=== PATIENT | female | born 1945 | race Caucasian/White ===

== ENCOUNTER → 2018-01-14 17:19 | Outpatient (CLI) | payer MEDICARE, BC, SELFPAY ==
[2018-01-14 18:30] LABS: Thyroid Stim Hormone (TSH) 2.14 uIU/mL (0.358-3.74); Vitamin D,25 Hydroxy 47.6 ng/mL (29.95-100.01)
[2018-01-16 11:30] LABS: Hep C Antibodies <0.1 s/co ratio (0.0-0.9)
== END ==
PROVIDERS: Family Provider Family Medicine Geriatric Medicine; PCP Family Medicine Geriatric Medicine; Visit Provider Family Medicine Geriatric Medicine
DX: Z00.00 Encounter for general adult medical examination without abnormal findings (principal); Z13.89 Encounter for screening for other disorder; E55.9 Vitamin D deficiency, unspecified
CPT/HCPCS: 36415; 82306; 84443; 86803

== ENCOUNTER → 2018-03-11 09:52 | Outpatient (CLI) | payer MEDICARE, BC, SELFPAY ==
[2018-03-11 12:34] LABS: Absolute Lymphocyte Count 0.91 X10^3/ul (0.83-4.51); Basophil# 0.01 X10^3/uL; Basophil% 0.2 % (0-1); Eosinophil# 0.05 X10^3/uL; Eosinophils% 1.2 % (0-5); Hematocrit 37.2 % (37-47); Hemoglobin 12.1 g/dl (12.0-15.0); Lymphocyte # 0.91 X10^3/ul (4.0); Lymphocyte % 21.3 % (19-41); Mean Corp Hgb Conc 32.5 g/gl (32-36); Mean Corpuscular Hgb 29.2 pg (27.0-32.0); Mean Corpuscular Volume 89.9 fL (81-99); Mean Platelet Vol. 11.1 fl (6.2-12.0); Monocyte# 0.35 X10^3/uL; Monocyte% 8.2 % (0-10); Neutrophil # 2.96 X10^3/uL (2.7-7.7); Neutrophil % 69.1 % (47-70); Platelet Count 174 K/mm3 (150-450); RBC Distribution Width CV 13.8 % (11.6-14.6); RBC Distribution Width SD 44.5 fl (35.1-43.9); Red Blood Count 4.14 M/mm3 (4.2-5.4); White Blood Count 4.3 K/mm3 (4.4-11.0)
[2018-03-11 12:37] LABS: POSITIVE COUNT NO; POSITIVE DIFFERENTIAL NO; POSITIVE MORPHOLOGY NO
[2018-03-11 12:38] LABS: Prothrombin Time (Protime)PT. 13.2 SECONDS (11.7-14.9)
[2018-03-11 12:41] LABS: Anion Gap 6 (5-15); BUN 23 mg/dL (7-18); BUN/Creat Ratio 24.1 RATIO (10-20); Calcium,Total 9.3 mg/dL (8.5-10.1); Chloride 104 mmol/L (98-107); Creatinine, Serum 0.95 mg/dL (0.55-1.02); EST Glomerular Filtration Rate 61 mL/min (>60); Est Glom Filt Rate - Afr Amer 74 mL/min (>60); Glucose 111 mg/dL (74-106); Potassium 4.4 mmol/L (3.5-5.1); Sodium Level 140 mmol/L (136-145)
== END ==
PROVIDERS: Family Provider Family Medicine Geriatric Medicine; PCP Family Medicine Geriatric Medicine; Visit Provider Family Medicine Geriatric Medicine
DX: Z01.818 Encounter for other preprocedural examination (principal); I10 Essential (primary) hypertension
CPT/HCPCS: 36415; 80048; 85025; 85610; 87081

== ENCOUNTER → 2018-06-24 15:35 | Outpatient (CLI) | payer MEDICARE, BC, SELFPAY | PROVIDERS: Family Provider Family Medicine Geriatric Medicine; PCP Family Medicine Geriatric Medicine; Visit Provider Family Medicine Geriatric Medicine | DX: N39.0 Urinary tract infection, site not specified (principal) | CPT/HCPCS: 87077; 87086; 87088; 87186 ==

== ENCOUNTER → 2018-08-22 14:41 | Outpatient (CLI) | payer MEDICARE, BC, SELFPAY ==
[2018-08-22 16:19] LABS: Absolute Lymphocyte Count 1.35 X10^3/ul (0.83-4.51); Absolute Neutrophil Count 6.9 X10^3/uL (2.0-7.7); Basophil# 0.01 X10^3/uL; Basophil% 0.1 % (0-1); Hematocrit 37.4 % (37-47); Hemoglobin 12.1 g/dl (12.0-15.0); Lymphocyte # 1.35 X10^3/ul (4.0); Lymphocyte % 15.1 % (19-41); Mean Corp Hgb Conc 32.4 g/gl (32-36); Mean Corpuscular Hgb 29.4 pg (27.0-32.0); Mean Platelet Vol. 10.8 fl (6.2-12.0); Monocyte# 0.73 X10^3/uL; Monocyte% 8.1 % (0-10); Neutrophil # 6.87 X10^3/uL (2.7-7.7); Neutrophil % 76.6 % (47-70); Platelet Count 228 K/mm3 (150-450); RBC Distribution Width CV 15.6 % (11.6-14.6); Red Blood Count 4.11 M/mm3 (4.2-5.4)
[2018-08-22 16:23] LABS: POSITIVE COUNT NO; POSITIVE DIFFERENTIAL NO; POSITIVE MORPHOLOGY NO
[2018-08-22 16:51] LABS: Vitamin D,25 Hydroxy 35.6 ng/mL (29.95-100.01)
[2018-08-22 16:57] LABS: ALB/GLOB Ratio 1.1 RATIO (0.9-2.4); AST(SGOT) 22 U/L (15-37); Alanine Aminotransfer ALT/SGPT 32 U/L (13-56); Albumin, Serum 3.8 g/dL (3.2-5.0); Alkaline Phosphatase 85 U/L (45-117); Anion Gap 7 (5-15); BUN 28 mg/dL (7-18); BUN/Creat Ratio 27.5 RATIO (10-20); Calcium,Total 9.1 mg/dL (8.5-10.1); Chloride 103 mmol/L (98-107); Creatinine, Serum 1.02 mg/dL (0.55-1.02); EST Glomerular Filtration Rate 57 mL/min (>60); Est Glom Filt Rate - Afr Amer 69 mL/min (>60); Globulin 3.5 g/dL (2.2-4.2); Glucose 80 mg/dL (74-106); Potassium 3.7 mmol/L (3.5-5.1); Protein, Total 7.3 g/dL (6.4-8.2); Sodium Level 141 mmol/L (136-145); Thyroid Stim Hormone (TSH) 2.02 uIU/mL (0.358-3.74)
--- OUTSIDE RECORDS SUMMARY | 2018-10-08 12:00 | XMS RPT_ITS ---
:1945 Author Organization [place] Support Name Relationship Address Phone R Unavailable Unavailable Unavailable NATIVIDAD VALDEZ Unavailable [address] + [address] [place] [address] R Unavailable Unavailable Unavailable NATIVIDAD VALDEZ Unavailable [address] + [address] [place] [address] R Unavailable Unavailable Unavailable NATIVIDAD VALDEZ Unavailable [address] + [address] [place] [address] R Unavailable Unavailable Unavailable NATIVIDAD VALDEZ Unavailable [address] + [place] [address] NATIVIDAD VALDEZ Unavailable [address] + [place] [address] NATIVIDAD VALDEZ Unavailable [address] + [address] [place] [address] NATIVIDAD VALDEZ Unavailable [address] + [place] [address] NATIVIDAD VALDEZ Unavailable [address] + [place] [address] NATIVIDAD VALDEZ Unavailable [address] + [place] [address] NATIVIDAD VALDEZ Unavailable [address] + [address] [place] [address] NATIVIDAD VALDEZ Unavailable [address] + [place] [address] NATIVIDAD VALDEZ Unavailable [address] + [place] [address] R Unavailable Unavailable Unavailable NATIVIDAD VALDEZ Unavailable [address] + [place] [address] NATIVIDAD VALDEZ Unavailable [address] + [place] [address] NATIVIDAD VALDEZ Unavailable [address] + [address] [place] [address] NATIVIDAD VALDEZ Unavailable [address] + [place] [address] NATIVIDAD VALDEZ Unavailable [address] + [place] [address] NATIVIDAD VALDEZ Unavailable [address] + [place] [address] NATIVIDAD VALDEZ Unavailable [address] + [address] [place] [address] NATIVIDAD VALDEZ Unavailable [address] + [place] [address] NATIVIDAD VALDEZ Unavailable [address] + [place] [address] NATIVIDAD VALDEZ Unavailable [address] + [place] [address] NATIVIDAD VALDEZ Unavailable [address] + [address] [place] [address] NATIVIDAD VALDEZ Unavailable [address] + [place] [address] R Unavailable Unavailable Unavailable NATIVIDAD VALDEZ Unavailable [address] + [place] [address] R Unavailable Unavailable Unavailable NATIVIDAD VALDEZ Unavailable [address] + [place] [address] NATIVIDAD VALDEZ Unavailable [address] + [place] [address] NATIVIDAD VALDEZ Unavailable [address] + [place] [address] Care Team Providers Name Role Phone ARNOLDO WOOTEN, JAMARI Sepulveda Attending Unavailable ARNOLDO WOOTEN, JAMARI Sepulveda Primary Care Unavailable JAMES WEEKS MD Attending Unavailable DESI WOOTEN, JAMES Admitting Unavailable YUNIEL STEVEN, DR. LUCAS Primary Care Unavailable JAMES WEEKS MD Consulting Unavailable ABRAHAM WASHINGTON MD Consulting Unavailable JAVID CLARK MD Consulting Unavailable ZACHARY GOMEZ DO Consulting Unavailable JAZMIN STEVEN, DR. YONNY Guzman Consulting Unavailable DESI WOOTEN, JAMES Attending Unavailable [place]INGBRITTANY WO ID~[id number] Primary Care Unavailable DESI WOOTEN, JAMES Attending Unavailable DESI WOOTEN, JAMES Referring Unavailable YUNIEL STEVEN, DR. CAINCORNELIUS Primary Care Unavailable JAMES WEEKS MD Attending Unavailable YUNIEL STEVEN, DR. CAINCORNELIUS Primary Care Unavailable DESI WOOTEN, JAMES Attending Unavailable YUNIEL STEVEN, DR. CAINCHI Primary Care Unavailable Yuniel, Eric Chi Attending Unavailable Yuniel, Eric Chi Primary Care Unavailable Yuniel, Eric Chi Attending Unavailable Yuniel, Eric Chi Primary Care Unavailable Wyneski, Martha Attending Unavailable Wyneski, Martha Referring Unavailable Yuniel, Eric Chi Primary Care Unavailable Wyneski, Martha Attending Unavailable Wyneski, Martha Referring Unavailable Yuniel, Eric Chi Primary Care Unavailable Yuniel, Eric Chi Attending Unavailable Yuniel, Eric Chi Primary Care Unavailable Yuniel, Eric Chi Attending Unavailable Yuniel, Eric Chi Referring Unavailable Yuniel, Eric Chi Primary Care Unavailable Wyneski, Martha Attending Unavailable Wyneski, Martha Referring Unavailable Yuniel, Eric Chi Primary Care Unavailable PROBLEMS PROBLEMS DATE TYPE CONDITION / CODE ATTENDING STATUS SOURCE 03/11/2018 Unknown Z01.818 - Encounter Yuniel, Eric Chi Active [facility] for other Community preprocedural Hospital examination / Repository Z01.818(ICD-10) 03/11/2018 Unknown I10 - Essential Yuniel, Eric Chi Active [facility] (primary) Community hypertension / Hospital I10(ICD-10) Repository 01/14/2018 Unknown Z00.00 - Encounter Yuniel, Eric Chi Active [facility] for general adult Community medical examination Hospital without abnormal Repository findings / Z00.00(ICD-10) 01/14/2018 Unknown Z13.89 - Encounter Yuniel, Eric Chi Active [facility] for screening for Community other disorder / Hospital Z13.89(ICD-10) Repository 01/14/2018 Unknown E55.9 - Vitamin D Yuniel, Eric Chi Active [facility] deficiency, Community unspecified / Hospital E55.9(ICD-10) Repository 12/24/2017 Admitting Essential (primary) ARNOLDO WOOTEN, Active [facility] Diagnosis hypertension / [facility] I10(ICD-10) Repository 12/24/2017 Admitting Mixed hyperlipidemia ARNOLDO WOOTEN, Active [facility] Diagnosis / E78.2(ICD-10) [facility] Repository PROCEDURES PROCEDURES No Procedure Records FoundRESULTS RESULTS CT ABD/PELVIS W/WO Observed: 09/06/2018 Status: F Source: [place] CONTRAST 6:52 AM [facility] REPOSITORY [facility] Imaging Services [address] [place] [address] CT Abd/Pelvis W/WO Contrast MR#: [id number] Acct: [id number] Name: TERRIE VALDEZ Rep #: [id number] : 1945 F 73 From: Adrien Smith MD PCP: Yuniel WOOTEN,Eric [facility] Status: REG CLI Study: CT Abd/Pelvis W/WO Contrast Date of Exam: 09/06/18 Exam# [id number] Ordering Dr: Martha Wallis MD STUDY: CT ABDOMEN AND PELVIS WITH AND WITHOUT CONTRAST REASON FOR EXAM: Female, 73 years old. Renal cyst RADIATION DOSAGE (If Supplied By Facility): CTDIvol = ( 17.19 ) mGy, DLP = ( 2160.30 ) mGycm TECHNIQUE: Transaxial images were obtained from the dome of the diaphragm to the symphysis pubis without oral contrast. 100mL ml of Isovue 300 contrast was administered. Sagittal and coronal images were reconstructed. Individualized dose optimization techniques were used for this CT. COMPARISON: Ultrasound 08/30/2018 FINDINGS: The visualized lung bases are unremarkable. The visualized portions of the heart are within normal limits. There is decreased attenuation of the liver consistent with steatosis. Hepatomegaly. Normal gallbladder and extrahepatic biliary system. Normal spleen. Normal pancreas. Normal bilateral adrenal glands. Bilateral peripelvic renal cysts. Posterior left simple renal cyst measuring 5.1 x 4.2 cm. Septation seen on prior ultrasound is not visible by CT. Normal visualized stomach. 16mm duodenal diverticulum. There are multiple colonic diverticula consistent with diverticulosis. There is non-visualization of the appendix. Normal abdominal aorta. Normal inferior vena cava. Normal retroperitoneum. Normal urinary bladder. Normal abdominal wall. There are diffuse degenerative changes of the visualized lumbar spine. CT/CT Abd/Pelvis W/WO Contrast IMPRESSION: Posterior left simple renal cyst measuring 5.1 x 4.2 cm. Septation seen on prior ultrasound is not visible by CT. Small duodenal diverticulum. Hepatomegaly and fatty liver. Electronically Signed: Adrien Smith MD at 7:40 EST Tel , Service support , CC: Martha Wallis MD; Eric Bourne MD Warranty Coordinator: Signed SERUM CREATININE AND Collected: 09/04/2018 Status: F Source: [place] GFR 1:34 PM [facility] REPOSITORY TYPE CODE TESTS RESULT OUT OF RANGE REFERENCE UNITS LAB L501.1100 0.55-1.02 mg/dL Normal 0.76 CREAT,SERUM Result Comment: The validity of the calculated GFR AND GFRAA in patients over 70 years has not been determined. Clinical correlation is essential. LAB L501.1110 >60 mL/min Normal EST GFR 80 Result Comment: Non- GFR Calc LAB L501.1115 >60 mL/min Normal EST GFR - AA 96 Result Comment: GFR Calc Performed By: #### L501.1105 #### [facility] [address] [facility] [place], [address] KIDNEY AND BLADDER Observed: 08/30/2018 Status: F Source: TASHA 9:40 AM [facility] REPOSITORY [facility] Imaging Services [address] [place] [address] Kidney and Bladder MR#: [id number] Acct: [id number] Name: TERRIE VALDEZ Rep #: [id number] : 1945 F 73 From: Scout Degroot MD PCP: Yuniel WOOTEN,Eric Strauss Status: REG CLI Study: Kidney and Bladder Date of Exam: 08/30/18 Exam# [id number] Ordering Dr: Martha Wallis MD STUDY: RENAL ULTRASOUND - COMPLETE REASON FOR EXAM: Female, 73 years old. Chronic UTIs. TECHNIQUE: Ultrasound evaluation of the kidneys was performed with real-time and static verduzco-scale imaging. COMPARISON: None. FINDINGS: RIGHT KIDNEY: Normal location of the right kidney, which is normal in size. The right kidney measures 10.5 cm x 5.9 cm x 4.6 cm. There is a normal cortex of the right kidney. The renal cortex measures 1.1 cm. There is no right renal mass or cyst. There are no right renal calculi. There is no right hydronephrosis. DISTAL RIGHT URETER: There is non-visualization of the distal right ureter. There is no demonstrated right ureterovesical junction calculus. There is a visualized right ureteral jet. LEFT KIDNEY: Normal location of the left kidney, which is normal in size. The left kidney measures 11.6 cm x 4.7 cm x 6.0 cm. There is a normal cortex of the left kidney. The renal cortex measures 1.6 cm. There is a 4 cm x 4.4 cm x 4.7 cm left renal cyst with a septation. There are no left renal calculi. There is no left hydronephrosis. DISTAL LEFT URETER: There is non-visualization of the distal left ureter. There is no demonstrated left ureterovesical junction calculus. There is a visualized left ureteral jet. BLADDER: The distended urinary bladder has a volume of 606.8 ml. The empty urinary bladder has a volume of 285 ml. There is a normal wall thickness of the distended urinary bladder. There is no demonstrated mass within the urinary bladder. There are no demonstrated bladder calculi. US/Kidney and Bladder IMPRESSION: Left renal cyst. Electronically Signed: Scout Degroot MD at 11:31 EST Tel [phone], Service support , CC: Martha Wallis MD; Eric Bourne MD Warranty Coordinator: Signed CBC W/DIFF, AUTOMATED Collected: 08/22/2018 Status: F Source: T[place]HA 2:43 PM [facility] REPOSITORY TYPE CODE TESTS RESULT OUT OF RANGE REFERENCE UNITS LAB L100.1000 4.4-11.0 K/mm3 Normal WBC 9.0 LAB L100.1200 4.2-5.4 M/mm3 Low RBC 4.11 LAB L100.1300 12.0-15.0 g/dl Normal HGB 12.1 LAB L100.1400 37-47 % Normal HCT 37.4 LAB L100.1500 81-99 fL Normal MCV 91.0 LAB L100.1600 27.0-32.0 pg Normal MCH 29.4 LAB L100.1700 32-36 g/gl Normal MCHC 32.4 LAB L100.1810 11.6-14.6 % High RDW CV 15.6 LAB L100.1820 35.1-43.9 fl High RDW SD 51.0 LAB L100.1900 150-450 K/mm3 Normal PLT 228 LAB L100.2000 6.2-12.0 fl Normal MPV 10.8 LAB L100.2100 47-70 % High NEUT% 76.6 LAB L100.2200 19-41 % Low LY% 15.1 LAB L100.2300 0-10 % Normal MONO% 8.1 LAB L100.2400 0-5 % Normal EO% 0.0 LAB L100.2500 0-1 % Normal BASO% 0.1 LAB L100.2550 0.0-0.9 % Normal IM GRAN % 0.100 Result Comment: IG% - Immature Granulocytes (promyelocytes, myelocytes and metamyelocytes) > 1% indicates that a LEFT SHIFT is Present. LAB L100.2620 2.0-7.7 X10 3/uL Normal Absolute Neut 6.9 LAB L100.2720 0.83-4.51 X10 3/ul Normal Absolute Lymph 1.35 Performed By: #### L100.0100 #### [facility] [address], [place], [id number] VITAMIN D,25 HYDROXY Collected: 08/22/2018 Status: F Source: TASHA 2:43 PM [facility] REPOSITORY TYPE CODE TESTS RESULT OUT OF RANGE REFERENCE UNITS LAB L506.1000 29.95-100.01 ng/mL Normal Vitamin D 35.6 25-OH Result Comment: Vitamin D 25(OH) Status Range Deficiency <20 ng/mL (50nmol/L) Insuffciency 20 - 30 ng/mL (50 - 75 nmol/L) Sufficiency 30 - 100 ng/mL (75 - 250 nmol/L) Toxicity >100 ng/mL (>250 nmol/L) Performed By: #### L506.1000 #### [facility] [address] [place], [address] COMPREHENSIVE METABOLIC Collected: 08/22/2018 Status: F Source: TASHA [facility] 2:43 PM [facility] REPOSITORY TYPE CODE TESTS RESULT OUT OF RANGE REFERENCE UNITS LAB L501.0100 74-106 mg/dL Normal GLU 80 Result Comment: Please note revised GLUCOSE reference range effective 2017. LAB L501.1000 7-18 mg/dL High BUN 28 LAB L501.1100 0.55-1.02 mg/dL Normal CREAT,SERUM 1.02 Result Comment: The validity of the calculated GFR AND GFRAA in patients over 70 years has not been determined. Clinical correlation is essential. LAB L501.1110 >60 mL/min Low EST GFR 57 Result Comment: Non- GFR Calc LAB L501.1115 >60 mL/min Normal EST GFR - AA 69 Result Comment: GFR Calc LAB L501.1300 10-20 RATIO High BUN/CRE 27.5 LAB L501.1500 6.4-8.2 g/dL T Normal PROT 7.3 LAB L501.1800 3.2-5.0 g/dL Normal ALB 3.8 LAB L501.1950 2.2-4.2 g/dL Normal GLOB 3.5 LAB L501.2000 0.9-2.4 RATIO Normal A/G 1.1 LAB L501.2200 8.5-10.1 mg/dL CA Normal 9.1 LAB L501.4100 15-37 U/L Normal AST 22 LAB L501.4305 45-117 U/L Normal ALK P 85 LAB L501.4405 13-56 U/L Normal ALT 32 LAB L501.4600 0.20-1.00 mg/dL T Normal BILI 0.60 LAB L501.5300 136-145 mmol/L NA Normal 141 LAB L501.5600 3.5-5.1 mmol/L K Normal 3.7 LAB L501.5900 98-107 mmol/L CL Normal 103 LAB L501.6100 21.0-32.0 mmol/L Normal CO2 31.0 LAB L501.6200 5-15 Normal GAP 7 Performed By: #### L500.4050, L501.9520 #### [facility] [address] [place], [address] THYROID STIM HORMONE Collected: 08/22/2018 Status: F Source: TASHA (TSH) 2:43 PM [facility] REPOSITORY TYPE CODE TESTS RESULT OUT OF RANGE REFERENCE UNITS LAB L501.9520 0.358-3.74 uIU/mL Normal TSH 2.02 Performed By: #### L500.4050, L501.9520 #### [facility] [address] [facility] [facility], [address] Observed: 08/22/2018 Status: F Source: [place] CULTURE, URINE 2:43 PM [facility] REPOSITORY Urine Culture ORGANISM 1: Mixed Gram Positive Organisms Ald[place] Count 50,000-80,000 MIX CULTURE Mixed contaminants. Submit a new specimen if indicated. Performed By: #### M100.0650 #### [facility] [address] [facility] [facility], [address] Observed: 06/24/2018 Status: F Source: [place] CULTURE, URINE 3:37 PM [facility] REPOSITORY Urine Culture ORGANISM 1: Klebsiella oxytoca Alden Count >100,000 Klebsiella oxytoca: REACTION Amikacin $ <=2 S Amoxacillin/Clavulanic Acid $ <=2 S Ampicillin $ >=32 R Ampicillin/Sulbactam $ 4 S Aztreonam $$$ <=1 S Cefazolin $ <=4 S Cefepime $ <=1 S Ceftriaxone $ <=1 S Ciprofloxacin $ <=0.25 S ESBL - Ertapenim $$$ <=0.5 S Gentamicin $ <=1 S Imipenem *NF <=0.25 S Levofloxacin $ <=0.12 S Meropenem $ <=0.25 S Nitrofurantoin $ <=16 S Piperacillin/Tazobactam $$ <=4 S Tobramycin $ <=1 S Trimethoprim/Sulfametho $ <=20 S (NF) indicates non-formulary drug at [facility]. Approval by Infectious Disease Specialist required before non-formulary drugs may be ordered and/or dispensed. Performed By: #### M100.0650 #### [facility] [place], [address] CBC Collected: 03/27/2018 Status: F Source: [facility] 3:45 AM [facility] REPOSITORY TYPE CODE TESTS RESULT OUT OF REFERENCE UNITS RANGE LAB WBC(LOINC) 4.50-10.80 10 3/mcL WBC 8.50 LAB RBCCT(LOINC 4.10-5.30 10 6/mcL ) Low RBC 2.94 LAB HGB(LOINC) 12.0-16.0 G/dL Low Hgb 8.8 LAB HCT(LOINC) 34.0-46.0 % Low Hct 25.5 LAB MCV(LOINC) 80.0-99.0 fL MCV 86.7 LAB MCH(LOINC) 27.0-33.0 pg MCH 29.8 LAB MCHC(LOINC) 32.0-36.0 G/dL MCHC 34.4 LAB RDW(LOINC) 11.5-15.5 % RDW 14.4 LAB PLT(LOINC) 150-450 10 3/mcL Low Platelet 134 LAB MPV(LOINC) 6.6-10.5 fL MPV 8.7 Performed By: #### CBC, ADIFF, ANEU, BMP, GFR #### [place] [address] .AUTO DIFF Collected: 03/27/2018 Status: F Source: [facility] 3:45 AM [facility] REPOSITORY TYPE CODE TESTS RESULT OUT OF REFERENCE UNITS RANGE LAB NINO(LOINC) 50.0-75.0 % High Neutrophil % 78.5 LAB LYM(LOINC) 20.0-40.0 % Low Lymphocyte % 10.2 LAB MON(LOINC) 2.0-13.0 % Monocyte % 11.2 LAB EO(LOINC) 0.0-6.0 % Eosinophil % 0.0 LAB BAS(LOINC) 0.0-2.5 % Basophil % 0.1 LAB ABLYM(LOIN 0.90-4.32 10 3/mcL C) Lymphocyte, 0.90 Absolute LAB SHARITA(LOINC 0.09-1.40 10 3/mcL ) Monocyte, 1.00 Absolute LAB AEOS(LOINC 0.00-0.65 10 3/mcL ) Eosinophil, 0.00 Absolute LAB ABAS(LOINC 0.00-0.27 10 3/mcL ) Basophil, 0.00 Absolute Performed By: #### CBC, ADIFF, ANEU, BMP, GFR #### [place] [address] .NEUABS Collected: 03/27/2018 Status: F Source: [facility] 3:45 AM [facility] REPOSITORY TYPE CODE TESTS RESULT OUT OF REFERENCE UNITS RANGE LAB ANEU(LOINC) 2.25-8.10 10 3/mcL Neutrophil, 6.70 Absolute Performed By: #### CBC, ADIFF, ANEU, BMP, GFR #### [place] [address] BMP Collected: 03/27/2018 Status: F Source: [facility] 3:45 AM [facility] REPOSITORY TYPE CODE TESTS RESULT OUT OF REFERENCE UNITS RANGE LAB GLU(LOINC) 82-115 mg/dL Glucose Level 98 LAB NA(LOINC) 136-145 mEq/L Sodium Level 141 LAB K(LOINC) 3.5-5.0 mEq/L Potassium Level 4.8 LAB CL(LOINC) 98-110 mEq/L Chloride 106 LAB CO2(LOINC) 22-32 mEq/L CO2 28 LAB EBAL(LOINC 4.0-15.0 mEq/L ) Electrolyte Balance 7.0 LAB BUN(LOINC) 8.0-22.0 mg/dL BUN 20.0 LAB CRE(LOINC) 0.50-1.20 mg/dL Creatinine Lvl (s) 0.77 LAB BC(LOINC) 10.0-22.0 ratio High BUN/Creatinine 26.0 Ratio LAB CA(LOINC) 8.4-10.1 mg/dL Calcium Lvl 8.4 Performed By: #### CBC, ADIFF, ANEU, BMP, GFR #### [address] [address] .GFR Collected: 03/27/2018 Status: F Source: [facility] 3:45 AM [facility] REPOSITORY TYPE CODE TESTS RESULT OUT OF REFERENCE UNITS RANGE LAB GFRAA(LOINC ml/min/1.73 ) sqm GFR >60 Green[place]ic Result Comment: GFR Population mean for , Non- Americans Ages 20-29 = 116 mL/min/1.73 sq.m. Ages 30-39 = 107 mL/min/1.73 sq.m. Ages 40-49 = 99 mL/min/1.73 sq.m. Ages 50-59 = 93 mL/min/1.73 sq.m. Ages 60-69 = 85 mL/min/1.73 sq.m. Ages 70+ = 75 mL/min/1.73 sq.m. Chronic Kidney Disease: Less than 60 mL/min/1.73 square meters End Stage Renal Disease: Less than 15 mL/min/1.73 square meters LAB GFRNO(LOINC) ml/min/1.73sqm GFR Non- >60 Result Comment: GFR Population mean for , Non- Americans Ages 20-29 = 116 mL/min/1.73 sq.m. Ages 30-39 = 107 mL/min/1.73 sq.m. Ages 40-49 = 99 mL/min/1.73 sq.m. Ages 50-59 = 93 mL/min/1.73 sq.m. Ages 60-69 = 85 mL/min/1.73 sq.m. Ages 70+ = 75 mL/min/1.73 sq.m. Chronic Kidney Disease: Less than 60 mL/min/1.73 square meters End Stage Renal Disease: Less than 15 mL/min/1.73 square meters Performed By: #### CBC, ADIFF, ANEU, BMP, GFR #### [address] [address] UA Collected: 03/26/2018 Status: F Source: [facility] 1:47 PM [facility] REPOSITORY TYPE CODE TESTS RESULT OUT OF RANGE REFERENCE UNITS LAB SPCUA(NISHANT NC) UA Specimen Type Catheter LAB CLRUA(NISHANT NC) UA Color Straw LAB APPUA(NISHANT Clear NC) UA Appear Clear LAB SGUA(LOIN 1.006-1.029 C) UA Spec Unknown Grav <=1.005 LAB GLUA(LOIN Negative mg/dL C) UA Glucose Negative LAB BILUA(NISHANT Neg-Trace NC) UA Bili Negative LAB KETUA(NISHANT Neg-Trace mg/dL NC) UA Ketones Negative LAB BLDUA(NISHANT Neg-Trace NC) UA Blood Unknown Small LAB PHUA(LOIN 5.0 - 8.0 C) UA pH 7.0 LAB PROUA(NISHANT Negative mg/dL NC) UA Protein Negative LAB UROUA(NISHANT 0.2-1.0 E.U./dL NC) UA Urobilinogen 0.2 LAB NITUA(NISHANT Negative NC) UA Nitrite Negative LAB LEUUA(NISHANT Negative NC) UA Leuk Est Unknown Large Performed By: #### UA, UAMIC #### [place] [address] UAMIC Collected: 03/26/2018 Status: F Source: [facility] 1:47 PM [facility] REPOSITORY TYPE CODE TESTS RESULT OUT OF RANGE REFERENCE UNITS LAB RBCUA(LOIN 0-2 /hpf C) UA RBC Negative LAB WBCUA(LOIN 0-5 /hpf C) UA WBC 0-2 LAB EPIUA(LOIN 0-20 /hpf C) UA Squam Epithelial 0-2 LAB AMOUA(LOIN /hpf C) UA Amorphus Trace LAB GLTUA(LOIN /hpf C) UA Unknown Glitter cells 0-2 Performed By: #### UA, UAMIC #### [place] [address] CBC Collected: 03/26/2018 Status: F Source: [facility] 3:40 AM [facility] REPOSITORY TYPE CODE TESTS RESULT OUT OF REFERENCE UNITS RANGE LAB WBC(LOINC) 4.50-10.80 10 3/mcL High WBC 11.40 LAB RBCCT(LOINC 4.10-5.30 10 6/mcL ) Low RBC 3.34 LAB HGB(LOINC) 12.0-16.0 G/dL Low Hgb 10.0 LAB HCT(LOINC) 34.0-46.0 % Low Hct 28.9 LAB MCV(LOINC) 80.0-99.0 fL MCV 86.5 LAB MCH(LOINC) 27.0-33.0 pg MCH 29.9 LAB MCHC(LOINC) 32.0-36.0 G/dL MCHC 34.5 LAB RDW(LOINC) 11.5-15.5 % RDW 14.5 LAB PLT(LOINC) 150-450 10 3/mcL Platelet 170 LAB MPV(LOINC) 6.6-10.5 fL MPV 9.1 Performed By: #### CBC, ADIFF, ANEU, BMP, GFR #### [place] [address] .AUTO DIFF Collected: 03/26/2018 Status: F Source: [facility] 3:40 AM [facility] REPOSITORY TYPE CODE TESTS RESULT OUT OF REFERENCE UNITS RANGE LAB NINO(LOINC) 50.0-75.0 % High Neutrophil % 91.2 LAB LYM(LOINC) 20.0-40.0 % Low Lymphocyte % 5.4 LAB MON(LOINC) 2.0-13.0 % Monocyte % 2.8 LAB EO(LOINC) 0.0-6.0 % Eosinophil % 0.2 LAB BAS(LOINC) 0.0-2.5 % Basophil % 0.4 LAB ABLYM(LOIN 0.90-4.32 10 3/mcL C) Low Lymphocyte, 0.60 Absolute LAB SHARITA(LOINC 0.09-1.40 10 3/mcL ) Monocyte, 0.30 Absolute LAB AEOS(LOINC 0.00-0.65 10 3/mcL ) Eosinophil, 0.00 Absolute LAB ABAS(LOINC 0.00-0.27 10 3/mcL ) Basophil, 0.00 Absolute Performed By: #### CBC, ADIFF, ANEU, BMP, GFR #### [place] [address] .NEUABS Collected: 03/26/2018 Status: F Source: [facility] 3:40 AM [facility] REPOSITORY TYPE CODE TESTS RESULT OUT OF REFERENCE UNITS RANGE LAB ANEU(LOINC) 2.25-8.10 10 3/mcL High Neutrophil, 10.40 Absolute Performed By: #### CBC, ADIFF, ANEU, BMP, GFR #### [place] [address] BMP Collected: 03/26/2018 Status: F Source: [facility] 3:40 AM [facility] REPOSITORY TYPE CODE TESTS RESULT OUT OF REFERENCE UNITS RANGE LAB GLU(LOINC) 82-115 mg/dL Glucose High Level 131 LAB NA(LOINC) 136-145 mEq/L Sodium Level 140 LAB K(LOINC) 3.5-5.0 mEq/L Potassium Level 4.8 LAB CL(LOINC) 98-110 mEq/L Chloride 105 LAB CO2(LOINC) 22-32 mEq/L CO2 26 LAB EBAL(LOINC 4.0-15.0 mEq/L ) Electrolyte Balance 9.0 LAB BUN(LOINC) 8.0-22.0 mg/dL BUN 22.0 LAB CRE(LOINC) 0.50-1.20 mg/dL Creatinine Lvl (s) 0.86 LAB BC(LOINC) 10.0-22.0 ratio High BUN/Creatinine 25.6 Ratio LAB CA(LOINC) 8.4-10.1 mg/dL Calcium Lvl 8.6 Performed By: #### CBC, ADIFF, ANEU, BMP, GFR #### [place] [address] .GFR Collected: 03/26/2018 Status: F Source: [facility] 3:40 AM [facility] REPOSIT[facility] TYPE CODE TESTS RESULT OUT OF REFERENCE UNITS RANGE LAB GFRAA(LOINC ml/min/1.73 ) sqm GFR >60 Green[place]ic Result Comment: GFR Population mean for , Non- Americans Ages 20-29 = 116 mL/min/1.73 sq.m. Ages 30-39 = 107 mL/min/1.73 sq.m. Ages 40-49 = 99 mL/min/1.73 sq.m. Ages 50-59 = 93 mL/min/1.73 sq.m. Ages 60-69 = 85 mL/min/1.73 sq.m. Ages 70+ = 75 mL/min/1.73 sq.m. Chronic Kidney Disease: Less than 60 mL/min/1.73 square meters End Stage Renal Disease: Less than 15 mL/min/1.73 square meters LAB GFRNO(LOINC) ml/min/1.73sqm GFR Non- >60 Result Comment: GFR Population mean for , Non- Americans Ages 20-29 = 116 mL/min/1.73 sq.m. Ages 30-39 = 107 mL/min/1.73 sq.m. Ages 40-49 = 99 mL/min/1.73 sq.m. Ages 50-59 = 93 mL/min/1.73 sq.m. Ages 60-69 = 85 mL/min/1.73 sq.m. Ages 70+ = 75 mL/min/1.73 sq.m. Chronic Kidney Disease: Less than 60 mL/min/1.73 square meters End Stage Renal Disease: Less than 15 mL/min/1.73 square meters Performed By: #### CBC, ADIFF, ANEU, BMP, GFR #### [place] [id number] RBC (PRODUCT) Collected: 03/25/2018 Status: F Source: [facility] 4:11 PM [facility] REPOSITORY TYPE CODE TESTS RESULT OUT OF REFERENCE UNITS RANGE LAB RBCPR(LOINC ) RBC Product RBC Ready Ready for Pickup Performed By: #### RBCP #### [place] [address] TABO Collected: 03/25/2018 Status: F Source: [facility] 9:55 AM [facility] REPOSITORY TYPE CODE TESTS RESULT OUT OF RANGE REFERENCE UNITS LAB ABORH(LOINC ) Unknown ABO/Rh AB POS Interp Performed By: #### ABORH, ANTIS, ANTID, AUTC #### [place] [address] TABS Collected: 03/25/2018 Status: F Source: [facility] 9:55 AM [facility] REPOSITORY TYPE CODE TESTS RESULT OUT OF REFERENCE UNITS RANGE LAB ANST(LOINC ) Antibody Positive ABSC Screen Tango Performed By: #### ABORH, ANTIS, ANTID, AUTC #### [place] [address] ABID Collected: 03/25/2018 Status: P Source: [facility] 9:55 AM [facility] REPOSITORY Order Comment: Ordered by Discern Expert TYPE CODE TESTS RESULT OUT OF RANGE REFERENCE UNITS LAB ANTID(LOIN C) Unknown Antibody ID Anti-E Performed By: #### ABORH, ANTIS, ANTID, AUTC #### [place] [address] AUTO Collected: 03/25/2018 Status: F Source: [facility] 9:55 AM [facility] REPOSITORY Order Comment: Ordered by Discern Expert TYPE CODE TESTS RESULT OUT OF REFERENCE UNITS RANGE LAB AUTO(LOINC ) Auto Control Negative Performed By: #### ABORH, ANTIS, ANTID, AUTC #### [place] [address] AGTY Collected: 03/25/2018 Status: P Source: [facility] 9:55 AM [facility] REPOSITORY TYPE CODE TESTS RESULT OUT OF RANGE REFERENCE UNITS LAB CD:[id number](LOINC) RT 0 LAB AGTY(LOINC ) Unknown Antigen Type E- Performed By: #### AGTY #### [place] [address] UA Collected: 03/18/2018 Status: F Source: [facility] 11:00 AM [facility] REPOSITORY TYPE CODE TESTS RESULT OUT OF RANGE REFERENCE UNITS LAB SPCUA(NISHANT NC) UA Specimen Type Clean Catch LAB CLRUA(NISHANT NC) UA Color Yellow LAB APPUA(NISHANT Clear NC) UA Appear Clear LAB SGUA(LOIN 1.006-1.029 C) UA Spec Grav 1.020 LAB GLUA(LOIN Negative mg/dL C) UA Glucose Negative LAB BILUA(NISHANT Neg-Trace NC) UA Bili Negative LAB KETUA(NISHANT Neg-Trace mg/dL NC) UA Ketones Negative LAB BLDUA(NISHANT Neg-Trace NC) UA Blood Negative LAB PHUA(LOIN 5.0 - 8.0 C) UA pH 7.0 LAB PROUA(NISHANT Negative mg/dL NC) UA Protein Negative LAB UROUA(NISHANT 0.2-1.0 E.U./dL NC) UA Urobilinogen 0.2 LAB NITUA(NISHANT Negative NC) UA Nitrite Negative LAB LEUUA(NISHANT Negative NC) UA Leuk Est Unknown Moderate Performed By: #### UA, UAMIC #### [place] [address] UAMIC Collected: 03/18/2018 Status: F Source: [facility] 11:00 AM [facility] REPOSITORY TYPE CODE TESTS RESULT OUT OF RANGE REFERENCE UNITS LAB RBCUA(LOIN 0-2 /hpf C) UA RBC Negative LAB WBCUA(LOIN 0-5 /hpf C) UA WBC 3-5 LAB EPIUA(LOIN 0-20 /hpf C) UA Squam Epithelial 0-2 LAB MUCUA(LOIN /hpf C) UA Mucous Trace LAB BACUA(LOIN Negative /hpf C) UA Unknown Bacteria Trace Performed By: #### UA, UAMIC #### [place] [address] APTT Collected: 03/18/2018 Status: F Source: [facility] 11:00 [facility] REPOSITORY TYPE CODE TESTS RESULT OUT OF REFERENCE UNITS RANGE LAB PDOSE(LOIN C) Heparin dose Unknown (APTT) LAB APTT0(LOIN 25.0-35.0 seconds C) APTT 31.7 Result Comment: For Heparin anticoagulation therapy, the recommended therapeutic range is: 54-77 seconds (APTT Correlation with Anti-Xa therapeutic range of 0.3-0.7 units/ml). PLEASE REFERENCE THE PHARMACY PROTOCOL FOR DOSING. Performed By: #### APTT, ALB, PROT #### [place] [address] ALB Collected: 03/18/2018 Status: F Source: [facility] 11:00 [facility] REPOSITORY TYPE CODE TESTS RESULT OUT OF REFERENCE UNITS RANGE LAB ALB(LOINC) 3.2-4.8 G/dL Albumin Level 3.8 Performed By: #### APTT, ALB, PROT #### [place] [address] PROT Collected: 03/18/2018 Status: F Source: [facility] 11:00 [facility] REPOSITORY TYPE CODE TESTS RESULT OUT OF REFERENCE UNITS RANGE LAB PROT(LOINC) 6.0-8.5 G/dL Total Protein 7.0 Performed By: #### APTT, ALB, PROT #### [place] [address] Observed: 03/18/2018 Status: F Source: [facility] 11:00 [facility] REPOSITORY . MICRO - Microbiology PROCEDURE: Urine Culture [*1] SOURCE: Urine, Clean Catch BODY SITE: COLLECTED DATE/TIME: 03/18/2018 11:00 EDT RECEIVED DATE/TIME: 03/18/2018 11:26 EDT START DATE/TIME: 03/18/2018 11:26 EDT FREE TEXT SOURCE: FINAL REPORTS Final Report [] Verified Date/Time/Personnel: 03/19/2018 10:20 EDT 30,000 organisms per mL Mixed without predominant isolate(s). Sensitivity Testing not indicated. Probably contamination. Repeat culture suggested. Performing Locations *1: This test was performed at: [facility], [address] [place] [address], [place], [address]- , [facility] Performed By: #### CUR #### [address] [address] CBC W/DIFF, AUTOMATED Collected: 03/11/2018 Status: F Source: [place] 9:54 AM [facility] REPOSITORY TYPE CODE TESTS RESULT OUT OF RANGE REFERENCE UNITS LAB L100.1000 4.4-11.0 K/mm3 Low WBC 4.3 LAB L100.1200 4.2-5.4 M/mm3 Low RBC 4.14 LAB L100.1300 12.0-15.0 g/dl Normal HGB 12.1 LAB L100.1400 37-47 % Normal HCT 37.2 LAB L100.1500 81-99 fL Normal MCV 89.9 LAB L100.1600 27.0-32.0 pg Normal MCH 29.2 LAB L100.1700 32-36 g/gl Normal MCHC 32.5 LAB L100.1810 11.6-14.6 % Normal RDW CV 13.8 LAB L100.1820 35.1-43.9 fl High RDW SD 44.5 LAB L100.1900 150-450 K/mm3 Normal PLT 174 LAB L100.2000 6.2-12.0 fl Normal MPV 11.1 LAB L100.2100 47-70 % Normal NEUT% 69.1 LAB L100.2200 19-41 % Normal LY% 21.3 LAB L100.2300 0-10 % Normal MONO% 8.2 LAB L100.2400 0-5 % Normal EO% 1.2 LAB L100.2500 0-1 % Normal BASO% 0.2 LAB L100.2550 0.0-0.9 % Normal IM GRAN % 0.000 Result Comment: IG% - Immature Granulocytes (promyelocytes, myelocytes and metamyelocytes) > 1% indicates that a LEFT SHIFT is Present. LAB L100.2620 2.0-7.7 X10 3/uL Normal Absolute Neut 3.0 LAB L100.2720 0.83-4.51 X10 3/ul Normal Absolute Lymph 0.91 Performed By: #### L100.0100 #### [facility] [address] [place], [address] PROTHROMBIN TIME W/INR Collected: 03/11/2018 Status: F Source: [place] 9:54 AM [facility] REPOSITORY TYPE CODE TESTS RESULT OUT OF RANGE REFERENCE UNITS LAB L300.4150 11.7-14.9 SECONDS Normal PROTIME 13.2 LAB L300.4200 Normal INR 1.0 Performed By: #### L300.3900 #### [facility] [address] [place], [address] BASIC METABOLIC Collected: 03/11/2018 Status: F Source: [place] PROFILE (BMP) 9:54 AM [facility] REPOSITORY TYPE CODE TESTS RESULT OUT OF RANGE REFERENCE UNITS LAB L501.0100 74-106 mg/dL High GLU 111 Result Comment: Fasting Glucose result from 100 to 125 mg/dL suggests IMPAIRED HOMEOSTASIS per A.D.A. criteria. Please note revised GLUCOSE reference range effective 2017. LAB L501.1000 7-18 mg/dL High BUN 23 LAB L501.1100 0.55-1.02 mg/dL Normal CREAT,SERUM 0.95 Result Comment: The validity of the calculated GFR AND GFRAA in patients over 70 years has not been determined. Clinical correlation is essential. LAB L501.1110 >60 mL/min Normal EST GFR 61 Result Comment: Non- GFR Calc LAB L501.1115 >60 mL/min Normal EST GFR - AA 74 Result Comment: GFR Calc LAB L501.1300 10-20 RATIO High BUN/CRE 24.1 LAB L501.2200 8.5-10.1 mg/dL CA Normal 9.3 LAB L501.5300 136-145 mmol/L NA Normal 140 LAB L501.5600 3.5-5.1 mmol/L K Normal 4.4 LAB L501.5900 98-107 mmol/L CL Normal 104 LAB L501.6100 21.0-32.0 mmol/L Normal CO2 30.0 LAB L501.6200 5-15 Normal GAP 6 Performed By: #### L500.2500 #### [facility] [address] [place], [place], [id number] Observed: 03/11/2018 Status: F Source: [place] MRSA/SAID SCREEN 9:54 AM [facility] REPOSITORY MRSA/SAID SCRN S. AUREUS S. aureus Negative MRSA MRSA Negative Performed By: #### M100.651 #### [facility] [address] [place], [place], [id number] THYROID STIM HORMONE Collected: 01/14/2018 Status: F Source: [place] (TSH) 5:28 PM [facility] REPOSITORY TYPE CODE TESTS RESULT OUT OF RANGE REFERENCE UNITS LAB L501.9520 0.358-3.74 uIU/mL Normal TSH 2.14 Performed By: #### L501.9520 #### [facility] [address] [facility], [address] VITAMIN D,25 HYDROXY Collected: 01/14/2018 Status: F Source: [place] 5:28 PM [facility] REPOSITORY TYPE CODE TESTS RESULT OUT OF RANGE REFERENCE UNITS LAB L506.1000 29.95-100.01 ng/mL Normal Vitamin D 47.6 25-OH Result Comment: Vitamin D 25(OH) Status Range Deficiency <20 ng/mL (50nmol/L) Insuffciency 20 - 30 ng/mL (50 - 75 nmol/L) Sufficiency 30 - 100 ng/mL (75 - 250 nmol/L) Toxicity >100 ng/mL (>250 nmol/L) Performed By: #### L506.1000 #### [facility] [address] [facility] [place], [place], [address] HEPATITIS C ANTIBODIES Collected: 01/14/2018 Status: F Source: [place] 5:28 PM [facility] REPOSITORY TYPE CODE TESTS RESULT OUT OF RANGE REFERENCE UNITS LAB L3100.0650 0.0-0.9 s/co ratio Normal HEP C AB <0.1 Result Comment: Negative: < 0.8 Indeterminate: 0.8 - 0.9 Positive: > 0.9 The CDC recommends that a positive HCV antibody result be followed up with a HCV Nucleic Acid Amplification test ([id number]). Performed at: [address] [id number] Tin Flopper: Jaziel Ibarra PhD, Phone: [phone] Performed By: #### L3100.0625 #### [facility] (refer to report for specific site) refer to report for address and phone number LIPID Collected: 12/24/2017 Status: F Source: [facility] 8:01 AM [facility] REPOSITORY TYPE CODE TESTS RESULT OUT OF REFERENCE UNITS RANGE LAB CHOL(LOINC 131-200 mg/dL ) Cholesterol 191 Result Comment: Cholesterol Reference Interval: Less than 200 Desirable 200-239 Borderline high risk 240 and above High risk LAB TRIG(LOINC) 40-150 mg/dL Triglycerides 147 Result Comment: Triglyceride Reference Interval: Less than 150 Normal 150-199 Borderline high risk 200-499 High risk 500 or higher Very high risk LAB HD(LOINC) 35-90 mg/dL HDL Cholesterol 74 Result Comment: HDL Reference Interval: Less than 40 Low - high risk 60 or above Optimal/lowers risk LAB LDL(LOINC) 0-130 mg/dL LDL Cholesterol 88 Result Comment: LDL is a calculated result and requires a 12-hr fast. LDL Reference Interval: Less than 100 Optimal 100-129 Near or above optimal 130-159 Borderline high risk 160-189 High risk 190 and above Very high risk Performed By: #### LIPID, CMP, GFR #### [place] [address] CMP Collected: 12/24/2017 Status: F Source: [facility] 8:01 [facility] REPOSITORY TYPE CODE TESTS RESULT OUT OF REFERENCE UNITS RANGE LAB 1547-9 83-110 mg/dL GLUCOSE 103 LAB NA(LOINC) 136-146 mEq/L Sodium Level 140 LAB K(LOINC) 3.5-5.1 mEq/L Potassium Level 3.5 LAB CL(LOINC) 98-107 mEq/L Chloride 103 LAB CO2(LOINC) 23-31 mEq/L CO2 30 LAB EBAL(LOINC mEq/L ) Electrolyte Balance 7.0 LAB BUN(LOINC) 7.0-18.0 mg/dL BUN High 27.5 LAB CRE(LOINC) 0.6-1.2 mg/dL Creatinine Lvl (s) 0.9 LAB BC(LOINC) 7-27 ratio High BUN/Creatinine 31 Ratio LAB CA(LOINC) 8.4-10.2 mg/dL Calcium Lvl 9.7 LAB PROT(LOINC 6.0-8.3 G/dL ) Total Protein 6.5 LAB ALB(LOINC) 3.4-4.8 G/dL Albumin Level 4.2 LAB GLB(LOINC) G/dL Globulin 2.3 LAB AG(LOINC) 1.1-2.5 ratio A/G Ratio 1.8 LAB BILT(LOINC 0.2-1.0 mg/dL ) Bili Total 0.5 LAB AP(LOINC) 40-135 IU/L Alk Phos 73 LAB AST(LOINC) 10-40 IU/L AST/SGOT 30 LAB ALT(LOINC) 10-35 IU/L ALT/SGPT 29 Performed By: #### LIPID, CMP, GFR #### [address] [address] .GFR Collected: 12/24/2017 Status: F Source: [facility] REPOSITORY TYPE CODE TESTS RESULT OUT OF REFERENCE UNITS RANGE LAB GFRAA(LOINC ml/min/1.73 ) sqm GFR 71 Green[place]ic Result Comment: GFR Population mean for , Non- Americans Ages 20-29 = 116 mL/min/1.73 sq.m. Ages 30-39 = 107 mL/min/1.73 sq.m. Ages 40-49 = 99 mL/min/1.73 sq.m. Ages 50-59 = 93 mL/min/1.73 sq.m. Ages 60-69 = 85 mL/min/1.73 sq.m. Ages 70+ = 75 mL/min/1.73 sq.m. Chronic Kidney Disease: Less than 60 mL/min/1.73 square meters End Stage Renal Disease: Less than 15 mL/min/1.73 square meters LAB GFRNO(LOINC) ml/min/1.73sqm GFR Non- 58 Result Comment: GFR Population mean for , Non- Americans Ages 20-29 = 116 mL/min/1.73 sq.m. Ages 30-39 = 107 mL/min/1.73 sq.m. Ages 40-49 = 99 mL/min/1.73 sq.m. Ages 50-59 = 93 mL/min/1.73 sq.m. Ages 60-69 = 85 mL/min/1.73 sq.m. Ages 70+ = 75 mL/min/1.73 sq.m. Chronic Kidney Disease: Less than 60 mL/min/1.73 square meters End Stage Renal Disease: Less than 15 mL/min/1.73 square meters Performed By: #### LIPID, CMP, GFR #### [place] [address] [place], [place] [address] ALLERGIES ALLERGIES No Allergies Records FoundENCOUNTERS ENCOUNTERS ADMIT/DISCHARGE ACCOUNT NUMBER ADMITTING ENCOUNTER LOCATION SOURCE CLASS 09/06/2018 [id number] [facility] ding:CT Repository 09/04/2018 [id number] Ambulatory [facility] ding:MTLAB Repository 08/30/2018 [id number] [facility] ding:US Repository 08/22/2018 [id number] [facility] ding:POLAB3 Repository 08/20/2018 [id number] Ambulatory ABuilding:TIERRA Miller [facility] Repository 08/20/2018 [id number] Ambulatory ABuilding:DIANA Miller [facility] Repository 06/24/2018 [id number] Ambulatory [facility] ding:POLAB3 Repository 03/29/2018/05/03/20 [id number] Ambulatory BBuilding:DENNY [facility] Repository 03/25/2018/03/27/20 [id number] DESI WOOTEN, Ambulatory ABuilding:ERMA RAMIREZ Room: [place] [address]Bed: [facility] Repository 03/18/2018/03/18/20 [id number] Ambulatory Bear Miller 18 ing:[facility] Repository 03/11/2018 [id number] Ambulatory [facility] ding:POLAB3 Repository 01/14/2018 [id number] Ambulatory [facility] ding:LAB Repository 12/24/2017/12/29/19 [id number] Ambulatory ANGELA [address] ding:[facility] Foundation Repository PAYERS PAYERS ENCOUNTER GUARANTOR PAYER SUBSCRIBER SOURCE 09/06/2018 TERRIE A Primary TERRIE A [place] [id number] Insurance:MEDICARE TUCKERDOB: [facility] PART A [facility] [id number], Number: [place]ository [place] [id number]: [id number] Date:2018-09-04 () 09/06/2018 Secondary TERRIE A [place] Insurance:ANTHEMPolic TUCKERDOB: Community y Number: [id number] [facility] [id number] Repository Date:[id number] [address]RZ: 09/06/2018 Tertiary NOT GIVENUNK [place] Insurance:SELF PAY [facility] Number: Effective Repository Date:2018-09-04 09/04/2018 TERRIE A Primary TERRIE A [place] [id number] Insurance:MEDICARE TUCKERDOB: [facility] PART A [facility] [id number], Number: [place]ository [place] [id number]: [id number] Date:2018-09-04 () 09/04/2018 Secondary TERRIE A [place] Insurance:ANTHEMPolic TUCKERDOB: Community y Number: [id number] [facility] [id number] Repository Date:[id number] [address]PF: 09/04/2018 Tertiary NOT GIVENUNK [place] Insurance:SELF PAY [facility] Number: Effective Repository Date:2018-09-04 08/30/2018 TERRIE A Primary TERRIE A [place] [id number] Insurance:MEDICARE TUCKERDOB: [facility] PART A [facility] [id number], Number: [place]ository [place] [id number]: [id number] Date:2018-08-26 () 08/30/2018 Secondary TERRIE A [place] Insurance:ANTHEMPolic TUCKERDOB: Community y Number: [id number] Hospital [id number] Repository Date:6073-93-55[address], [place] [address]VL: 08/30/2018 Tertiary NOT GIVENUNK [place] Insurance:SELF PAY [facility] Number: Effective Repository Date:2018-08-26 08/22/2018 TERRIE A Primary TERRIE A [place] [facility] BOX Insurance:MEDICARE TUCKERDOB: [address], PART A [facility] [id number] [facility] [address]Mof: Number: Repository [id number] () Date:2018-08-22 08/22/2018 Secondary TERRIE A [place] Insurance:[facility]MPCuba [facility] HospitalCKERDOB: [facility] y Number: [id number] Hospital [id number] Repository Date:1091-17-01VZ [facility] [address]2339HSMK[place]Q, [place] [address]VB: 08/22/2018 Tertiary NOT GIVENUNK [place] Insurance:SELF PAY [facility] Number: Effective Repository Date:2018-08-22 08/20/2018 TERRIE A Primary TERRIE A [facility] Insurance:MEDICARE TUCKERDOB: [facility] [id number] BOX PART B [facility] [id number] Repository [address] [place] [address], Number: [facility] [id number] [address] [place] [address], [address]~[id number]@ Date:2018-08-20 - [place] [address]Liz: GMAIL.COMTel: [id number] Name:[facility] (HP)Tel: (000) (HP)Tel: (999) Administrators LLCPO 000-0000 (WP) [phone] (WP) [address] [address]Ofcnosamh, [place] [address]KF: 08/20/2018 Secondary TERRIE A [facility] Insurance:ANTHEM BLUE TUCKERDOB: [facility] [id number] Repository Number: BOX [id number] [address] [place] [address], Date:2018-08-20 [address]Fol: [id number] Name:RPO Box (HP)Tel: 000) [phone], [place] 000-0000 () [address]KV: 08/20/2018 TERRIE A Primary [facility]:MEDICARE [facility]: [facility] [id number] BOX PART B INSCOPolicy [id number] Repository [address] [place] [address], Number: BOX [place] [id number] [address] [place] [address], [address]~[id number]@ Date:2018-08-20 [address]Bhb: GMAIL.COMTel: [id number] Name:PCGS (HP)Tel: (000) (HP)Tel: 999) LLCPO 000-0000 (WP) [phone] (WP) [address] [place] [address]: 08/20/2018 Secondary TERRIE A [facility] [id number] Repository Number: BOX [id number] [address] [place] [address], Date:2018-08-20 [address]Axb: [id number] Name:RPO Box (HP)Tel: (000) [phone], [place] 000-0000 (WP) [address]PT: 06/24/2018 TERRIE A Primary TERRIE A [place] [facility] BOX Insurance:MEDICARE [facility]: [address], PART A [facility] [id number] [address]Bov: Number: Repository [id number] () Date:2018-06-24 06/24/2018 Secondary TERRIE A [place] [facility] y Number: [id number] Hospital [id number] Repository Date:3579-89-97KX [address]WOIIQHG, [place] [address]TJ: 06/24/2018 Tertiary NOT GIVENUNK [place] Insurance:SELF PAY [facility] Number: Effective Repository Date:2018-06-24 03/29/2018 TERRIE A Primary TERRIE A [facility]: Insurance:MEDICARE [facility]DOB: [facility] [id number] BOX PART BPolicy Number: [id number] Repository [address] [place] [address] [id number] BOX [place] Date:2018-03-26[place], [address]~LQKDLKY26@ [id number] [place] [address]Fjp: GMAIL.COMTel: Name:[facility] Administrators LLCPO (HP)Tel: (000) (HP)Tel: (999) [address] [address]Gklpkukpm, 000-0000 (WP) [phone] (WP) [place] [address]DK: 03/29/2018 Secondary TERRIE A [facility] Insurance:[facility]: [facility] [id number] Repository Number: BOX [id number] [address] [place] [address], Date:2018-03-29 - [place] [address]Jqg: [id number] Name:O Box (HP)Tel: (000) [phone], [place] 000-0000 (WP) [address]BZ: 03/25/2018 TERRIE A Primary TERRIE A [facility]: Insurance:MEDICARE [facility]: [facility] [id number] BOX PART BPolicy Number: [id number] Repository [address] [place] [address] [id number] BOX [place] Date:2018-03-[address] [place] [address], [address]~[id number]@ [id number] [place] [address]Vav: GMAIL.COMTel: Name:[facility] Administrators LLCPO (HP)Tel: (000) (HP)Tel: (999) [address] [address]Obkbdhtma, 000-0000 (WP) [phone] (WP) [place] [address]ZB: 03/25/2018 Secondary TERRIE A [facility] Insurance:ANTHEM AUTO [facility]: [facility] [id number] Repository Number: DONNA [id number] [address] [place] [address], Date:2018-03-07 [place] [address]Gsp: [id number] Name:BPO BOX (HP)Tel: (000) [phone], [place] 000-0000 (WP) [address]WU: 03/18/2018 TERRIE A Primary TERRIE A [facility]: Insurance:MEDICARE TUCKERDOB: [facility] [id number] BOX PART BPolicy Number: [id number] Repository [address] [place] [address], [id number] BOX [place] Date:2018-03-[address] [place] [address], [address]~[id number]@ [id number] [place] [address]Rvw: GMAIL.KENNETHel: Name:[facility] Administrators LLCPO (HP)Tel: (000) (HP)Tel: (999) [address] [address]Siyornxuo, 000-0000 (WP) [phone] (WP) [place] [address]KC: 03/18/2018 Secondary TERRIE A [facility] AUTO [facility]B: [facility] [id number] Repository Number: BOX [id number] [address] [place] [address], Date:2018-03-07 - [place] [address]Sli: [id number] Name:BP O BOX (HP)Tel: (000) [phone], [place] 000-0000 (WP) [address]KY: 03/11/2018 TERRIE A Primary TERRIE A [place] TUCKERPO BOX Insurance:MEDICARE TUCKERDOB: [address], PART A [facility] [id number] Health Center [address]Coe: Number: Repository [id number] () Date:2018-03-11 03/11/2018 Secondary TERRIE A Tasha Insurance:ANTHEMPolic TUCKERDOB: Community y Number: [id number] County General [id number] Repository Date:3732-24-11QQ [address] [place] [address]WP: 03/11/2018 Tertiary NOT GIVENUNK [place] Insurance:SELF PAY [facility] Number: Effective Repository Date:2018-03-11 01/14/2018 TERRIE A Primary TERRIE A Tasha TUCKERPO BOX Insurance:MEDICARE TUCKERDOB: [address] PART A [facility] [id number] Health Center [address]Oob: Number: Repository [id number] () Date:2018-01-14 01/14/2018 Secondary TERRIE A [place] Insurance:ANTHEMPolic TUCKERDOB: Community y Number: [id number] [facility] [id number] Repository Date:[id number] [address] [place] [id number]: 01/14/2018 Tertiary NOT GIVENUNK Potter Insurance:SELF PAY [facility] Number: Effective Repository Date:2018-01-14 12/24/2017 TERRIE A Primary TERRIE A [facility] TUCKERDOB: Insurance:MEDICARE TUCKERDOB: [facility] [id number] BOX PART [facility] Number: [id number] Repository [address] [place] [address] [id number] [place] Date:2017-12-24 - [address] [place] [address], [id number] [place] [address]Jyj: GMAIL.Darshan: Name:[facility] Administrators LLCPO (HP)Tel: (000) (HP)Tel: [phone]) [address] [address]Bjonw[address]ve, 000-0000 (WP) [phone] (WP) [place] [address]PR: 12/24/2017 Secondary TERRIE [facility] Insurance:[employer] COTULLADOB: [facility] [id number] Repository Number: [address] [id number] [place] [address], Date:2017-12-24 [id number]: [id number] Name:BP [place] B[address] (HP)Tel: 000) [phone], [place] 000-0000 (WP) [phone]:
== END ==
PROVIDERS: Family Provider Family Medicine Geriatric Medicine; PCP Family Medicine Geriatric Medicine; Visit Provider Family Medicine Geriatric Medicine
DX: E55.9 Vitamin D deficiency, unspecified (principal); I10 Essential (primary) hypertension; N39.0 Urinary tract infection, site not specified
CPT/HCPCS: 36415; 80053; 82306; 84443; 85025; 87086; 87088

== ENCOUNTER → 2018-08-30 09:19 | Outpatient (CLI) | payer MEDICARE, BC, SELFPAY ==
--- NOTE | 2018-08-30 09:40 | US_ITS ---
STUDY: RENAL ULTRASOUND - COMPLETE REASON FOR EXAM: Female, 73 years old. Chronic UTIs. TECHNIQUE: Ultrasound evaluation of the kidneys was performed with real-time and static verduzco-scale imaging. COMPARISON: None. FINDINGS: RIGHT KIDNEY: Normal location of the right kidney, which is normal in size. The right kidney measures 10.5 cm x 5.9 cm x 4.6 cm. There is a normal cortex of the right kidney. The renal cortex measures 1.1 cm. There is no right renal mass or cyst. There are no right renal calculi. There is no right hydronephrosis. DISTAL RIGHT URETER: There is non-visualization of the distal right ureter. There is no demonstrated right ureterovesical junction calculus. There is a visualized right ureteral jet. LEFT KIDNEY: Normal location of the left kidney, which is normal in size. The left kidney measures 11.6 cm x 4.7 cm x 6.0 cm. There is a normal cortex of the left kidney. The renal cortex measures 1.6 cm. There is a 4 cm x 4.4 cm x 4.7 cm left renal cyst with a septation. There are no left renal calculi. There is no left hydronephrosis. DISTAL LEFT URETER: There is non-visualization of the distal left ureter. There is no demonstrated left ureterovesical junction calculus. There is a visualized left ureteral jet. BLADDER: The distended urinary bladder has a volume of 606.8 ml. The empty urinary bladder has a volume of 285 ml. There is a normal wall thickness of the distended urinary bladder. There is no demonstrated mass within the urinary bladder. There are no demonstrated bladder calculi. US/Kidney and Bladder IMPRESSION: Left renal cyst. Electronically Signed: Scout Degroot MD at 11:31 EST Tel [phone], Service support ,
== END ==
PROVIDERS: Family Provider Family Medicine Geriatric Medicine; PCP Family Medicine Geriatric Medicine; Referring Provider Urology; Visit Provider Urology
DX: N39.0 Urinary tract infection, site not specified (principal)
CPT/HCPCS: 76770

== ENCOUNTER → 2018-09-04 13:10 | Outpatient (CLI) | payer MEDICARE, BC, SELFPAY ==
[2018-09-04 14:35] LABS: Creatinine, Serum 0.76 mg/dL (0.55-1.02); EST Glomerular Filtration Rate 80 mL/min (>60); Est Glom Filt Rate - Afr Amer 96 mL/min (>60)
== END ==
PROVIDERS: Family Provider Family Medicine Geriatric Medicine; PCP Family Medicine Geriatric Medicine; Referring Provider Urology; Visit Provider Urology
DX: R93.89 Abnormal findings on diagnostic imaging of other specified body structures (principal)
CPT/HCPCS: 36415; 82565

== ENCOUNTER → 2018-09-06 06:50 | Outpatient (CLI) | payer MEDICARE, BC, SELFPAY ==
--- NOTE | 2018-09-06 06:52 | CT_ITS ---
STUDY: CT ABDOMEN AND PELVIS WITH AND WITHOUT CONTRAST REASON FOR EXAM: Female, 73 years old. Renal cyst RADIATION DOSAGE (If Supplied By Facility): CTDIvol = ( 17.19 ) mGy, DLP = ( 2160.30 ) mGycm TECHNIQUE: Transaxial images were obtained from the dome of the diaphragm to the symphysis pubis without oral contrast. 100mL ml of Isovue 300 contrast was administered. Sagittal and coronal images were reconstructed. Individualized dose optimization techniques were used for this CT. COMPARISON: Ultrasound 08/30/2018 FINDINGS: The visualized lung bases are unremarkable. The visualized portions of the heart are within normal limits. There is decreased attenuation of the liver consistent with steatosis. Hepatomegaly. Normal gallbladder and extrahepatic biliary system. Normal spleen. Normal pancreas. Normal bilateral adrenal glands. Bilateral peripelvic renal cysts. Posterior left simple renal cyst measuring 5.1 x 4.2 cm. Septation seen on prior ultrasound is not visible by CT. Normal visualized stomach. 16mm duodenal diverticulum. There are multiple colonic diverticula consistent with diverticulosis. There is non-visualization of the appendix. Normal abdominal aorta. Normal inferior vena cava. Normal retroperitoneum. Normal urinary bladder. Normal abdominal wall. There are diffuse degenerative changes of the visualized lumbar spine. CT/CT Abd/Pelvis W/WO Contrast IMPRESSION: Posterior left simple renal cyst measuring 5.1 x 4.2 cm. Septation seen on prior ultrasound is not visible by CT. Small duodenal diverticulum. Hepatomegaly and fatty liver. Electronically Signed: Adrien Smith MD at 7:40 EST Tel , Service support ,
== END ==
PROVIDERS: Family Provider Family Medicine Geriatric Medicine; PCP Family Medicine Geriatric Medicine; Referring Provider Urology; Visit Provider Urology
DX: R93.89 Abnormal findings on diagnostic imaging of other specified body structures (principal)
CPT/HCPCS: 74178; Q9967

== ENCOUNTER → 2018-12-12 13:58 | Outpatient (CLI) | payer MEDICARE, BC, SELFPAY ==
[2018-12-12 14:31] LABS: Absolute Lymphocyte Count 1.06 X10^3/ul (0.83-4.51); Absolute Neutrophil Count 3.8 X10^3/uL (2.0-7.7); Basophil# 0.02 X10^3/uL; Basophil% 0.4 % (0-1); Eosinophil# 0.04 X10^3/uL; Eosinophils% 0.7 % (0-5); Hematocrit 35.2 % (37-47); Hemoglobin 11.4 g/dl (12.0-15.0); Lymphocyte # 1.06 X10^3/ul (4.0); Lymphocyte % 19.7 % (19-41); Mean Corp Hgb Conc 32.4 g/gl (32-36); Mean Corpuscular Hgb 29.2 pg (27.0-32.0); Mean Corpuscular Volume 90.3 fL (81-99); Mean Platelet Vol. 10.5 fl (6.2-12.0); Monocyte# 0.46 X10^3/uL; Monocyte% 8.5 % (0-10); Neutrophil # 3.81 X10^3/uL (2.7-7.7); Neutrophil % 70.7 % (47-70); Platelet Count 191 K/mm3 (150-450); RBC Distribution Width CV 13.8 % (11.6-14.6); RBC Distribution Width SD 45.3 fl (35.1-43.9); White Blood Count 5.4 K/mm3 (4.4-11.0)
[2018-12-12 14:33] LABS: POSITIVE COUNT NO; POSITIVE DIFFERENTIAL NO; POSITIVE MORPHOLOGY NO
[2018-12-12 15:01] LABS: Vitamin D,25 Hydroxy 46.4 ng/mL (29.95-100.01)
[2018-12-12 15:10] LABS: ALB/GLOB Ratio 1.1 RATIO (0.9-2.4); AST(SGOT) 26 U/L (15-37); Alanine Aminotransfer ALT/SGPT 30 U/L (13-56); Albumin, Serum 3.7 g/dL (3.2-5.0); Alkaline Phosphatase 95 U/L (45-117); Anion Gap 8 (5-15); BUN 21 mg/dL (7-18); BUN/Creat Ratio 21.4 RATIO (10-20); Chloride 102 mmol/L (98-107); Creatinine, Serum 0.98 mg/dL (0.55-1.02); EST Glomerular Filtration Rate 59 mL/min (>60); Est Glom Filt Rate - Afr Amer 72 mL/min (>60); Globulin 3.4 g/dL (2.2-4.2); Glucose 104 mg/dL (74-106); Potassium 3.8 mmol/L (3.5-5.1); Protein, Total 7.1 g/dL (6.4-8.2); Sodium Level 140 mmol/L (136-145); Thyroid Stim Hormone (TSH) 1.82 uIU/mL (0.358-3.74)
== END ==
PROVIDERS: Family Provider Family Medicine Geriatric Medicine; PCP Family Medicine Geriatric Medicine; Visit Provider Family Medicine Geriatric Medicine
DX: E55.9 Vitamin D deficiency, unspecified (principal); I10 Essential (primary) hypertension
CPT/HCPCS: 36415; 80053; 82306; 84443; 85025

== ENCOUNTER → 2019-04-02 | Outpatient (CLI) | payer MEDICARE, BC, SELFPAY ==
[2019-04-02 11:29] LABS: Absolute Lymphocyte Count 1.13 X10^3/uL (0.83-4.51); Absolute Neutrophil Count 3.9 X10^3/uL (2.0-7.7); Basophil# 0.02 X10^3/uL; Basophil% 0.4 % (0-1); Eosinophil# 0.03 X10^3/uL; Eosinophils% 0.5 % (0-5); Hematocrit 36.4 % (37-47); Hemoglobin 11.7 g/dL (12.0-15.0); Lymphocyte # 1.13 X10^3/ul (4.0); Lymphocyte % 20.2 % (19-41); Mean Corp Hgb Conc 32.1 g/dL (32-36); Mean Corpuscular Hgb 29.1 pg (27.0-32.0); Mean Corpuscular Volume 90.5 fL (81-99); Mean Platelet Vol. 10.5 fl (6.2-12.0); Monocyte# 0.47 X10^3/uL; Monocyte% 8.4 % (0-10); NRBC Flagged by Analyzer 0 % (0-5); Neutrophil # 3.93 X10^3/uL (2.7-7.7); Neutrophil % 70.3 % (47-70); Platelet Count 186 K/mm3 (150-450); RBC Distribution Width CV 14.4 % (11.6-14.6); RBC Distribution Width SD 47.8 fl (35.1-43.9); Red Blood Count 4.02 M/mm3 (4.2-5.4); White Blood Count 5.6 K/mm3 (4.4-11.0)
[2019-04-02 11:48] LABS: Vitamin D,25 Hydroxy 34.8 ng/mL (29.95-100.01)
[2019-04-02 11:53] LABS: AST(SGOT) 20 U/L (15-37); Alanine Aminotransfer ALT/SGPT 24 U/L (13-56); Albumin, Serum 3.8 g/dL (3.2-5.0); Alkaline Phosphatase 102 U/L (45-117); Anion Gap 6 (5-15); BUN 21 mg/dL (7-18); BUN/Creat Ratio 23.2 RATIO (10-20); Calcium,Total 9.5 mg/dL (8.5-10.1); Chloride 103 mmol/L (98-107); EST Glomerular Filtration Rate 65 mL/min (>60); Est Glom Filt Rate - Afr Amer 79 mL/min (>60); Globulin 3.7 g/dL (2.2-4.2); Glucose 106 mg/dL (74-106); Potassium 3.7 mmol/L (3.5-5.1); Protein, Total 7.5 g/dL (6.4-8.2); Sodium Level 139 mmol/L (136-145); Thyroid Stim Hormone (TSH) 2.53 uIU/mL (0.358-3.74)
== END | disposition home or self-care (01) ==
LOC: POLAB3 09:58
PROVIDERS: Family Provider Family Medicine Geriatric Medicine; PCP Family Medicine Geriatric Medicine; Visit Provider Family Medicine Geriatric Medicine
DX: E55.9 Vitamin D deficiency, unspecified (principal); I10 Essential (primary) hypertension
CPT/HCPCS: 36415; 80053; 82306; 84443; 85025

== ENCOUNTER → 2019-06-05 10:00 | Outpatient (CLI) | payer MEDICARE, BC, SELFPAY ==
--- NOTE | 2019-06-05 10:03 | BI_ITS ---
MAMMOGRAPHY - BILATERAL SCREENING REASON FOR EXAM: Female, 73 years old. Routine annual screening examination. PERTINENT HISTORY: Mother with breast cancer. TECHNIQUE: Digital bilateral breast su (3D mammographic acquisition) in the CC and MLO projections. 2-D mediolateral oblique (MLO) and craniocaudad (CC) views of both breasts were obtained. CAD: Full Field Digital Mammography with Computer Added Detection was performed. COMPARISON: Comparison is made with prior examination dated June 04, 2018. FINDINGS: Breast Composition: The breasts are almost entirely fatty. There are no dominant masses or suspicious calcifications. Stable small bilateral benign appearing axillary lymph nodes. No other significant abnormalities are identified. There has been no significant change since the prior study. BI/SCREEN MAMM (CAD) W/SU BILAT IMPRESSION: Stable bilateral screening mammogram. Yearly follow-up mammogram recommended. (A) ASSESSMENT CATEGORY: BIRADS Category 2: Benign. A letter regarding these results will be sent to the patient by the facility within 30 days. Approximately 10% of breast cancers are not detected by mammography. A normal mammogram should not delay biopsy of a clinically suspicious abnormality. [id number] Electronically Signed: Scout Degroot, at 11:22 EDT , Service support ,
== END ==
PROVIDERS: Family Provider Family Medicine Geriatric Medicine; PCP Family Medicine Geriatric Medicine; Referring Provider Family Medicine Geriatric Medicine; Visit Provider Family Medicine Geriatric Medicine
DX: Z12.31 Encounter for screening mammogram for malignant neoplasm of breast (principal)
CPT/HCPCS: 77063; 77067

== ENCOUNTER → 2019-08-28 15:18 | Outpatient (CLI) | payer MEDICARE, BC, SELFPAY ==
[2019-08-28 17:00] LABS: Absolute Lymphocyte Count 1.24 X10^3/uL (0.83-4.51); Absolute Neutrophil Count 4.1 X10^3/uL (2.0-7.7); Basophil# 0.03 X10^3/uL; Basophil% 0.5 % (0-1); Eosinophil# 0.04 X10^3/uL; Eosinophils% 0.7 % (0-5); Hematocrit 37.9 % (37-47); Hemoglobin 12.3 g/dL (12.0-15.0); Lymphocyte # 1.24 X10^3/ul (4.0); Mean Corp Hgb Conc 32.5 g/dL (32-36); Mean Corpuscular Hgb 29.5 pg (27.0-32.0); Mean Corpuscular Volume 90.9 fL (81-99); Mean Platelet Vol. 10.8 fl (6.2-12.0); Monocyte# 0.52 X10^3/uL; Monocyte% 8.8 % (0-10); NRBC Flagged by Analyzer 0 % (0-5); Neutrophil # 4.06 X10^3/uL (2.7-7.7); Neutrophil % 68.8 % (47-70); Platelet Count 188 K/mm3 (150-450); RBC Distribution Width CV 13.6 % (11.6-14.6); RBC Distribution Width SD 45.7 fl (35.1-43.9); Red Blood Count 4.17 M/mm3 (4.2-5.4); White Blood Count 5.9 K/mm3 (4.4-11.0)
[2019-08-28 17:06] LABS: Vitamin D,25 Hydroxy 35.3 ng/mL (29.95-100.01)
[2019-08-28 17:08] LABS: ALB/GLOB Ratio 1.1 RATIO (0.9-2.4); AST(SGOT) 21 U/L (15-37); Alanine Aminotransfer ALT/SGPT 30 U/L (13-56); Albumin, Serum 3.7 g/dL (3.2-5.0); Alkaline Phosphatase 87 U/L (45-117); Anion Gap 6 (5-15); BUN 18 mg/dL (7-18); BUN/Creat Ratio 19.8 RATIO (10-20); Calcium,Total 8.7 mg/dL (8.5-10.1); Chloride 104 mmol/L (98-107); Creatinine, Serum 0.91 mg/dL (0.55-1.02); EST Glomerular Filtration Rate 65 mL/min (>60); Est Glom Filt Rate - Afr Amer 78 mL/min (>60); Globulin 3.3 g/dL (2.2-4.2); Glucose 116 mg/dL (74-106); Potassium 3.3 mmol/L (3.5-5.1); Sodium Level 140 mmol/L (136-145); Thyroid Stim Hormone (TSH) 1.75 uIU/mL (0.358-3.74)
== END ==
PROVIDERS: Family Provider Family Medicine Geriatric Medicine; PCP Family Medicine Geriatric Medicine; Visit Provider Family Medicine Geriatric Medicine
DX: E55.9 Vitamin D deficiency, unspecified (principal); I10 Essential (primary) hypertension
CPT/HCPCS: 36415; 80053; 82306; 84443; 85025

== ENCOUNTER → 2020-01-19 15:56 | Outpatient (CLI) | payer MEDICARE, BC, SELFPAY ==
[2020-01-19 17:09] LABS: Anion Gap 7 (5-15); BUN 24 mg/dL (7-18); BUN/Creat Ratio 26.9 RATIO (10-20); Calcium,Total 9.5 mg/dL (8.5-10.1); Chloride 103 mmol/L (98-107); Creatinine, Serum 0.89 mg/dL (0.55-1.02); EST Glomerular Filtration Rate 66 mL/min (>60); Est Glom Filt Rate - Afr Amer 80 mL/min (>60); Glucose 95 mg/dL (74-106); Potassium 3.8 mmol/L (3.5-5.1); Sodium Level 139 mmol/L (136-145)
== END ==
PROVIDERS: PCP Family Medicine Geriatric Medicine; Visit Provider Family Medicine Geriatric Medicine
DX: E87.6 Hypokalemia (principal)
CPT/HCPCS: 36415; 80048

== ENCOUNTER → 2020-04-07 15:25 | Outpatient (CLI) | payer MEDICARE, BC, SELFPAY ==
[2020-04-07 16:36] LABS: Absolute Lymphocyte Count 1.35 X10^3/uL (0.83-4.51); Absolute Neutrophil Count 3.6 X10^3/uL (2.0-7.7); Basophil# 0.03 X10^3/uL; Basophil% 0.5 % (0-1); Eosinophil# 0.08 X10^3/uL; Eosinophils% 1.4 % (0-5); Hematocrit 36.5 % (37-47); Hemoglobin 12.1 g/dL (12.0-15.0); Lymphocyte # 1.35 X10^3/ul (4.0); Mean Corp Hgb Conc 33.2 g/dL (32-36); Mean Corpuscular Hgb 30.2 pg (27.0-32.0); Mean Platelet Vol. 10.7 fl (6.2-12.0); Monocyte# 0.55 X10^3/uL; Monocyte% 9.8 % (0-10); NRBC Flagged by Analyzer 0 % (0-5); Neutrophil # 3.59 X10^3/uL (2.7-7.7); Neutrophil % 63.9 % (47-70); Platelet Count 197 K/mm3 (150-450); RBC Distribution Width CV 13.8 % (11.6-14.6); RBC Distribution Width SD 45.4 fl (35.1-43.9); Red Blood Count 4.01 M/mm3 (4.2-5.4); White Blood Count 5.6 K/mm3 (4.4-11.0)
[2020-04-07 16:52] LABS: Vitamin D,25 Hydroxy 51.6 ng/mL
[2020-04-07 17:04] LABS: AST(SGOT) 23 U/L (15-37); Alanine Aminotransfer ALT/SGPT 30 U/L (13-56); Albumin, Serum 3.6 g/dL (3.2-5.0); Alkaline Phosphatase 91 U/L (45-117); Anion Gap 4 (5-15); BUN 24 mg/dL (7-18); Chloride 106 mmol/L (98-107); Creatinine, Serum 0.96 mg/dL (0.55-1.02); EST Glomerular Filtration Rate 60 mL/min (>60); Est Glom Filt Rate - Afr Amer 73 mL/min (>60); Globulin 3.6 g/dL (2.2-4.2); Glucose 96 mg/dL (74-106); Potassium 3.4 mmol/L (3.5-5.1); Protein, Total 7.2 g/dL (6.4-8.2); Sodium Level 141 mmol/L (136-145); Thyroid Stim Hormone (TSH) 2.31 uIU/mL (0.358-3.74)
== END ==
PROVIDERS: PCP Family Medicine Geriatric Medicine; Visit Provider Family Medicine Geriatric Medicine
DX: I10 Essential (primary) hypertension (principal); E55.9 Vitamin D deficiency, unspecified
CPT/HCPCS: 36415; 80053; 82306; 84443; 85025

== ENCOUNTER 2020-04-28 06:21 | Day surgery (SDC) | payer MEDICARE, BC, SELFPAY ==
[2020-04-28 06:39] VITALS: BP 169/87; PULSE 100; RESP 16; TEMP 36.3; O2SAT 100; BMI 28.3
[2020-04-28] MEDS: Lactated Ringers 1,000 ML 100 ML IV (06:47)
--- NOTE | 2020-04-28 07:39 | HP.PCM_ITS ---
History of Present Illness Date of Admission: 04/28/20 The patient is a 74 year old F who presents for screening colonoscopy. Her last colonoscopy was 5 years ago and she was told she had polyps. Past Medical/Surgical History - Planned Operation Planned Operative Procedure/s: cscope open access Date of Operative Procedure: 04/28/20 Permit Signed: No S.O.S: No Is This Patient Having a Total Joint: No - Previous Hospitalizations/Surgeries HX Hospitalizations: No HX of Surgeries: right tkr. left tkr. d&c. cscope Any Problems With Anesthesia: No You/Your Family Experience Fever (Hyperthermia) With Anes: No Cholinesterase deficiency: No - Cardiovascular Hx Chest Pain within Last 2 months: No Hx of Irregular Heartbeat and/or Afib: No Hx Heart Attack: No Hx Congestive Heart Failure: No Hx Rheumatic Fever: No Hx Hypertension: Yes - controlled with med Hx Internal Defibrillator: No Hx Pacemaker: No Hx Cardiac Catheterization: No Hx Cardiac Surgery/Stents/Etc.: No Hx Stress Test: No HX Edema: Yes - ankles prn Hx Pain in Legs when Walking/Leg Cramps: Yes - occ pain - Respiratory Chronic Cough: No HX of Shortness of Breath: No Hoarseness: No Hx Chronic Obstructive Pulmonary Disease (COPD): No Hx Asthma: No Hx Emphysema: No Hx Sleep Apnea: Yes CPAP: Yes BIPAP: No Hx Oxygen Use at Home: No Hx Respiratory Tract Infection/Cold (presently): No Result (for STOP score): Positive Hx Smoking: Yes - quit 40 yrs ago Smoking Status: Former smoker - Gastrointestinal Hx Gastroesophageal Reflux: No Hx Gastrointestinal Disorders: No Hx Gastrointestinal Bleed: No Hx Ulcer: No Hx Hiatal Hernia: No Difficulty Chewing/Swallowing: No Recent Onset of Swallowing Problems: No Special diet followed at home: No Hx Unplanned Weight Loss of 20#: No HX Unplanned Weight Gain of 20#: No - Neurological Hx Seizures: No HX Syncope/Blackout Spells/Unconsciousness: No Hx CVA/Stroke: No Hx Transient Ischemic Attacks (TIA): No Hx Multiple Sclerosis: No Hx Parkinson's Disease: No Hx Head/Neck Injury: No Hx Headaches: No Hx Back Injury/Pain: Yes - occ back pain Recent Onset of Speech Difficulty: No Restless Legs: No Does patient have nerve stimulator: No Patient instructed to have device shut off: No Rep notified?: No - Blood Disorder Hx Leukemia: No Bleeding Tendencies: No Hx Deep Vein Thrombosis: No Hx High Cholesterol: No Blood Transmitted Disease: No Hx Hepatitis: No Hx Cirrhosis: No Hx Anemia: No Hx Blood Disorders: No - Reproduction : No Is Patient Lactating: No Hx Hysterectomy: No Hx Tubal Ligation: No Are You Post Menopause: Yes - Genitourinary Hx Renal Disease: No - Musculoskeletal Hx Arthritis: Yes Hx Rheumatoid Arthritis: No Hx Gout: No Recent Onset of an Orthopedic Problem: No - Endocrine Hx Diabetes: No Thyroid Disease: No Hx Steroid Therapy: No - Psycho/Social Hx Substance Use: No Hx Alcohol Use: Yes - occ Hx Anxiety: Yes - on med Hx Depression: No Mental Illness: No Hx Dementia: No - Miscellaneous Hx Cancer: No Recent Exposure to Contagious Disease: No Active MRSA: No Hx of C-Diff: No Any Loose Teeth: No Allergies No Known Allergies Allergy (Verified 04/28/20 06:38) - Discharge Is Pt Admitted From a Snf, or a [facility]: No After D/C, Where Do you Plan to Go: Return Home - From the PAT History Number of Risk Factors: 4 - Physical Exam Vitals/I&O's: Vital Signs Temp Pulse Resp BP Pulse Ox 97.3 F L 100 16 169/87 H 100 04/28/20 06:39 04/28/20 06:39 04/28/20 06:39 04/28/20 06:39 04/28/20 06:39 Oxygen Delivery Method Room Air Weight: 186 lb 4.65 oz Body Mass Index (BMI) 28.3 General: Alert, Oriented x3 Lungs: Clear to auscultation Cardiovascular: Regular rate, Regular Rhythm, No murmurs Abdomen: Bowel Sounds Present, Soft, Non Tender, Non-Distended Current Medications Lactated Ringer's () 1,000 mls @ 100 mls/hr IV .Q10H TRINA Last Admin: 04/28/20 06:47 Dose: 100 mls/hr Documented by: Assessment/Plan Plan will be to perform a colonoscopy Procedure Criteria Procedure Type: Elective COVID Risk Discussion: The surgeon/proceduralist and patient have discussed in detail the risk of exposure to and/or potential harm posed by the COVID-19 virus with having a surgery/procedure at this time versus the risk of delaying the surgery/procedure. It is not possible to know either the risk of delaying the surgery or procedure or chance of getting an infection with perfect accuracy, but a joint decision was made between the patient and the surgeon/proceduralist to proceed at this time with the scheduled surgery/procedure as indicated on the consent form. Surgery Risks - Colonoscopy Risks Include but are not Limited To: Risks include but are not limited to: Bleeding, perforation requiring further surgery, inability to complete colonoscopy requiring barium enema.
--- NOTE | 2020-04-28 07:43 | OP.COLON_ITS ---
Patient Name: Naheed Lafleur Procedure Date: 04/28/2020 7:13 AM Date of : 1945 Age: 74 Procedure: Colonoscopy Indications: High risk colon cancer surveillance: Personal history of colonic polyps Providers: Holger Pedro MD Referring MD: Eric Bourne MD Medicines: See the Anesthesia note for documentation of the administered medications Patient Profile: This is a 74 year old female. Refer to note in patient chart for documentation of history and physical. Last Colonoscopy: 5 years ago. Complications: No immediate complications. Procedure: Pre-Anesthesia Assessment: - Prior to the procedure, a History and Physical was performed, and patient medications and allergies were reviewed. The patient's tolerance of previous anesthesia was also reviewed. The risks and benefits of the procedure and the sedation options and risks were discussed with the patient. All questions were answered, and informed consent was obtained. Prior Anticoagulants: The patient has taken no previous anticoagulant or antiplatelet agents. ASA Grade Assessment: II - A patient with mild systemic disease. After reviewing the risks and benefits, the patient was deemed in satisfactory condition to undergo the procedure. After I obtained informed consent, the scope was passed under direct vision. Throughout the procedure, the patient's blood pressure, pulse, and oxygen saturations were monitored continuously. The adult colonoscope was introduced through the anus and advanced to the cecum, identified by appendiceal orifice and ileocecal valve. The colonoscopy was performed without difficulty. The patient tolerated the procedure well. The quality of the bowel preparation was good. Scope In: 7:26:51 AM Scope Withdrawal Time 0 hours 6 minutes 35 seconds Scope Out: 7:37:43 AM Total Procedure Duration Time 0 hours 10 minutes 52 seconds Findings: Multiple small-mouthed diverticula were found in the sigmoid colon. The exam was otherwise without abnormality on direct and retroflexion views. Impression: - Diverticulosis in the sigmoid colon. - The examination was otherwise normal on direct and retroflexion views. - No specimens collected. Recommendation: - Discharge patient to home. - Resume previous diet. - Continue present medications. - Repeat colonoscopy in 10 years for screening purposes. - Return to primary care physician (date not yet determined). Procedure Code(s): --- Professional --- G0105, Colorectal cancer screening; colonoscopy on individual at high risk Diagnosis Code(s): --- Professional --- Z86.010, Personal history of colonic polyps K57.30, Diverticulosis of large intestine without perforation or abscess without bleeding CPT copyright 2017 [employer]. All rights reserved. The codes documented in this report are preliminary and upon oiler and greaser review may be revised to meet current compliance requirements. MD Holger Boyd MD 04/28/2020 7:42:42 AM This report has been signed electronically. Number of Addenda: 0 Note Initiated On: 04/28/2020 7:13 AM
--- NOTE | 2020-04-28 07:43 | OP.CCLET_ITS ---
04/28/2020 Eric Bourne MD [address] [place] [address] Re : Colonoscopy procedure for Naheed Lafleur Dear Dr. Bourne This procedure was performed on Tuesday, April 28, 2020. My impressions and recommendations are as follows: Impressions : - Diverticulosis in the sigmoid colon. - The examination was otherwise normal on direct and retroflexion views. - No specimens collected. Recommendations : - Discharge patient to home. - Resume previous diet. - Continue present medications. - Repeat colonoscopy in 10 years for screening purposes. - Return to primary care physician (date not yet determined). My findings are described in the full procedure note, which is enclosed. If I can be of further assistance, please feel free to contact me at Doctor phone number(s): , Fax: [phone], Work: . Sincerely, MD Holger Boyd MD 04/28/2020 7:42:42 AM This report has been signed electronically.
[2020-04-28 07:44] VITALS: BP 133/72; BP 169/87; PULSE 78; RESP 14; TEMP 36.3; O2SAT 98
[2020-04-28 07:50] VITALS: BP 136/76; BP 169/87; PULSE 82; RESP 16; O2SAT 97
[2020-04-28 07:55] VITALS: BP 143/74; BP 169/87; PULSE 83; RESP 16; O2SAT 97
[2020-04-28 07:59] VITALS: BP 134/77; BP 169/87; PULSE 82; RESP 16; TEMP 36.2; O2SAT 100
[2020-04-28 08:10] VITALS: BP 169/87
== END 2020-04-28 08:18 | disposition home or self-care (01) ==
LOC: EN 06:21 → AC 06:21
PROVIDERS: Anesthesiology; PCP Family Medicine Geriatric Medicine; Referring Provider Family Medicine Geriatric Medicine; Visit Provider Surgery
PROC: 0DJD8ZZ Inspection of Lower Intestinal Tract, Via Natural or Artificial Opening Endoscopic (ICD-10-PCS; CPT 45378; principal; 2020-04-28 07:25)
DX: Z12.11 Encounter for screening for malignant neoplasm of colon (principal); K57.30 Diverticulosis of large intestine without perforation or abscess without bleeding; Z86.010 Personal history of colon polyps; Z11.59 Encounter for screening for other viral diseases; I10 Essential (primary) hypertension; F41.9 Anxiety disorder, unspecified; G47.30 Sleep apnea, unspecified; M19.90 Unspecified osteoarthritis, unspecified site; Z78.0 Asymptomatic menopausal state; Z79.899 Other long term (current) drug therapy; Z87.891 Personal history of nicotine dependence
CPT/HCPCS: G0105; 87635; 94799; J7120; J2405; U0003

== ENCOUNTER → 2020-05-25 14:42 | Outpatient (CLI) | payer MEDICARE, BC, SELFPAY ==
[2020-04-28 06:39] VITALS: BMI 28.3
[2020-05-25 15:25] LABS: Absolute Lymphocyte Count 1.31 X10^3/uL (0.83-4.51); Absolute Neutrophil Count 4.3 X10^3/uL (2.0-7.7); Basophil# 0.02 X10^3/uL; Basophil% 0.3 % (0-1); Eosinophil# 0.09 X10^3/uL; Eosinophils% 1.5 % (0-5); Hematocrit 39.3 % (37-47); Hemoglobin 12.8 g/dL (12.0-15.0); Lymphocyte # 1.31 X10^3/ul (4.0); Lymphocyte % 21.2 % (19-41); Mean Corp Hgb Conc 32.6 g/dL (32-36); Mean Corpuscular Hgb 29.7 pg (27.0-32.0); Mean Corpuscular Volume 91.2 fL (81-99); Mean Platelet Vol. 10.8 fl (6.2-12.0); Monocyte# 0.41 X10^3/uL; Monocyte% 6.6 % (0-10); NRBC Flagged by Analyzer 0 % (0-5); Neutrophil # 4.34 X10^3/uL (2.7-7.7); Neutrophil % 70.1 % (47-70); Platelet Count 190 K/mm3 (150-450); RBC Distribution Width CV 13.3 % (11.6-14.6); Red Blood Count 4.31 M/mm3 (4.2-5.4); White Blood Count 6.2 K/mm3 (4.4-11.0)
[2020-05-25 15:55] LABS: AST(SGOT) 22 U/L (15-37); Alanine Aminotransfer ALT/SGPT 31 U/L (13-56); Albumin, Serum 3.7 g/dL (3.2-5.0); Alkaline Phosphatase 95 U/L (45-117); Anion Gap 2 (5-15); BUN 21 mg/dL (7-18); BUN/Creat Ratio 22.7 RATIO (10-20); Calcium,Total 9.3 mg/dL (8.5-10.1); Chloride 106 mmol/L (98-107); Creatinine, Serum 0.93 mg/dL (0.55-1.02); EST Glomerular Filtration Rate 63 mL/min (>60); Est Glom Filt Rate - Afr Amer 76 mL/min (>60); Globulin 3.7 g/dL (2.2-4.2); Glucose 113 mg/dL (74-106); Potassium 3.2 mmol/L (3.5-5.1); Protein, Total 7.4 g/dL (6.4-8.2); Sodium Level 140 mmol/L (136-145)
== END ==
PROVIDERS: PCP Family Medicine Geriatric Medicine; Visit Provider Family Medicine Geriatric Medicine
DX: R19.7 Diarrhea, unspecified (principal); R10.9 Unspecified abdominal pain
CPT/HCPCS: 36415; 74177; 80053; 85025; Q9967

== ENCOUNTER → 2020-05-25 16:07 | Outpatient (CLI) | payer MEDICARE, BC, SELFPAY ==
[2020-04-28 06:39] VITALS: BMI 28.3
--- NOTE | 2020-05-25 16:11 | CT_ITS ---
STUDY: CT ABDOMEN AND PELVIS WITH CONTRAST REASON FOR EXAM: Female, 74 years old. AB PAIN AND DIARRHEA X 1 MONTH RADIATION DOSAGE (If Supplied By Facility): CTDIvol = ( 14.80 ) mGy, DLP = ( 777.65 ) mGycm TECHNIQUE: Transaxial images were obtained from the dome of the diaphragm to the symphysis pubis without oral contrast. Oral and amp; IV Gastrografin and amp; 100mL Isovue-300 was administered. Sagittal and coronal images were reconstructed. Individualized dose optimization techniques were used for this CT. COMPARISON: None. FINDINGS: The visualized lung bases are unremarkable. The visualized portions of the heart are within normal limits. The liver is enlarged and fatty infiltrated without mass or bile duct dilatation.. Contracted thick-walled gallbladder without calcified stones likely physiologic however if concern for gallbladder disease ultrasound recommended.. Normal spleen. Small hypoattenuated nodule within the body of the pancreas measuring 1.4 x 1.04 cm of indeterminate etiology. Neoplasm not excluded. MRI/MRCP recommended for further evaluation Normal bilateral adrenal glands. There is very mild right renal pelvocaliectasis without evidence for significant hydronephrosis or ureteral calculus. . There is a very tiny hypoattenuated nodule in the upper pole the right kidney which is too small to characterize. There is left renal pelvocaliectasis or multiple parapelvic cysts without evidence for hydroureter or ureteral calculus. There are 2 simple cortical cyst in left kidney. Normal visualized stomach. Normal small intestine. There is diffuse fecal retention seen within the colon. Minor diverticular changes in the sigmoid segments without evidence for acute diverticulitis. No evidence for acute appendicitis Normal abdominal aorta. Normal inferior vena cava. Normal retroperitoneum. Normal urinary bladder. Normal abdominal wall. Lumbar spine demonstrates degenerative change CT/Abdomen/Pelvis WITH Contrast IMPRESSION: Mild diverticular disease of the colon without evidence for acute diverticulitis. Nonspecific fatty infiltrated liver. Contracted thick-walled gallbladder without calcified stones possibly physiologic. If concern for gallbladder disease ultrasound recommended. Small hypoattenuated nodule in the body of the pancreas of indeterminate etiology. Cannot exclude neoplasm. MRI/MRCP recommended for further evaluation Question left renal pelvocaliectasis versus multiple parapelvic cysts. Other findings as above Electronically Signed: Tal Castillo MD at 17:55 EDT , Service support ,
== END ==
PROVIDERS: PCP Family Medicine Geriatric Medicine; Referring Provider Family Medicine Geriatric Medicine; Visit Provider Family Medicine Geriatric Medicine
DX: R10.9 Unspecified abdominal pain (principal)
CPT/HCPCS: 74177; Q9967

== ENCOUNTER → 2020-06-02 09:17 | Outpatient (CLI) | payer MEDICARE, BC, SELFPAY ==
--- NOTE | 2020-06-02 09:30 | MRI_ITS ---
STUDY: MR MRCP WITHOUT CONTRAST REASON FOR EXAM: Female, 74 years old. panc cyst, f/u to ct -- no pain, diarrhea TECHNIQUE: Standard MRCP technique was utilized. 3-D postprocessing performed. COMPARISON: CT 05/25/2020 FINDINGS: Gall Bladder: Normal with no distention or demonstrated fixed intraluminal filling defect. Cystic duct: Normal with no demonstrated fixed filling defect. Intrahepatic ducts: Normal visualized intrahepatic ducts with no demonstrated fixed filling defect, dilation or stricture. Common hepatic duct: Normal with no demonstrated fixed filling defect, dilation or stricture. Common bile duct: Normal with no demonstrated fixed filling defect, dilation or stricture. Pancreatic duct: Normal with no demonstrated fixed filling defect, dilation or stricture. MRI/MRCP Abdomen without Contrast IMPRESSION: Normal MR Cholangiopancreatography (MRCP). Electronically Signed: James Acevedo MD at 13:07 EDT Tel , Service support ,
== END ==
PROVIDERS: PCP Family Medicine Geriatric Medicine; Referring Provider Family Medicine Geriatric Medicine; Visit Provider Family Medicine Geriatric Medicine
DX: K86.2 Cyst of pancreas (principal)
CPT/HCPCS: 74181

== ENCOUNTER → 2020-06-08 08:37 | Outpatient (CLI) | payer MEDICARE, BC, SELFPAY ==
--- NOTE | 2020-06-08 08:39 | BI_ITS ---
MAMMOGRAPHY - BILATERAL SCREENING REASON FOR EXAM: Female, 74 years old. Routine annual screening examination. PERTINENT HISTORY: Mother with breast cancer. TECHNIQUE: Digital bilateral breast su (3D mammographic acquisition) in the CC and MLO projections. 2-D mediolateral oblique (MLO) and craniocaudad (CC) views of both breasts were obtained. CAD: Full Field Digital Mammography with Computer Added Detection was performed. COMPARISON: Comparison is made with prior study dated 06/05/2019. FINDINGS: Breast Composition: The breasts are almost entirely fatty. There are no dominant masses or suspicious calcifications. No other significant abnormalities are identified. There has been no significant change since the prior study. BI/SCREEN MAMM (CAD) W/SU BILAT IMPRESSION: Stable bilateral screening mammogram. Yearly follow-up mammogram recommended. (A) ASSESSMENT CATEGORY: BIRADS Category 1: Negative. A letter regarding these results will be sent to the patient by the facility within 30 days. Approximately 10% of breast cancers are not detected by mammography. A normal mammogram should not delay biopsy of a clinically suspicious abnormality. [id number] Electronically Signed: Scout Degroot, at 9:51 EDT , Service support ,
== END ==
PROVIDERS: PCP Family Medicine Geriatric Medicine; Referring Provider Family Medicine Geriatric Medicine; Visit Provider Family Medicine Geriatric Medicine
DX: Z12.31 Encounter for screening mammogram for malignant neoplasm of breast (principal)
CPT/HCPCS: 77063; 77067

== ENCOUNTER → 2020-06-16 08:44 | Outpatient (CLI) | payer MEDICARE, BC, SELFPAY ==
[2020-06-16 12:31] LABS: Anion Gap 8 (5-15); BUN 26 mg/dL (7-18); BUN/Creat Ratio 28.9 RATIO (10-20); Calcium,Total 9.4 mg/dL (8.5-10.1); Chloride 107 mmol/L (98-107); EST Glomerular Filtration Rate 65 mL/min (>60); Est Glom Filt Rate - Afr Amer 79 mL/min (>60); Glucose 154 mg/dL (74-106); Potassium 3.6 mmol/L (3.5-5.1); Sodium Level 141 mmol/L (136-145)
== END ==
PROVIDERS: PCP Family Medicine Geriatric Medicine; Visit Provider Family Medicine Geriatric Medicine
DX: I10 Essential (primary) hypertension (principal)
CPT/HCPCS: 36415; 80048

== ENCOUNTER → 2020-07-01 09:23 | Outpatient (CLI) | payer MEDICARE, BC, SELFPAY ==
--- NOTE | 2020-07-01 09:28 | MRI_ITS ---
HISTORY: pancreatic cyst, f/u to ct amd mrcp ADDITIONAL HISTORY: None provided. COMPARISON: MRI 06/02/2020. CT 05/25/2020 TECHNIQUE: Multiplanar, multisequence MRI of the abdomen without and with IV contrast FINDINGS: LOWER THORAX: Unremarkable. LIVER: No concerning focal lesion. Decreased signal intensity on opposed phase T1-weighted images consistent with steatosis. GALLBLADDER: No calculi. BILE DUCTS: No significant biliary dilatation. KIDNEYS/URETERS: Multiple bilateral renal cysts for which no follow-up is warranted for consensus guidelines. ADRENAL GLANDS: Unremarkable. SPLEEN: Unremarkable. PANCREAS: 0.8 x 1.4 cm cystic lesion in the body of the pancreas without significant enhancement. Unclear whether this communicates to the pancreatic duct GI TRACT: Unremarkable as imaged. LYMPH NODES: No pathologic appearing adenopathy. FREE FLUID: None. SKELETON AND SOFT TISSUES: No acute findings. MRI/MRI Abd WITH and W/O Contrast IMPRESSION: 1. Small pancreatic cystic lesion without malignant features. Follow-up suggested every 2 years. 2. Hepatic steatosis. 3. Additional findings above. at 0501 Reported and signed by: Elsa Mcghee MD Electronically Signed: Elsa Mcghee MD at 5:00 EDT Tel , Service support ,
== END ==
PROVIDERS: PCP Family Medicine Geriatric Medicine; Referring Provider Family Medicine Geriatric Medicine; Visit Provider Family Medicine Geriatric Medicine
DX: K86.2 Cyst of pancreas (principal)
CPT/HCPCS: 74183; A9575; A4216

== ENCOUNTER → 2020-09-15 11:05 | Outpatient (CLI) | payer MEDICARE, BC, SELFPAY ==
[2020-09-15 12:51] LABS: Absolute Lymphocyte Count 1.12 X10^3/uL (0.83-4.51); Absolute Neutrophil Count 2.6 X10^3/uL (2.0-7.7); Basophil# 0.03 X10^3/uL; Basophil% 0.7 % (0-1); Eosinophil# 0.08 X10^3/uL; Eosinophils% 1.9 % (0-5); Hematocrit 37.3 % (37-47); Hemoglobin 12.2 g/dL (12.0-15.0); Lymphocyte # 1.12 X10^3/ul (4.0); Lymphocyte % 26.4 % (19-41); Mean Corp Hgb Conc 32.7 g/dL (32-36); Mean Corpuscular Hgb 29.2 pg (27.0-32.0); Mean Corpuscular Volume 89.2 fL (81-99); Mean Platelet Vol. 10.6 fl (6.2-12.0); Monocyte# 0.41 X10^3/uL; Monocyte% 9.6 % (0-10); NRBC Flagged by Analyzer 0 % (0-5); Neutrophil % 61.2 % (47-70); Platelet Count 179 K/mm3 (150-450); RBC Distribution Width CV 13.5 % (11.6-14.6); RBC Distribution Width SD 44.1 fl (35.1-43.9); Red Blood Count 4.18 M/mm3 (4.2-5.4); White Blood Count 4.3 K/mm3 (4.4-11.0)
[2020-09-15 13:24] LABS: ALB/GLOB Ratio 1.1 RATIO (0.9-2.4); AST(SGOT) 23 U/L (15-37); Alanine Aminotransfer ALT/SGPT 33 U/L (13-56); Albumin, Serum 3.8 g/dL (3.2-5.0); Alkaline Phosphatase 96 U/L (45-117); Anion Gap 7 (5-15); BUN 24 mg/dL (7-18); BUN/Creat Ratio 27.5 RATIO (10-20); Calcium,Total 9.2 mg/dL (8.5-10.1); Chloride 105 mmol/L (98-107); Creatinine, Serum 0.87 mg/dL (0.55-1.02); EST Glomerular Filtration Rate 67 mL/min (>60); Est Glom Filt Rate - Afr Amer 82 mL/min (>60); Globulin 3.4 g/dL (2.2-4.2); Glucose 102 mg/dL (74-106); Potassium 4.2 mmol/L (3.5-5.1); Protein, Total 7.2 g/dL (6.4-8.2); Sodium Level 140 mmol/L (136-145); Thyroid Stim Hormone (TSH) 2.13 uIU/mL (0.358-3.74)
[2020-09-15 13:54] LABS: Vitamin D,25 Hydroxy 38.4 ng/mL
== END ==
PROVIDERS: PCP Family Medicine Geriatric Medicine; Visit Provider Family Medicine Geriatric Medicine
DX: E55.9 Vitamin D deficiency, unspecified (principal); I10 Essential (primary) hypertension
CPT/HCPCS: 36415; 80053; 82306; 84443; 85025

== ENCOUNTER → 2021-04-12 09:02 | Outpatient (CLI) | payer MEDICARE, BC, SELFPAY ==
[2021-04-12 12:37] LABS: Absolute Lymphocyte Count 0.83 X10^3/uL (0.83-4.51); Absolute Neutrophil Count 3.1 X10^3/uL (2.0-7.7); Basophil# 0.01 X10^3/uL; Basophil% 0.2 % (0-1); Eosinophil# 0.05 X10^3/uL; Eosinophils% 1.1 % (0-5); Hematocrit 38.4 % (37-47); Hemoglobin 12.4 g/dL (12.0-15.0); Lymphocyte # 0.83 X10^3/ul (0.83-4.51); Mean Corp Hgb Conc 32.3 g/dL (32-36); Mean Corpuscular Hgb 28.8 pg (27.0-32.0); Mean Corpuscular Volume 89.1 fL (81-99); Mean Platelet Vol. 10.9 fl (6.2-12.0); Monocyte# 0.36 X10^3/uL; Monocyte% 8.2 % (0-10); NRBC Flagged by Analyzer 0 % (0-5); Neutrophil # 3.11 X10^3/uL (2.7-7.7); Neutrophil % 71.3 % (47-70); Platelet Count 184 K/mm3 (150-450); RBC Distribution Width CV 13.5 % (11.6-14.6); RBC Distribution Width SD 44.2 fl (35.1-43.9); Red Blood Count 4.31 M/mm3 (4.2-5.4); White Blood Count 4.4 K/mm3 (4.4-11.0)
[2021-04-12 12:54] LABS: Vitamin D,25 Hydroxy 59.4 ng/mL
[2021-04-12 13:01] LABS: ALB/GLOB Ratio 0.9 RATIO (0.9-2.4); AST(SGOT) 24 U/L (15-37); Alanine Aminotransfer ALT/SGPT 31 U/L (13-56); Albumin, Serum 3.6 g/dL (3.2-5.0); Alkaline Phosphatase 86 U/L (45-117); Anion Gap 6 (5-15); BUN 26 mg/dL (7-18); BUN/Creat Ratio 30.3 RATIO (10-20); Calcium,Total 9.1 mg/dL (8.5-10.1); Chloride 106 mmol/L (98-107); Creatinine, Serum 0.86 mg/dL (0.55-1.02); EST Glomerular Filtration Rate 69 mL/min (>60); Est Glom Filt Rate - Afr Amer 83 mL/min (>60); Globulin 3.8 g/dL (2.2-4.2); Glucose 94 mg/dL (74-106); Potassium 3.9 mmol/L (3.5-5.1); Protein, Total 7.4 g/dL (6.4-8.2); Sodium Level 139 mmol/L (136-145); Thyroid Stim Hormone (TSH) 2.08 uIU/mL (0.358-3.74)
== END ==
PROVIDERS: PCP Family Medicine Geriatric Medicine; Visit Provider Family Medicine Geriatric Medicine
DX: E55.9 Vitamin D deficiency, unspecified (principal); I10 Essential (primary) hypertension
CPT/HCPCS: 36415; 80053; 82306; 84443; 85025

== ENCOUNTER → 2021-07-27 13:58 | Outpatient (CLI) | payer MEDICARE, BC, SELFPAY ==
--- NOTE | 2021-07-27 14:05 | BI_ITS ---
MAMMOGRAPHY - BILATERAL SCREENING REASON FOR EXAM: Female, 76 years old. Routine annual screening examination. PERTINENT HISTORY: Mother with breast cancer. TECHNIQUE: Digital bilateral breast su (3D mammographic acquisition) in the CC and MLO projections. 2-D mediolateral oblique (MLO) and craniocaudad (CC) views of both breasts were obtained. CAD: Full Field Digital Mammography with Computer Added Detection was performed. COMPARISON: Comparison is made with prior study dated 08/08/2020 06/05/2019. FINDINGS: Breast Composition: The breasts are almost entirely fatty. There are no dominant masses or suspicious calcifications. Stable small benign-appearing bilateral axillary lymph nodes. No other significant abnormalities are identified. There has been no significant change since the prior study. BI/SCRN MAMM (CAD)W/SU BILAT IMPRESSION: Stable bilateral screening mammogram. Yearly follow-up mammogram recommended. (A) ASSESSMENT CATEGORY: BIRADS Category 2: Benign. A letter regarding these results will be sent to the patient by the facility within 30 days. Approximately 10% of breast cancers are not detected by mammography. A normal mammogram should not delay biopsy of a clinically suspicious abnormality. [id number] Electronically Signed: Scout Degroot MD at 14:53 EST , Service support ,
== END ==
PROVIDERS: PCP Internal Medicine; Visit Provider Internal Medicine
DX: Z12.31 Encounter for screening mammogram for malignant neoplasm of breast (principal)
CPT/HCPCS: 77063; 77067

== ENCOUNTER 2021-11-15 09:38 | Outpatient (CLI) | payer MEDICARE, BC, SELFPAY ==
--- NOTE | 2021-11-15 09:48 | BD_ITS ---
STUDY: DUAL ENERGY X-RAY ABSORPTIOMETRY / DXA REASON FOR EXAM: Female, 76 years old. Z78.0. Patient is postmenopausal. TECHNIQUE: Bone Mineral Density (BMD) measurements of lumbar spine and bilateral hips were obtained. COMPARISON: None. FINDINGS: Lumbar Spine (L1-L4): g/cm2 (1.067) / T-score (0.4) / Z-score (2.8) Findings are suggestive of normal bone density with a low fracture risk. Left Femur Total: g/cm2 (0.948) / T-score (0.0) / Z-score (1.9) Left Femoral Neck: g/cm2 (0.938) / T-score (0.8) / Z-score (2.9) Right Femur Total: g/cm2 (0.868) / T-score (-0.6) / Z-score (1.2) Right Femoral Neck: g/cm2 (0.799) / T-score (0.5) / Z-score (1.6) BD/Dexa Bone Density Study IMPRESSION: The patient is considered normal as outlined below according to World Sree Organization (WHO) criteria with a low fracture risk. Reference Information: The T-score is the number of standard deviations above or below the standard which is normal for young adults at their peak bone mineral density. The World Health Organization (WHO) interprets the T-scores as follows: Above -1 Normal bone density Between -1 and -2.5 Osteopenia Equal to / or below -2.5 Osteoporosis As a practical clinical guideline, osteopenia may be graded as follows: Mild -1 through -1.5 Moderate -1.6 through -2.0 Severe -2.1 through -2.4 The Z-score is the number of standard deviations above or below age-matched controls. A Z-score of less than -1.5 would be considered abnormal. References: 1. NIH Osteoporosis and Related Bone Diseases www osteo.org 2. International Society for Clinical Densitometry www iscd.org 3. National Osteoporosis Foundation www nof.org Electronically Signed: Scout Degroot MD at 12:24 EST ,
== END 2021-11-15 23:59 | disposition home or self-care (01) ==
LOC: OPBD 09:42
PROVIDERS: PCP Internal Medicine; Visit Provider Internal Medicine
DX: Z78.0 Asymptomatic menopausal state (principal)
CPT/HCPCS: 77080

== ENCOUNTER 2021-12-26 12:58 | Outpatient (CLI) | payer MEDICARE, BC, SELFPAY ==
--- NOTE | 2021-12-26 13:07 | CT_ITS ---
INDICATION: HYPERLIPIDEMIA EXAMINATION: CT CHEST WITHOUT CONTRAST - CT Chest W/O Contrast Injection TECHNIQUE: Helically acquired images were obtained of the chest for coronary artery scoring (performed by another service). A radiation dose optimization technique was used for this scan. IV Contrast dosage and agent: None. COMPARISON: MRI 07/01/2020 FINDINGS: LUNGS, PLEURA AND LARGE AIRWAYS: Mild subpleural atelectasis of the medial right lower lobe related to thoracic spondylosis. No pleural effusion or thickening. No pneumothorax. THYROID: No thyroid lesions. HEART AND PERICARDIUM: Heart size is normal. No pericardial effusion. CORONARY ARTERIES: Coronary artery calcification is seen. VESSELS: Thoracic aorta is not dilated. MEDIASTINUM AND LUI: No mediastinal or hilar adenopathy. UPPER ABDOMEN: The upper central abdomen posterior to the left hepatic lobe, there is a 1.5 x 2.0 cm nodule seen on the last 4 images, incompletely visualized. BONES: No suspicious lytic or blastic abnormality. CT/Limited Chest CT w/CCTA IMPRESSION: 1. 1.5 x 2.0 cm potential soft tissue nodule of the upper abdomen, incompletely visualized but not clearly seen on prior MRI. Recommend abdomen/pelvis CT with IV and oral contrast. Electronically Signed: Nate Bright MD ([place]) at 8:57 EDT Reading Location ID and State: [address] [place] [address] , Service support ,
[2021-12-26 13:24] VITALS: O2SAT 96; BMI 29.7
--- NOTE | 2022-01-08 16:26 | CA.SCORE ---
Calcium Scoring Coronary Calcium Scoring: High-resolution Computed Tomographic imaging of the chest was performed on [December 26 2021], with particular attention paid to the coronary arteries. Images from the examination were analyzed for the presence and extent of coronary artery calcification , using coronary calcium quantification software. The patient tolerated the procedure well and there were no complications. The results of the coronary calcification analysis are provided below. Left main coronary calcium score 0 Left anterior descending artery 327 Left circumflex artery 0 Right coronary artery 11.3. Total Agatston score 339. The above places the patient between the 75th and 90th percentile. Calcium Scoring Interpretation: 0 No identifiable atherosclerotic plaque. Very low cardiovascular disease risk. <5% chance of presence coronary artery disease A Negative Examination 1-10 Minimal Plaque burden. Significant coronary artery disease very unlikely. 11-100 Mild plaque burden. Likely mild or minimal coronary atherosclerosis. 101-400 Moderate plaque burden Moderate non-obstructive coronary artery disease highly likely. Over 400 Extensive plaque burden. High likelihood of at least one significant coronary stenosis (>50% diameter)
== END 2021-12-26 23:59 | disposition home or self-care (01) ==
PROVIDERS: PCP Internal Medicine; Referring Provider Internal Medicine; Visit Provider Internal Medicine
DX: E78.5 Hyperlipidemia, unspecified (principal); I25.10 Atherosclerotic heart disease of native coronary artery without angina pectoris
CPT/HCPCS: 75571; 76380

== ENCOUNTER → 2022-01-04 | Outpatient (CLI) | payer MEDICARE, BC, SELFPAY ==
--- NOTE | 2022-01-04 08:27 | CT_ITS ---
STUDY: CT ABDOMEN AND PELVIS WITH CONTRAST REASON FOR EXAM: Female, 76 years old. ABDOMINAL MASS RADIATION DOSAGE (If Supplied By Facility): CTDIvol = ( 16.71 ) mGy, DLP = ( 1006.74 ) mGycm TECHNIQUE: Transaxial images were obtained from the dome of the diaphragm to the symphysis pubis with oral contrast. Oral and amp; IV Readi-CAT and amp; 100mL Isovue-300 was administered. Sagittal and coronal images were reconstructed. Individualized dose optimization techniques were used for this CT. COMPARISON: Comparison is made with prior examination dated 05/25/2020. FINDINGS: Minimal degree of increased markings at the lung bases suggestive of mild atelectasis and/or scarring. The visualized portions of the heart are within normal limits. There is decreased attenuation of the liver consistent with steatosis. Prominent Phani''s lobe of the liver. Normal gallbladder and extrahepatic biliary system. Normal spleen. There is a 1.2 cm x 1.7 cm cyst in the body of the pancreas. Normal bilateral adrenal glands. Multiple bilateral renal cysts more prominent on the left side. Normal visualized stomach. Small duodenal diverticulum. There are multiple colonic diverticula consistent with diverticulosis. Moderate amount of fecal material is seen throughout the colon. The appendix is visualized and appears normal. There is scattered atherosclerotic calcification of the abdominal aorta, without a demonstrated aneurysm. Normal inferior vena cava. Normal retroperitoneum. Normal urinary bladder. Enlarged fibroid uterus. Normal abdominal wall. There are degenerative changes of the visualized lumbar spine. CT/Abdomen/Pelvis WITH Contrast IMPRESSION: Stable 1.2 cm x 1.7 cm cyst in the body of the pancreas. Multiple bilateral renal cysts more prominent on the left side. Fatty infiltration of the liver and prominent Phani''s lobe of the liver. Enlarged fibroid uterus. Electronically Signed: Scout Degroot MD at 14:51 EDT ,
[2022-01-04 08:40] LABS: CREATININE FINGERSTICK 0.8 mg/dL (0.55-1.02); EGFR FINGERSTICK > 60.0000 mL/min (>60)
== END | disposition home or self-care (01) ==
LOC: CT 08:26
PROVIDERS: PCP Internal Medicine; Visit Provider Internal Medicine
DX: R19.00 Intra-abdominal and pelvic swelling, mass and lump, unspecified site (principal)
CPT/HCPCS: 74177; Q9967

== ENCOUNTER → 2022-01-25 | Outpatient (CLI) | payer MEDICARE, BC, SELFPAY ==
--- NOTE | 2022-01-25 14:59 | NEURO ---
NCS and/or EMG Patient Report Ordering Doctor: Debbie Chacon DATE OF SERVICE: 01/25/22 Naheed presents for electrodiagnostic testing of the right upper limb she reports numbness and tingling in the right hand. Electrodiagnostic findings: Right median motor nerve demonstrates prolonged distal latency with normal amplitude and reduced conduction velocity. Normal right ulnar motor response. Prolonged right median sensory latency at the wrist and palm. Normal ulnar and radial sensory responses. On needle EMG, all muscles tested in the right upper limb showed no evidence of denervation with normal motor unit action potentials. No denervation noted in the right cervical paraspinals. Electrodiagnostic impression: This is an abnormal study in the right upper limb 1. Electrodiagnostic findings suggestive of right-sided median neuropathy. This is consistent with a moderate right carpal tunnel syndrome. 2. No electrodiagnostic evidence is noted for cervical radiculopathy.
== END | disposition home or self-care (01) ==
LOC: PSN 13:27
PROVIDERS: PCP Internal Medicine; Referring Provider Internal Medicine; Visit Provider Internal Medicine
DX: G56.01 Carpal tunnel syndrome, right upper limb (principal)
CPT/HCPCS: 95886; 95910

== ENCOUNTER → 2022-03-24 | Outpatient (CLI) | payer MEDICARE, BC, SELFPAY ==
--- NOTE | 2022-03-24 14:52 | ECHOCS_ITS ---
Reason For Study: PULIDO Procedure This was a 2D Doppler, Color Flow transthoracic echocardiogram. The study was technically difficult. Contrast injection was performed. Exam performed in department. Left Ventricle Normal LV size. Left ventricular systolic function is normal. The estimated ejection fraction is 60 %. Stage 1 diastolic dysfunction. No regional wall motion abnormalities noted. Right Ventricle Normal RV size. Normal systolic function. Atria Normal left atrium. Normal right atrium. Mitral Valve Normal mitral valve. Tricuspid Valve Normal tricuspid valve. Mild (1+) tricuspid valve insufficiency. Pulmonary artery systolic pressure is 34 mmHg. Aortic Valve Normal aortic valve. Trisinus/trileaflet aortic valve. Pulmonic Valve Normal pulmonic valve. Great Vessels Normal aortic root. The pulmonary artery is normal size. Normal inferior vena cava. Pericardium/Pleural No pericardial effusion. Medication 20 gauge I.V. with prn adaptor inserted into right arm. Diluted definity 1.5ml given slow IV push to enhance endocardial definition. MMode/2D Measurements & Calculations LVIDd: 3.7 cm IVSd: 1.4 cm Ao root diam: 3.2 cm LVIDs: 2.7 cm LVPWd: 1.0 cm LA dimension: 3.7 cm RVDd: 3.0 cm FS: 27.9 % LAV(MOD-bp): 48.2 ml LA A4 area: 16.9 cm2 LAV(MOD-bp) Indexed: 23.7 ml/m2 LAV(MOD-sp2): 43.0 ml LAV(MOD-sp4): 48.3 ml Time Measurements MV dec time: 0.22 sec Doppler Measurements & Calculations MV E max teresita: 74.5 cm/sec MV V2 max: 125.2 cm/sec MV dec slope: 342.0 cm/sec2 MV A max teresita: 106.5 cm/sec MV max P.3 mmHg MV E/A: 0.70 MV V2 mean: 86.0 cm/sec MV mean P.2 mmHg MV V2 VTI: 34.3 cm Ao V2 max: 168.2 cm/sec LV V1 max: 113.8 cm/sec PA V2 max: 94.9 cm/sec Ao max P.3 mmHg LV V1 max P.2 mmHg TR max teresita: 277.5 cm/sec TR max P.0 mmHg ECHO/Echo Complete W/ Contrast Interpretation Summary Normal LV size. Left ventricular systolic function is normal. The estimated ejection fraction is 60 %. Stage 1 diastolic dysfunction. Mild (1+) tricuspid valve insufficiency. Contrast injection was performed. Ordering Physician: Debbie Chacon Referring Physician: Debbie Chacon Performed By: René Hilton RCS
== END | disposition home or self-care (01) ==
LOC: CVS 14:51
PROVIDERS: PCP Internal Medicine; Referring Provider Internal Medicine; Visit Provider Internal Medicine
DX: R06.00 Dyspnea, unspecified (principal); I25.10 Atherosclerotic heart disease of native coronary artery without angina pectoris; R60.9 Edema, unspecified
CPT/HCPCS: 93306; Q9957; A4216; C8929

== ENCOUNTER → 2022-03-27 | Outpatient (CLI) | payer MEDICARE, BC, SELFPAY ==
--- NOTE | 2022-03-27 07:18 | CT_ITS ---
STUDY: CT ABDOMEN AND PELVIS WITH CONTRAST REASON FOR EXAM: Female, 76 years old. Follow-up for history of pancreatic cyst. RADIATION DOSAGE (If Supplied By Facility): CTDIvol = ( 13.65 ) mGy, DLP = ( 826.88 ) mGycm TECHNIQUE: Transaxial images were obtained from the dome of the diaphragm to the symphysis pubis without oral contrast. IV 100mL Isovue-300 was administered. Sagittal and coronal images were reconstructed. Individualized dose optimization techniques were used for this CT. COMPARISON: Comparison is made with prior study dated 01/04/2022. FINDINGS: Stable minimal scarring at the lung bases. The visualized portions of the heart are within normal limits. There is decreased attenuation of the liver consistent with steatosis. Prominent Phani''s lobe of the liver. Normal gallbladder and extrahepatic biliary system. Normal spleen. Essentially stable 1.6 cm x 1.2 cm cyst in the body of the pancreas. Normal bilateral adrenal glands. Stable appearance of the bilateral renal cysts more prominent on the left side. The largest cyst in the left kidney measures 5.8 cm x 4.4 cm. Left parapelvic cyst. Normal visualized stomach. Normal small intestine. Scattered sigmoid diverticula. Moderate amount of fecal material is seen in the colon. The appendix is visualized and appears normal. There is scattered atherosclerotic calcification of the abdominal aorta, without a demonstrated aneurysm. Normal inferior vena cava. Normal retroperitoneum. Normal urinary bladder. Normal abdominal wall. There are degenerative changes of the visualized lumbar spine. CT/Abdomen/Pelvis W IV Cont ONLY IMPRESSION: Stable examination. Electronically Signed: Scout Degroot MD at 8:41 EDT ,
== END | disposition home or self-care (01) ==
LOC: CT 07:16
PROVIDERS: PCP Internal Medicine; Referring Provider Internal Medicine; Visit Provider Internal Medicine
DX: K86.2 Cyst of pancreas (principal)
CPT/HCPCS: 74177; Q9967

== ENCOUNTER → 2022-04-03 | Outpatient (CLI) | payer MEDICARE, BC, SELFPAY ==
--- NOTE | 2022-04-03 10:01 | STRESSREP_ITS ---
Stress Test Report Exercise myocardial perfusion stress test. 76-year-old lady with a history of coronary artery disease. Stress protocol: Resting EKG demonstrates normal sinus rhythm with a rate of 85 bpm normal intervals are noted resting blood pressure is 128/70 mmHg. The patient exercised according to the regular Dick protocol for total duration of 3 mi nutes. Patient completed stage one of the Dick protocol the maximum heart rate attained was 150 bpm which was 103% of max impacted heart rate. Patient appeared to have developed a rate dependent bundle branch block of the left bundle branch block type. Left bundle branch block changes were noted. During recovery patient appeared to be intermittently going back to a narrow complex conducted rhythm and a left bundle branch block pattern. The test was terminated due to dyspnea. The maximum workload attained was 4.6 metabolic equivalents. The peak blood pressure was 180/74 mmHg. Myocardial perfusion protocol. 11.9 mCi of technetium 99m sestamibi was injected at rest. The patient exercised according to regular Dick protocol for total duration of 3 minutes and at peak exercise 35.3 mCi of technetium 99m sestamibi was injected stress images were obtained stress and rest images were reconstructed and compared in the short axis vertical long and horizontal long axis. Gated images were also obtained. Perfusion SPECT analysis: Review of the stress images demonstrated normal perfusion noted in all areas of the myocardium on the stress and resting images. No obvious reversibility is noted to suggest ischemia and no previous infarct is noted. The low workload may affect sensitivity for detection of ischemia. Gated SPECT analysis: The gated ejection fraction is 72%. Conclusion: Normal exercise myocardial perfusion stress test at a low workload. Development of a left bundle branch block. The low workload may affect sensitivity for detection of ischemia.
== END | disposition home or self-care (01) ==
LOC: CVS 06:46
PROVIDERS: PCP Internal Medicine; Referring Provider Internal Medicine Cardiovascular Disease; Visit Provider Internal Medicine Cardiovascular Disease
DX: I25.10 Atherosclerotic heart disease of native coronary artery without angina pectoris (principal); I44.7 Left bundle-branch block, unspecified; R93.1 Abnormal findings on diagnostic imaging of heart and coronary circulation
CPT/HCPCS: 78452; 93017; A9500; A4216

== ENCOUNTER 2022-04-10 07:44 | Day surgery (SDC) | payer MEDICARE, BC, SELFPAY ==
[2022-04-06 16:09] LABS: Absolute Lymphocyte Count 1.41 X10^3/uL (0.83-4.51); Absolute Neutrophil Count 4.7 X10^3/uL (2.0-7.7); Basophil# 0.03 X10^3/uL; Basophil% 0.4 % (0-1); Eosinophils% 2.9 % (0-5); Hematocrit 35.4 % (37-47); Hemoglobin 11.7 g/dL (12.0-15.0); Lymphocyte # 1.41 X10^3/ul (0.83-4.51); Lymphocyte % 20.3 % (19-41); Mean Corp Hgb Conc 33.1 g/dL (32-36); Mean Corpuscular Hgb 29.7 pg (27.0-32.0); Mean Corpuscular Volume 89.8 fL (81-99); Mean Platelet Vol. 10.3 fl (6.2-12.0); Monocyte# 0.64 X10^3/uL; Monocyte% 9.2 % (0-10); NRBC Flagged by Analyzer 0 % (0-5); Neutrophil # 4.65 X10^3/uL (2.7-7.7); Neutrophil % 66.9 % (47-70); Platelet Count 171 K/mm3 (150-450); RBC Distribution Width SD 45.6 fl (35.1-43.9); Red Blood Count 3.94 M/mm3 (4.2-5.4)
[2022-04-06 16:24] LABS: Anion Gap 6 (5-15); BUN 28 mg/dL (7-18); Calcium,Total 9.4 mg/dL (8.5-10.1); Chloride 108 mmol/L (98-107); EST Glomerular Filtration Rate 57 mL/min (>60); Est Glom Filt Rate - Afr Amer 69 mL/min (>60); Glucose 119 mg/dL (74-106); Potassium 3.8 mmol/L (3.5-5.1); Sodium Level 143 mmol/L (136-145)
[2022-04-07 08:54] VITALS: BMI 31.6
--- NOTE | 2022-04-13 12:12 | CL.D_ITS ---
Patient Name: TERRIE VALDEZ Study Date: 04/10/2022 Performing: Get Sanchez MD Ht: 66.92 inches 170 cm : 1945 Wt: 202.83 lbs 92 kg Age: 76 Gender: female BSA: 2.03 PROCEDURE(S) PERFORMED [id number])[facility] CLINICAL PROFILE AND INDICATIONS Indications: Suspected CAD Heart Failure: None Stress/Imaging Date: 03/04/22Stress Test with SPECT MPI: Positive Intermediate Risk CAD Presentations: Unstable angina. CONCLUSIONS Moderate disease noted in the LAD with calcification. Mild disease noted in the right coronary arter y and minimal disease in the circumflex artery. Preserved ejection fraction. RECOMMENDATIONS Medical therapy DESCRIPTION OF PROCEDURE The patient arrived to the procedure lab. The risks and benefits of the procedure as well as a full d escription of our services here and current unavailability of surgical backup were fully explained to the patient and/or their significant other prior to the catheterization. The Timeout was completed, verifying the correct patient and procedure. The patient's procedural site was prepped and draped in the usual fashion. Local anesthetic was given subcutaneously to right radial region with Lidocaine 2% . Using a modified Seldinger technique, arterial access was obtained via the right radial artery, a 6 Fr sheath was inserted. Right Coronary Artery selective angiography was then performed in multiple v iews using a 5 Fr. 4.0 [place] catheter. Left Coronary Artery selective angiography was performed in mu ltiple views using a 5 Fr. 4.0 [place] catheter.The arterial sheath was pulled and a TR Band was applie d for hemostasis. 10cc of air CORONARY ANGIOGRAPHY DOMINANCE: Right Dominant LEFT HEART ASSESSMENT Left Ventricular Ejection Fraction: by Echo 55 % Normal LV wall motion Normal Left Ventricular systolic function LEFT MAIN: Angiographically normal LEFT ANTERIOR DESCENDING ARTERY: Moderate disease noted in the left anterior descending artery with c alcification present. CIRCUMFLEX ARTERY: Mild luminal irregularities RIGHT CORONARY ARTERY: Mild luminal irregularities less than 30% COMPLICATIONS No Complications PROCEDURE MEDICATIONS Fentanyl 50 mcg IV Versed 1 mg IV Versed 1 mg IV Oxygen: 2 L/min via nasal cannula Heparin given IA 04/10/2022 09:08:06 Verapamil 2.5mg, Ntg 100mcgs, 3000 units of Heparin given IA 04/10/2022 09:08:06 SUMMARY OF HEMODYNAMIC DATA Time AIR REST ECG 08:04:13 Art 180/63 (99) 09:06:07 AO 120/67 (91) SA 09:10:23 Signed By Get Sanchez MD On 04/10/2022 9:23:52 AM Get Sanchez MD
== END 2022-04-10 11:05 | disposition home or self-care (01) ==
LOC: CLSP 07:47
PROVIDERS: PCP Internal Medicine; Referring Provider Internal Medicine Cardiovascular Disease; Visit Provider Internal Medicine Cardiovascular Disease
DX: I25.10 Atherosclerotic heart disease of native coronary artery without angina pectoris (principal); I10 Essential (primary) hypertension; I34.1 Nonrheumatic mitral (valve) prolapse; K76.0 Fatty (change of) liver, not elsewhere classified; E78.5 Hyperlipidemia, unspecified; G47.33 Obstructive sleep apnea (adult) (pediatric); G62.9 Polyneuropathy, unspecified; M41.9 Scoliosis, unspecified; Z79.899 Other long term (current) drug therapy; Z87.891 Personal history of nicotine dependence
CPT/HCPCS: 36415; 80048; 85025; 93454; 99152; 99153; J7040; C1769; C1894; Q9967

== ENCOUNTER 2022-08-08 08:45 | Outpatient (CLI) | payer MEDICARE, BC, SELFPAY ==
--- NOTE | 2022-08-08 08:47 | BI_ITS ---
MAMMOGRAPHY - BILATERAL SCREENING REASON FOR EXAM: Female, 77 years old. Routine annual screening examination. PERTINENT HISTORY: Mother with breast cancer. TECHNIQUE: Digital bilateral breast su (3D mammographic acquisition) in the CC and MLO projections. 2-D mediolateral oblique (MLO) and craniocaudad (CC) views of both breasts were obtained. CAD: Full Field Digital Mammography with Computer Added Detection was performed. COMPARISON: Comparison is made with prior study dated 07/27/2021 and 06/08/2020. FINDINGS: Breast Composition: The breasts are almost entirely fatty. There are no dominant masses or suspicious calcifications. Stable small benign-appearing bilateral axillary lymph nodes. No other significant abnormalities are identified. There has been no significant change since the prior study. BI/SCRN MAMM (CAD)W/SU BILAT IMPRESSION: Stable bilateral screening mammogram. Yearly follow-up mammogram recommended. (A) ASSESSMENT CATEGORY: BIRADS Category 2: Benign. A letter regarding these results will be sent to the patient by the facility within 30 days. Approximately 10% of breast cancers are not detected by mammography. A normal mammogram should not delay biopsy of a clinically suspicious abnormality. [id number] Electronically Signed: Scout Degroot MD at 9:49 EST ,
== END 2022-08-08 23:59 | disposition home or self-care (01) ==
LOC: OPBI 08:46
PROVIDERS: PCP Internal Medicine; Referring Provider Internal Medicine; Visit Provider Internal Medicine
DX: Z12.31 Encounter for screening mammogram for malignant neoplasm of breast (principal); Z80.3 Family history of malignant neoplasm of breast
CPT/HCPCS: 77063; 77067

== ENCOUNTER → 2023-08-09 | Outpatient (CLI) | payer MEDICARE, BC, SELFPAY ==
--- NOTE | 2023-08-09 10:38 | BI_ITS ---
MAMMOGRAPHY - BILATERAL SCREENING REASON FOR EXAM: Female, 78 years old. Routine annual screening examination. PERTINENT HISTORY: Mother with breast cancer. TECHNIQUE: Digital bilateral breast su (3D mammographic acquisition) in the CC and MLO projections. 2-D mediolateral oblique (MLO) and craniocaudad (CC) views of both breasts were obtained. CAD: Full Field Digital Mammography with Computer Added Detection was performed. COMPARISON: Comparison is made with prior study August 08, 2022 and July 27, 2021. FINDINGS: Breast Composition: There are scattered areas of fibroglandular density. There are no dominant masses or suspicious calcifications. Stable small benign-appearing bilateral axillary lymph nodes. No other significant abnormalities are identified. There has been no significant change since the prior study. BI/SCRN MAMM (CAD)W/SU BILAT IMPRESSION: Stable bilateral screening mammogram. Yearly follow-up mammogram recommended. (A) ASSESSMENT CATEGORY: BIRADS Category 2: Benign. A letter regarding these results will be sent to the patient by the facility within 30 days. Approximately 10% of breast cancers are not detected by mammography. A normal mammogram should not delay biopsy of a clinically suspicious abnormality. [id number] Electronically Signed: Scout Degroot MD at 12:56 EST ,
== END | disposition home or self-care (01) ==
LOC: OPBI 10:37
PROVIDERS: PCP Internal Medicine; Referring Provider Internal Medicine; Visit Provider Internal Medicine
DX: Z12.31 Encounter for screening mammogram for malignant neoplasm of breast (principal); Z80.3 Family history of malignant neoplasm of breast
CPT/HCPCS: 77063; 77067

== ENCOUNTER → 2024-08-12 | Outpatient (CLI) | payer MEDICARE, BC, SELFPAY ==
--- NOTE | 2024-08-12 10:19 | BI_ITS ---
MAMMOGRAPHY - BILATERAL SCREENING REASON FOR EXAM: Female, 79 years old. Routine annual screening examination. PERTINENT HISTORY: Mother with breast cancer. TECHNIQUE: Digital bilateral breast su (3D mammographic acquisition) in the CC and MLO projections. 2-D mediolateral oblique (MLO) and craniocaudad (CC) views of both breasts were obtained. CAD: Full Field Digital Mammography with Computer Added Detection was performed. COMPARISON: Comparison is made with prior study August 09, 2023 and August 08, 2002. FINDINGS: Breast Composition: There are scattered areas of fibroglandular density. There are no dominant masses or suspicious calcifications. No other significant abnormalities are identified. There has been no significant change since the prior study. BI/SCRN MAMM (CAD)W/SU BILAT IMPRESSION: Stable bilateral screening mammogram. Yearly follow-up mammogram recommended. (A) ASSESSMENT CATEGORY: BIRADS Category 1: Negative. A letter regarding these results will be sent to the patient by the facility within 30 days. Approximately 10% of breast cancers are not detected by mammography. A normal mammogram should not delay biopsy of a clinically suspicious abnormality. [id number] Electronically Signed: Scout Degroot MD at 11:54 EST ,
--- NOTE | 2024-08-12 10:23 | BD_ITS ---
STUDY: DUAL ENERGY X-RAY ABSORPTIOMETRY / DXA REASON FOR EXAM: Female, 79 years old. [id number] TECHNIQUE: Bone Mineral Density (BMD) measurements of lumbar spine and bilateral hips were obtained. COMPARISON: Comparison is made with prior study of November 15, 2021. FINDINGS: Lumbar Spine (L1-L4): g/cm2 (0.980) / T-score (0.0) / Z-score (2.4) Findings are suggestive of normal bone density with a low fracture risk. Left Femur Total: g/cm2 (0.974) / T-score (0.3) / Z-score (2.2) Left Femoral Neck: g/cm2 (1.027) / T-score (1.6) / Z-score (3.8) Right Femur Total: g/cm2 (0.889) / T-score (-0.4) / Z-score (1.5) Right Femoral Neck: g/cm2 (0.831) / T-score (-0.2) / Z-score (2.1) The T-Scores on the most recent prior examination were: Lumbar Spine (L1-L4): There has been worsening of bone density since the previous examination. Left Femur Total: which represents an improvement of 2.7%. Right Femur Total: which represents an improvement of 2.4%. BD/Dexa Bone Density Study IMPRESSION: The patient is considered normal as outlined below according to World Sree Organization (WHO) criteria with a low fracture risk. There has been improvement of bone density since the previous examination. Reference Information: The T-score is the number of standard deviations above or below the standard which is normal for young adults at their peak bone mineral density. The World Health Organization (WHO) interprets the T-scores as follows: Above -1 Normal bone density Between -1 and -2.5 Osteopenia Equal to / or below -2.5 Osteoporosis As a practical clinical guideline, osteopenia may be graded as follows: Mild -1 through -1.5 Moderate -1.6 through -2.0 Severe -2.1 through -2.4 The Z-score is the number of standard deviations above or below age-matched controls. A Z-score of less than -1.5 would be considered abnormal. References: 1. NIH Osteoporosis and Related Bone Diseases www osteo.org 2. International Society for Clinical Densitometry www iscd.org 3. National Osteoporosis Foundation www nof.org Electronically Signed: Scout Degroot MD at 14:11 EST ,
== END | disposition home or self-care (01) ==
LOC: OPBD 10:18
PROVIDERS: PCP Internal Medicine; Referring Provider Internal Medicine; Visit Provider Internal Medicine
DX: Z12.31 Encounter for screening mammogram for malignant neoplasm of breast (principal); Z80.3 Family history of malignant neoplasm of breast; Z78.0 Asymptomatic menopausal state
CPT/HCPCS: 77063; 77067; 77080

== ENCOUNTER 2025-03-01 06:47 | Emergency (ER) | payer MEDICARE, BC, SELFPAY ==
[2025-03-01 06:48] VITALS: BP 166/79; PULSE 85; RESP 17; TEMP 36.9; O2SAT 99; BMI 34.0
--- NOTE | 2025-03-01 07:03 | EDS_ITS ---
HPI History of Present Illness Chief Complaint: Chest Pain [facility] Medical History COVID-19 virus detected (04/16/22) Nonobstructive atherosclerosis of coronary artery Abnormal electrocardiogram Rate-dependent bundle branch block Grief Peripheral neuropathy Scoliosis Elevated coronary artery calcium score Essential hypertension Hyperlipidemia Obstructive sleep apnea Fatty liver Home Medications ?Medication ?Instructions ?Recorded ?Last Taken ?Type ascorbic acid (vitamin C) 500 mg 500 mg PO DAILY 04/1402/28/25 History capsule,extended release cholecalciferol (vitamin D3) 50 2,000 unit PO DAILY 02/28/25 History mcg (2,000 unit) capsule paroxetine HCl 20 mg tablet 20 mg PO DAILY 04/14/20 History aspirin 81 mg tablet,delayed 81 mg PO DAILY 04/03/22 0 02/28/25 History release (Adult Low Dose Aspirin) simvastatin 10 mg tablet 15 mg PO QHS 09/28/23 History triamterene 37.5 1 tab PO BID 09/28/23 History mg-hydrochlorothiazide 25 mg tablet metoprolol succinate 25 mg 12.5 mg (1/2 x 25 mg) PO DA LENCHO #45 09/12/24 02/28/25 Rx tablet,extended release 24 hr tabs (Toprol XL) cod liver oil 1 cap PO BID 11/10/24 History coenzyme Q10 100 mg tablet 100 mg PO QDAY 11/10/24 History cranberry 500 mg capsule 500 mg PO TID 11/10/2402/28 History lactobacillus combination no.9 4 4,000 mmu cells PO QD AY 11/10/24 02/28/25 History billion cell capsule (Adult 50 Plus Probiotic) levomefolate Ca 3 mg-B6 35 1 cap PO BID 11/10/2402/28 History mg-meB12 2 mg-algal oil 90.314 mg capsule (Metanx (algal oil)) magnesium oxide 500 mg PO DAILY 11/10/24 History Allergy/AdvReac Type Severity Reaction Status Date / Time rosuvastatin AdvReac myalgia Verified 11/10/24 11:03 Family History Father Heart disease AFIB Colon cancer Mother Breast cancer Grandfather Heart disease Grandmother No problems noted. Grandfather Heart disease Surgical History History of left heart catheterization (04/10/22) H/O right knee surgery H/O left knee surgery History of cataract surgery H/O cystoscopy Social History Smoking Status: Former smoker how long ago did patient quit smoking: Age 36 alcohol intake: current alcohol intake frequency: a few times a week Alcohol type: wine substance use type: does not use caffeine: No what type of physical activity do you participate in: other details: Water aerobics, strength training frequency: 1-2 times per week EXAM Physical Exam Const Vital Signs: 03/01/25 06:48 03/01/25 06:51 03/01/25 07:16 Temperature 98.5 F Temperature Source Oral Pulse Rate 85 Respiratory Rate 17 Respiratory Effort Normal Blood Pressure 166/79 H Blood Pressure Mean 108 Pulse Ox 99 100 Oxygen Delivery Method Room Air Room Air 03/01/25 09:40 03/01/25 10:27 Temperature 98.1 F Temperature Source Pulse Rate 74 74 Respiratory Rate 21 H 21 H Respiratory Effort Blood Pressure 131/71 H 131/71 H Blood Pressure Mean 91 91 Pulse Ox 99 99 Oxygen Delivery Method Room Air MDM MDM MDM Narrative Medical decision making narrative: HISTORY OF PRESENT ILLNESS: Chief complaint: Chest Pain 79 F HTN, HLD, CAD, NATASHA presents with pain on the chest pain right side underarm. Pain started yesterday she was driving. States the pain is like a band/pressure that wraps around the right side of her chest into her armpit. Denies falls or trauma. Denies any inciting event. Denies cough fever chills. Denies lower extremity edema, orthopnea or paroxysmal nocturnal dyspnea. Denies associated shortness of breath. Denies any recent bleeding diathesis. Denies any recent vomiting or diarrhea. Notes family history of cardiac issues as her mother and father got older. Denies smoking or illicit drug use. The patient denies recent surgery in the last 4 weeks or immobilization in the last 3 days, denies previous diagnosis of DVT or PE, hemoptysis, unilateral leg swelling or malignancy with treatment the last 6 months or palliative. No estrogen use noted. Patient denies sudden onset of pain, no tearing sensation, no migratory symptoms, no new numbness, weakness or loss of sensation. Patient denies family history or personal history of Connective tissue disorders (Marfan's Syndrome, Leydi Danlos etc). REVIEW OF SYSTEMS: Pertinent positives: chest pain Pertinent negatives: As per HPI PHYSICAL EXAM: Nursing triage notes reviewed, Vital signs reviewed Constitutional: please see [facility] HENT: MMM Eyes: Pupils equal round and reactive to light, Extraocular muscles intact Neck: No stridor, no JVD, full neck ROM Lungs: Clear to auscultation, No wheezing or rales. No increased work of breathing, no conversational dyspnea, no accessory muscle use, no nasal flaring. No respiratory distress noted Heart: Regular rate and rhythm, No murmurs, No rubs and No gallops, 2+ distal pulses (radial, femoral, posterior tibial) in all extremities Abdomen: Soft, there is no tenderness, rigidity, rebound or guarding, no obvious peritoneal signs, no palpable pulsatile abdominal masses, no auscultated abdominal bruit : No CVAT Extremities: No edema Neuro: No new focal neurological deficits, cranial nerves II through XII intact, 5/5 strength in all present extremities. Intact sensation to light touch in all present extremities, 2+ reflexes bilateral patella tendons. Skin: No rash or lesions noted MEDICAL DECISION MAKING: Chief Complaint: please see HPI External records reviewed:: Reviewed prior cardiovascular testing. Reviewed diagnostic catheterization from 2021 for suspected CAD. This showed moderate disease of the LAD, mild disease in right coronary artery, minimal disease in the circumflex artery and preserved ejection fraction Factors affecting care: as per HPI Social determinants of health: none History obtained from others: none Consults: none [facility] Narrative: The patient was initially hypertensive with a blood pressure 166/79 otherwise afebrile and nontoxic-appearing saturating 99% on room air. Cardiopulmonary exam unremarkable I considered the following differential diagnosis: ACS, arrhythmia, anemia, electro disturbance, pericarditis, PE, aortic dissection amongst others I obtained a broad lab and imaging workup to further if the etiology of the patient's complaint is a life or limb threatening pathology ALL IMAGES (IF OBTAINED) HAVE BEEN PERSONALLY REVIEWED AND INTERPRETED BY MYSELF. EKG with normal sinus rhythm rate 80, normal axis, normal intervals, no STEMI, no signs of pericarditis, no signs of right heart strain to suggest PE, no arrhythmia CBC without leukocytosis, severe anemia, no thrombocytopenia. I have personally reviewed the patient's chest x-ray. Chest x-ray is unremarkable for pulmonary edema, pneumothorax, pneumonia or focal cardiopulmonary abnormality. D-dimer elevated will obtain CTA to rule out PE BMP without evidence of significant electrolyte abnormalities, no anion gap, no acute kidney injury. High-sensitivity troponin is negative, no evidence of myocardial ischemia CTA of the chest with contrast, PE study was read as negative Delta troponin also negative, ruling out ACS per high-sensitivity troponin protocol The synthesis of the patient's history, physical exam, labs, and images suggest no acute life or limb-threatening etiology. Could be musculoskeletal or anxiety based. Unclear at this time will recommend outpatient follow-up for further confirmatory testing. On re-evaluation patient's blood pressure improved to 131/71. She is appropriate for discharge home. Strict return precautions were discussed follow-up instructions were discussed. The patient and/or family, caregivers express understanding. The patient and/or family, caregivers agrees with the plan. Shared decision making: I will have a discussion with the patient and or visitors regarding risk/benefits of further testing or admission. They will be made aware of of the risk/benefits inherent in this decision they will be given the opportunity to voice understanding. Total critical care time today provided was at least 0 minutes. This excludes separately billable procedures. Critical care time (if documented) is secondary to the patient having high probability of clinically significant/life threatening deterioration in the patient's condition which required my urgent intervention. Impression: 1. Chest pain 2. History of hypertension Dispo: Discharge home This note was generated with [employer] dictation software. It may contain incorrect words, spelling, and punctuation that were not noted in review of the chart prior to signing. Lab Data Labs: Laboratory Results - last 24 hr 03/01/25 03/01/25 07:29 09:30 WBC 5.3 RBC 4.27 Hgb 12.7 Hct 38.0 MCV 89.0 MCH 29.7 MCHC 33.4 RDW Std Deviation 45.7 H RDW Coeff of Kanika 14.2 Plt Count 187 MPV 9.7 Immature Gran % (Auto) 0.400 Neut % (Auto) 69.1 Lymph % (Auto) 18.8 L Vigo % (Auto) 8.8 Eos % (Auto) 2.1 Baso % (Auto) 0.8 Absolute Neuts (auto) 3.7 Absolute Lymphs (auto) 1.00 Nucleated RBC % 0 D-Dimer Quant (PE/DVT) 1.04 H* Sodium 140 Potassium 3.7 Chloride 101 Carbon Dioxide 25.6 Anion Gap 13 BUN 21 H Creatinine 0.90 Estim Creat Clear Calc 62.10 Est GFR (MDRD) Non-Af 66 BUN/Creatinine Ratio 23.5 H Glucose 129 H Calcium 9.8 Troponin T High Sens 10 Troponin T Hi Sens 2 Hr 10 Radiography Diagnostic Testing: Clinical Impression(s) from Imaging Studies Chest X-Ray 03/01/25 07:16 IMPRESSION: No evidence for acute abnormality. Reading Location: [place] [id number] Chest CTA 03/01/25 08:12 IMPRESSION: No acute pulmonary embolism. Reading Location: [id number] Discharge Plan Triage Chief Complaint: Chest Pain ED Provider: Domingo Ozuna Dx/Rx/DC Orders Clinical Impression: Chest pain Instructions: ED Chest Pain, Uncertain Cause Prescriptions: No Action triamterene-hydrochlorothiazid 37.5-25 mg tablet 1 tab PO BID simvastatin 10 mg tablet 15 mg PO QHS cod liver oil Capsule 1 cap PO BID magnesium oxide 500 mg magnesium tablet 500 mg PO DAILY coenzyme Q10 100 mg tablet 100 mg PO QDAY [id number]-algal oil [Metanx (algal oil)] 3 mg-35 mg-2 mg -90.314 mg capsule 1 cap PO BID Adult 50 Plus Probiotic 4 billion cell capsule 4,000 mmu cells PO QDAY Rx Instructions: administer with a meal paroxetine HCl 20 MG tablet 20 mg PO DAILY ascorbic acid (vitamin C) 500 MG capsule, extended release 500 mg PO DAILY cholecalciferol (vitamin D3) 2,000 UNIT capsule 2,000 unit PO DAILY cranberry 500 mg capsule 500 mg PO TID aspirin [Adult Low Dose Aspirin] 81 mg tablet,delayed release (DR/EC) 81 mg PO DAILY metoprolol succinate [Toprol XL] 25 mg tablet extended release 24 hr 12.5 mg PO DAILY Qty: 45 3RF Primary Care Provider: Debbie Chacon Referrals: Debbie Chacon MD [Primary Care Provider] - Activity Restrictions/Additional Instructions: Thank you for trusting us with your care today! Please take Tylenol (2 pills, 650 mg), ibuprofen (2 pills, 400 mg) every 6 hours as needed for pain and fever control. Please return to the emergency department if your symptoms change or worsen. Please follow with your primary care physician for further outpatient evaluation and management. Specifically for confirmatory testing including stress test or echocardiogram. Print Language: [place] Disposition Disposition: Home, Self Care Discharge Date/Time: 03/01/25 10:28
[2025-03-01 07:16] VITALS: O2SAT 100
--- NOTE | 2025-03-01 07:16 | RAD_ITS ---
PROCEDURE: CHEST 1 VIEW (PORTABLE) 03/01/2025 REASON FOR EXAM: CHEST PAIN TECHNIQUE: Frontal view of the chest. COMPARISON: None. FINDINGS: The lungs are expanded. There is no demonstrated parenchymal abnormality. There is no demonstrated pleural abnormality. The cardiac silhouette is not enlarged. Normal mediastinum and smitha. Normal visualized pulmonary arteries. Atheromatous plaques of the visualized aortic arch and descending thoracic aorta. Diffuse spondylosis of the visualized thoracic spine. Normal visualized ribs, clavicles. Degenerative joint disease. There is no demonstrated abnormality of the visualized soft tissue structures of the upper abdomen. RAD/Chest 1 View (Portable) IMPRESSION: No evidence for acute abnormality. Reading Location: [facility]
--- NOTE | 2025-03-01 07:16 | EKG12_ITS ---
Test Reason : SOB Blood Pressure : */* mmHG Vent. Rate : 80 BPM Atrial Rate : 80 BPM P-R Int : 192 ms QRS Dur : 82 ms QT Int : 398 ms P-R-T Axes : 69 20 48 degrees QTcB Int : 459 ms Normal sinus rhythm Normal ECG Confirmed by DEBBIE WOOTEN, NICOLA ([id number]), industrial editor MILLIE GALVAN ([id number]) on 03/03/2025 6:44:09 AM Referred By: CARLIE Confirmed By: NICOLA LEWIS MD
[2025-03-01 07:32] LABS: Absolute Neutrophil Count 3.7 X10^3/uL (2.0-7.7); Basophil# 0.04 X10^3/uL; Basophil% 0.8 % (0-1); Eosinophil# 0.11 X10^3/uL; Eosinophils% 2.1 % (0-5); Hemoglobin 12.7 g/dL (12.0-15.0); Lymphocyte % 18.8 % (19-41); Mean Corp Hgb Conc 33.4 g/dL (32-36); Mean Corpuscular Hgb 29.7 pg (27.0-32.0); Mean Platelet Vol. 9.7 fl (6.2-12.0); Monocyte# 0.47 X10^3/uL; Monocyte% 8.8 % (0-10); NRBC Flagged by Analyzer 0 % (0-5); Neutrophil # 3.68 X10^3/uL (2.7-7.7); Neutrophil % 69.1 % (47-70); Platelet Count 187 K/mm3 (150-450); RBC Distribution Width CV 14.2 % (11.6-14.6); RBC Distribution Width SD 45.7 fl (35.1-43.9); Red Blood Count 4.27 M/mm3 (4.2-5.4); White Blood Count 5.3 K/mm3 (4.4-11.0)
--- OUTSIDE RECORDS SUMMARY | 2025-03-01 07:52 | XMS RPT_ITS | CCD ---
Author Organization [facility] Care Team Providers Care Pocketed Spring Assembler Name Role Phone Debbie Chacon MD Unavailable [phone] Billy AND RESCUE FIRE FIGHTER CRASH FIRE, JOHNNY Unavailable Unavailable Unavailable Unavailable Dr. Debbie Chacon Primary Care Provider [phone] Dr. Debbie Chacon Referring Provider [phone] Dr. Debbie Chacon Other Provider Dr. Get Sanchez Attending Provider [phone] Debbie Chacon MD Unavailable [phone] Get Sanchez MD Unavailable Princess AND RESCUE FIRE FIGHTER CRASH FIRE, Valerie Unavailable Unavailable Slarb AND RESCUE FIRE FIGHTER CRASH FIRE, Shanda Unavailable Unavailable Margie Macias MA Unavailable Unavailable Mancharles GARRETT, Uzma Unavailable Unavailable Juan Manuel GOMEZN, Bairon Unavailable Unavailable Dr. Get Sanchez Referring Provider [phone] Get Sanchez Other Provider Fast DO, Mellisa A Unavailable Fast DO, Mellisa A Unavailable Debbie Chacon MD Attending Unavailable Debbie Chacon MD Consulting Unavailable Nanette Jackson MA Unavailable Unavailable Hortonsudheer GOMEZN, Aries Unavailable Unavailable Dr. Debbie Chacon Primary Care Provider Dr. Get Sanchez Attending Provider [phone] YUNIEL WOOTEN, DR LUCAS Primary Care Unavailable SIDNEY GOSS Attending Unavailable Debbie Chacon Referring Unavailable Debbie Chacon Primary Care Unavailable Debbie Chacon Attending Unavailable Debbie Chacon Referring Unavailable Roof Yadiel DONALDSON Attending Unavailable Debbie Chacon Primary Care Unavailable Allergies Allergy Classification Reported Allergen(s) Allergy Type Date of Onset Reaction(s) Facility (20 sources) Sulfamethoxazole / Trimethoprim; Translations: [Bactrim *ANTI-INFECTIVE AGENTS - [facility] [place].*] Drug Allergy [facility]; [facility] Work Phone: Comment on above: itching (1 source) rosuvastatin Drug Allergy 03-06-20 23 myalgia [facility] (1 source) rosuvastatin Drug Allergy 11-11-19 25 [facility] Repository Medications Current Medications Medication Drug Class(es) Dates Sig (Normalized) Sig (Original) aspirin 81 mg delayed release oral tablet (20 sources) Platelet Aggregation Inhibitor, Nonsteroidal Anti-inflammatory Drug Start: 04-03-2022 Aspirin (Adult Low Dose Aspirin) 81 mg tablet,delayed release (DR/EC) Active 81 MG PO DAILY April 02, 2022 11:00pm Start: 01-09-2022 take 1 tablet by bob th once daily Aspirin 81 MG Oral Tablet Chewable 1 (one) Tablet daily for 0 days Quantity: 30 {Tablet} Refills: 0 Ordered: 23-Jan-2022 Valerie Sánchez LPN Start : 09-Jan-2022 Active cholecalciferol 0.05 mg oral capsule (20 sources) Vitamin D Start: 04-14-2020 take 2000 [IU] by mouth once daily Cholecalciferol (Vitamin D3) Active 2000 UNIT PO DAILY April 13, 2020 11:00pm Fish Oil-Dha-Epa (6 sources) Start: 04-14-2020 Fish Oil-Dha-E pa Active 1 EACH PO DAILY April 14, 2020 1:33pm Start: 04-14-2020 End: 03-21-2022 Fish Oil-Dha-Epa Discontinue d 1 EACH PO DAILY April 13, 2020 11:00pm March 21, 2022 9:03pm Start: 04-14-2020 End: 03-21-2022 Fish Oil-Dha-Epa Discontinue d 1 EACH PO DAILY April 14, 2020 12:00am March 21, 2022 10:03pm losartan potassium 100 mg oral tablet (20 sources) Angiotensin 2 Receptor Ramana Start: 01-25-2023 take 50 mg by mouth once daily Losartan Active 50 MG PO DAILY January 25, 2023 8:03am Start: 11-06-2022 take 1 tablet by bob th in the morning losartan 50 mg oral tablet 1 (one) Tablet in am for 0 days Quantity: 90 {Tablet} Refills: 3 Ordered: 06-Nov-2022 Ines WOOTEN, Debbie Denny MD Start : 06-Nov-2022 Active Start: 11-06-2022 take 1 tablet by bob th in the morning losartan 100 mg oral tablet 1 (one) Tablet in am for 0 days Quantity: 90 {Tablet} Refills: 3 Ordered: 06-Nov-2022 Ines WOOTEN, Debbie Chacon MD, Debbie Ashton Start : 06-Nov-2022 Active Start: 07-18-2022 End: 01-25-2023 take 25 mg by mouth once daily Losartan Discontinued 2 5 MG PO DAILY July 18, 2022 9:25am January 25, 2023 8:05am Start: 05-09-2022 End: 07-18-2022 take 50 mg by mouth once daily Losartan Discontinued 5 0 MG PO DAILY May 09, 2022 10:16am July 18, 2022 9:25am Start: 03-22-2022 End: 03-22-2022 Losartan Discontinued TAB PO March 21, 2022 11:00pm March 22, 2022 1:55pm Start: 12-29-2021 End: 05-09-2022 take 100 mg by mouth once daily Losartan Discontinued 100 MG PO DAILY March 22, 2022 1:55pm May 09, 2022 10:16am Start: 10-24-2021 End: 11-07-2021 take 1 tablet by mouth in the morning Losartan Potassium 50 MG Oral Tablet 1 (one) Tablet in am for 0 days Quantity: 90 {Tablet} Refills: 3 Ordered: 07-Nov-2021 JOHNNY Cervantes LPN Start : 24-Oct-2021 End : 07-Nov-2021 Inactive 24 hr metoprolol succinate 25 mg extended release oral tablet (17 sources) beta-Adrenergic Ramana Start: 01-25-2023 End: 07-09-2023 take 2 tablets by mouth once daily Metoprolol Succinate (Toprol Xl) 25 mg tablet extended release 24 hr Active 12.5 MG PO DAILY July 09, 2023 8:27am Start: 04-10-2022 End: 01-25-2023 take 1 tablet by mouth once daily Metoprolol Succinate (Toprol Xl) 25 mg tablet extended release 24 hr Discontinued 25 MG PO DAILY April 09, 2022 11:00pm January 25, 2023 8:15am take 1 tablet by bob th every twenty-four hours metoprolol succinate 25 mg oral Tablet, Extended Release 24 hr 1/2 daily (25 mg) Active Iwicveqw-Syw-Rnov-Fa-Lutein (Centrum Silver Women) 8 mg iron-400 mcg-300 mcg tablet (2 sources) Start: 03-21-2022 take 1 tablet by mouth once daily Aacfflwk-Zvv-Wolj-Fa-Lutein (Centrum Silver Women) 8 mg iron-400 mcg-300 mcg tablet Active 1 TABLET PO DAILY March 21, 2022 12:00am Vdnrbtay-Rpx-Krsp-Fa-Vit K-L ut (Centrum Silver Women) 8 mg iron-400 mcg-300 mcg tablet (1 source) Start: 03-21-2022 take 1 tablet by mouth once daily Byxphrxk-Noc-Rgpv-Fa-Vit K-Lut (Centrum Silver Women) 8 mg iron-400 mcg-300 mcg tablet Active 1 TABLET PO DAILY March 20, 2022 11:00pm Multivitamin With Minerals (6 sources) Start: 04-14-2020 Multivitamin With Minerals Active 1 EACH PO DAILY April 14, 2020 1:33pm Start: 04-14-2020 End: 03-21-2022 Multivitamin With Minerals D iscontinued 1 EACH PO DAILY April 13, 2020 11:00pm March 21, 2022 9:03pm Start: 04-14-2020 End: 03-21-2022 Multivitamin With Minerals D iscontinued 1 EACH PO DAILY April 14, 2020 12:00am March 21, 2022 10:03pm simvastatin 10 mg oral tablet (20 sources) HMG-CoA Reductase Inhibitor Start: 07-02-2023 take 10 mg by mouth at bedtime Simvastatin Active 10 MG PO AT BEDTIME July 02, 2023 1:00pm Start: 05-15-2023 simvastatin 10 mg oral tablet 1 1/2 (one and a half) tablet daily for 0 days Quantity: 45 {Tablet} Refills: 7 Ordered: 15-May-2023 Debbie Chacon MD, MD, Dana M Start : 15-May-2023 Active Start: 05-09-2022 End: 07-02-2023 take 1 tablet by mouth once daily simvastatin 10 mg oral tablet 1 (one) tablet daily for 0 days Quantity: 30 {Tablet} Refills: 0 Ordered: 06-Nov-2022 Ines WOOTEN, Debbie Denny MD Start : 06-Nov-2022 End : 06-Nov-2022 Discontinued Completed/Discontinued Medications Medication Drug Class(es) Dates Sig (Normalized) Sig (Original) amoxicillin 875 mg / clavulanate 125 mg oral tablet (15 sources) Penicillin-class Antibacterial Start: 01-08-2023 End: 02-06-2023 take 1 tablet by mouth twice daily amoxicillin-pot clavulanate 875-125 mg oral tablet 1 Tablet 2 times per day for 0 days Quantity: 20 {Tablet} Refills: 0 Ordered: 06-Feb-2023 Nanette Jackson MA Start : 08-Jan-2023 End : 06-Feb-2023 Inactive ascorbic acid 500 mg oral capsule (20 sources) Vitamin C Start: 07-18-2021 take 1 capsule by mouth once daily Vitamin C 500 MG Oral Capsule 1 (one) Capsule qd for 0 days Quantity: 30 {Capsule} Refills: 0 Ordered: 18-Jul-2021 Ines WOOTEN, Debbie Denny MD Start : 18-Jul-2021 Active Start: 04-14-2020 take 500 mg by mouth once joel y Ascorbic Acid (Vitamin C) Active 500 MG PO DAILY April 13, 2020 11:00pm azithromycin 250 mg oral tablet (6 sources) Macrolide Antimicrobial Start: 06-04-2023 Zithromax Z-Norberto 250 mg oral tablet 1 Packet as directed on dose pack;For 250 mg dose pack: take 500 mg today (day 1), then 250 mg for 4 days (days 2-5) for 0 days Quantity: 1 {Packet} Refills: 0 Ordered: 04-Jun-2023 Ines WOOTEN, Debbie Denny MD Start : 04-Jun-2023 Active B Complex-Vitamin B12 oral tablet (7 sources) B Complex-Vitami n B12 oral tablet daily Active Centrum Adults Oral Tablet (20 sources) Start: 07-18-2021 take 1 tablet by mouth once daily Centrum Adults Oral Tablet 1 (one) Tablet qd for 0 days Quantity: 30 {Tablet} Refills: 0 Ordered: 18-Jul-2021 Debbie Chacon MD, MD, Dana M Start : 18-Jul-2021 Active ciprofloxacin 500 mg oral tablet (20 sources) Quinolone Antimicrobial Start: 09-14-2022 End: 09-21-2022 take 1 tablet by mouth twice daily ciprofloxacin HCl 500 mg oral tablet 1 (one) tablet two times daily for 7 days Quantity: 14 {Tablet} Refills: 0 Ordered: 14-Sep-2022 Valerie Sánchez LPN Start : 14-Sep-2022 End : 21-Sep-2022 Inactive Start: 01-23-2022 End: 02-14-2022 take 1 tablet by mouth twice daily Cipro 500 MG Oral Tablet 1 (one) Tablet bid for 0 days Quantity: 14 {Tablet} Refills: 0 Ordered: 14-Feb-2022 JOHNNY Cervantes LPN Start : 10-Feb-2022 End : 14-Feb-2022 Inactive cranberry preparation 200 mg oral capsule (20 sources) Non-Standardized Food Allergenic Extract, Non-Standardized Plant Allergenic Extract Start: 07-18-2021 take 2 capsules by mouth once daily Cranberry 200 MG Oral Capsule 2 (two) capsule qd for 0 days Quantity: 60 {Capsule} Refills: 0 Ordered: 18-Jul-2021 Debbie Chacon MD, MD, Dana M Start : 18-Jul-2021 Active Start: 04-14-2020 take 1000 mg by mouth once luis ly Cranberry Active 1000 MG PO DAILY April 14, 2020 1:33pm Start: 04-14-2020 take 1000 mg by mouth once luis ly Cranberry Active 1000 MG PO DAILY April 13, 2020 11:00pm Start: 04-14-2020 take 1000 mg by mouth once luis ly Cranberry Active 1000 MG PO DAILY April 14, 2020 12:00am D-Mannose 500 MG Oral Capsule (20 sources) Start: 02-27-2022 take 2 capsules by mouth once in the morning for urinary tract infection D-Mannose 500 MG Oral Capsule 2 (two) Capsule in am for UTI preventation for 0 days Quantity: 60 {Capsule} Refills: 0 Ordered: 20-Mar-2022 Uzma Navarro CMA Start : 27-Feb-2022 Active Start: 02-27-2022 take 2 capsules by m outh once in the morning for urinary tract infection D-Mannose 500 MG Oral Capsule 2 (two) Capsule in am for UTI preventation for 0 days Quantity: 60 {Capsule} Refills: 0 Ordered: 27-Feb-2022 Debbie Chacon MD, MD, Dana M Start : 27-Feb-2022 Active d-mannose 500 mg oral capsule (7 sources) Start: 02-27-2022 End: 05-15-2023 take 2 capsules by mouth once in the morning for urinary tract infection d-mannose 500 mg oral capsule 2 (two) Capsule in am for UTI preventation for 0 days Quantity: 60 {Capsule} Refills: 0 Ordered: 15-May-2023 Valerie Sánchez LPN Start : 27-Feb-2022 End : 15-May-2023 Inactive Fish Oils (7 sources) Fish OiL 120-180 mg oral capsule daily (120-180 mg) Active fluconazole 150 mg oral tablet (20 sources) Azole Antifungal Start: 01-18-2023 End: 02-06-2023 take 1 tablet by mouth once Diflucan 150 mg oral tablet 1 (one) tablet use as directed per instructions in pack for 1 days Quantity: 1 {Tablet} Refills: 1 Ordered: 06-Feb-2023 Nanette Jackson MA Start : 18-Jan-2023 End : 06-Feb-2023 Inactive Start: 02-14-2022 End: 02-27-2022 Fluconazole 150 MG Oral Tabl et 1 (one) Tablet qd for 3 days for 0 days Quantity: 3 {Tablet} Refills: 0 Ordered: 27-Feb-2022 JOHNNY Cervantes LPN Start : 14-Feb-2022 End : 27-Feb-2022 Inactive fluticasone propionate 0.05 mg/actuat metered dose nasal spray (20 sources) Corticosteroid Start: 02-07-2023 take 2 spray(s) nasal route once daily Flonase Allergy Relief 50 mcg/actuation intranasal spray, suspension 2 sprays daily;administer into each nostril for 30 days Quantity: 1 {Each} Refills: 3 Ordered: 07-Feb-2023 Debbie Chacon MD, MD, Dana M Start : 07-Feb-2023 Active Start: 12-04-2022 take 2 spray(s) nasa l route once daily Flonase Allergy Relief 50 mcg/actuation intranasal spray, suspension 2 sprays daily;administer into each nostril for 30 days Quantity: 1 {Each} Refills: 3 Ordered: 04-Dec-2022 Ines WOOTEN, Debbie Denny MD Start : 04-Dec-2022 Active Start: 11-10-2022 take 2 spray(s) nasa l route once daily Flonase Allergy Relief 50 mcg/actuation intranasal spray, suspension 2 sprays daily;administer into each nostril for 0 days Quantity: 1 {Each} Refills: 3 Ordered: 10-Nov-2022 Debbie Chacon MD, MD, Dana M Start : 10-Nov-2022 Active Start: 04-14-2020 End: 03-21-2022 Fluticasone Propionate Disco ntinued 2 SPRAY NASAL DAILY April 13, 2020 11:00pm March 21, 2022 9:03pm furosemide 40 mg oral tablet (20 sources) Loop Diuretic Start: 05-15-2023 End: 05-15-2023 take 1 tablet by mouth twice daily furosemide 40 mg oral tablet 1 (one) Tablet bid for 0 days Quantity: 135 {Tablet} Refills: 3 Ordered: 15-May-2023 Debbie Chacon MD, MD, Dana M Start : 15-May-2023 End : 15-May-2023 Discontinued Start: 11-06-2022 take 1 tablet by bob th twice daily furosemide 40 mg oral tablet 1 (one) Tablet bid for 0 days Quantity: 135 {Tablet} Refills: 3 Ordered: 06-Nov-2022 Debbie Chacon MD, MD, Dana M Start : 06-Nov-2022 Active Start: 07-18-2022 take 40 mg by mouth once daily Furosemide Active 40 MG PO DAILY July 18, 2022 9:23am Start: 02-07-2022 End: 07-18-2022 take 40 mg by mouth twice daily Furosemide Discontinue d 40 MG PO TWICE A DAY March 21, 2022 11:00pm July 18, 2022 9:25am Start: 01-21-2022 take 1 tablet by bob th in the morning Furosemide 40 MG Oral Tablet 1 (one) Tablet in am for 0 days Quantity: 90 {Tablet} Refills: 3 Ordered: 21-Jan-2022 Debbie Chacon MD, MD, Dana M Start : 21-Jan-2022 Active Start: 01-09-2022 take 1 tablet by obb th in the morning Furosemide 40 MG Oral Tablet 1 (one) Tablet in am for 0 days Quantity: 30 {Tablet} Refills: 5 Ordered: 09-Jan-2022 Ines WOOTEN, Debbie Denny MD Start : 09-Jan-2022 Active hydroCHLOROthiazide 25 mg / triamterene 37.5 mg oral tablet (20 sources) Potassium-sparing Diuretic, Thiazide Diuretic Start: 05-15-2023 take 1 tablet by mouth once daily triamterene-hydrochlorothiazid 37.5-25 mg oral tablet 1 (one) Tablet qd for 0 days Quantity: 90 {Tablet} Refills: 3 Ordered: 15-May-2023 Debbie Chacon MD, MD, Dana M Start : 15-May-2023 Active Start: 12-29-2021 End: 12-29-2021 take 1 tablet by mouth once daily Triamterene-HCTZ 37.5-25 MG Oral Tablet 1 (one) Tablet qd for 0 days Quantity: 30 {Tablet} Refills: 0 Ordered: 29-Dec-2021 Debbie Chacon MD, MD, Dana M Start : 29-Dec-2021 End : 29-Dec-2021 Discontinued Start: 11-07-2021 take 1 tablet by bob th once daily Triamterene-HCTZ 37.5-25 MG Oral Tablet 1 (one) Tablet qd for 0 days Quantity: 30 {Tablet} Refills: 0 Ordered: 07-Nov-2021 Debbie Chacon MD, MD, Dana M Start : 07-Nov-2021 Active Start: 07-18-2021 End: 10-20-2021 take 1 tablet by mouth once daily Triamterene-HCTZ 37.5-25 MG Oral Tablet 1 (one) Tablet qd for 0 days Quantity: 30 {Tablet} Refills: 0 Ordered: 20-Oct-2021 Ines WOOTEN, Debbie Chacon MD, Debbie Ashton Start : 20-Oct-2021 End : 20-Oct-2021 Discontinued Start: 04-14-2020 End: 03-22-2022 Triamterene-Hydrochlorothiaz id Discontinued 1 EACH PO DAILY April 13, 2020 11:00pm March 22, 2022 1:54pm LORazepam 1 mg oral tablet (6 sources) Benzodiazepine Start: 04-14-2020 End: 03-21-2022 Lorazepam Discontinued 1 MG PO NEEDED April 13, 2020 11:00pm March 21, 2022 9:03pm montelukast 10 mg oral tablet (6 sources) Leukotriene Receptor Antagonist Start: 04-14-2020 End: 03-21-2022 take 10 mg by mouth once daily Montelukast Discontinued 10 MG PO DAILY April 13, 2020 11:00pm March 21, 2022 9:03pm naproxen sodium 220 mg oral tablet (9 sources) Nonsteroidal Anti-inflammatory Drug Start: 04-16-2023 End: 05-15-2023 take 2 tablets by mouth twice daily Aleve 220 mg oral tablet 2 (two) Tablet 2 times per day for 0 days Quantity: 60 {Tablet} Refills: 0 Ordered: 15-May-2023 Valerie Sánchez LPN Start : 16-Apr-2023 End : 15-May-2023 Inactive nitrofurantoin, macrocrystals 25 mg / nitrofurantoin, monohydrate 75 mg oral capsule (20 sources) Nitrofuran Antibacterial Start: 02-16-2022 End: 02-06-2023 take 1 capsule by mouth twice daily nitrofurantoin monohyd/m-cryst 100 mg oral capsule 1 (one) Capsule bid for 0 days Quantity: 20 {Capsule} Refills: 0 Ordered: 06-Feb-2023 Nanette Jackson MA Start : 27-Feb-2022 End : 06-Feb-2023 Inactive PARoxetine hydrochloride 20 mg oral tablet (20 sources) Serotonin Reuptake Inhibitor Start: 05-15-2023 take 0.5 tablet by mouth once daily PARoxetine HCL 20 mg oral tablet 1/2 (one half) Tablet qd for 30 days Quantity: 30 {Tablet} Refills: 6 Ordered: 15-May-2023 Ines WOOTEN, Debbie Denny MD Start : 15-May-2023 Active Start: 04-02-2023 take 1 tablet by bob once daily PARoxetine HCL 20 mg oral tablet 1 (one) Tablet qd for 30 days Quantity: 30 {Tablet} Refills: 6 Ordered: 02-Apr-2023 Ines WOOTEN, Debbie Denny MD Start : 02-Apr-2023 Active Start: 11-06-2022 take 1 tablet by bob once daily PARoxetine HCL 20 mg oral tablet 1 (one) Tablet qd for 0 days Quantity: 30 {Tablet} Refills: 2 Ordered: 06-Nov-2022 Ines WOOTEN, Debbie Denny MD Start : 06-Nov-2022 Active Start: 10-30-2022 take 1 tablet by bob once daily PARoxetine HCL 20 mg oral tablet 1 (one) Tablet qd for 0 days Quantity: 30 {Tablet} Refills: 2 Ordered: 30-Oct-2022 Ines WOOTEN, Debbie Chacon MD, Debbie Ashton Start : 30-Oct-2022 Active Start: 04-14-2020 take 1 tablet by bob once daily PARoxetine HCl 20 MG Oral Tablet 1 (one) Tablet qd for 0 days Quantity: 30 {Tablet} Refills: 6 Ordered: 05-May-2022 Ines WOOTEN, Debbie Denny MD Start : 05-May-2022 Active Paxlovid 10 x 150 MG & 10 x 100MG Oral Tablet Therapy Pack (2 sources) Start: 04-17-2022 Paxlovid 10 x 150 MG & 10 x 100MG Oral Tablet Therapy Pack 3 (three) Tablet 3 bid for 5 days for 0 days Quantity: 30 {Tablet} Refills: 0 Ordered: 17-Apr-2022 Mellisa Paulino DO Start : 17-Apr-2022 Active Paxlovid 10 x 150 MG & 10 x 100MG Oral Tablet Therapy Pack (20 sources) Start: 04-17-2022 End: 11-06-2022 Paxlovid 10 x 150 MG & 10 x 100MG Oral Tablet Therapy Pack 3 (three) Tablet 3 bid for 5 days for 0 days Quantity: 30 {Tablet} Refills: 0 Ordered: 06-Nov-2022 Valerie Sánchez LPN Start : 17-Apr-2022 End : 06-Nov-2022 Discontinued Start: 04-17-2022 Paxlovid 10 x 150 MG & 10 x 100MG Oral Tablet Therapy Pack 3 (three) Tablet 3 bid for 5 days for 0 days Quantity: 30 {Tablet} Refills: 0 Ordered: 17-Apr-2022 Mellisa Paulino DO Start : 17-Apr-2022 Active potassium chloride 20 meq extended release oral tablet (20 sources) Start: 11-06-2022 End: 05-15-2023 take 1 tablet by mouth twice daily potassium chloride 20 mEq oral tablet, extended release 1 (one) Tablet bid for 0 days Quantity: 180 {Tablet} Refills: 3 Ordered: 15-May-2023 Debbie Chacon MD, MD, Dana M Start : 15-May-2023 End : 15-May-2023 Discontinued Start: 03-22-2022 End: 01-25-2023 take 20 mEq by mouth once daily Potassium Chloride Dis continued 20 MEQ PO DAILY March 21, 2022 11:00pm January 25, 2023 8:05am Start: 03-20-2022 take 1 tablet by bob th twice daily Potassium Chloride ER 20 MEQ Oral Tablet Extended Release 1 (one) Tablet bid for 0 days Quantity: 180 {Tablet} Refills: 3 Ordered: 20-Mar-2022 Debbie Chacon MD, MD, Dana M Start : 20-Mar-2022 Active Start: 02-07-2022 take 1 tablet by bob th twice daily Potassium Chloride ER 20 MEQ Oral Tablet Extended Release 1 (one) Tablet bid for 0 days Quantity: 180 {Tablet} Refills: 3 Ordered: 07-Feb-2022 Ines WOOTEN, Debbie Denny MD Start : 07-Feb-2022 Active Start: 01-09-2022 take 1 tablet by bob th twice daily Potassium Chloride ER 20 MEQ Oral Tablet Extended Release 1 (one) Tablet bid for 0 days Quantity: 180 {Tablet} Refills: 3 Ordered: 09-Jan-2022 Ines WOOTEN, Debbie Denny MD Start : 09-Jan-2022 Active Start: 11-18-2021 take 1 tablet by bob th once daily Potassium Chloride ER 20 MEQ Oral Tablet Extended Release 1 (one) Tablet qd for 0 days Quantity: 90 {Tablet} Refills: 3 Ordered: 18-Nov-2021 Ines WOOTEN, Debbie Denny MD Start : 18-Nov-2021 Active Start: 07-18-2021 End: 10-20-2021 take 2 capsules by mouth once daily Potassium Chloride ER 10 MEQ Oral Capsule Extended Release 2 (two) Capsule qd for 0 days Quantity: 60 {Capsule} Refills: 0 Ordered: 20-Oct-2021 Ines WOOTEN, Debbie Chacon MD, Debbie Ashton Start : 20-Oct-2021 End : 20-Oct-2021 Discontinued Start: 04-14-2020 End: 03-21-2022 take 10 mEq by mouth once daily Potassium Chloride Dis continued 10 MEQ PO DAILY April 13, 2020 11:00pm March 21, 2022 9:03pm psyllium 400 mg oral capsule (6 sources) Start: 04-14-2020 End: 03-21-2022 take 0.4 g by mouth once daily Psyllium Husk Discontinued 0.4 GM PO DAILY April 13, 2020 11:00pm March 21, 2022 9:03pm rosuvastatin calcium 10 mg oral tablet (20 sources) HMG-CoA Reductase Inhibitor Start: 11-06-2022 End: 11-27-2022 take 1 tablet by mouth in the morning rosuvastatin 10 mg oral tablet 1 (one) Tablet in am for 0 days Quantity: 30 {Tablet} Refills: 5 Ordered: 27-Nov-2022 Valerie Sánchez LPN Start : 06-Nov-2022 End : 27-Nov-2022 Discontinued Start: 04-10-2022 End: 05-09-2022 take 1 tablet by mouth once daily Rosuvastatin (Crestor) 20 mg tablet Discontinued 20 MG PO DAILY April 09, 2022 11:00pm May 09, 2022 11:09am Start: 12-16-2021 End: 04-10-2022 take 10 mg by mouth once daily Rosuvastatin Discontinu ed 10 MG PO DAILY March 21, 2022 11:00pm April 10, 2022 8:26am Start: 11-22-2021 take 1 tablet by bob th in the morning Rosuvastatin Calcium 10 MG Oral Tablet 1 (one) Tablet in am for 0 days Quantity: 30 {Tablet} Refills: 5 Ordered: 22-Nov-2021 Debbie Chacon MD, MD, Dana M Start : 22-Nov-2021 Active spironolactone 25 mg oral tablet (20 sources) Aldosterone Antagonist Start: 03-02-2023 End: 05-15-2023 take 1 tablet by mouth once daily spironolactone 25 mg oral tablet 1 (one) Tablet qd for 0 days Quantity: 30 {Tablet} Refills: 0 Ordered: 15-May-2023 Debbie Chacon MD, MD, Dana M Start : 15-May-2023 End : 15-May-2023 Discontinued Start: 11-06-2022 End: 11-06-2022 take 1 tablet by mouth once daily spironolactone 25 mg oral tablet 1 (one) Tablet qd for 0 days Quantity: 30 {Tablet} Refills: 0 Ordered: 06-Feb-2023 Debbie Chacon MD, MD, Dana M Start : 06-Nov-2022 Active Start: 03-22-2022 End: 03-02-2023 take 1 tablet by mouth once daily Spironolactone 25 MG Oral Tablet 1 (one) Tablet qd for 0 days Quantity: 30 {Tablet} Refills: 0 Ordered: 17-Apr-2022 Fast DO, Mellisa A Start : 17-Apr-2022 Active sulfamethoxazole 800 mg / trimethoprim 160 mg oral tablet (20 sources) Dihydrofolate Reductase Inhibitor Antibacterial, Sulfonamide Antimicrobial Start: 02-14-2022 End: 02-21-2022 take 1 tablet by mouth twice daily Bactrim DS 800-160 MG Oral Tablet 1 (one) Tablet twice a day for 7 days Quantity: 14 {Tablet} Refills: 0 Ordered: 14-Feb-2022 Debbie Chacon MD, MD, Dana M Start : 14-Feb-2022 End : 21-Feb-2022 Inactive tiZANidine 4 mg oral tablet (20 sources) Central alpha-2 Adrenergic Agonist Start: 04-16-2023 End: 05-15-2023 take 1 tablet by mouth every eight hours as needed tiZANidine 4 mg oral tablet 1 (one) Tablet q8hrs prn for 0 days Quantity: 20 {Tablet} Refills: 0 Ordered: 15-May-2023 Valerie Sánchez LPN Start : 16-Apr-2023 End : 15-May-2023 Inactive Start: 03-21-2022 End: 11-06-2022 take 1 tablet by mouth every eight hours as needed tiZANidine 4 mg oral tablet 1 (one) Tablet q8hrs prn for 0 days Quantity: 20 {Tablet} Refills: 0 Ordered: 06-Nov-2022 Valerie Sánchez LPN Start : 21-Mar-2022 End : 06-Nov-2022 Inactive Start: 03-20-2022 take 1 capsule by mo [facility] every eight hours as needed Zanaflex 4 MG Oral Capsule 1 (one) Capsule every 8 hours prn for 0 days Quantity: 20 {Capsule} Refills: 0 Ordered: 20-Mar-2022 Ines WOOTEN, Debbie Chacon MD, Debbie Ashton Start : 20-Mar-2022 Active ubidecarenone 100 mg oral capsule (20 sources) Start: 11-06-2022 coenzyme Q10 1 00 mg oral capsule 2 Capsule daily for 0 days Quantity: 30 {Capsule} Refills: 0 Ordered: 08-Jan-2023 Valerie Sánchez LPN Start : 06-Nov-2022 Active vitamin e 180 mg chewable tablet (20 sources) Start: 07-18-2021 take 1 tablet by mouth once daily Vitamin E 400 UNIT Oral Tablet Chewable 1 (one) Tablet daily for 0 days Quantity: 30 {Tablet} Refills: 0 Ordered: 20-Oct-2021 JOHNNY Cervantes LPN Start : 18-Jul-2021 Active Problems Active Problems Problem Classification Problem Date Documented Da te Episodic/Chronic Adjustment disorders (3 sources) Grief finding; Translations: [Adjustment disorder with depressed mood] 04-03-2022 Chronic Anxiety disorders (20 sources) Mixed anxiety and depressive disorder; Translations: [Anxiety and depression] 07-18-2021 Chronic Comment on above: sad right now with kunal barnes in [place]. grief loss of relation ship could have been before his illness. use ativan couple times a monthhad all life, panic attack in past. in better place and wants to try lowering the paxil Conduction disorders (2 sources) Bundle branch block; Translations: [Nonspecific intraventricular block] 04-03-2022 Chronic Coronary atherosclerosis and other heart disease (20 sources) Coronary atherosclerosis; Translations: [Atherosclerosis of huslia coronary artery of huslia heart without angina pectoris] 01-09-2022 Chronic Comment on above: CCTA LAD 327 2021 wi ll do asa and get to cardiology CCTA LAD 327 2021 wi ll do asa and get to cardiologycath moderate in LAD 2021 CCTA LAD 327 2021 wi ll do asa and get to cardiologycath moderate in LAD 2021 BV screening good 3- Coronary atherosclerosis and other heart disease (20 sources) Coronary atherosclerosis and other heart disease Diabetes mellitus without complication (14 sources) Abnormal glucose level; Translations: [Abnormal glucose (Renamed from Abnormal glucose level)] 05-15-2023 Episodic Disorders of lipid metabolism (20 sources) Hyperlipidemia; Translations: [Hyperlipidemia] 10-20-2021 Chronic Comment on above: 19% risk 10 year (is over 75 yo) in past on statin taken off because age, feel better off will make some changes benechol, change wterpill,. check bv then CCTA 19% risk 10 year (is over 75 yo) in past on statin taken off because age, feel better off will make some changes benechol, change wterpill,. check bv then CCTA tred off HCTZ and BP high. 19% risk 10 year (is over 75 yo) in past on statin taken off because age, she try crestor and think casue lethargy ? cause. need to get LDL down retry 19% risk 10 year (is over 75 yo) in past on statin taken off because age, she try crestor and think casue lethargy ? cause. simvastatin now and do okay on 10 mg only and needs more will try 11/2 pt worried ot increase quickly Essential hypertension (20 sources) Hypertensive disorder; Translations: [Hypertension] 07-18-2021 Chronic Comment on above: not able to tolerate off water pill (tried because of cholesterol) not able to tolerate off water pill (tried because of cholesterol) she gained weight she has edema. on the lsix and losarten m increase water pill 2 in the morning. not able to tolerate off water pill (tried because of cholesterol) on losartan and increased water pill and still swellign in ankle and weight gain. she did have cortisone and aleve. ? grief pt will add perfjillian harkins and see with michelle can she come off the lasix and spirolactone to triamterene right now BP now low er and lightheaded we will go back to the triamtrene since not needs the stronger water pills. Fluid and electrolyte disorders (20 sources) Hypokalemia; Translations: [Hypokalemia] Resolved: 2 07-18-2021 Episodic Genitourinary symptoms and ill-defined conditions (20 sources) Sterile pyuria; Translations: [Pyuria, sterile] 10-20-2021 Episodic Heart valve disorders (20 sources) Mitral valve prolapse; Translations: [MVP (mitral valve prolapse)] 10-20-2021 Chronic Comment on above: dx echo 2003 Mood disorders (20 sources) Mood disorders Mycoses (20 sources) Mycosis; Translations: [Yeast infection] 02-14-2022 Episodic Nutritional deficiencies (20 sources) Vitamin D deficiency; Translations: [Vitamin D deficiency] 07-18-2021 Chronic Other acquired deformities (20 sources) Scoliosis deformity of spine; Translations: [Scoliosis] 10-20-2021 Chronic Other gastrointestinal disorders (20 sources) Abdominal mass; Translations: [Abdominal mass] 12-29-2021 Episodic Comment on above: seen on noncontrast CT for CCTA will do the recommended abd. CT Other inflammatory condition of skin (20 sources) Itching ; Translations: [Itching] 02-16-2022 Episodic Other liver diseases (20 sources) Steatosis of liver; Translations: [Fatty liver] 07-18-2021 Chronic Comment on above: add vitamin E will l oose some weight cut out sugars and exercise. no DMelastrography good -20 us show fatty liver, FIb-4 2.16 add vitamin E will l oose some weight cut out sugars and exercise. no DM watching enz goodelastrography good 10-20 us show fatty liver, FIb-4 2.16 Other lower respiratory disease (20 sources) Dyspnea on exertion; Translations: [PULIDO (dyspnea on exertion)] 02-27-2022 Episodic Comment on above: echo 03-31 Other lower respiratory disease (12 sources) Cough; Translations: [Cough in adult] 06-04-2023 Episodic Comment on above: dtr was sick and had then pt had was clear drainage now yellow ? infection will treat with zpak and use zyretic. if not better than cxr and treat reflux etc Other nervous system disorders (20 sources) Peripheral nerve disease ; Translations: [Peripheral neuropathy] 07-18-2021 Chronic Comment on above: now in fingers. some neck issue.60's, bavis dx had NCS. now in fingers. some neck issue.60's, bavis dx had NCS. did labs 1-22 now in fingers. some neck issue. same vibratory plates, vitam b [id number]'s, bavis dx had NCS. did labs 1-22 Other nervous system disorders (20 sources) Carpal tunnel syndrome; Translations: [CTS (carpal tunnel syndrome)] 12-29-2021 Chronic Comment on above: had injection a day help willcome off aleve. had injection a day help willcome off aleve. wrist splints at night not want to have surgery yet Other non-traumatic joint disorders (20 sources) Hip pain; Translations: [Left hip pain] 03-22-2023 Episodic Comment on above: better with PT Other non-traumatic joint disorders (20 sources) Anterior knee pain; Translations: [Knee pain, left anterior] 04-16-2023 Episodic Comment on above: better with PT Other nutritional; endocrine; and metabolic disorders (20 sources) Body mass index 30+ - obesity; Translations: [BMI 30.0-30.9,adult] Resolved: 2 10-20-2021 Chronic Other nutritional; endocrine; and metabolic disorders (20 sources) Obesity; Translations: [Obesity] 07-18-2021 Chronic Comment on above: she has been eating more sugar she is now starting walking again, wants to get back to water aerobics. will work on cutting out the sweets. Other screening for suspected conditions (not mental disorders or infectious disease) (20 sources) Patient encounter status; Translations: [Screening mammogram for breast cancer] Onset: 5 07-18-2021 Episodic Comment on above: spep, bandar negative. has some arthritis. no TA signs and symptoms up to date on cancer screening seen dentist and good chronic sinusitis-med help Other upper respiratory infections (20 sources) Acute maxillary sinusitis; Translations: [Acute non-recurrent maxillary sinusitis] 01-08-2023 Episodic Pancreatic disorders (not diabetes) (20 sources) Cyst of pancreas; Translations: [Pancreatic cyst] 07-18-2021 Episodic Comment on above: last 05-25-20 rec. 2 year follow up Poisoning by other medications and drugs (20 sources) Allergic reaction caused by sulfonamide; Translations: [Allergic reaction to sulfonamide] 02-16-2022 Episodic Residual codes; unclassified (20 sources) Obstructive sleep apnea syndrome; Translations: [NATASHA (obstructive sleep apnea)] 10-20-2021 Chronic Comment on above: [facility]care dx cpap Residual codes; unclassified (20 sources) Non-smoker; Translations: [Non-smoker] 10-20-2021 Episodic Residual codes; unclassified (20 sources) Postmenopausal state; Translations: [Postmenopausal status] 10-20-2021 Episodic Residual codes; unclassified (20 sources) Peripheral edema; Translations: [Peripheral edema] 02-07-2022 Episodic Residual codes; unclassified (3 sources) Edema; Translations: [Edema, unspecified] 03-22-2022 Episodic Spondylosis; intervertebral disc disorders; other back problems (20 sources) Chronic back pain ; Translations: [Chronic back pain] Resolved: 3 10-20-2021 Episodic Comment on above: pt does chiropactor and watches what does not severe Unclassified (20 sources) Unclassified (20 sources) Encounter for annual general medical examination with abnormal findings in adult Unclassified (20 sources) Non-smoker Unclassified (20 sources) BMI 30.0-30.9,adult Unclassified (20 sources) Postmenopausal status Unclassified (20 sources) Screening mammogram for breast cancer Unclassified (20 sources) Peripheral neuropathy Unclassified (20 sources) NATASHA (obstructive sleep apnea) Unclassified (20 sources) Elevated high sensitivity C-reactive protein Unclassified (20 sources) Pyuria, sterile Unclassified (20 sources) Primary hypertension Unclassified (20 sources) CTS (carpal tunnel syndrome) Unclassified (11 sources) Allergic reaction to sulfonamide Unclassified (16 sources) BMI 31.0-31.9,adult Unclassified (15 sources) PULIDO (dyspnea on exertion) Unclassified (6 sources) Low back pain, episodic Urinary tract infections (20 sources) Chronic urinary tract infection; Translations: [Chronic UTI] 07-18-2021 Episodic Comment on above: Dr. Wallis renal us 08-27 cystoscopy [address] aph inurine. resistent to cipro will do macrobid since bactrim caused itchingDr. Bimal renal us 08-27 cystoscopy [address] right [address] has [address] aph inurine. resistent to cipro will do macrobid longer since bactrim caused itchingDr. Bimal renal us 08-27 cystoscopy 2018 Past or Other Problems Problem Classification Problem Date Documented Da te Episodic/Chronic Unclassified (20 sources) Deliveries (Parity); Translations: [Deliveries (Parity)] 10-20-2021 Comment on above: 3 vaginal Unclassified (20 sources) Pregnancies (); Translations: [Pregnancies ()] 10-20-2021 Comment on above: 3 Unclassified (12 sources) Yeast infection Unclassified (20 sources) Unspecified Diagnosis 11-10-2022 Urinary tract infections (20 sources) Urinary tract infections Viral infection (20 sources) Disease caused by 2019-nCoV; Translations: [COVID] Onset: 04-16-2022 04-17-2022 Episodic Viral infection (20 sources) Disease caused by 2019-nCoV Results Test Name Value Interpretation Reference Range Facility Cardiology Visit Reporton Cardiology Visit Report [facility] [address] [place] [address]. [address] [place] [address] OFFICE VISIT Date of Service: 11/10/24 MR#: [id number] Acct: [id number] Name: MIQUELKERRY OHDO CABRALES Rep #: [id number] : 1945 Provider: LUCIE stevens Age/Sex: 79/F Location: [facility] [place] Status: Signed HPI HPI History of Present Illness Details: This is a pleasant 79-year-old lady who presents to the office today for a cardiovascular follow-up visit. She has a history of hypertension,and probable valvular heart disease, and hyperlipidemia. As part of her routine follow-up and evaluation she had a coronary calcium score which was noted to have a total of 339 with 327 Agatston score noted in the LAD distribution. She underwent a cardiac catheterization which demonstrated nonobstructive coronary artery disease with moderate disease noted n the LAD with calcification. Mild disease noted in the right coronary artery and minimal disease in the circumflex artery. Preserved ejection fraction. Medical therapy was recommended at that time. She denies chest, arm, jaw, or neck discomfort. She denies palpitations. She continues with bilateral lower extremity edema. She denies claudication. She denies shortness of breath with activity, shortness of breath at rest, orthopnea, or PND. She denies chronic cough. She denies significant, sudden weight gain. She denies lightheadedness, dizziness, near-syncope, or syncope. She denies blood in urine, blood in stool, or epistaxis. He denies fever with chills. She denies myalgia. She denies fatigue. Her exercise level has remained stable via her water aerobics regularly. Intake Vital Signs 09/28/23 10:39 11/10/24 10:59 Height 5 ft 7 in 5 ft 7 in Weight: 199 lb BMI 31.1 BP 122/75 H Blood Pressure Location Lt brachial Position Sitting Respiration 18 Pulse 74 Pulse Source NIBP Intake Visit Reasons: 1 Y FU Keno Writer/Runner Required: No Is patient in pain?: No Allergies rosuvastatin Adverse Reaction (Verified 11/10/24 11:03) myalgia Medications ???Medication ???Instructions ???Recorded ???Confirmed ???Type ascorbic acid (vitamin C) 500 mg 500 mg PO DAILY 04/14/20 11/10/24 History capsule,extended release cholecalciferol (vitamin D3) 50 2,000 unit PO DAILY 04/14/2011/10 History mcg (2,000 unit) capsule paroxetine HCl 20 mg tablet 20 mg PO DAILY 04/14/20 11/10/24 H istory aspirin 81 mg tablet,delayed 81 mg PO DAILY 04/03/22 11/10/24 H istory release (Adult Low Dose Aspirin) simvastatin 10 mg tablet 15 mg PO QHS 09/28/23 11/10/24 His tory triamterene 37.5 1 tab PO BID 09/28/23 11/10/24 His tory mg-hydrochlorothiazide 25 mg tablet metoprolol succinate 25 mg 12.5 mg (1/2 x 25 mg) PO DAILY #45 09/12/24 11/10/24 Rx tablet,extended release 24 hr tabs (Toprol XL) cod liver oil 1 cap PO BID 11/10/24 11/10/24 His tory coenzyme Q10 100 mg tablet 100 mg PO QDAY 11/10/24 11/10/24 H istory cranberry 500 mg capsule 500 mg PO TID 11/10/24 11/10/24 Hi story lactobacillus combination no.9 4 4,000 mmu cells PO QDAY 11/10/24 0 11/10/24 History billion cell capsule (Adult 50 Plus Probiotic) levomefolate Ca 3 mg-B6 35 1 cap PO BID 11/10/24 11/10/24 His tory mg-meB12 2 mg-algal oil 90.314 mg capsule (Metanx (algal oil)) magnesium oxide 500 mg PO BID 11/10/24 11/10/24 Hi story Ejection fraction %: 60 Have you fallen in the past year?: Yes (While dancing) [facility] Medical History COVID-19 virus detected (04/16/22) Nonobstructive atherosclerosis of coronary artery Abnormal electrocardiogram Rate-dependent bundle branch block Grief Peripheral neuropathy Scoliosis Elevated coronary artery calcium score Essential hypertension Hyperlipidemia Obstructive sleep apnea Fatty liver Surgical History History of left heart catheterization (04/10/22) H/O right knee surgery H/O left knee surgery History of cataract surgery H/O cystoscopy Family History Father Heart disease AFIB Colon cancer Mother Breast cancer Grandfather Heart disease Grandmother No problems noted. Grandfather Heart disease Social History Smoking Status: Former smoker how long ago did patient quit smoking: Age 36 alcohol intake: current alcohol intake frequency: a few times a week Alcohol type: wine substance use type: does not use caffeine: No what type of physical activity do you participate in: other details: Water aerobics, strength training frequency: 1-2 times per week ROS Const Const: Negative for fatigue or weakness Eyes Eyes: Negative f (more content not included)... [facility] D[facility] Studyon Dexa Bone Density Study [facility] [address] [place], [place] [id number] Dexa Bone Density Study MR#: [id number] Acct: [id number] Name: NAHEED LAFLEUR Rep #: [id number] : 1945 F 79 From: Scout bales MD PCP: Dr. Debbie Chacon MD Status: REG CLI Study: Dexa Bone Density Study Date of Exam: 08/12/24 Exam# [id number] Ordering Dr: Debbie Chacon MD [id number] STUDY: DUAL ENERGY X-RAY ABSORPTIOMETRY / DXA REASON FOR EXAM: Female, 79 years old. [id number] TECHNIQUE: Bone Mineral Density (BMD) measurements of lumbar spine and bilateral hips were obtained. COMPARISON: Comparison is made with prior study of November 15, 2021. FINDINGS: Lumbar Spine (L1-L4): g/cm2 (0.980) / T-score (0.0) / Z-score (2.4) Findings are suggestive of normal bone density with a low fracture risk. Left Femur Total: g/cm2 (0.974) / T-score (0.3) / Z-score (2.2) Left Femoral Neck: g/cm2 (1.027) / T-score (1.6) / Z-score (3.8) Right Femur Total: g/cm2 (0.889) / T-score (-0.4) / Z-score (1.5) Right Femoral Neck: g/cm2 (0.831) / T-score (-0.2) / Z-score (2.1) The T-Scores on the most recent prior examination were: Lumbar Spine (L1-L4): There has been worsening of bone density since the previous examination. Left Femur Total: which represents an improvement of 2.7%. Right Femur Total: which represents an improvement of 2.4%. BD/Dexa Bone Density Study IMPRESSION: The patient is considered normal as outlined below according to World Sree Organization (WHO) criteria with a low fracture risk. There has been improvement of bone density since the previous examination. Reference Information: The T-score is the number of standard deviations above or below the standard which is normal for young adults at their peak bone mineral density. The World Health Organization (WHO) interprets the T-scores as follows: Above -1 Normal bone density Between -1 and -2.5 Osteopenia Equal to / or below -2.5 Osteoporosis As a practical clinical guideline, osteopenia may be graded as follows: Mild -1 through -1.5 Moderate -1.6 through -2.0 Severe -2.1 through -2.4 The Z-score is the number of standard deviations above or below age-matched controls. A Z-score of less than -1.5 would be considered abnormal. References: 1. NIH Osteoporosis and Related Bone Diseases www osteo.org 2. International Society for Clinical Densitometry www iscd.org 3. National Osteoporosis Foundation www nof.org Electronically Signed: Scout Degroot MD at 14:11 EST , CC: Dr. Debbie Chacon MD Assistant Program Manager: Signed Normal [facility] SCRN MAMM (CAD)W/SUJeferson Soriano n 08-12-2024 SCRN MAMM (CAD)W/SU BILAT [facility] [address] [place], [place] [id number] SCRN MAMM (CAD)W/SU ROSA ISELAAT MR#: [id number] Acct: [id number] Name: NAHEED LAFLEUR SAMRA Rep #: [id number] : 1945 F 79 From: Scout bales MD PCP: Dr. Debbie Chacon MD Status: [facility] Study: SCRN MAMM (CAD)W/SU BILAT Date of Exam: 12/01 Exam# [id number] Ordering Dr: Debbie Chacon MD [id number] MAMMOGRAPHY - BILATERAL SCREENING REASON FOR EXAM: Female, 79 years old. Routine annual screening examination. PERTINENT HISTORY: Mother with breast cancer. TECHNIQUE: Digital bilateral breast su (3D mammographic acquisition) in the CC and MLO projections. 2-D mediolateral oblique (MLO) and craniocaudad (CC) views of both breasts were obtained. CAD: Full Field Digital Mammography with Computer Added Detection was performed. COMPARISON: Comparison is made with prior study August 09, 2023 and August 08, 2002. FINDINGS: Breast Composition: There are scattered areas of fibroglandular density. There are no dominant masses or suspicious calcifications. No other significant abnormalities are identified. There has been no significant change since the prior study. BI/SCRN MAMM (CAD)W/SU BILAT IMPRESSION: Stable bilateral screening mammogram. Yearly follow-up mammogram recommended. (A) ASSESSMENT CATEGORY: BIRADS Category 1: Negative. A letter regarding these results will be sent to the patient by the facility within 30 days. Approximately 10% of breast cancers are not detected by mammography. A normal mammogram should not delay biopsy of a clinically suspicious abnormality. [id number] Electronically Signed: Scout Degroot MD at 11:54 EST , CC: Dr. Debbie Chacon MD Assistant Program Manager: Signed Normal [facility] VIDDHon 04-17-2024 Vit D 125 di-OH 25.4 pg/mL Normal 24.8-81.5 [facility] ([place]) Comment on above: Result Comment: Perf ormed At: [facility] [address] [id number] Tommie Arshad MD Ph:[phone] Performed By: #### B 12 #### [place] [address] #### [id number], VIDH, GFR, FT4, ANEU, CMP, ADIFF, CBC #### [address] [address] .Auto Diffon 04-15-2024 Basophil, Absolute 0.0 10 3/mcL Normal 0.0-0.2 [facility] ([place]) Comment on above: Performed By: #### B 12 #### [place] [address] #### [id number], VIDH, GFR, FT4, ANEU, CMP, ADIFF, CBC #### [address] [address] Basophils/100 WBC (Bld) 0.9 % Normal 0.0-2.5 [facility] ([place]) Comment on above: Performed By: #### B 12 #### [place] [address] #### [id number], VIDH, GFR, FT4, ANEU, CMP, ADIFF, CBC #### [address] [address] Eosinophil, Absolute 0.1 10 3/mcL Normal 0.0-0.4 [facility] ([place]) Comment on above: Performed By: #### B 12 #### [place] [address] #### [id number], VIDH, GFR, FT4, ANEU, CMP, ADIFF, CBC #### [address] [address] Eosinophils/100 WBC (Bld) 1.9 % Normal 0.0-7.0 [facility] ([place]) Comment on above: Performed By: #### B 12 #### [place] [address] #### [id number], VIDH, GFR, FT4, ANEU, CMP, ADIFF, CBC #### [address] [address] Lymphocyte, Absolute 1.1 10 3/mcL Normal 0.8-3.9 [facility] ([place]) Comment on above: Performed By: #### B 12 #### [place] [address] #### [id number], VIDH, GFR, FT4, ANEU, CMP, ADIFF, CBC #### [address] [address] Lymphocytes/100 WBC (Bld) 19.2 % Normal 10.0-50.0 [facility] ([place]) Comment on above: Performed By: #### B 12 #### [place] [address] #### [id number], VIDH, GFR, FT4, ANEU, CMP, ADIFF, CBC #### [address] [address] Monocyte, Absolute 0.4 10 3/mcL Normal 0.2-1.0 [facility] ([place]) Comment on above: Performed By: #### B 12 #### [place] [address] #### [id number], VIDH, GFR, FT4, ANEU, CMP, ADIFF, CBC #### [address] [address] Monocytes/100 WBC (Bld) 7.8 % Normal 1.7-13.0 [facility] ([place]) Comment on above: Performed By: #### B 12 #### [place] [address] #### [id number], VIDH, GFR, FT4, ANEU, CMP, ADIFF, CBC #### [address] [address] Neutrophils/100 WBC (Bld) 70.2 % Normal 37.0-80.0 [facility] ([place]) Comment on above: Performed By: #### B 12 #### [address] [address] #### [id number], VIDH, GFR, FT4, ANEU, CMP, ADIFF, CBC #### [address] [address] .GFRon 04-15-2024 GFR 67 ml/min/1.73sqm Normal [facility] ([place]) Comment on above: Result Comment: GFR Population mean for , [...] 15 mL/min/1.73 square meters Performed By: #### B 12 #### [address] [address] #### [id number], VIDH, GFR, FT4, ANEU, CMP, ADIFF, CBC #### [address] [address] GFR Non- 55 ml/min/1.73sqm Normal [facility] ([place]) Comment on above: Result Comment: GFR Population mean for , [...] 15 mL/min/1.73 square meters Performed By: #### B 12 #### [place] [address] #### [id number], VIDH, GFR, FT4, ANEU, CMP, ADIFF, CBC #### [address] [address] .NEUABSon 04-15-2024 Neutrophil, Absolute 3.9 10 3/mcL Normal 2.9-6.2 [facility] ([place]) Comment on above: Performed By: #### B 12 #### [place] [address] #### [id number], VIDH, GFR, FT4, ANEU, CMP, ADIFF, CBC #### [address] [address] B12on 04-15-2024 Vitamin B12 Lvl >2000 High 211-911 [facility] ([place]) Comment on above: Performed By: #### B 12 #### [place] [address] #### [id number], VIDH, GFR, FT4, ANEU, CMP, ADIFF, CBC #### [address] [address] CBCon 04-15-2024 Erythrocyte distribution width (RBC) [Ratio] 15.4 % High 11.5-14.5 [facility] ([place]) Comment on above: Performed By: #### B 12 #### [place] [address] #### [id number], VIDH, GFR, FT4, ANEU, CMP, ADIFF, CBC #### [address] [address] Hematocrit (Bld) [Volume fraction] 36.8 % Low 37.0-47.0 [facility] ([place]) Comment on above: Performed By: #### B 12 #### [place] [address] #### [id number], VIDH, GFR, FT4, ANEU, CMP, ADIFF, CBC #### [address] [address] Hgb 12.7 G/dL Normal 12.0-16.0 [facility] ([place]) Comment on above: Performed By: #### B 12 #### [place] [address] #### [id number], VIDH, GFR, FT4, ANEU, CMP, ADIFF, CBC #### [address] [address] MCH (RBC) [Entitic mass] 31.0 pg Normal 27.0-31.2 [facility] ([place]) Comment on above: Performed By: #### B 12 #### [place] [address] #### [id number], VIDH, GFR, FT4, ANEU, CMP, ADIFF, CBC #### [address] [address] MCHC 34.6 G/dL Normal 33.0-37.0 [facility] ([place]) Comment on above: Performed By: #### B 12 #### [place] [address] #### [id number], VIDH, GFR, FT4, ANEU, CMP, ADIFF, CBC #### [address] [address] MCV (RBC) [Entitic vol] 89.6 fL Normal 80.0-94.0 [facility] ([place]) Comment on above: Performed By: #### B 12 #### [place] [address] #### [id number], VIDH, GFR, FT4, ANEU, CMP, ADIFF, CBC #### [address] [address] Platelet 189 10 3/mcL Normal 130-400 [facility] ([place]) Comment on above: Performed By: #### B 12 #### [place] [address] #### [id number], VIDH, GFR, FT4, ANEU, CMP, ADIFF, CBC #### [address] [address] Platelet mean volume (Bld) [Entitic vol] 8.4 fL Normal 7.4-10.4 [facility] ([place]) Comment on above: Performed By: #### B 12 #### [place] [address] #### [id number], VIDH, GFR, FT4, ANEU, CMP, ADIFF, CBC #### [address] [address] RBC 4.10 10 6/mcL Low 4.20-5.40 [facility] ([place]) Comment on above: Performed By: #### B 12 #### [place] [address] #### [id number], VIDH, GFR, FT4, ANEU, CMP, ADIFF, CBC #### [address] [address] WBC 5.6 10 3/mcL Normal 4.6-10.8 [facility] ([place]) Comment on above: Performed By: #### B 12 #### [place] [address] #### [id number], VIDH, GFR, FT4, ANEU, CMP, ADIFF, CBC #### [address] [address] CMPon 04-15-2024 Albumin Level 3.7 G/dL Normal 3.4-4.8 [facility] ([place]) Comment on above: Performed By: #### B 12 #### [place] [address] #### [id number], VIDH, GFR, FT4, ANEU, CMP, ADIFF, CBC #### [address] [address] Albumin/Globulin [Mass ratio] 1.2 {ratio} Normal 1.1-2.5 [facility] ([place]) Comment on above: Performed By: #### B 12 #### [place] [address] #### [id number], VIDH, GFR, FT4, ANEU, CMP, ADIFF, CBC #### [address] [address] ALP [Catalytic activity/Vol] 100 U/L Normal 40-135 [facility] ([place]) Comment on above: Performed By: #### B 12 #### [place] [address] #### [id number], VIDH, GFR, FT4, ANEU, CMP, ADIFF, CBC #### [address] [address] ALT [Catalytic activity/Vol] 34 U/L Normal 14-59 [facility] ([place]) Comment on above: Performed By: #### B 12 #### [place] [address] #### [id number], VIDH, GFR, FT4, ANEU, CMP, ADIFF, CBC #### [address] [address] AST [Catalytic activity/Vol] 26 U/L Normal 10-40 [facility] ([place]) Comment on above: Performed By: #### B 12 #### [place] [address] #### [id number], VIDH, GFR, FT4, ANEU, CMP, ADIFF, CBC #### [address] [address] Bili Total 0.6 mg/dL Normal 0.2-1.0 [facility] ([place]) Comment on above: Result Comment: Use of this assay is not recommended for patients undergoing treatment with eltrombopag due to the potential for falsely elevated results. Performed By: #### B 12 #### [place] [address] #### [id number], VIDH, GFR, FT4, ANEU, CMP, ADIFF, CBC #### [address] [address] BUN/Creatinine Ratio 31 ratio High 7-27 [facility] ([place]) Comment on above: Performed By: #### B 12 #### [place] [address] #### 475385, VIDH, GFR, FT4, ANEU, CMP, ADIFF, CBC #### [address] [address] Calcium [Mass/Vol] 9.3 mg/dL Normal 8.4-10.2 [facility] ([place]) Comment on above: Performed By: #### B 12 #### [place] [address] #### 138174, VIDH, GFR, FT4, ANEU, CMP, ADIFF, CBC #### [address] [address] Chloride [Moles/Vol] 104 mmol/L Normal 98-107 [facility] ([place]) Comment on above: Performed By: #### B 12 #### [place] [address] #### [id number], VIDH, GFR, FT4, ANEU, CMP, ADIFF, CBC #### [address] [address] CO2 [Moles/Vol] 29 mmol/L Normal 23-31 [facility] ([place]) Comment on above: Performed By: #### B 12 #### [place] [address] #### 510390, VIDH, GFR, FT4, ANEU, CMP, ADIFF, CBC #### [address] [address] Creatinine [Mass/Vol] 0.98 mg/dL Normal 0.55-1.02 [facility] ([place]) Comment on above: Performed By: #### B 12 #### [place] [address] #### 212493, VIDH, GFR, FT4, ANEU, CMP, ADIFF, CBC #### [address] [address] Electrolyte Balance 8.0 mEq/L Normal 4.0-15.0 [facility] ([place]) Comment on above: Performed By: #### B 12 #### [place] [address] #### 098150, VIDH, GFR, FT4, ANEU, CMP, ADIFF, CBC #### [address] [address] Globulin 3.1 G/dL Normal [facility] ([place]) Comment on above: Performed By: #### B 12 #### [place] [address] #### 769133, VIDH, GFR, FT4, ANEU, CMP, ADIFF, CBC #### [address] [address] Glucose [Mass/Vol] 115 mg/dL High 83-110 [facility] ([place]) Comment on above: Performed By: #### B 12 #### [place] [address] #### 091219, VIDH, GFR, FT4, ANEU, CMP, ADIFF, CBC #### [address] [address] Potassium [Moles/Vol] 3.8 mmol/L Normal 3.5-5.1 [facility] ([place]) Comment on above: Performed By: #### B 12 #### [place] [address] #### 171001, VIDH, GFR, FT4, ANEU, CMP, ADIFF, CBC #### [address] [address] Sodium [Moles/Vol] 141 mmol/L Normal 136-145 [facility] ([place]) Comment on above: Performed By: #### B 12 #### [place] [address] #### 397698, VIDH, GFR, FT4, ANEU, CMP, ADIFF, CBC #### [address] [address] Total Protein 6.8 G/dL Normal 6.4-8.2 [facility] ([place]) Comment on above: Performed By: #### B 12 #### [place] [address] #### 984246, VIDH, GFR, FT4, ANEU, CMP, ADIFF, CBC #### [address] [address] Urea nitrogen [Mass/Vol] 30 mg/dL High 7-18 [facility] ([place]) Comment on above: Performed By: #### B 12 #### [place] [address] #### 673462, VIDH, GFR, FT4, ANEU, CMP, ADIFF, CBC #### [address] [address] FT4on 04-15-2024 Free T4 [Mass/Vol] 0.71 ng/dL Low 0.76-1.46 [facility] ([place]) Comment on above: Performed By: #### B 12 #### [place] [address] #### 215131, VIDH, GFR, FT4, ANEU, CMP, ADIFF, CBC #### [address] [address] VIDHon 04-15-2024 Vit. D 25-Hydroxy 41.0 ng/mL Normal [facility] ([place]) Comment on above: Result Comment: Inte rpretive Values Based on Total 25(OH) Vitamin D: Deficient <20 ng/mL Insufficient 20 - <30 ng/mL Sufficient 30-100 ng/mL Performed By: #### B 12 #### [place] [address] #### 969013, VIDH, GFR, FT4, ANEU, CMP, ADIFF, CBC #### [address] [address] HgA1C , Office ([id number])Ordere d By: Nanette Jacksno on 05-15-2023 HbA1c (Bld) [Mass fraction] 5.5 % Normal 4.6 - 7.1 [facility]; [facility] Work Phone: CALCIFIDIOL ([id number]) VIT D 25 Ordered By: Circus Artist on 05-09-2023 25-hydroxyvitamin D [Mass/Vol] 44.3 ng/mL Normal 30.0-100.0 [facility]; [facility] Work Phone: Comment on above: Vitamin D deficiency has been defined by the [place] [facility] and an Endocrine Society practice guideline as alevel of serum 25-OH vitamin D less than 20 ng/mL (1,2).The Endocrine Society went on to further define vitamin Dinsufficiency as a level between 21 and 29 ng/mL (2).1. IOM ([place] [employer]). 2010. Dietary reference intakes for calcium and D. [place]: The National Academies Press.2. Juan MF, Maribeth NC, Lara CARBAJAL, et al. Evaluation, treatment, and prevention of vitamin D deficiency: an Endocrine Society clinical practice guideline. JCEM. 2010; 96(7):1911-30. PATIENT WAS FASTINGP ERFORMED BY: [employer] [place] [id number] CBC with auto diff ([id number])Or dered By: Circus Artist on 05-09-2023 Basophils (Bld) [#/Vol] 0.0 10*3/uL Normal 0.0-0.2 [facility]; [facility] Work Phone: Comment on above: PATIENT WAS FASTINGP ERFORMED BY: [facility] IncCarolinas Continue[facility] [id number] Basophils/100 WBC (Bld) 1 % Normal [facility]; [facility] Work Phone: Comment on above: PATIENT WAS FASTINGP ERFORMED BY: [place]ouzzDublin [place] [id number] Eosinophils (Bld) [#/Vol] 0.1 10*3/uL Normal 0.0-0.4 [facility]; [facility] Work Phone: Comment on above: PATIENT WAS FASTINGP ERFORMED BY: RENALDO [facility] Tawnoh[address] [facility] [id number] Eosinophils/100 WBC (Bld) 3 % Normal [facility]; [facility] Work Phone: Comment on above: PATIENT WAS FASTINGP ERFORMED BY: [facility] Ehbhdg8055 [address] [facility] [id number] Erythrocyte distribution width (RBC) [Ratio] 14.0 % Normal 11.7-15.4 [facility]; [facility] Work Phone: Comment on above: PATIENT WAS FASTINGP ERFORMED BY: [facility] Vshedr8696 [address] [facility] [id number] Hematocrit (Bld) [Volume fraction] 38.3 % Normal 34.0-46.6 [facility]; [facility] Work Phone: Comment on above: PATIENT WAS FASTINGP ERFORMED BY: [facility] Yajrfe8059 [address] [facility] [id number] Hemoglobin (Bld) [Mass/Vol] 12.5 g/dL Normal 11.1-15.9 [facility]; [facility] Work Phone: Comment on above: PATIENT WAS FASTINGP ERFORMED BY: [facility] Vhmgpx9535 [address] [facility] [id number] Immature granulocytes (Bld) [#/Vol] 0.0 10*3/uL Normal 0.0-0.1 [facility]; [facility] Work Phone: Comment on above: PATIENT WAS FASTINGP ERFORMED BY: [facility] Dulzyo8737 [address] [facility] [id number] Immature granulocytes/100 WBC (Bld) 0 % Normal [facility]; [facility] Work Phone: Comment on above: PATIENT WAS FASTINGP ERFORMED BY: [facility] Mxlnwu8178 [address] RoadDublin [place] [id number] Lymphocytes (Bld) [#/Vol] 1.0 10*3/uL Normal 0.7-3.1 [facility]; [facility] Work Phone: Comment on above: PATIENT WAS FASTINGP ERFORMED BY: LabUniversity [facility] RoadDublin [place] [id number] Lymphocytes/100 WBC (Bld) 19 % Normal [facility]; [facility] Work Phone: Comment on above: PATIENT WAS FASTINGP ERFORMED BY: LabUniversity [facility] RoadDublin [place] [id number] MCH (RBC) [Entitic mass] 29.6 pg Normal 26.6-33.0 [facility]; [facility] Work Phone: Comment on above: PATIENT WAS FASTINGP ERFORMED BY: [facility] [facility]in [place] [id number] MCHC (RBC) [Mass/Vol] 32.6 g/dL Normal 31.5-35.7 [facility]; [facility] Work Phone: Comment on above: PATIENT WAS FASTINGP ERFORMED BY: [facility]University [facility] [facility] Centerblin [place] [id number] MCV (RBC) [Entitic vol] 91 fL Normal 79-97 [facility]; [facility] Work Phone: Comment on above: PATIENT WAS FASTINGP ERFORMED BY: [facility]University [facility] [facility]in [place] [id number] Monocytes (Bld) [#/Vol] 0.5 10*3/uL Normal 0.1-0.9 [facility]; [facility] Work Phone: Comment on above: PATIENT WAS FASTINGP ERFORMED BY: LabUniversity [facility] RoadDublin [place] [id number] Monocytes/100 WBC (Bld) 10 % Normal [facility]; [facility] Work Phone: Comment on above: PATIENT WAS FASTINGP ERFORMED BY: RENALDO [facility] Fcirhi8919 [address] RoadDublin [place] [id number] Neutrophils (Bld) [#/Vol] 3.5 10*3/uL Normal 1.4-7.0 [facility]; [facility] Work Phone: Comment on above: PATIENT WAS FASTINGP ERFORMED BY: CB [facility] Rtzhjc6554 [address] RoadDublin [place] [id number] Neutrophils/100 WBC (Bld) 67 % Normal [facility]; [facility] Work Phone: Comment on above: PATIENT WAS FASTINGP ERFORMED BY: CB [facility] Qwjhvu7113 [address] RoadDublin [place] [id number] Platelets (Bld) [#/Vol] 206 10*3/uL Normal 150-450 [facility]; [facility] Work Phone: Comment on above: PATIENT WAS FASTINGP ERFORMED BY: CB [facility] Suyoce6580 [address] RoadDublin [place] [id number] RBC (Bld) [#/Vol] 4.23 10*6/uL Normal 3.77-5.28 Compr ehensive Internal [facility]; [facility] Work Phone: Comment on above: PATIENT WAS FASTINGP ERFORMED BY: CB [facility] Amgbvp7114 [address] RoadDublin [place] [id number] WBC (Bld) [#/Vol] 5.2 10*3/uL Normal 3.4-10.8 Compre hensive [facility]; [facility] Work Phone: Comment on above: PATIENT WAS FASTINGP ERFORMED BY: CB [facility] Sitckp4408 [address] RoadDublin [place] [id number] LIPID PANEL (41306)Ordered B y: Circus Artist on 05-09-2023 Cholesterol [Mass/Vol] 200 mg/dL Abnormal 100-199 [facility]; [facility] Work Phone: Comment on above: PATIENT WAS FASTINGP ERFORMED BY: CB [facility] Hluxun5434 [address] RoadDublin [place] [id number]; fu 9-5 DB Cholesterol in HDL [Mass/Vol] 66 mg/dL Normal [facility]; [facility] Work Phone: Comment on above: PATIENT WAS FASTINGP ERFORMED BY: CB [facility] Jnrmge6647 [address] RoadDublin [place] [id number]; fu 9-5 DB Triglyceride [Mass/Vol] 183 mg/dL Abnormal 0-149 [facility]; [facility] Work Phone: Comment on above: PATIENT WAS FASTINGP ERFORMED BY: CB [facility] Keimnr0232 [address] RoadDublin [place] [id number]; fu 9-5 DB LIPID PANEL (88039) 31 mg/dL Normal 5-40 [facility]; [facility] Work Phone: Comment on above: PATIENT WAS FASTINGP ERFORMED BY: CB [facility] Nbendv6786 [address] RoadDublin [place] [id number]; fu 9-5 DB LIPID PANEL (13717) 103 mg/dL Abnormal 0-99 [facility]; [facility] Work Phone: Comment on above: PATIENT WAS FASTINGP ERFORMED BY: CB [facility] Nryjzx3085 [address] RoadDublin [place] [id number]; fu 9-5 DB LIPID PANEL (52502) 1.6 {ratio} Normal 0.0-3.2 [facility]; [facility] Work Phone: Comment on above: LDL/HDL Ratio Men Wo men 1/2 Avg.Risk 1.0 1.5 Avg.Risk 3.6 3.2 2X Avg.Risk 6.2 5.0 3X Avg.Risk 8.0 6.1 PATIENT WAS FASTINGP ERFORMED BY: CB [facility] Maigba6947 [address] RoadDublin [place] [id number]; fu 9-5 DB METABOLIC PANEL, COMPREHENSI VE (83654)Ordered By: Circus Artist on 05-09-2023 Albumin [Mass/Vol] 4.3 g/dL Normal 3.8-4.8 [facility]; [facility] Work Phone: Comment on above: PATIENT WAS FASTINGP ERFORMED BY: CB [facility] Rsxdsx9669 [address] RoadDublin [place] [id number]; fu 9-5 db Albumin/Globulin [Mass ratio] 1.7 {ratio} Normal 1.2-2.2 [facility]; [facility] Work Phone: Comment on above: PATIENT WAS FASTINGP ERFORMED BY: CB [facility] Ncnxni0022 [address] RoadDublin [place] [id number]; fu 9-5 db ALP [Catalytic activity/Vol] 107 U/L Normal 44-121 [facility]; [facility] Work Phone: Comment on above: PATIENT WAS FASTINGP ERFORMED BY: CB [facility] Zruisn6332 [address] RoadDublin [place] [id number]; fu 9-5 db ALT [Catalytic activity/Vol] 20 U/L Normal 0-32 [facility]; [facility] Work Phone: Comment on above: PATIENT WAS FASTINGP ERFORMED BY: CB [facility] Zjtyrb2333 [address] RoadDublin [place] [id number]; fu 9-5 db AST [Catalytic activity/Vol] 26 U/L Normal 0-40 [facility]; [facility] Work Phone: Comment on above: PATIENT WAS FASTINGP ERFORMED BY: CB [facility] Nmbesq6218 [address] RoadDublin [place] [id number]; fu 9-5 db Bilirubin [Mass/Vol] 0.7 mg/dL Normal 0.0-1.2 Comp rehensive [facility]; [facility] Work Phone: Comment on above: PATIENT WAS FASTINGP ERFORMED BY: CB [facility] Qieruv7705 [address] RoadDublin [place] [id number]; fu 9-5 db Calcium [Mass/Vol] 9.7 mg/dL Normal 8.7-10.3 [facility]; [facility] Work Phone: Comment on above: PATIENT WAS FASTINGP ERFORMED BY: CB [facility] Ptsnpm0056 [address] RoadDublin [place] [id number]; fu 9-5 db Chloride [Moles/Vol] 104 mmol/L Normal 96-106 Comp rehensive [facility]; [facility] Work Phone: Comment on above: PATIENT WAS FASTINGP ERFORMED BY: CB [facility] Tagyov5649 [address] RoadDublin [place] [id number]; fu 9-5 db CO2 [Moles/Vol] 24 mmol/L Normal 20-29 Comprehen [facility]; [facility] Work Phone: Comment on above: PATIENT WAS FASTINGP ERFORMED BY: CB [facility] Xspgmp5462 [address] RoadDublin [place] [id number]; fu 9-5 db Creatinine [Mass/Vol] 0.98 mg/dL Normal 0.57-1.00 [facility]; [facility] Work Phone: Comment on above: PATIENT WAS FASTINGP ERFORMED BY: CB [facility] Annvmp8001 [address] RoadDublin [place] [id number]; fu 9-5 db GFR/1.73 sq M.predicted among non-blacks MDRD (S/P/Bld) [Vol rate/Area] 60 mL/min/{1.73_m2} Normal Comprehensiv e Internal Medicine; [facility] Work Phone: Comment on above: PATIENT WAS FASTINGP ERFORMED BY: CB [facility] Dchgbu8026 [address] RoadDublin [place] [id number]; fu 9-5 db Globulin (S) [Mass/Vol] 2.5 g/dL Normal 1.5-4.5 [facility]; [facility] Work Phone: Comment on above: PATIENT WAS FASTINGP ERFORMED BY: CB [facility] Xzqnwx0937 [address] RoadDublin [place] [id number]; fu 9-5 db Glucose [Mass/Vol] 104 mg/dL Abnormal 70-99 Compre [facility] Internal [facility]; [facility] Work Phone: Comment on above: PATIENT WAS FASTINGP ERFORMED BY: CB [facility] Edlcsl4275 [address] RoadDublin [place] [id number]; fu 9-5 db Potassium [Moles/Vol] 4.6 mmol/L Normal 3.5-5.2 [facility]; [facility] Work Phone: Comment on above: PATIENT WAS FASTINGP ERFORMED BY: RENALDO Labcobrunilda LucasUmsomi8856 [address] RoadDublin [place] [id number]; fu 9-5 db Protein [Mass/Vol] 6.8 g/dL Normal 6.0-8.5 [facility]; [facility] Work Phone: Comment on above: PATIENT WAS FASTINGP ERFORMED BY: RENALDO [facility] Ojyppi9367 [address] RoadDublin [place] [id number]; fu 9-5 db Sodium [Moles/Vol] 141 mmol/L Normal 134-144 [facility] Internal [facility]; [facility] Work Phone: Comment on above: PATIENT WAS FASTINGP ERFORMED BY: RENALDO [facility] Emprtw2500 [address]Dublin [place] [id number]; fu 9-5 db Urea nitrogen [Mass/Vol] 29 mg/dL Abnormal 8-27 [facility]; [facility] Work Phone: Comment on above: PATIENT WAS FASTINGP ERFORMED BY: RENALDO [facility] Opvnxo8640 [address] RoadDublin [place] [id number]; fu 9-5 db Urea nitrogen/Creatinine [Mass ratio] 30 mg/mg Abnormal 12-28 [facility]; [facility] Work Phone: Comment on above: PATIENT WAS FASTINGP ERFORMED BY: RENALDO [facility] Yknzzo5389 [address] RoadDublin [place] [id number]; fu 9-5 db METABOLIC PANEL, BASIC (8004 [id number])Ordered By: Circus Artist on 01-23-2023 Calcium [Mass/Vol] 9.3 mg/dL Normal 8.7-10.3 [facility] Internal [facility]; [facility] Work Phone: Comment on above: PATIENT NOT FASTINGP ERFORMED BY: RENALDO [facility] Iawbsx4470 [address] RoadDublin [place] [id number] Chloride [Moles/Vol] 103 mmol/L Normal 96-106 Comp rehensive Internal Medicine; [facility] Work Phone: Comment on above: PATIENT NOT FASTINGP ERFORMED BY: RENALDO Labcobrunilda CrisostomoExftef3[address] [facility] [id number] CO2 [Moles/Vol] 22 mmol/L Normal 20-29 Comprehen sive Internal Medicine; [facility] Work Phone: Comment on above: PATIENT NOT FASTINGP ERFORMED BY: RENALDO Lucaslin[address] [facility] [id number] Creatinine [Mass/Vol] 0.95 mg/dL Normal 0.57-1.00 [facility]; [facility] Work Phone: Comment on above: PATIENT NOT FASTINGP ERFORMED BY: RENALDO Lucaslin6[address] [facility] [id number] GFR/1.73 sq M.predicted among non-blacks MDRD (S/P/Bld) [Vol rate/Area] 62 mL/min/{1.73_m2} Normal Comprehensiv e Internal Medicine; [facility] Work Phone: Comment on above: PATIENT NOT FASTINGP ERFORMED BY: RENALDO [facility] Uhmbbf3204 [address] [facility] [id number] Glucose [Mass/Vol] 101 mg/dL Abnormal 70-99 [facility]; [facility] Work Phone: Comment on above: PATIENT NOT FASTINGP ERFORMED BY: RENALDO Labsusana Riwjax4721 [address] [facility] [id number] Potassium [Moles/Vol] 4.6 mmol/L Normal 3.5-5.2 [facility]; [facility] Work Phone: Comment on above: PATIENT NOT FASTINGP ERFORMED BY: RENALDO [facility] Uauena9130 [address] [facility] [id number] Sodium [Moles/Vol] 141 mmol/L Normal 134-144 Compre hensive [facility] Medicine; [facility] Work Phone: Comment on above: PATIENT NOT FASTINGP ERFORMED BY: RENALDO [facility] Dvzair7542 [address] [facility] [id number] Urea nitrogen [Mass/Vol] 27 mg/dL Normal 8-27 [facility]; [facility] Work Phone: Comment on above: PATIENT NOT FASTINGP ERFORMED BY: RENALDO [facility] Dffmng1495 [address] RoadDublin [place] [id number] Urea nitrogen/Creatinine [Mass ratio] 28 mg/mg Normal 12-28 [facility]; [facility] Work Phone: Comment on above: PATIENT NOT FASTINGP ERFORMED BY: [facility] Qwhbcs1367 [address] UrbanTakeoverblin [place] [id number] CALCIFIDIOL (45650) VIT D 25 Ordered By: Circus Artist on 10-19-2022 25-hydroxyvitamin D [Mass/Vol] 57.6 ng/mL Normal 30.0-100.0 [facility]; [facility] Work Phone: Comment on above: Vitamin D deficiency has been defined by the [place] [facility] and an Endocrine Society practice guideline as alevel of serum 25-OH vitamin D less than 20 ng/mL (1,2).The Endocrine Society went on to further define vitamin Dinsufficiency as a level between 21 and 29 ng/mL (2).1. IOM ([place] [employer]). 2010. Dietary reference intakes for calcium and D. [place]: The National Academies Press.2. Juan MF, Maribeth ARIAS, Lara CARBAJAL, et al. Evaluation, treatment, and prevention of vitamin D deficiency: an Endocrine Society clinical practice guideline. JCEM. 2010; 96(7):1911-30. PATIENT WAS FASTINGP ERFORMED BY: [facility] Zruaip0255 [address] UrbanTakeoverblin [place] [id number] CBC with auto diff (67911)Or dered By: Circus Artist on 10-19-2022 Basophils (Bld) [#/Vol] 0.0 10*3/uL Normal 0.0-0.2 [facility]; [facility] Work Phone: Comment on above: PATIENT WAS FASTINGP ERFORMED BY: [facility] Djleqc[address] [facility] HospitalDublin [place] [id number] Basophils/100 WBC (Bld) 1 % Normal [facility]; [facility] Work Phone: Comment on above: PATIENT WAS FASTINGP ERFORMED BY: RENALDO [facility] Crisostomo6370 [address] RoadDublin [place] [id number] Eosinophils (Bld) [#/Vol] 0.1 10*3/uL Normal 0.0-0.4 [facility]; [facility] Work Phone: Comment on above: PATIENT WAS FASTINGP ERFORMED BY: RENALDO [facility] Lllwve2894 [address] Roadblin [place] [id number] Eosinophils/100 WBC (Bld) 2 % Normal [facility]; [facility] Work Phone: Comment on above: PATIENT WAS FASTINGP ERFORMED BY: RENALDO Lucaslin6[address] [facility] [id number] Erythrocyte distribution width (RBC) [Ratio] 13.2 % Normal 11.7-15.4 [facility]; [facility] Work Phone: Comment on above: PATIENT WAS FASTINGP ERFORMED BY: [facility] Xteuhi3591 [facility] [id number] Hematocrit (Bld) [Volume fraction] 37.7 % Normal 34.0-46.6 [facility]; [facility] Work Phone: Comment on above: PATIENT WAS FASTINGP ERFORMED BY: [facility] Dbawux2730 [address] [facility] [id number] Hemoglobin (Bld) [Mass/Vol] 12.6 g/dL Normal 11.1-15.9 [facility]; [facility] Work Phone: Comment on above: PATIENT WAS FASTINGP ERFORMED BY: [facility] Mlhwxm9047 [address] RoadDublin [place] [id number] Immature granulocytes (Bld) [#/Vol] 0.0 10*3/uL Normal 0.0-0.1 [facility]; [facility] Work Phone: Comment on above: PATIENT WAS FASTINGP ERFORMED BY: [facility] Cukijl8344 [address] RoadWashington Regional Medical Centerin [place] [id number] Immature granulocytes/100 WBC (Bld) 0 % Normal [facility]; [facility] Work Phone: Comment on above: PATIENT WAS FASTINGP ERFORMED BY: RENALDO Bryce Xnzgxe3228 [facility] [id number] Lymphocytes (Bld) [#/Vol] 1.1 10*3/uL Normal 0.7-3.1 [facility]; [facility] Work Phone: Comment on above: PATIENT WAS FASTINGP ERFORMED BY: RENALDO [facility] Hmdtzi5779 [facility] [id number] Lymphocytes/100 WBC (Bld) 21 % Normal [facility]; [facility] Work Phone: Comment on above: PATIENT WAS FASTINGP ERFORMED BY: RENALDO [facility] Avgauk0109 [facility] [id number] MCH (RBC) [Entitic mass] 29.6 pg Normal 26.6-33.0 [facility]; [facility] Work Phone: Comment on above: PATIENT WAS FASTINGP ERFORMED BY: [place] [id number] [facility] [id number] MCHC (RBC) [Mass/Vol] 33.4 g/dL Normal 31.5-35.7 [facility]; [facility] Work Phone: Comment on above: PATIENT WAS FASTINGP ERFORMED BY: [place] [id number] [facility] [id number] MCV (RBC) [Entitic vol] 89 fL Normal 79-97 [facility]; [facility] Work Phone: Comment on above: PATIENT WAS FASTINGP ERFORMED BY: RENALDO [facility] Evwifs6288 [facility] [id number] Monocytes (Bld) [#/Vol] 0.4 10*3/uL Normal 0.1-0.9 [facility]; [facility] Work Phone: Comment on above: PATIENT WAS FASTINGP ERFORMED BY: [address]Washington Regional Medical Centerin [place] [id number] Monocytes/100 WBC (Bld) 8 % Normal [facility]; [facility] Work Phone: Comment on above: PATIENT WAS FASTINGP ERFORMED BY: RENALDO Labcobrunilda LucasAagees9337 [address] RoadDublin [place] [id number] Neutrophils (Bld) [#/Vol] 3.6 10*3/uL Normal 1.4-7.0 [facility]; [facility] Work Phone: Comment on above: PATIENT WAS FASTINGP ERFORMED BY: RENALDO [facility] Tsytdw5724 [address] RoadDublin [place] [id number] Neutrophils/100 WBC (Bld) 68 % Normal [facility]; [facility] Work Phone: Comment on above: PATIENT WAS FASTINGP ERFORMED BY: RENALDO [facility] Hbczyb0536 [address] Roadblin [place] [id number] Platelets (Bld) [#/Vol] 176 10*3/uL Normal 150-450 [facility]; [facility] Work Phone: Comment on above: PATIENT WAS FASTINGP ERFORMED BY: RENALDO [facility] Vzrzna5525 [address] [facility]blin [place] [id number] RBC (Bld) [#/Vol] 4.26 10*6/uL Normal 3.77-5.28 Compr ehensive Internal Medicine; [facility] Work Phone: Comment on above: PATIENT WAS FASTINGP ERFORMED BY: [facility] Ibuuuj7475 [address] Roadblin [place] [id number] WBC (Bld) [#/Vol] 5.2 10*3/uL Normal 3.4-10.8 Compre [facility]; [facility] Work Phone: Comment on above: PATIENT WAS FASTINGP ERFORMED BY: CB [facility] Sswfga1816 [address] RoadDublin [place] [id number] METABOLIC PANEL, COMPREHENSI VE ([id number])Ordered By: Circus Artist on 10-19-2022 Albumin [Mass/Vol] 4.4 g/dL Normal 3.7-4.7 Compre hensive Internal Medicine; [facility] Work Phone: Comment on above: PATIENT WAS FASTINGP ERFORMED BY: RENALDO [facility] Syaqob9004 [address] RoadDublin [place] [id number] Albumin/Globulin [Mass ratio] 1.9 {ratio} Normal 1.2-2.2 [facility]; [facility] Work Phone: Comment on above: PATIENT WAS FASTINGP ERFORMED BY: CB [facility] Uxedxe9299 [address] RoadDublin [place] [id number] ALP [Catalytic activity/Vol] 109 U/L Normal 44-121 [facility]; [facility] Work Phone: Comment on above: PATIENT WAS FASTINGP ERFORMED BY: RENALDO Labcobrunilda LucasEmfjky5125 [address] RoadDublin [place] [id number] ALT [Catalytic activity/Vol] 23 U/L Normal 0-32 [facility]; [facility] Work Phone: Comment on above: PATIENT WAS FASTINGP ERFORMED BY: [facility] Enaikg8253 [address] RoadDublin [place] [id number] AST [Catalytic activity/Vol] 24 U/L Normal 0-40 [facility]; [facility] Work Phone: Comment on above: PATIENT WAS FASTINGP ERFORMED BY: RENALDO [facility] Dqrolx2890 [address] RoadDublin [place] [id number] Bilirubin [Mass/Vol] 0.5 mg/dL Normal 0.0-1.2 [facility]; [facility] Medicine Work Phone: Comment on above: PATIENT WAS FASTINGP ERFORMED BY: [facility] Yexpjb1039 [address] RoadDublin [place] [id number] Calcium [Mass/Vol] 9.7 mg/dL Normal 8.7-10.3 [facility] Internal Medicine; [facility] Work Phone: Comment on above: PATIENT WAS FASTINGP ERFORMED BY: CB [facility] Klwdhc8383 [address] RoadDublin [place] [id number] Chloride [Moles/Vol] 99 mmol/L Normal 96-106 Comp rehensive Internal Medicine; [facility] Work Phone: Comment on above: PATIENT WAS FASTINGP ERFORMED BY: RENALDO Mariselami Lquell7706 [facility] [id number] CO2 [Moles/Vol] 25 mmol/L Normal 20-29 Comprehen [facility] Internal [facility]; [facility] Work Phone: Comment on above: PATIENT WAS FASTINGP ERFORMED BY: RENALDO Labsusana Cdvpwa1859 [facility] [id number] Creatinine [Mass/Vol] 1.06 mg/dL Abnormal 0.57-1.00 [facility]; [facility] Work Phone: Comment on above: PATIENT WAS FASTINGP ERFORMED BY: RENALDO Mariselami Alebys0500 [facility] [id number] GFR/1.73 sq M.predicted among non-blacks MDRD (S/P/Bld) [Vol rate/Area] 54 mL/min/{1.73_m2} Abnormal Comprehensiv e Internal Medicine; [facility] Work Phone: Comment on above: PATIENT WAS FASTINGP ERFORMED BY: REANLDO Lucaslin6370 [facility] [id number] Globulin (S) [Mass/Vol] 2.3 g/dL Normal 1.5-4.5 [facility]; [facility] Work Phone: Comment on above: PATIENT WAS FASTINGP ERFORMED BY: RENALDO Labsusana Fbrqnc5331 [facility] [id number] Glucose [Mass/Vol] 102 mg/dL Abnormal 70-99 Compre [facility] Internal Medicine; [facility] Work Phone: Comment on above: PATIENT WAS FASTINGP ERFORMED BY: RENALDO Labami LucasNrnxji2713 [facility] [id number] Potassium [Moles/Vol] 4.4 mmol/L Normal 3.5-5.2 [facility]; [facility] Work Phone: Comment on above: PATIENT WAS FASTINGP ERFORMED BY: RENALDO Lucaslin6370 [address] RoadDublin [place] [id number] Protein [Mass/Vol] 6.7 g/dL Normal 6.0-8.5 [facility] Internal Medicine; [facility] Work Phone: Comment on above: PATIENT WAS FASTINGP ERFORMED BY: RENALDO Labami LucasQvfgvw7313 [address] RoadDublin [place] [id number] Sodium [Moles/Vol] 139 mmol/L Normal 134-144 [facility] Internal Medicine; [facility] Work Phone: Comment on above: PATIENT WAS FASTINGP ERFORMED BY: RENALDO Labami LucasXcoord6451 [address] RoadDublin [place] [id number] Urea nitrogen [Mass/Vol] 31 mg/dL Abnormal 8- [facility]; [facility] Work Phone: Comment on above: PATIENT WAS FASTINGP ERFORMED BY: RENALDO Lucaslin6370 [address] RoadDublin [place] [id number] Urea nitrogen/Creatinine [Mass ratio] 29 mg/mg Abnormal 12- [facility]; [facility] Work Phone: Comment on above: PATIENT WAS FASTINGP ERFORMED BY: RENALDO Lucaslin6370 [address] [facility]in [place] [id number] MICROALBUMINOrdered By: Syst em Mental Retardation Nurse on 10-19-2022 Albumin DL <= 20 mg/L (U) [Mass/Vol] 8.5 ug/mL Normal Comprehensiv e Internal Medicine; [facility] Work Phone: Comment on above: PATIENT WAS FASTINGP ERFORMED BY: RENALDO Labami Szhzlc8422 [address] RoadDublin [place] [id number] Albumin/Creatinine (U) [Mass ratio] 9 {mg/g_creat} Normal 0-29 [facility]; [facility] Work Phone: Comment on above: Normal: 0 - 29 Moder ately increased: 30 - 300 Severely increased: >300 PATIENT WAS FASTINGP ERFORMED BY: RENALDO Labami LucasHilvmg0851 [address] RoadDublin [place] [id number] Creatinine (U) [Mass/Vol] 90.8 mg/dL Normal [facility]; [facility] Work Phone: Comment on above: PATIENT WAS FASTINGP ERFORMED BY: RENALDO Brycebrunilda LucasLchhhl5346 [address] RoadDublin [place] [id number] TSH ([id number])Ordered By: [employer]cal[employer] Real Estate Solutionse m Mental Retardation Nurse on 10-19-2022 TSH Qn 3.330 {uIU/mL} Normal 0.450-4.50 0 [facility]; [facility] Work Phone: Comment on above: PATIENT WAS FASTINGP ERFORMED BY: RENALDO Lucaslin6370 [address] RoadDublin [place] [id number] URINALYSIS, W/ MICRO ([id number]) Ordered By: Circus Artist on 10-19-2022 Appearance (U) Clear Normal Comprehens da Internal Medicine; [facility] Work Phone: Comment on above: PATIENT WAS FASTINGP ERFORMED BY: RENALDO Lucaslin6370 [address] RoadDublin [place] [id number] Bilirubin Ql (U) Negative Normal Comprehe nsive Internal Medicine; [facility] Work Phone: Comment on above: PATIENT WAS FASTINGP ERFORMED BY: RENALDO Lucaslin6370 [address] RoadDublin [place] [id number] Color (U) Yellow Normal [facility]; [facility] Work Phone: Comment on above: PATIENT WAS FASTINGP ERFORMED BY: RENALDO Labami LucasQbcqzd0717 [address] RoadDublin [place] [id number] Glucose Ql (U) Negative Normal Comprehens da [facility]; [facility] Work Phone: Comment on above: PATIENT WAS FASTINGP ERFORMED BY: RENALDO Labami LucasLbhagn1488 [address] RoadDublin [place] [id number] Hemoglobin Ql (U) Negative Normal Compreh ensive Internal Medicine; [facility] Work Phone: Comment on above: PATIENT WAS FASTINGP ERFORMED BY: RENALDO Labami LucasFamfez2586 [address] RoadDublin [place] [id number] Ketones Ql (U) Negative Normal Comprehens da [facility]; [facility] Work Phone: Comment on above: PATIENT WAS FASTINGP ERFORMED BY: RENALDO Zeina Crisostomo6370 [address] [facility] [id number] Leukocyte esterase Test strip Ql (U) 1+ Abnormal [facility]; [facility] Work Phone: Comment on above: PATIENT WAS FASTINGP ERFORMED BY: RENALDO Brycebrunilda Zqzhtn4670 [facility] [id number] Microscopic observation LM Nom (Urine sed) See below: Normal [facility]; [facility] Work Phone: Comment on above: Microscopic was navneet cated and was performed. PATIENT WAS FASTINGP ERFORMED BY: RENALDO Brycebrunilda Zjeiqv2970 [facility] [id number] Nitrite Ql (U) Negative Normal Comprehens da [facility]; [facility] Work Phone: Comment on above: PATIENT WAS FASTINGP ERFORMED BY: RENALDO Lucaslin6370 [facility] [id number] pH (U) 5.5 [pH] Normal 5.0-7.5 [facility]; [facility] Work Phone: Comment on above: PATIENT WAS FASTINGP ERFORMED BY: RENALDO Zeina Crisostomo6370 [facility] [id number] Protein Ql (U) Negative Normal Comprehens da [facility]; [facility] Work Phone: Comment on above: PATIENT WAS FASTINGP ERFORMED BY: RENALDO Brycebrunilda Duejob9209 [facility] [id number] Specific gravity (U) [Rel density] 1.016 1 Normal 1.005-1.03 0 [facility]; [facility] Work Phone: Comment on above: PATIENT WAS FASTINGP ERFORMED BY: RENALDO Zeina Lucaslin6370 [facility] [id number] Urobilinogen (U) [Mass/Vol] 0.2 mg/dL Normal 0.2-1.0 [facility]; [facility] Work Phone: Comment on above: PATIENT WAS FASTINGP ERFORMED BY: Beamly [facility] Gdajgz1054 [employer] [place] [id number] URINE DINAH CULTURE (DARLENE COL COUNT) ([id number])Ordered By: Circus Artist on 09-14-2022 Bacteria identified Cx Nom (U) Final report Abnormal [facility]; [facility] Work Phone: Comment on above: PERFORMED BY: Beamly [facility] [employer] [employer] [place] [id number] Information: SRC: Bacteria identified Cx Nom (U) Enterococcus faecalis Abnormal Comprehens da [facility]; [facility] Work Phone: Comment on above: For Enterococcus spe cies, aminoglycosides (except for high-levelresistance screening), cephalosporins, clindamycin, andtrimethoprim-sulfamethoxazole are not effective clinically.(CLSI, [id number], 2016)Greater than 100,000 colony forming units per mLNote: this isolate is vancomycin-susceptible.This information is provided for epidemiologic purposes only:vancomycin is not among the antibiotics recommended for therapyof urinary tract infections caused by Enterococcus. PERFORMED BY: Dinnr6370 FriendferCarolinas [facility] [id number] Information: SRC: Other Antibiotic [Susc] MIHEAD Normal [facility]; [facility] Work Phone: Comment on above: S = Susceptible; I = Intermediate; R = Resistant P = Positive; N = Negative MICS are expressed in micrograms per mL Antibiotic RSLT#1 RSLT#2 RSLT#3 RSLT#4Ciprofloxacin SLevofloxacin SNitrofurantoin SPenicillin STetracycline RVancomycin S PERFORMED BY: Dinnr6370 [facility] [employer] [place] [id number] Information: SRC: Urinalysis, Office ([id number])Or dered By: Valerie Sánchez on 09-14-2022 Bilirubin Ql (U) Negative Normal Comprehe nsive Internal Medicine; [facility] Work Phone: Glucose Test strip (U) [Mass/Vol] Negative Normal [facility]; [facility] Work Phone: Hemoglobin Ql (U) ++ Abnormal Compreh ensive Internal Medicine; [facility] Internal Medicine Work Phone: Ketones Ql (U) Negative Normal Comprehens da [facility] Medicine; [facility] Internal Medicine Work Phone: Leukocyte esterase Test strip Ql (U) Large Normal [facility]; [facility] Internal Medicine Work Phone: Nitrite Ql (U) Negative Normal Comprehens da [facility]; [facility] Internal Medicine Work Phone: pH (U) 6.0 [pH] Normal [facility]; [facility] Internal Medicine Work Phone: Protein Ql (U) Negative Normal Comprehens da [facility] Medicine; [facility] Internal Medicine Work Phone: Specific gravity (U) [Rel density] 1.020 1 Normal [facility]; [facility] Internal Medicine Work Phone: Urobilinogen (24H U) [Mass/Time] Normal Normal [facility] Internal Medicine; [facility] Internal Medicine Work Phone: Absolute lymphocyte counton 04-06-2022 Lymphocytes Auto (Unsp spec) [#/Vol] 1.41 10*3/uL 0.83-4.51 [facility] Work Phone: Basophil percentageon 2021 Basophils/100 WBC (Bld) 0.4 % 0-1 [facility] Work Phone: Chloride [Moles/Vol] 108 mmol/L 98-107 [facility] Work Phone: Eosinophils/100 WBC (Bld) 2.9 % 0-5 [facility] Work Phone: Glucose [Mass/Vol] 119 mg/dL 74-106 [facility] Work Phone: Comment on above: Fasting Glucose resu lt from 100 to 125 mg/dL suggests IMPAIRED HOMEOSTASIS per A.D.A. criteria. Neutrophils (Bld) [#/Vol] 4.7 10*3/uL 2.0-7.7 [facility] Work Phone: Neutrophils/100 WBC (Bld) 66.9 % 47-70 [facility] Work Phone: Potassium [Moles/Vol] 3.8 mmol/L 3.5-5.1 [facility] Work Phone: Sodium [Moles/Vol] 143 mmol/L 136-145 [facility] Work Phone: WBC (Bld) [#/Vol] 7.0 10*3/uL 4.4-11.0 [facility] Work Phone: Blood erythrocytes count (nu mber/volume)on 04-06-2022 RBC (Bld) [#/Vol] 3.94 10*6/uL 4.2-5.4 [facility] Work Phone: Blood hemoglobin measurement (mass/volume)on 04-06-2022 Hemoglobin (Bld) [Mass/Vol] 11.7 g/dL 12.0-15.0 [facility] Work Phone: Blood lymphocytes/100 leukoc yteson 04-06-2022 Lymphocytes/100 WBC (Bld) 20.3 % 19-41 [facility] Work Phone: Blood monocytes/100 leukocyt eson 04-06-2022 Monocytes/100 WBC (Bld) 9.2 % 0-10 [facility] Work Phone: Blood platelet mean volumeon 04-06-2022 Platelet mean volume (Bld) [Entitic vol] 10.3 fL 6.2-12.0 [facility] Work Phone: Determination of erythrocyte mean corpuscular volume (MCV)on 04-06-2022 MCV (RBC) [Entitic vol] 89.8 fL 81-99 [facility] Work Phone: Hematocrit Auto (Bld) [Volum e fraction]on 04-06-2022 Hematocrit (Bld) [Volume fraction] 35.4 % 37-47 [facility] Work Phone: Laboratory - Chemistry and C hemistry - challengeon 04-06-2022 CO2 [Moles/Vol] 29.0 mmol/L 21.0-32.0 [facility] Work Phone: Urea nitrogen/Creatinine [Mass ratio] 28.0 mg/mg 10-20 [facility] Work Phone: Laboratory - Hematology and Cell countson 04-06-2022 Erythrocyte distribution width (RBC) [Entitic vol] 45.6 fL 35.1-43.9 [facility] Work Phone: Erythrocyte distribution width (RBC) [Ratio] 14.0 % 11.6-14.6 [facility] Work Phone: Immature granulocytes/100 WBC (Bld) 0.300 % 0.0-0.9 [facility] Work Phone: Comment on above: IG% - Immature Granu locytes (promyelocytes, myelocytes and metamyelocytes) > 1% indicates that a LEFT SHIFT is Present. MCH (RBC) [Entitic mass] 29.7 pg 27.0-32.0 [facility] Work Phone: Nucleated RBC/100 WBC (Bld) [Ratio] 0 % 0-5 [facility] Work Phone: MCHC Auto (RBC) [Mass/Vol]on 04-06-2022 MCHC (RBC) [Mass/Vol] 33.1 g/dL 32-36 [facility] Work Phone: No Panel Informationon 04-06 Estimated GFR (MDRD) Amer 69 mL/min >60 [facility] Work Phone: Comment on above: GFR Calc Estimated GFR (MDRD) Non-Af Amer 57 mL/min >60 [facility] Work Phone: Comment on above: Non- GFR Calc Platelets bldon 04-06-2022 Platelets (Bld) [#/Vol] 171 10*3/uL 150-450 [facility] Work Phone: Serum or plasma calcium karan urement (mass/volume)on 04-06-2022 Calcium [Mass/Vol] 9.4 mg/dL 8.5-10.1 [facility] Work Phone: Serum or plasma creatinine m easurement (mass/volume)on 04-06-2022 Creatinine [Mass/Vol] 1.00 mg/dL 0.55-1.02 [facility] Work Phone: Comment on above: The validity of the calculated GFR & GFRAA in patients over 70 years has not been determined. Clinical correlation is essential. Serum or plasma urea nitroge n measurement (mass/volume)on 04-06-2022 Urea nitrogen [Mass/Vol] 28 mg/dL 7-18 [facility] Work Phone: Thin prep Papanicolaou smear with manual screeningon 04-06-2022 Thin prep Papanicolaou smear with manual screening 6 5-15 [facility] Work Phone: LIPID PANEL ([id number])Ordered B y: Circus Artist on 03-15-2022 Cholesterol [Mass/Vol] 183 mg/dL Normal 100-199 [facility]; [facility] Work Phone: Comment on above: in 4months; PATIENT WAS FASTINGPERFORMED BY: Beamly LabSmarterShade Acrvlh[address] LightTablein [place] [id number] Cholesterol in HDL [Mass/Vol] 63 mg/dL Normal [facility]; [facility] Work Phone: Comment on above: in 4months; PATIENT WAS FASTINGPERFORMED BY: CB [facility] Pealmv2425 [address] [place] [id number] Triglyceride [Mass/Vol] 168 mg/dL Abnormal 0-149 [facility]; [facility] Work Phone: Comment on above: in 4months; PATIENT WAS FASTINGPERFORMED BY: CB [facility] Qcwoex9091 [address] [place] [id number] LIPID PANEL ([id number]) 29 mg/dL Normal 5-40 [facility] Internal Medicine; [facility] Work Phone: Comment on above: in 4months; PATIENT WAS FASTINGPERFORMED BY: CB [facility] Ishjcp8796 [address] [facility] MattersCarolinas [facility] [id number] LIPID PANEL (83399) 91 mg/dL Normal 0-99 [facility]; [facility] Work Phone: Comment on above: in 4months; PATIENT WAS FASTINGPERFORMED BY: RENALDO [facility] Arnqat0848 [facility] [place] [id number] LIPID PANEL (91560) 1.4 {ratio} Normal 0.0-3.2 [facility] Internal Medicine; [facility] Work Phone: Comment on above: LDL/HDL Ratio Men Wo men 1/2 Avg.Risk 1.0 1.5 Avg.Risk 3.6 3.2 2X Avg.Risk 6.2 5.0 3X Avg.Risk 8.0 6.1 in 4months; PATIENT WAS FASTINGPERFORMED BY: RENALDO [employer] Vnzmym5128 [facility] [id number] METABOLIC PANEL, COMPREHENSI VE ([id number])Ordered By: Circus Artist on 03-15-2022 Albumin [Mass/Vol] 4.0 g/dL Normal 3.7-4.7 [facility] Internal Medicine; [facility] Work Phone: Comment on above: 4 months; PATIENT WA S FASTINGPERFORMED BY: RENALDO [employer] Fogfqf1018 [facility] [id number] Albumin/Globulin [Mass ratio] 1.7 {ratio} Normal 1.2-2.2 [facility]; [facility] Work Phone: Comment on above: 4 months; PATIENT WA S FASTINGPERFORMED BY: RENALDO [employer] Mnooij8818 [facility] [id number] ALP [Catalytic activity/Vol] 97 U/L Normal 44-121 [facility]; [facility] Work Phone: Comment on above: 4 months; PATIENT WA S FASTINGPERFORMED BY: RENALDO [facility] Lwefly7530 [facility] [id number] ALT [Catalytic activity/Vol] 22 U/L Normal 0-32 [facility]; [facility] Work Phone: Comment on above: 4 months; PATIENT WA S FASTINGPERFORMED BY: CB [facility] Okxpgn9590 [address] RoadDublin [place] [id number] AST [Catalytic activity/Vol] 24 U/L Normal 0-40 [facility]; [facility] Work Phone: Comment on above: 4 months; PATIENT ORION S FASTINGPERFORMED BY: CB [facility] Gicruj6033 [address] RoadDublin [place] [id number] Bilirubin [Mass/Vol] 0.4 mg/dL Normal 0.0-1.2 Comp rehensive Internal Medicine; [facility] Work Phone: Comment on above: 4 months; PATIENT ORION S FASTINGPERFORMED BY: CB [facility] Yhuzej5390 [address] RoadDublin [place] [id number] Calcium [Mass/Vol] 9.0 mg/dL Normal 8.7-10.3 [facility] Internal Medicine; [facility] Work Phone: Comment on above: 4 months; PATIENT ORION S FASTINGPERFORMED BY: [facility] Vueque8780 [address] RoadDublin [place] [id number] Chloride [Moles/Vol] 104 mmol/L Normal 96-106 Comp rehensive Internal Medicine; [facility] Work Phone: Comment on above: 4 months; PATIENT ORION S FASTINGPERFORMED BY: CB [facility] Eslfzt9452 [address] RoadDublin [place] [id number] CO2 [Moles/Vol] 26 mmol/L Normal 20-29 [facility]; [facility] Work Phone: Comment on above: 4 months; PATIENT ORION S FASTINGPERFORMED BY: [facility] Bykwjc6543 [address] RoadDublin [place] [id number] Creatinine [Mass/Vol] 0.89 mg/dL Normal 0.57-1.00 [facility]; [facility] Work Phone: Comment on above: 4 months; PATIENT ORION S FASTINGPERFORMED BY: CB [facility] Jhgtpt7643 [address] RoadDublin [place] [id number] GFR/1.73 sq M.predicted among non-blacks MDRD (S/P/Bld) [Vol rate/Area] 68 mL/min/{1.73_m2} Normal Comprehensiv e Internal Medicine; [facility] Work Phone: Comment on above: 4 months; PATIENT ORION S FASTINGPERFORMED BY: CB [facility] Fvadxp7[address] RoadDublin [place] [id number] Globulin (S) [Mass/Vol] 2.4 g/dL Normal 1.5-4.5 [facility]; [facility] Work Phone: Comment on above: 4 months; PATIENT WA S FASTINGPERFORMED BY: CB [facility] Cqywul0444 [address] RoadDublin [place] [id number] Glucose [Mass/Vol] 103 mg/dL Abnormal 65-99 [facility]; [facility] Work Phone: Comment on above: 4 months; PATIENT ORION S FASTINGPERFORMED BY: CB [facility] Mwrhgq5040 [address] RoadDublin [place] [id number] Potassium [Moles/Vol] 4.1 mmol/L Normal 3.5-5.2 [facility]; [facility] Work Phone: Comment on above: 4 months; PATIENT WA S FASTINGPERFORMED BY: CB [facility] Ijwian88[address] RoadDublin [place] [id number] Protein [Mass/Vol] 6.4 g/dL Normal 6.0-8.5 [facility]; [facility] Work Phone: Comment on above: 4 months; PATIENT WA S FASTINGPERFORMED BY: CB [facility] Bohxvh1861 [address] RoadDublin [place] [id number] Sodium [Moles/Vol] 143 mmol/L Normal 134-144 [facility]; [facility] Work Phone: Comment on above: 4 months; PATIENT WA S FASTINGPERFORMED BY: CB [facility] Ghzbfp3174 [address]Dublin [place] [id number] Urea nitrogen [Mass/Vol] 19 mg/dL Normal 8-27 [facility]; [facility] Work Phone: Comment on above: 4 months; PATIENT WA S FASTINGPERFORMED BY: RENALDO Zeina Crisostomo[address] [facility] [id number] Urea nitrogen/Creatinine [Mass ratio] 21 mg/mg Normal 12-28 [facility]; [facility] Work Phone: Comment on above: 4 months; PATIENT WA S FASTINGPERFORMED BY: RENALDO Labsusana Lbbxxu8590 [address] [facility] [id number] BNTP ([id number])Ordered By: Syst em Mental Retardation Nurse on 02-27-2022 Natriuretic peptide B (Bld) [Mass/Vol] 17.4 pg/mL Normal 0.0-100.0 [facility]; [facility] Work Phone: Comment on above: PATIENT NOT FASTINGP ERFORMED BY: RENALDO Bryce Semfvd7[address] [facility] [id number] CBC with auto diff ([id number])Or dered By: Circus Artist on 02-27-2022 Basophils (Bld) [#/Vol] 0.0 10*3/uL Normal 0.0-0.2 [facility]; [facility] Work Phone: Comment on above: PATIENT NOT FASTINGP ERFORMED BY: RENALDO Bryce Pkrkdk1116 [address] [facility] [id number] Basophils/100 WBC (Bld) 1 % Normal [facility]; [facility] Work Phone: Comment on above: PATIENT NOT FASTINGP ERFORMED BY: RENALDO Labsusana Uqavyf7776 [address] [facility] [id number] Eosinophils (Bld) [#/Vol] 0.1 10*3/uL Normal 0.0-0.4 [facility]; [facility] Work Phone: Comment on above: PATIENT NOT FASTINGP ERFORMED BY: RENALDO [facility] Htkvhl96[address] [facility] [id number] Eosinophils/100 WBC (Bld) 2 % Normal [facility]; [facility] Work Phone: Comment on above: PATIENT NOT FASTINGP ERFORMED BY: RENALDO [facility] Tfwtxy7942 [facility] [id number] Erythrocyte distribution width (RBC) [Ratio] 13.4 % Normal 11.7-15.4 [facility]; [facility] Work Phone: Comment on above: PATIENT NOT FASTINGP ERFORMED BY: RENALDO Crisostomo6370 [facility] [id number] Hematocrit (Bld) [Volume fraction] 38.2 % Normal 34.0-46.6 [facility]; [facility] Work Phone: Comment on above: PATIENT NOT FASTINGP ERFORMED BY: RENALDO Lucaslin6370 [facility] [id number] Hemoglobin (Bld) [Mass/Vol] 12.6 g/dL Normal 11.1-15.9 [facility]; [facility] Work Phone: Comment on above: PATIENT NOT FASTINGP ERFORMED BY: RENALDO Crisostomo6370 [facility] [id number] Immature granulocytes (Bld) [#/Vol] 0.0 10*3/uL Normal 0.0-0.1 [facility]; [facility] Work Phone: Comment on above: PATIENT NOT FASTINGP ERFORMED BY: RENALDO Crisostomo6370 [facility] [id number] Immature granulocytes/100 WBC (Bld) 0 % Normal [facility]; [facility] Work Phone: Comment on above: PATIENT NOT FASTINGP ERFORMED BY: RENALDO Lucaslin6370 [facility] [id number] Lymphocytes (Bld) [#/Vol] 1.1 10*3/uL Normal 0.7-3.1 [facility]; [facility] Work Phone: Comment on above: PATIENT NOT FASTINGP ERFORMED BY: RENALDO Crisostomo6370 [facility] [id number] Lymphocytes/100 WBC (Bld) 21 % Normal [facility]; [facility] Work Phone: Comment on above: PATIENT NOT FASTINGP ERFORMED BY: RENALDO Wu Ybecpy22[address]Dublin [place] [id number] MCH (RBC) [Entitic mass] 29.2 pg Normal 26.6-33.0 [facility]; [facility] Work Phone: Comment on above: PATIENT NOT FASTINGP ERFORMED BY: RENALDO Labsusana Fkmaeo6[address] [facility]bl[facility] [place] [id number] MCHC (RBC) [Mass/Vol] 33.0 g/dL Normal 31.5-35.7 [facility]; [facility] Work Phone: Comment on above: PATIENT NOT FASTINGP ERFORMED BY: RENALDO [facility] Sbtnye[address] [facility]in [place] [id number] MCV (RBC) [Entitic vol] 89 fL Normal 79-97 [facility]; [facility] Work Phone: Comment on above: PATIENT NOT FASTINGP ERFORMED BY: Bryce Odqciv8850 [address] RoadWashington Regional Medical Centerin [place] [id number] Monocytes (Bld) [#/Vol] 0.4 10*3/uL Normal 0.1-0.9 [facility]; [facility] Work Phone: Comment on above: PATIENT NOT FASTINGP ERFORMED BY: RENALDO Lucaslin6[address] [facility] [place] [id number] Monocytes/100 WBC (Bld) 7 % Normal [facility]; [facility] Work Phone: Comment on above: PATIENT NOT FASTINGP ERFORMED BY: [facility] Hhetre3925 [address] [facility]in [place] [id number] Neutrophils (Bld) [#/Vol] 3.4 10*3/uL Normal 1.4-7.0 [facility]; [facility] Work Phone: Comment on above: PATIENT NOT FASTINGP ERFORMED BY: RENALDO [facility] Opoyiy22[address]Dublin [place] [id number] Neutrophils/100 WBC (Bld) 69 % Normal [facility]; [facility] Work Phone: Comment on above: PATIENT NOT FASTINGP ERFORMED BY: RENALDO Lucaslin6[address] RoadDublin [place] [id number] Platelets (Bld) [#/Vol] 171 10*3/uL Normal 150-450 [facility]; [facility] Work Phone: Comment on above: PATIENT NOT FASTINGP ERFORMED BY: RENALDO Joinercobrunilda LucasCudtqh7938 [address] RoadDublin [place] [id number] RBC (Bld) [#/Vol] 4.31 10*6/uL Normal 3.77-5.28 [facility] Internal Medicine; [facility] Work Phone: Comment on above: PATIENT NOT FASTINGP ERFORMED BY: RENALDO Crisostomo6[address] RoadDublin [place] [id number] WBC (Bld) [#/Vol] 5.0 10*3/uL Normal 3.4-10.8 [facility]; [facility] Work Phone: Comment on above: PATIENT NOT FASTINGP ERFORMED BY: RENALDO Lucaslin6[address]Dublin [place] [id number] METABOLIC PANEL, COMPREHENSI VE ([id number])Ordered By: Circus Artist on 02-27-2022 Albumin [Mass/Vol] 4.4 g/dL Normal 3.7-4.7 [facility]; [facility] Work Phone: Comment on above: PATIENT NOT FASTINGP ERFORMED BY: RENALDO Lucaslin6[address] RoadDublin [place] [id number]; fu 03-20-22 Albumin/Globulin [Mass ratio] 2.0 {ratio} Normal 1.2-2.2 [facility]; [facility] Work Phone: Comment on above: PATIENT NOT FASTINGP ERFORMED BY: RENALDO [facility] Vfdnig0544 [address] RoadDublin [place] [id number]; fu 03-20-22 ALP [Catalytic activity/Vol] 110 U/L Normal 44-121 [facility]; [facility] Work Phone: Comment on above: PATIENT NOT FASTINGP ERFORMED BY: RENALDO Labcobrunilda LucasGcbfgd8818 [address] RoadDublin [place] [id number]; fu 03-20-22 ALT [Catalytic activity/Vol] 27 U/L Normal 0-32 [facility]; [facility] Work Phone: Comment on above: PATIENT NOT FASTINGP ERFORMED BY: CB [facility] Nertne25[address] RoadDublin [place] [id number]; fu 03-20-22 AST [Catalytic activity/Vol] 28 U/L Normal 0-40 [facility]; [facility] Work Phone: Comment on above: PATIENT NOT FASTINGP ERFORMED BY: CB [facility] Gqffdf5566 [address] RoadDublin [place] [id number]; 03-20-22 Bilirubin [Mass/Vol] 0.5 mg/dL Normal 0.0-1.2 Comp rehensive Internal Medicine; [facility] Work Phone: Comment on above: PATIENT NOT FASTINGP ERFORMED BY: CB [facility] Dgpbpj8111 [address] RoadDublin [place] [id number]; 03-20-22 Calcium [Mass/Vol] 9.3 mg/dL Normal 8.7-10.3 [facility] Internal Medicine; [facility] Work Phone: Comment on above: PATIENT NOT FASTINGP ERFORMED BY: CB [facility] Bwwwpd8859 [address] RoadDublin [place] [id number]; 03-20-22 Chloride [Moles/Vol] 102 mmol/L Normal 96-106 [facility]; [facility] Work Phone: Comment on above: PATIENT NOT FASTINGP ERFORMED BY: CB [facility] Xfbocy6[address] RoadDublin [place] [id number]; fu 03-20-22 CO2 [Moles/Vol] 26 mmol/L Normal 20-29 [facility] Internal Medicine; [facility] Work Phone: Comment on above: PATIENT NOT FASTINGP ERFORMED BY: CB [facility] Mncbvc0724 [address] RoadDublin [place] [id number]; 03-20-22 Creatinine [Mass/Vol] 0.79 mg/dL Normal 0.57-1.00 [facility]; [facility] Work Phone: Comment on above: PATIENT NOT FASTINGP ERFORMED BY: RENALDO Labcobrunilda CrisostomoZyznsa4298 [address] RoadDublin [place] [id number]; 03-20-22 GFR/1.73 sq M.predicted among non-blacks MDRD (S/P/Bld) [Vol rate/Area] 78 mL/min/{1.73_m2} Normal Comprehensiv e Internal Medicine; [facility] Work Phone: Comment on above: PATIENT NOT FASTINGP ERFORMED BY: CB [facility] Mkxblx5845 [address] RoadWashington Regional Medical Centerin [place] [id number]; 03-20-22 Globulin (S) [Mass/Vol] 2.2 g/dL Normal 1.5-4.5 [facility]; [facility] Work Phone: Comment on above: PATIENT NOT FASTINGP ERFORMED BY: CB [facility] Xkjlgw4520 [address] RoadDuin [place] [id number]; 03-20-22 Glucose [Mass/Vol] 130 mg/dL Abnormal 65-99 [facility]; [facility] Work Phone: Comment on above: PATIENT NOT FASTINGP ERFORMED BY: CB [facility] Cupmch1802 [address] RoadWashington Regional Medical Centerin [place] [id number]; 03-20-22 Potassium [Moles/Vol] 3.6 mmol/L Normal 3.5-5.2 [facility]; [facility] Work Phone: Comment on above: PATIENT NOT FASTINGP ERFORMED BY: CB [facility] Toedua2101 [address] RoadDublin [place] [id number]; 03-20-22 Protein [Mass/Vol] 6.6 g/dL Normal 6.0-8.5 [facility]; [facility] Work Phone: Comment on above: PATIENT NOT FASTINGP ERFORMED BY: CB [facility] Wgpzsq9159 [address] RoadDublin [place] [id number]; fu 03-20-22 Sodium [Moles/Vol] 143 mmol/L Normal 134-144 [facility] Internal Medicine; [facility] Work Phone: Comment on above: PATIENT NOT FASTINGP ERFORMED BY: [facility] Ipebqd8059 [facility] [id number]; fu 03-20-22 Urea nitrogen [Mass/Vol] 21 mg/dL Normal 8-27 [facility]; [facility] Work Phone: Comment on above: PATIENT NOT FASTINGP ERFORMED BY: CB [facility] Cotdav[address] [facility] [id number]; fu 03-20-22 Urea nitrogen/Creatinine [Mass ratio] 27 mg/mg Normal 12-28 [facility]; [facility] Work Phone: Comment on above: PATIENT NOT FASTINGP ERFORMED BY: [facility] Vjuweb0954 [facility] [id number]; fu 03-20-22 URINE DINAH CULTURE-IDENTIFICA [place] ([id number])Ordered By: Circus Artist on 02-27-2022 Bacteria identified Cx Nom (U) Final report Abnormal [facility]; [facility] Work Phone: Comment on above: PATIENT NOT FASTINGP ERFORMED BY: [facility] Dmujlt0075 [facility] [id number] Information: SRC:UC Bacteria identified Cx Nom (U) Staphylococcus aureus Abnormal Comprehens da Internal Medicine; [facility] Work Phone: Comment on above: 25,000-50,000 colony forming units per mLBased on susceptibility to oxacillin this isolate would besusceptible to:*Penicillinase-stable penicillins, such as: Cloxacillin, Dicloxacillin, Nafcillin*Beta-lactam combination agents, such as: Amoxicillin-clavulanic acid, Ampicillin-sulbactam, Piperacillin-tazobactam*Oral cephems, such as: Cefaclor, Cefdinir, Cefpodoxime, Cefprozil, Cefuroxime, Cephalexin, Loracarbef*Parenteral cephems, such as: Cefazolin, Cefepime, Cefotaxime, Cefotetan, Ceftaroline, Ceftizoxime, Ceftriaxone, Cefuroxime*Carbapenems, such as: Doripenem, Ertapenem, Imipenem, MeropenemMost isolates of Staphylococcus sp. produce a beta-lactamase enzymerendering them resistant to penicillin. Please contact the laboratoryif penicillin is being considered for therapy. PATIENT NOT FASTINGP ERFORMED BY: [facility] Heyyzl[address] UrbanTakeoverAmerican Healthcare Systems [id number] Information: SRC: Bacteria identified Cx Nom (U) Enterococcus faecalis Abnormal Comprehens da Internal Medicine; [facility] Work Phone: Comment on above: For Enterococcus spe cies, aminoglycosides (except for high-levelresistance screening), cephalosporins, clindamycin, andtrimethoprim-sulfamethoxazole are not effective clinically.(CLSI, [id number], 2016)10,000-25,000 colony forming units per mLNote: this isolate is vancomycin-susceptible.This information is provided for epidemiologic purposes only:vancomycin is not among the antibiotics recommended for therapyof urinary tract infections caused by Enterococcus. PATIENT NOT FASTINGP ERFORMED BY: [facility] Vsetlx6019 FriendferCarolinas [facility] [id number] Information: SRC: Bacteria identified Cx Nom (U) BETAGF Abnormal [facility]; [facility] Work Phone: Comment on above: Beta hemolytic Strep tococcus, group F50,000-100,000 colony forming units per mL S = Susceptible; I = Intermediate; R = Resistant P = Positive; N = Negative MICS are expressed in micrograms per mL Antibiotic RSLT#1 RSLT#2 RSLT#3 RSLT#4Ciprofloxacin R SGentamicin SLevofloxacin I SLinezolid SMoxifloxacin RNitrofurantoin S SOxacillin SPenicillin SQuinupristin/Dalfopristin SRifampin STetracycline S RTrimethoprim/Sulfa SVancomycin S S PATIENT NOT FASTINGP ERFORMED BY: [facility]re[facility] Psatvg9790 [facility] [id number] Information: SRC: Urinalysis, Office ([id number])Or dered By: JOHNNY Cervantes on 02-27-2022 Bilirubin Ql (U) Negative Normal Comprehe nsive Internal Medicine; [facility] Work Phone: Glucose Test strip (U) [Mass/Vol] Negative Normal [facility]; [facility] Work Phone: Hemoglobin Ql (U) Negative Normal Compreh ensive Internal Medicine; [facility] Work Phone: Ketones Ql (U) Negative Normal Comprehens da Internal Medicine; [facility] Work Phone: Leukocyte esterase Test strip Ql (U) Small Normal [facility]; [facility] Work Phone: Nitrite Ql (U) Negative Normal Comprehens da [facility]; [facility] Work Phone: pH (U) 6.0 [pH] Normal [facility]; [facility] Work Phone: Protein Ql (U) Negative Normal Comprehens da [facility]; [facility] Work Phone: Specific gravity (U) [Rel density] 1.010 1 Normal [facility]; [facility] Work Phone: Urobilinogen (24H U) [Mass/Time] 2 mg/dL Normal [facility]; [facility] Work Phone: URINALYSIS ([id number])Ordered By : Circus Artist on 02-10-2022 Appearance (U) Clear Normal Comprehens da Internal Medicine; [facility] Work Phone: Comment on above: PERFORMED BY: [employer] [place] [id number] Information: SRC:UR Bilirubin Ql (U) Negative Normal Comprehe nsive Internal Medicine; [facility] Work Phone: Comment on above: PERFORMED BY: [employer] [place] [id number] Information: SRC:UR Color (U) Yellow Normal [facility]; [facility] Work Phone: Comment on above: PERFORMED BY: [employer] [place] [id number] Information: SRC:UR Glucose Ql (U) Negative Normal Comprehens da Internal Medicine; [facility] Work Phone: Comment on above: PERFORMED BY: [email or web address] FriendferCarolinas [facility] [id number] Information: SRC:UR Hemoglobin Ql (U) Negative Normal Compreh ensive Internal Medicine; [facility] Work Phone: Comment on above: PERFORMED BY: [email or web address] [facility]ferCarolin[facility] [id number] Information: SRC:UR Ketones Ql (U) Negative Normal Comprehens da Internal Medicine; [facility] Work Phone: Comment on above: PERFORMED BY: [email or web address] [facility]Carolin[facility] [id number] Information: SRC:UR Leukocyte esterase Test strip Ql (U) Negative Normal [facility]; [facility] Work Phone: Comment on above: PERFORMED BY: [email or web address] [facility]Carolin[facility] [id number] Information: SRC:UR Microscopic observation LM Nom (Urine sed) MICNIP Normal [facility]; [facility] Work Phone: Comment on above: Microscopic not navneet cated and not performed. PERFORMED BY: Dinnr6370 [facility]American [facility] Systems [id number] Information: SRC:UR Nitrite Ql (U) Negative Normal Comprehens da Internal Medicine; [facility] Work Phone: Comment on above: PERFORMED BY: [email or web address] [facility]metricAmerican [facility] Systems [id number] Information: SRC:UR pH (U) 6.5 [pH] Normal 5.0-7.5 [facility]; [facility] Work Phone: Comment on above: PERFORMED BY: [email or web address] [facility]Car[facility] [id number] Information: SRC:UR Protein Ql (U) Negative Normal Comprehens da Internal Medicine; [facility] Work Phone: Comment on above: PERFORMED BY: Dinnr6370 [facility]metricAmerican [facility] Systems [id number] Information: SRC:UR Specific gravity (U) [Rel density] 1.013 1 Normal 1.005-1.03 0 [facility]; [facility] Work Phone: Comment on above: PERFORMED BY: Dinnr6370 [facility]metricAmerican [facility] [id number] Information: SRC:UR Urobilinogen (U) [Mass/Vol] 0.2 mg/dL Normal 0.2-1.0 [facility]; [facility] Work Phone: Comment on above: PERFORMED BY: Dinnr6370 [facility]metricAmerican [facility] Systems [id number] Information: SRC:UR URINE DINAH CULTURE-IDENTIFICA [place] ([id number])Ordered By: Circus Artist on 02-10-2022 Bacteria identified Cx Nom (U) Final report Abnormal [facility]; [facility] Work Phone: Comment on above: PERFORMED BY: Dinnr6370 PowellS[facility] [id number] Bacteria identified Cx Nom (U) Staphylococcus aureus Abnormal Comprehens da Internal Medicine; [facility] Work Phone: Comment on above: 50,000-100,000 colon y forming units per mLBased on susceptibility to oxacillin this isolate would besusceptible to:*Penicillinase-stable penicillins, such as: Cloxacillin, Dicloxacillin, Nafcillin*Beta-lactam combination agents, such as: Amoxicillin-clavulanic acid, Ampicillin-sulbactam, Piperacillin-tazobactam*Oral cephems, such as: Cefaclor, Cefdinir, Cefpodoxime, Cefprozil, Cefuroxime, Cephalexin, Loracarbef*Parenteral cephems, such as: Cefazolin, Cefepime, Cefotaxime, Cefotetan, Ceftaroline, Ceftizoxime, Ceftriaxone, Cefuroxime*Carbapenems, such as: Doripenem, Ertapenem, Imipenem, MeropenemMost isolates of Staphylococcus sp. produce a beta-lactamase enzymerendering them resistant to penicillin. Please contact the laboratoryif penicillin is being considered for therapy. PERFORMED BY: [email or web address] [employer] [place] [id number] Other Antibiotic [Susc] MIHEAD Normal [facility]; [facility] Work Phone: Comment on above: S = Susceptible; I = Intermediate; R = Resistant P = Positive; N = Negative MICS are expressed in micrograms per mL Antibiotic RSLT#1 RSLT#2 RSLT#3 RSLT#4Ciprofloxacin RGentamicin SLevofloxacin ILinezolid SMoxifloxacin INitrofurantoin SOxacillin SQuinupristin/Dalfopristin SRifampin STetracycline STrimethoprim/Sulfa SVancomycin S PERFORMED BY: [email or web address] [facility]Carolin[facility] [id number] METABOLIC PANEL, BASIC ([id number])Ordered By: Circus Artist on 01-23-2022 Calcium [Mass/Vol] 9.2 mg/dL Normal 8.7-10.3 [facility] Internal Medicine; [facility] Work Phone: Comment on above: PATIENT NOT FASTINGP ERFORMED BY: [id number] [employer] [place] [id number] Chloride [Moles/Vol] 104 mmol/L Normal 96-106 Comp rehensive Internal Medicine; [facility] Work Phone: Comment on above: PATIENT NOT FASTINGP ERFORMED BY: [id number] [employer] [place] [id number] CO2 [Moles/Vol] 25 mmol/L Normal 20-29 Com[facility]hen [facility] Internal [facility]; [facility] Work Phone: Comment on above: PATIENT NOT FASTINGP ERFORMED BY: [email or web address] [facility]ferCarolinas [facility] [id number] Creatinine [Mass/Vol] 0.88 mg/dL Normal 0.57-1.00 [facility]; [facility] Work Phone: Comment on above: PATIENT NOT FASTINGP ERFORMED BY: AFTER-MOUSElin6370 [address] [facility] [place] [id number] GFR/1.73 sq M.predicted among non-blacks MDRD (S/P/Bld) [Vol rate/Area] 68 mL/min/{1.73_m2} Normal Comprehensiv e Internal Medicine; [facility] Work Phone: Comment on above: PATIENT NOT FASTINGP ERFORMED BY: [facility] Gvcdmy1313 [facility] [place] [id number] Glucose [Mass/Vol] 102 mg/dL Abnormal 65-99 [facility] Internal Medicine; [facility] Work Phone: Comment on above: PATIENT NOT FASTINGP ERFORMED BY: [facility] Vkmgom0418 [address] [facility] [id number] Potassium [Moles/Vol] 3.8 mmol/L Normal 3.5-5.2 [facility]; [facility] Work Phone: Comment on above: PATIENT NOT FASTINGP ERFORMED BY: [facility]University [facility] Health6370 [address] [facility] [id number] Sodium [Moles/Vol] 145 mmol/L Abnormal 134-144 [facility] Internal Medicine; [facility] Work Phone: Comment on above: PATIENT NOT FASTINGP ERFORMED BY: [facility] Eyafli5502 [facility] [place] [id number] Urea nitrogen [Mass/Vol] 23 mg/dL Normal 8-27 [facility]; [facility] Work Phone: Comment on above: PATIENT NOT FASTINGP ERFORMED BY: [facility] Yvynbk4989 [facility] [place] [id number] Urea nitrogen/Creatinine [Mass ratio] 26 mg/mg Normal 12-28 [facility]; [facility] Work Phone: Comment on above: PATIENT NOT FASTINGP ERFORMED BY: [facility] Foavbk7726 [facility] [id number] URINE DINAH CULTURE (DARLENE COL COUNT) ([id number])Ordered By: Circus Artist on 01-23-2022 Bacteria identified Cx Nom (U) Final report Abnormal [facility]; [facility] Work Phone: Comment on above: PATIENT NOT FASTINGP ERFORMED BY: Sanera70 [facility] [id number] Information: SRC:UC Bacteria identified Cx Nom (U) Escherichia coli Abnormal [facility]; [facility] Work Phone: Comment on above: 1,000 Colonies/mLCef azolin <=4 ug/mLCefazolin with an NEERAJ <=16 predicts susceptibility to the oral agentscefaclor, cefdinir, cefpodoxime, cefprozil, cefuroxime, cephalexin,and loracarbef when used for therapy of uncomplicated urinary tractinfections due to E. coli, Klebsiella pneumoniae, and Proteusmirabilis. PATIENT NOT FASTINGP ERFORMED BY: [employer]6370 [facility] [id number] Information: SRC: Bacteria identified Cx Nom (U) Klebsiella pneumoniae Abnormal Comprehens da Internal Medicine; [facility] Work Phone: Comment on above: Cefazolin <=4 ug/mLC efazolin with an NEERAJ <=16 predicts susceptibility to the oral agentscefaclor, cefdinir, cefpodoxime, cefprozil, cefuroxime, cephalexin,and loracarbef when used for therapy of uncomplicated urinary tractinfections due to E. coli, Klebsiella pneumoniae, and Proteusmirabilis.600 Colonies/mL PATIENT NOT FASTINGP ERFORMED BY: [employer]6370 [place] UrbanTakeoverAmerican [facility] Systems [id number] Information: SRC:UC Bacteria identified Cx Nom (U) Enterococcus faecium Abnormal [facility]; [facility] Work Phone: Comment on above: For Enterococcus spe cies, aminoglycosides (except for high-levelresistance screening), cephalosporins, clindamycin, andtrimethoprim-sulfamethoxazole are not effective clinically.(CLSI, Q663-C42, 2016)8,000 Colonies/mLNote: this isolate is vancomycin-susceptible.This information is provided for epidemiologic purposes only:vancomycin is not among the antibiotics recommended for therapyof urinary tract infections caused by Enterococcus. PATIENT NOT FASTINGP ERFORMED BY: [facility] Tovquf3414 [facility] [id number] Information: SRC:CHRISTEN Other Antibiotic [Susc] MIHEAD Normal [facility]; [facility] Work Phone: Comment on above: S = Susceptible; I = Intermediate; R = Resistant P = Positive; N = Negative MICS are expressed in micrograms per mL Antibiotic RSLT#1 RSLT#2 RSLT#3 RSLT#4Amoxicillin/Clavulanic Acid S SAmpicillin S RCefepime S SCeftriaxone S SCefuroxime S SCiprofloxacin S S SErtapenem S SGentamicin S SImipenem S SLevofloxacin S S SMeropenem S SNitrofurantoin S S IPenicillin SPiperacillin/Tazobactam S STetracycline S S STobramycin S STrimethoprim/Sulfa S SVancomycin S; ADDENDA: susept to cipro PATIENT NOT FASTINGP ERFORMED BY: [facility] Wgputu3714 [facility] [id number] Information: SRC:CHRISTEN Urinalysis, Office (83452)Or dered By: Valerie Sánchez on 01-23-2022 Bilirubin Ql (U) Negative Normal Comprehe nsive Internal Medicine; [facility] Work Phone: Glucose Test strip (U) [Mass/Vol] Negative Normal [facility]; [facility] Work Phone: Hemoglobin Ql (U) Negative Normal Compreh ensive Internal Medicine; [facility] Work Phone: Ketones Ql (U) Negative Normal Comprehens da Internal Medicine; [facility] Work Phone: Leukocyte esterase Test strip Ql (U) Moderate Normal [facility]; [facility] Work Phone: Nitrite Ql (U) Negative Normal Comprehens da Internal Medicine; [facility] Work Phone: pH (U) 7.0 [pH] Normal [facility]; [facility] Work Phone: Protein Ql (U) Negative Normal Comprehens da Internal Medicine; [facility] Work Phone: Specific gravity (U) [Rel density] 1.015 1 Normal [facility]; [facility] Work Phone: Urobilinogen (24H U) [Mass/Time] Normal Normal [facility]; [facility] Work Phone: Basophil percentageon 2021 Creatinine [Mass/Vol] 0.8 mg/dL 0.55-1.02 [facility] Work Phone: No Panel Informationon 01-04 Bedside Estimated GFR (eGFR) > 60.0000 mL/min >60 [facility] Work Phone: Metabolic Panel, Basic (8004 8)Ordered By: Circus Artist on 12-22-2021 Calcium [Mass/Vol] 9.6 mg/dL Normal 8.7-10.3 Compre [facility]; [facility] Work Phone: Comment on above: recheck 3 weeks; PAT IENT NOT FASTINGPERFORMED BY: CB LabSmarterShade Bwwfci6132 [employer] [id number]; fu 4-21 db Chloride [Moles/Vol] 102 mmol/L Normal 96-106 Comp rehensive Internal Medicine; [facility] Work Phone: Comment on above: recheck 3 weeks; PAT IENT NOT FASTINGPERFORMED BY: CB [facility] Fwufts4624 [employer]in [place] [id number]; fu 4-21 db CO2 [Moles/Vol] 24 mmol/L Normal 20-29 Comprehen [facility] Internal [facility]; [facility] Work Phone: Comment on above: recheck 3 weeks; PAT IENT NOT FASTINGPERFORMED BY: CB [facility] Ticlbp1648 [address] [place] [id number]; fu 4-21 db Creatinine [Mass/Vol] 0.94 mg/dL Normal 0.57-1.00 [facility]; [facility] Work Phone: Comment on above: recheck 3 weeks; PAT IENT NOT FASTINGPERFORMED BY: CB [facility] Kigdjm8032 [address] RoadDublin [place] [id number]; fu 4-21 db GFR/1.73 sq M.predicted among non-blacks MDRD (S/P/Bld) [Vol rate/Area] 63 mL/min/{1.73_m2} Normal Comprehensiv e Internal Medicine; [facility] Work Phone: Comment on above: recheck 3 weeks; PAT IENT NOT FASTINGPERFORMED BY: CB [facility] Xxufbp7895 [address] RoadDublin [place] [id number]; fu 4-21 db Glucose [Mass/Vol] 119 mg/dL Abnormal 65-99 [facility] Internal Medicine; [facility] Work Phone: Comment on above: recheck 3 weeks; PAT IENT NOT FASTINGPERFORMED BY: CB [facility] Yhhbxt5588 [address] RoadDublin [place] [id number]; fu 4-21 db Potassium [Moles/Vol] 4.1 mmol/L Normal 3.5-5.2 [facility]; [facility] Work Phone: Comment on above: recheck 3 weeks; PAT IENT NOT FASTINGPERFORMED BY: CB [facility] Uovozx0674 [address] RoadDublin [place] [id number]; fu 4-21 db Sodium [Moles/Vol] 141 mmol/L Normal 134-144 [facility] Internal Medicine; [facility] Work Phone: Comment on above: recheck 3 weeks; PAT IENT NOT FASTINGPERFORMED BY: CB [facility] Rwwucd8526 [address] RoadDublin [place] [id number]; fu 4-21 db Urea nitrogen [Mass/Vol] 26 mg/dL Normal 8-27 [facility]; [facility] Work Phone: Comment on above: recheck 3 weeks; PAT IENT NOT FASTINGPERFORMED BY: CB [facility] Unaxhj1954 [address] RoadDublin [place] [id number]; fu 4-21 db Urea nitrogen/Creatinine [Mass ratio] 28 mg/mg Normal 12-28 [facility]; [facility] Work Phone: Comment on above: recheck 3 weeks; PAT IENT NOT FASTINGPERFORMED BY: RENALDO [facility] Ykvgxw7677 [address] RoadDublin [place] [id number]; fu 4-21 db C-REACT PROT HIGH SENS(hsCRP ) (61416)Ordered By: Circus Artist on 11-17-2021 CRP High sensitivity method [Mass/Vol] 7.40 mg/L Abnormal 0.00-3.00 [facility]; [facility] Work Phone: Comment on above: Relative Risk for Fu ture Cardiovascular Event Low <1.00 Average 1.00 - 3.00 High >3.00 PATIENT WAS FASTINGP ERFORMED BY: [employer] [id number] BY: RENALDO [facility] Uqycnd4433 [address] RoadDublin [place] [id number] Lipid Panel (30428)Ordered B y: Circus Artist on 11-17-2021 Cholesterol [Mass/Vol] 274 mg/dL Abnormal 100-199 [facility]; [facility] Work Phone: Comment on above: PATIENT WAS FASTINGP ERFORMED BY: WOMN Bafdowuuom[address] [id number] BY: RENALDO [facility] Dtkkuj0007 [address] RoadDublin [place] [id number] Cholesterol in HDL [Mass/Vol] 74 mg/dL Normal [facility]; [facility] Work Phone: Comment on above: PATIENT WAS FASTINGP ERFORMED BY: [employer] [id number] BY: [facility] Fvjbju4081 [address] RoadDublin [place] [id number] Triglyceride [Mass/Vol] 205 mg/dL Abnormal 0-149 [facility]; [facility] Work Phone: Comment on above: PATIENT WAS FASTINGP ERFORMED BY: [employer] [id number] BY: [facility] Auccyx3284 [address] RoadDublin [place] [id number] Lipid Panel (76838) 37 mg/dL Normal 5-40 [facility]; [facility] Work Phone: Comment on above: PATIENT WAS FASTINGP ERFORMED BY: [facility] [id number] BY: LabcoCommunity Medical CenterYipydd7848 [facility] [id number] Lipid Panel (55020) 163 mg/dL Abnormal 0-99 [facility]; [facility] Work Phone: Comment on above: PATIENT WAS FASTINGP ERFORMED BY: [facility] Macxnhludk09[address] [id number] BY: LabVantage Data CentersCommunity Medical CenterAcumso3620 [facility] [id number] Lipid Panel (01643) 2.2 {ratio} Normal 0.0-3.2 [facility]; [facility] Work Phone: Comment on above: LDL/HDL Ratio Men Wo men 1/2 Avg.Risk 1.0 1.5 Avg.Risk 3.6 3.2 2X Avg.Risk 6.2 5.0 3X Avg.Risk 8.0 6.1 PATIENT WAS FASTINGP ERFORMED BY: [facility]andy [facility] [id number] BY: LabVantage Data Centers Xvyonz8398 [facility] [id number] Metabolic Panel, Comprehensi ve (76290)Ordered By: Circus Artist on 11-17-2021 Albumin [Mass/Vol] 4.7 g/dL Normal 3.7-4.7 [facility] Internal Medicine; [facility] Work Phone: Comment on above: PATIENT WAS FASTINGP ERFORMED BY: [facility]andy Lab[address] [id number] BY: [employer] Szxskv1807 [facility] [id number] Albumin/Globulin [Mass ratio] 2.0 {ratio} Normal 1.2-2.2 [facility]; [facility] Work Phone: Comment on above: PATIENT WAS FASTINGP ERFORMED BY: Labco[address] [id number] BY: [facility] Hxwylo8029 [address] RoadDublin [place] [id number] ALP [Catalytic activity/Vol] 102 U/L Normal 44-121 [facility]; [facility] Work Phone: Comment on above: PATIENT WAS FASTINGP ERFORMED BY: [facility] [address] [id number] BY: CB [facility] Zlpjbm3623 [address] RoadDublin [place] [id number] ALT [Catalytic activity/Vol] 24 U/L Normal 0-32 [facility]; [facility] Work Phone: Comment on above: PATIENT WAS FASTINGP ERFORMED BY: Labco[address] [id number] BY: [facility] Ruqunx1979 [address] RoadDublin [place] [id number] AST [Catalytic activity/Vol] 26 U/L Normal 0-40 [facility]; [facility] Work Phone: Comment on above: PATIENT WAS FASTINGP ERFORMED BY: Lab[address] [id number] BY: [facility] Rhaskj4491 [address] RoadDublin [place] [id number] Bilirubin [Mass/Vol] 0.6 mg/dL Normal 0.0-1.2 Comp [facility]; [facility] Work Phone: Comment on above: PATIENT WAS FASTINGP ERFORMED BY: Lab[address] [id number] BY: [facility] Ktxenb9384 [address] RoadDublin [place] [id number] Calcium [Mass/Vol] 10.1 mg/dL Normal 8.7-10.3 [facility] Internal Medicine; [facility] Work Phone: Comment on above: PATIENT WAS FASTINGP ERFORMED BY: Labco[address] [id number] BY: [facility] Epxsna9617 [address] RoadDublin [place] [id number] Chloride [Moles/Vol] 99 mmol/L Normal 96-106 Comp rehensive Internal Medicine; [facility] Work Phone: Comment on above: PATIENT WAS FASTINGP ERFORMED BY: Labco[address] [id number] BY: CB [facility] Qsykzg3590 [address] RoadDublin [place] [id number] CO2 [Moles/Vol] 24 mmol/L Normal 20-29 Comprehen sive Internal Medicine; [facility] Work Phone: Comment on above: PATIENT WAS FASTINGP ERFORMED BY: Lab[address] [id number] BY: [facility] Cfffvd9554 [address] RoadDuin [place] [id number] Creatinine [Mass/Vol] 0.92 mg/dL Normal 0.57-1.00 [facility]; [facility] Work Phone: Comment on above: PATIENT WAS FASTINGP ERFORMED BY: Lab[address] [id number] BY: [facility] Wwlmhz7056 Powell RoadDuin [place] [id number] GFR/1.73 sq M.predicted among non-blacks MDRD (S/P/Bld) [Vol rate/Area] 65 mL/min/{1.73_m2} Normal Comprehensiv e Internal Medicine; [facility] Work Phone: Comment on above: PATIENT WAS FASTINGP ERFORMED BY: Lab[address] [id number] BY: CB [facility] Sgfvch7577 [address] RoadDublin [place] [id number] Globulin (S) [Mass/Vol] 2.3 g/dL Normal 1.5-4.5 [facility]; [facility] Work Phone: Comment on above: PATIENT WAS FASTINGP ERFORMED BY: Labco[address] [id number] BY: RENALDO [facility] Jqvbaz2964 [address] RoadDublin [place] [id number] Glucose [Mass/Vol] 99 mg/dL Normal 65-99 [facility]; [facility] Work Phone: Comment on above: PATIENT WAS FASTINGP ERFORMED BY: [facility] [address] [id number] BY: RENALDO [facility] Pkoebo1233 [address] RoadDublin [place] [id number] Potassium [Moles/Vol] 3.9 mmol/L Normal 3.5-5.2 [facility]; [facility] Work Phone: Comment on above: PATIENT WAS FASTINGP ERFORMED BY: Lab[address] [id number] BY: [facility] Xwoiqn6857 [address] RoadDublin [place] [id number] Protein [Mass/Vol] 7.0 g/dL Normal 6.0-8.5 [facility] Internal Medicine; [facility] Work Phone: Comment on above: PATIENT WAS FASTINGP ERFORMED BY: Lab[address] [id number] BY: [facility] Eiacek2850 [address] RoadDublin [place] [id number] Sodium [Moles/Vol] 140 mmol/L Normal 134-144 [facility] Internal Medicine; [facility] Work Phone: Comment on above: PATIENT WAS FASTINGP ERFORMED BY: Labco[address] [id number] BY: CB [facility] Suaoxm5630 [address] RoadDublin [place] [id number] Urea nitrogen [Mass/Vol] 22 mg/dL Normal 8-27 [facility]; [facility] Work Phone: Comment on above: PATIENT WAS FASTINGP ERFORMED BY: Candy Lab[address] [id number] BY: CarePoint PartnersMichelle [place] 8238170 [facility] [id number] Urea nitrogen/Creatinine [Mass ratio] 24 mg/mg Normal 12-28 [facility]; [facility] Work Phone: Comment on above: PATIENT WAS FASTINGP ERFORMED BY: [facility]andy [facility] [id number] BY: CarePoint PartnersMichelle [place] 8238170 [facility] [id number] Neutrophil cytoplasmic Ab.cl assic Qn (S)Ordered By: Circus Artist on 11-17-2021 Myeloperoxidase Ab IA Qn (S) <9.0 Normal 0.0-9.0 [facility]; [facility] Work Phone: Comment on above: PATIENT WAS FASTINGP ERFORMED BY: [facility] [id number] BY: CarePoint PartnersMichelle [place] 8238170 [facility] [id number] Neutrophil cytoplasmic Ab.classic IF (S) [Titer] <1:20 Normal [facility]; [facility] Work Phone: Comment on above: PATIENT WAS FASTINGP ERFORMED BY: [facility]andy [facility] [id number] BY: CarePoint PartnersMichelle [place] 8238170 [facility] [id number] Neutrophil cytoplasmic Ab.perinuclear IF (S) [Titer] <1:20 Normal [facility]; [facility] Work Phone: Comment on above: The presence of posi tive fluorescence exhibiting P-ANCA or C-ANCApatterns alone is not specific for the diagnosis of Edna'sGranulomatosis (WG) or microscopic polyangiitis. Decisions abouttreatment should not be based solely on ANCA IFA results. TheInternational ANCA Group Consensus recommends follow up testing ofpositive sera with both MN-3 and MPO-ANCA enzyme immunoassays. Asmany as 5% serum samples are positive only by EIA.Ref. AM J Clin Pathol 1999;111:507-513. PATIENT WAS FASTINGP ERFORMED BY: [employer] [id number] BY: [facility] Veaxjh6125 [address] RoadDublin [place] [id number] Neutrophil cytoplasmic Ab.perinuclear.atypi mishel IF (S) [Titer] <1:20 Normal [facility]; [facility] Work Phone: Comment on above: The atypical pANCA p attern has been observed in a significantpercentage of patients with ulcerative colitis, primary sclerosingcholangitis and autoimmune hepatitis. PATIENT WAS FASTINGP ERFORMED BY: [facility]andy [facility] [id number] BY: [employer]70 [address] [facility] [id number] Proteinase 3 Ab IA Qn (S) <3.5 Normal 0.0-3.5 [facility]; [facility] Work Phone: Comment on above: PATIENT WAS FASTINGP ERFORMED BY: [employer] [id number] BY: [facility] Uowhba9284 [facility] [id number] URINALYSIS ([id number])Ordered By : Circus Artist on 11-17-2021 Appearance (U) Clear Normal Comprehens da Internal Medicine; [facility] Work Phone: Comment on above: PATIENT WAS FASTINGP ERFORMED BY: [employer] [id number] BY: [facility] Ybxhiv8382 [facility] [id number] Bilirubin Ql (U) Negative Normal Comprehe nsive Internal Medicine; [facility] Work Phone: Comment on above: PATIENT WAS FASTINGP ERFORMED BY: [employer] [id number] BY: [facility] Rdzmjq8080 [address] RoadDublin [place] [id number] Color (U) Yellow Normal [facility]; [facility] Work Phone: Comment on above: PATIENT WAS FASTINGP ERFORMED BY: [address] [id number] BY: [facility] Luvpid6051 [address] RoadDublin [place] [id number] Glucose Ql (U) Negative Normal Comprehens da Internal Medicine; [facility] Work Phone: Comment on above: PATIENT WAS FASTINGP ERFORMED BY: [address] [id number] BY: LabUniversity of [facility] Health6370 [address] RoadDuin [place] [id number] Hemoglobin Ql (U) Negative Normal Compreh ensive Internal Medicine; [facility] Work Phone: Comment on above: PATIENT WAS FASTINGP ERFORMED BY: [address] [id number] BY: LabUniversity of [facility] Health6370 [address] RoadDuin [place] [id number] Ketones Ql (U) Negative Normal Comprehens da Internal Medicine; [facility] Work Phone: Comment on above: PATIENT WAS FASTINGP ERFORMED BY: [address] [id number] BY: LabUniversity of [facility] Health6370 [address] RoadWashington Regional Medical Centerin [place] [id number] Leukocyte esterase Test strip Ql (U) 1+ Abnormal [facility]; [facility] Work Phone: Comment on above: PATIENT WAS FASTINGP ERFORMED BY: [address] [id number] BY: LabMercy McCune-Brooks HospitalJjdrro4419 [address] RoadDublin [place] [id number] Microscopic observation LM Nom (Urine sed) See below: Normal [facility]; [facility] Work Phone: Comment on above: Microscopic was navneet cated and was performed. PATIENT WAS FASTINGP ERFORMED BY: [employer] [id number] BY: [facility] Dadxdc7131 [address] RoadDublin [place] [id number] Nitrite Ql (U) Negative Normal Comprehens da Internal Medicine; [facility] Work Phone: Comment on above: PATIENT WAS FASTINGP ERFORMED BY: [address] [id number] BY: RENALDO [facility] Zqgfzb2572 [address] [facility] [id number] pH (U) 7.0 [pH] Normal 5.0-7.5 [facility]; [facility] Work Phone: Comment on above: PATIENT WAS FASTINGP ERFORMED BY: [employer] [id number] BY: RENALDO [facility] Gpwiqj9170 [address] RoadAmerican Healthcare Systems [id number] Protein Ql (U) Negative Normal Comprehens da Internal Medicine; [facility] Work Phone: Comment on above: PATIENT WAS FASTINGP ERFORMED BY: [employer] [id number] BY: RENALDO [facility]re[facility] Hcwyao7481 [facility] [id number] Specific gravity (U) [Rel density] 1.017 1 Normal 1.005-1.03 0 [facility]; [facility] Work Phone: Comment on above: PATIENT WAS FASTINGP ERFORMED BY: [employer] [id number] BY: [facility] Partnersre[facility] Xpkupp9351 [facility] [id number] Urobilinogen (U) [Mass/Vol] 0.2 mg/dL Normal 0.2-1.0 [facility]; [facility] Work Phone: Comment on above: PATIENT WAS FASTINGP ERFORMED BY: CarePoint PartnersJeanette V[place] 664207 [facility] [id number] BY: [facility] Xcmjpy9663 [facility] [id number] URINE DINAH CULTURE-IDENTIFICA [place] ([id number])Ordered By: Circus Artist on 10-20-2021 Bacteria identified Cx Nom (U) Final report Abnormal [facility]; [facility] Work Phone: Comment on above: today; PATIENT NOT F ASTINGPERFORMED BY: [facility] [id number] [facility] [id number] Information: SRC:UC Bacteria identified Cx Nom (U) Escherichia coli Abnormal [facility]; [facility] Work Phone: Comment on above: Cefazolin <=4 ug/mLC efazolin with an NEERAJ <=16 predicts susceptibility to the oral agentscefaclor, cefdinir, cefpodoxime, cefprozil, cefuroxime, cephalexin,and loracarbef when used for therapy of uncomplicated urinary tractinfections due to E. coli, Klebsiella pneumoniae, and Proteusmirabilis.25,000-50,000 colony forming units per mL today; PATIENT NOT F ASTINGPERFORMED BY: [facility] [id number] PowellNefsisAmerican [facility] Systems [id number] Information: SRC:UC Bacteria identified Cx Nom (U) MUG Normal [facility]; [facility] Work Phone: Comment on above: Mixed urogenital denisha ra1,000 Colonies/mL S = Susceptible; I = Intermediate; R = Resistant P = Positive; N = Negative MICS are expressed in micrograms per mL Antibiotic RSLT#1 RSLT#2 RSLT#3 RSLT#4Amoxicillin/Clavulanic Acid SAmpicillin SCefepime SCeftriaxone SCefuroxime SCiprofloxacin SErtapenem SGentamicin SImipenem SLevofloxacin SMeropenem SNitrofurantoin SPiperacillin/Tazobactam STetracycline STobramycin STrimethoprim/Sulfa S today; PATIENT NOT F ASTINGPERFORMED BY: [facility] [id number] Powell UrbanTakeoverAmerican [facility] Systems [id number] Information: SRC: BANDAR (ANTINUCLEAR ANTIBODY) ( 42507)Ordered By: Circus Artist on 07-18-2021 Nuclear Ab Ql (S) Negative Normal [facility]; [facility] Work Phone: Comment on above: Test(s) 793851-Bmmkj ic, Blood; 173861-Iiilgin, Bloodwas developed and its performance characteristics determinedby [email or web address]. It has not been cleared or approved by the Foodand Drug Administration.PATIENT NOT FASTINGPERFORMED BY: [id number] Powell [facility]tersCarolin[facility] [id number] BY: [employer] [id number] CERULOPLASMIN (74330)Ordered By: Circus Artist on 07-18-2021 Ceruloplasmin [Mass/Vol] 21.8 mg/dL Normal 19.0-39.0 [facility] Internal Medicine; [facility] Work Phone: Comment on above: Test(s) 855933-Buaik ic, Blood; 499732-[place]odetka, Bloodwas developed and its performance characteristics determinedby [email or web address]. It has not been cleared or approved by the Foodand Drug Administration.PATIENT NOT FASTINGPERFORMED BY: [email or web address] FriendferCarolinas [facility] [id number] BY: [employer] [address] [id number] FERRITIN (24173)Ordered By: Circus Artist on 07-18-2021 Ferritin [Mass/Vol] 121 ng/mL Normal 15-150 Compr [facility] Internal Medicine; [facility] Work Phone: Comment on above: Test(s) 011200-Llkbl ic, Blood; 186837-Sqttuzd, Bloodwas developed and its performance characteristics determinedby [email or web address]. It has not been cleared or approved by the Foodand Drug Administration.PATIENT NOT FASTINGPERFORMED BY: [employer] [id number] Powell [facility] [id number] BY: Safehis[address] [id number] HEPATITIS C ANTIBODY (60243) Ordered By: Circus Artist on 07-18-2021 HCV Ab Signal/Cutoff IA [Rel units/Vol] {ratio} Normal 0.0-0.9 [facility]; [facility] Work Phone: Comment on above: Negative: < 0.8 Inde terminate: 0.8 - 0.9 Positive: > 0.9 . The CDC recommends that a positive HCV antibody result be followed up with a HCV Nucleic Acid Amplification test (048172). Test(s) 407001-Wzizr ic, Blood; 403588-Wkkjtmm, Bloodwas developed and its performance characteristics determinedby [email or web address]. It has not been cleared or approved by the Foodand Drug Administration.PATIENT NOT FASTINGPERFORMED BY: Unyqe70 FriendferCarolinas [facility] [id number] BY: [employer] [id number]; 08-23-21 db Methymalonic Acid, Serum (83 921)Ordered By: Circus Artist on 07-18-2021 Methylmalonate [Moles/Vol] 125 nmol/L Normal 0-378 [facility]; [facility] Work Phone: Comment on above: Test(s) 790452-Alacf ic, Blood; 198575-Zguqtbf, Bloodwas developed and its performance characteristics determinedby [email or web address]. It has not been cleared or approved by the Foodand Drug Administration.PATIENT NOT FASTINGPERFORMED BY: [email or web address] [facility] [id number] BY: [employer] [id number] Methymalonic Acid, Serum (45405) [facility] Normal [facility]; [facility] Work Phone: Comment on above: This test was develo ped and its performance characteristicsdetermined by [email or web address]. It has not been cleared or approvedby the Food and Drug Administration. Test(s) 498001-Ndmpc ic, Blood; 714271-Zqqqdli, Bloodwas developed and its performance characteristics determinedby [email or web address]. It has not been cleared or approved by the Foodand Drug Administration.PATIENT NOT FASTINGPERFORMED BY: [facility] Oxaukw2580 [facility] [id number] BY: [employer] [id number] SPEP (34960)Ordered By: Syst em Mental Retardation Nurse on 07-18-2021 Albumin [Mass/Vol] 3.7 g/dL Normal 2.9-4.4 [facility] Internal Medicine; [facility] Work Phone: Comment on above: Test(s) 816218-Kefuj ic, Blood; 247663-Iezqziy, Bloodwas developed and its performance characteristics determinedby [email or web address]. It has not been cleared or approved by the Foodand Drug Administration.PATIENT NOT FASTINGPERFORMED BY: [facility] [id number] Powell [facility] MattersCarolin[facility] [id number] BY: [employer] [id number] Albumin/Globulin [Mass ratio] 1.3 {ratio} Normal 0.7-1.7 [facility]; [facility] Work Phone: Comment on above: Test(s) 274406-Pvhsx ic, Blood; 374040-Aafmyji, Bloodwas developed and its performance characteristics determinedby [email or web address]. It has not been cleared or approved by the Foodand Drug Administration.PATIENT NOT FASTINGPERFORMED BY: [facility] Wesuga0050 [facility] [id number] BY: [employer] [id number] Alpha 1 globulin Elph [Mass/Vol] 0.2 g/dL Normal 0.0-0.4 [facility]; [facility] Work Phone: Comment on above: Test(s) 730329-Edkuv ic, Blood; 803339-Gphjttw, Bloodwas developed and its performance characteristics determinedby [email or web address]. It has not been cleared or approved by the Foodand Drug Administration.PATIENT NOT FASTINGPERFORMED BY: [employer] Jmcwno1283 [facility] [id number] BY: [employer] [id number] Alpha 2 globulin Elph [Mass/Vol] 0.7 g/dL Normal 0.4-1.0 [facility]; [facility] Work Phone: Comment on above: Test(s) 445705-Uvjxx ic, Blood; 380734-Ckejpzh, Bloodwas developed and its performance characteristics determinedby [employer]. It has not been cleared or approved by the Foodand Drug Administration.PATIENT NOT FASTINGPERFORMED BY: Smart[employer]ault[address] [id number] BY: [employer] [id number] Beta globulin Elph [Mass/Vol] 1.1 g/dL Normal 0.7-1.3 [facility]; [facility] Work Phone: Comment on above: Test(s) 888598-Irbaj ic, Blood; 946639-Krgoecv, Bloodwas developed and its performance characteristics determinedby [email or web address]. It has not been cleared or approved by the Foodand Drug Administration.PATIENT NOT FASTINGPERFORMED BY: [employer] [id number] BY: [employer] [id number] Gamma globulin Elph [Mass/Vol] 0.8 g/dL Normal 0.4-1.8 [facility]; [facility] Work Phone: Comment on above: Test(s) 187877-Lyfsk ic, Blood; 324174-Cdpjkwf, Bloodwas developed and its performance characteristics determinedby [email or web address]. It has not been cleared or approved by the Foodand Drug Administration.PATIENT NOT FASTINGPERFORMED BY: [employer] [id number] BY: [employer] [id number] Globulin (S) [Mass/Vol] 2.9 g/dL Normal 2.2-3.9 [facility]; [facility] Work Phone: Comment on above: Test(s) 509265-Yejkn ic, Blood; 516925-Cjlarze, Bloodwas developed and its performance characteristics determinedby LabVantage Data Centersrp. It has not been cleared or approved by the Foodand Drug Administration.PATIENT NOT FASTINGPERFORMED BY: [employer] Technologyrp Ihhkxl0510 [facility] [id number] BY: [employer] [address] [id number] Laboratory comment Mariusz (Report) [facility] Normal [facility]; [facility] Work Phone: Comment on above: Protein electrophore sis scan will follow via computer, mail, orcourier delivery. Test(s) 802566-Famri ic, Blood; 158710-Usstjrr, Bloodwas developed and its performance characteristics determinedby [employer] Centersrp. It has not been cleared or approved by the Foodand Drug Administration.PATIENT NOT FASTINGPERFORMED BY: [email or web address] [facility] [id number] BY: [employer] [id number] Laboratory report . Normal Compreh ensive Internal Medicine; [facility] Work Phone: Comment on above: Test(s) 691421-Fnnlx ic, Blood; 255105-Pmlyhqr, Bloodwas developed and its performance characteristics determinedby [facility]. It has not been cleared or approved by the Foodand Drug Administration.PATIENT NOT FASTINGPERFORMED BY: [employer] Burwxv5234 [facility] [id number] BY: Smart[employer] [id number] Protein [Mass/Vol] 6.6 g/dL Normal 6.0-8.5 Compre [facility]; [facility] Work Phone: Comment on above: Test(s) 127784-Nbchr ic, Blood; 318135-Xziosin, Bloodwas developed and its performance characteristics determinedby [facility]. It has not been cleared or approved by the Foodand Drug Administration.PATIENT NOT FASTINGPERFORMED BY: Pro-Tech Industrieslin6370 [facility] [id number] BY: Smart[employer]ault[address] [id number] Protein.monoclonal Elph [Mass/Vol] Not Observed Normal [facility]; [facility] Work Phone: Comment on above: Test(s) 697640-Wexdr ic, Blood; 727726-Wrsmrjf, Bloodwas developed and its performance characteristics determinedby [email or web address]. It has not been cleared or approved by the Foodand Drug Administration.PATIENT NOT FASTINGPERFORMED BY: [employer] Dhzkks3267 [facility] [id number] BY: [employer] [id number] VITAMIN B-12 (CYANOCOBALAMIN ) (71267)Ordered By: Circus Artist on 07-18-2021 Cobalamin (Vitamin B12) [Mass/Vol] 606 pg/mL Normal 232-1245 [facility]; [facility] Work Phone: Comment on above: Test(s) 122832-Vpvwl ic, Blood; 487155-Vnjawzi, Bloodwas developed and its performance characteristics determinedby [email or web address]. It has not been cleared or approved by the Foodand Drug Administration.PATIENT NOT FASTINGPERFORMED BY: [employer] Gezhud8091 [facility] [id number] BY: [employer] [id number] BMPon 01-07-2019 Anion gap molar conc 9 mmol/L Normal 5-16 [facility] Comment on above: Order Comment: Canelo s: M Performed By: #### L 600.62439 #### [facility] [address] [place] [address] 0[address]19 Calcium mass conc 8.4 mg/dL Low 8.5-10.1 [facility] Comment on above: Order Comment: Canelo s: M Performed By: #### L 600.85045 #### [facility] [address] [place] [address] 47201 Chloride molar conc 107 mmol/L Normal 98-107 [facility] Comment on above: Order Comment: Canelo s: M Performed By: #### L 600.62283 #### [facility] [address] [place] [address] CO2 molar conc 27 mmol/L Normal 21-32 [facility] Comment on above: Order Comment: Canelo s: M Performed By: #### L 600.04176 #### [facility] [address] [place] [address] Creatinine mass conc 0.752 mg/dL Normal 0.510-0 .95 0 [facility] Comment on above: Order Comment: Canelo s: M Result Comment: Adilene ents receiving either N-Acetylcysteine (NAC) or Metamizole prior to venipuncture, may have falsely depressed results. Performed By: #### L 600.51488 #### [facility] [address] [place] [address] Glucose mass conc 156 mg/dL High 70-100 [facility] Comment on above: Order Comment: Canelo s: M Result Comment: 70-1 00- Normal Fasting; 100-125 Impaired Fasting; greater than 126 on more than one result- Diabetes. ADA guidelines. Results may be falsely elevated after the administration of Sulfapyridine. Results may be falsely depressed after the administration of Sulfasalazine. Performed By: #### L 600.10301 #### [facility] [place] [address] Potassium molar conc 3.7 mmol/L Normal 3.5-5.1 [facility] Comment on above: Order Comment: Canelo s: M Performed By: #### L 600.67095 #### [facility] [address] [place] [address] Sodium molar conc 142 mmol/L Normal 136-145 [facility] Comment on above: Order Comment: Campu s: M Performed By: #### L 600.83429 #### [facility] [address] [place], [place] [address] Urea nitrogen mass conc 20 mg/dL Normal 7-26 [facility] Comment on above: Order Comment: Campu s: M Performed By: #### L 600.68093 #### [facility] [address] [place], [place] [address] Urea nitrogen/Creatinine mass ratio 27 mg/mg High 15-24 [facility] Comment on above: Order Comment: Campu s: M Performed By: #### L 600.95338 #### [facility] [address] [place] [address] CBCon 01-07-2019 Erythrocyte distribution width Ratio (RBC) 15.7 % High 11-14.5 [facility] Comment on above: Order Comment: Campu s: M Performed By: #### L 600.95848 #### [facility] [address] [place] [address] Hematocrit Volume Fraction (Bld) 31.4 % Low 35.0-47.0 [facility] Comment on above: Order Comment: Campu s: M Performed By: #### L 600.66885 #### [facility] [address] [place], [place] [address] Hemoglobin mass conc (Bld) 10.0 g/dL Low 11.5-15.5 [facility] Comment on above: Order Comment: Campu s: M Performed By: #### L 600.49762 #### [facility] [address] [place], [place] [address] MCHC mass conc (RBC) 31.8 g/dL Low 32.0-36.0 [facility] Comment on above: Order Comment: Campu s: M Performed By: #### L 600.46531 #### [facility] [address] [place], [place] [address] MCV Entitic volume (RBC) 93.2 fL Normal 80.0-99.0 [facility] Comment on above: Order Comment: Campu s: M Performed By: #### L 600.32084 #### [facility] [address] [place] [address] Nucleated RBC/100 WBC Ratio (Bld) 0.2 % Normal Less than 1 [facility] Comment on above: Order Comment: Campu s: M Performed By: #### L 600.38815 #### [facility] [address] [place] [address] Platelet mean volume Entitic volume (Bld) 10.3 fL Normal 9.4-12.4 [facility] Comment on above: Order Comment: Campu s: M Performed By: #### L 600.21760 #### [facility] [address] [place] [address] Platelets #/vol (Bld) 145 K/CU MM Low 150-450 [facility] Comment on above: Order Comment: Campu s: M Performed By: #### L 600.24668 #### [facility] [address] [place] [address] RBC #/vol (Bld) 3.37 M/CU MM Low 3.90-5.30 [facility] Comment on above: Order Comment: Campu s: M Performed By: #### L 600.17883 #### [facility] [address] [place] [address] WBC #/vol (Bld) 9.6 K/CUMM Normal 4.5-11.0 [facility] Comment on above: Order Comment: Campu s: M Performed By: #### L 600.84170 #### [facility] [address] [place] [address] Prakash 01-07-2019 FERR 310.5 NG/ML High 8.0-307.0 [facility] Comment on above: Order Comment: Serjiou s: M Performed By: #### L 600.83154 #### [facility] [address] [place] [address] GFR ESTon 01-07-2019 IF AMER Greater than 60 Normal [facility] Comment on above: Order Comment: Serjiou s: M Performed By: #### L 600.15274 #### [facility] [address] [place], [place] [address] IF non-AFR AMER Greater than 60 Normal [facility] Comment on above: Order Comment: Serjiou s: M Performed By: #### L 600.86547 #### [facility] [address] [place] [address] IRON PANELon 01-07-2019 Iron mass conc 28 ug/dL Low 50-170 [facility] Comment on above: Order Comment: Canelo s: M Result Comment: Adilene ents treated with metal-binding drugs (e.g.deferoxamine) may have depressed iron values, as chelated iron may not properly react in the Siemens iron assay. Performed By: #### L 600.67997 #### [facility] [address] [place] [address] IRON SAT 11 % Low 22-44 [facility] Comment on above: Order Comment: Serjiou s: M Performed By: #### L 600.92974 #### [facility] [address] [place], [place] [address] TIBC 251 UG/DL Normal 221-481 [facility] Comment on above: Order Comment: Canelo s: M Performed By: #### L 600.66926 #### [facility] [address] [place] [address] 36093 OTARon 01-07-2019 OT Assessment Report Normal [facility] OTAR Occupational Therapy Inpatient Evaluation Medical Diagnosis: s/p Right TKA performed by on 01/06/2019 OCCUPATIONAL PROFILE AND HISTORY Therapy Diagnosis: Rank Code Description 1 Z74.1 Need for assistance with personal care Demographics: Age: 73Y Gender: Female Primary Language: Niuean Preferred Language: Niuean Referring Service/Team: Orthopedics Past Medical History: Hypercholesterolemia, HTN, GERD, arthritis, cataract, Left TKA Melquiades Miller History of Present Illness: Date of Surgery: 01/06/19 Additional Information: Elective Surgery Date of Admission: 01/06/2019 5:59:00 AM Rehabilitation Precautions/Restrictions: WBAT RLE Imaging/Testing Results from Chart: N/A Prior Level of Functioning: Self Care: Patient completed the activities by him/herself, with or without an assistive device, with no assistance from a helper. Functional Cognition: Patient completed the activities by him/herself, with or without an assistive device, with no assistance from a helper. Denies use of AD. Denies falls. Indep with ADL. Indep with cooking and cleaning Patient/Caregiver Goals: Patient's functional goals: To go home Pain: Patient currently has pain. Location: R knee Type: Acute Quality: Aching. Pain Scale: Visual Analog (VAS). Patient reports a pain level of 5 out of 10. Patient's acceptable level of pain 0 out of 10. Interferes with physical activity. Pain is alleviated by: pain meds Pain is exacerbated by: movement Interventions: Repositioned patient. [facility] PATIENT NAME: NAHEED LAFLEUR [facility] MEDICAL REC #: [id number] [place] [address] ADMIT DATE: SERVICE DATE: 01/07/19 Occupational Therapy Assessment ATTENDING PHY: Barry Price MD Home Environment: Patient lives with whom is able to assist PRN, retired , who is able to assist patient at discharge. Patient lives in a single family home. Home is single level. Patient is not required to manage stairs within the home. First floor full bathroom setup available. There are 2 steps to enter the home, with left ascending handrails. There is no ramp available to enter home. Walk-in shower with shower chair, high commodes Equipment Owned: hotel housekeeper, sock-aid, FWW, cane Marital Status: M Social History: Children: One son known- present at bedside Reside: [facility] Employment Status: Retired Recreational Activities/Hobbies: Reading, crafts OBJECTIVE/OCCUPATIONAL PERFORMANCE Activities of Daily Living Current Status Previous Status ADLs Feeding Independent - Grooming Modified independent - Bathing-UE Independent - Bathing-LE Modified independent - Dressing-UE Independent - Dressing-LE Modified independent - Toileting Modified independent - AM-PAC Daily Activities: Putting On/Taking Off Lower Body Clothing: No help needed Bathing:: No help needed Toileting: No help needed Putting On/Taking Off Upper Body Clothing: No help needed Grooming: No help needed Eating a Meal: No help needed Raw Score = 24 , AM-PAC t-Scale Score = 57.54 and G-Code Modifier = CH Functional Mobility: Bed Mobility: NT pt in chair pre and post session Transfers: Patient transferred sit to/from stand with modified independence. Patient used the following equipment: Arms of chair. pt able to push with rosa isela UE from bed Patient transferred to/from the toilet with modified independence. Patient used the following equipment: Grab bars. pt able to use grab bar to assist with sitting and standing from raised commode Locomotion/Gait/Ambulation : Patient was modified independent with gait/ambulation for 60 ft x2 . Patient requires the following assistive device(s): Rolling walker. reciprocal gait, slowed pacing, no LOB, denied [facility] PATIENT NAME: NAHEED LAFLEUR [address] [facility] [address] MEDICAL REC #: [id number] [place] [address] ADMIT DATE: SERVICE DATE: 01/07/19 Occupational Therapy Assessment ATTENDING PHY: Barry Price MD dizziness Range of Motion Upper Extremity: Grossly within functional limits Strength Upper Extremity: Grossly within functional limits Balance: Dynamic balance in a seated position is good. pt able to complete dressing seated Dynamic balance in a standing position is good. pt able to manage pants in standing Tone/Spasticity: No relevant impairments. Sensation: denied numbness/tingling Fine Motor Coordination: Bilateral Hands: Fine motor coordination is not impaired. Gross Motor Coordination: Upper extremity gross motor coordination is intact. Edema: Edema is present. Location: Right lower extremity edema- Minimal. Location: Lower Extremity Function: R knee dressing dry and intact Vision: Within functional limits. Cognition: Within functional limits. Perceptual Skills: Within functional limits. Psychosocial: Within normal limits Interventions: Evaluation MOD Complexity Self Care/Home Management: pt was educated on ADLs, AE, functional transfers and home safey. Pt was educated on AE with LB ADLs, seated in chair, pt was able to demo LB dressing and UB dressing seated in chair modified independent. pt was educated on toilet transfers and shower transfer, pt indiciated understanding and demo toilet transfer appropriately. pt was educated on home safety: use of walker bag, walking 1x/hr, clear pathways, assistance with IADLs, safety with FWW, showering and energy conservation. This therapist answered all of pts home going questions. Pain Reassessment: No significant change in pain during session. Education: The patient's preferred learning method is: Explanation Barriers to Learning: No barriers Learning Needs: Precautions. Plan of care. Safety. [facility] PATIENT NAME: NAHEED LAFLEUR [facility] [address] [address] MEDICAL REC #: [id number] [place] [address] ADMIT DATE: SERVICE DATE: 01/07/19 Occupational Therapy Assessment ATTENDING PHY: Barry Price MD Functional activities/mobility. Education Provided: Precautions. Plan of care. Activities of daily living. Functional transfers. Safety. Audience: Patient. Mode: Explanation. Response: Applied knowledge. Verbalized understanding. Demonstrated skill. ASSESSMENT Clinical Performance Deficits: None Equipment Recommended: n/a Rehabilitation Potential: Not applicable Motivation/Commitment to Therapy: Good. Response to Evaluation: OT eval complete, pt tolerated session well today. pt educated on ADLs, AE, functional transfers and home safety. pt is modified independent with ADLs, functional transfers and mobility. Pt without concerns upon homegoing. Recommend home with assist as needed. Activity/Participation Problem List and Goals: Functional Impairment: Self Care Modifier: O1755-JE (0% impaired, limited or restricted) Goal: pt will complete LB ADLs mod independent Goal Modifier: I4417-KN (0% impaired, limited or restricted) Discharge Status for Self Care: Resolved Functional Impairment Discharge Modifier: O9719-SC (0% impaired, limited or restricted) Treatment Goals: Not applicable. PLAN Treatment Frequency, Duration and Interventions: Occupational Therapy services are discontinued at this time secondary to: pt is mod independent with ADLs, functional transfers and mobility Recommended Occupational Therapy Follow Up: Upon acute care discharge, the following is currently recommended: No further care. Recommended Consults: None currently. Development of Plan of Care: Patient participated in plan of care development today. If there are any questions regarding this service, please contact the Acute Therapy Department at extension [phone] CARE WILL BE TRANSFERRED TO THE (CHOICE OF ACUTE OR REHAB) OCCUPATIONAL THERAPIST Communication to Nursing: No updates at this time. [facility] PATIENT NAME: NAHEED LAFLEUR [facility] [address] MEDICAL REC #: [id number] [place] [address] ADMIT DATE: SERVICE DATE: 01/07/19 Occupational Therapy Assessment ATTENDING PHY: Barry Price MD Location of Patient at End of Therapy Session: In chair, call light within reach Services: Total Billed: 16 minutes (Timed: 16, Untimed: 0) 16.00 Timed: [56834] ADL-HOME MANAGEMENT EA 15 MIN 0.00 Untimed: [26278] OT-EVALUATION MOD COMPLEX 0.00 Untimed: [] OT Evaluation ORDER 0.00 Untimed: [G8987] OT-Self Care-CH 0.00 Untimed: [G8988] GO-Tffj-Skwd Care-CH 0.00 Untimed: [G8989] OT-DC-Self Care-CH Signed by: Cary Rivas, 01/07/2019 10:07:52 [facility] PATIENT NAME: NAHEED LAFLEUR [facility] [employer] [address] MEDICAL REC #: [id number] [place] [address] ADMIT DATE: SERVICE DATE: 01/07/19 Occupational Therapy Assessment ATTENDING PHY: Barry Price MD Normal [facility] PROG.NOTEon 01-07-2019 Protein mass conc [facility] Patient Name: NAHEED LAFLEUR [employer] [address] [facility] Date of : [address] [address] Unit Number: [id number] Progress Note-Physician Patient Status: REG SDC Attending Doctor: Barry Price MD Service Date: 01/07/19 0740 Subjective S: (2 ROS minimum) Awake. Alert. Oriented. Pain is 3 out of 10. No nausea no vomiting. Objective (ROS) Nursing Vitals Vital Signs (Last) Result Date Time Pulse Ox 96 01/07 310 B/P 102/52 01/07 310 O2 Delivery NASAL CANNULA 01/07 310 O2 Flow Rate 2 01/07 310 Temp 98.2 01/07 310 Pulse 79 01/07 310 Resp 16 01/07 310 Physical Exam Neurological / Psychiatric Alert, Orientation X3 Respiratory Normal Breathing Effort, Clear Lungs Cardiovascular Heart RRR, Pulse Intact Gastrointestinal Normal Bowel Sounds, Non Tender Diagnostic Data: Lab 24hr (CBC/BMP Fishbone) 01/07/19 0527: [Embedded Image Not Available] Anion Gap 9, Est GFR ( Amer) Greater than 60, Est GFR (Non-Af Amer) Greater than 60 , BUN/Creatinine Ratio 27 H, Glucose 156 H, Total Calcium 8.4 L, Iron 28 L, TIBC 251, Iron Saturation 11 L, Ferritin 310.5 H, RBC 3.37 L, MCV 93.2, MCHC 31.8 L, RDW 15.7 H, MPV 10.3 , Nucleated RBCs 0.2 Assessment and Plan Conclusion 1. Osteoarthritis of right knee 2. Acute blood loss as cause of postoperative anemia Medically stable. Home when okay with orthopedics. Disclaimer This dictation was created using voice recognition software. Phonetic and/or minor grammatical errors may exist. eSign Date and Time James Almazan MD Verified/Reviewed by 01/07/19 0741 [facility] Protein mass conc Normal [facility] PROG.[email or web address] 01-07-2019 Protein mass conc Normal [facility] Protein mass conc [facility] Patient Name: NAHEED LAFLEUR [email or web address] Date of : [address] [address] Unit Number: [id number] Progress Note-Ortho Patient Status: REG [facility] Attending Doctor: Barry Price MD Service Date: 01/07/19 0932 Progress Note - Ortho Subjective S: (2 ROS minimum) This is a 73-year-old female status post right total knee arthroplasty with Dr. Price on . Patient is doing well today. Reports only mild pain to the right knee. States she has been up to the bathroom multiple times and has walked around the unit with walker assistance without issues. Has been seen by occupational therapy this morning, awaiting physical therapy evaluation. No changes or new complications overnight. Constitutional: Denies fevers or chills. Skin: Denies redness, rashes, or any other skin changes. Cardiovascular: Denies chest pain or palpitations. Respiratory: Denies cough or shortness of breath. Gastrointestinal: Denies abdominal pain, nausea, vomiting, or diarrhea. Musculoskeletal: The pain is fairly well controlled to the right knee. Neurological: Denies numbness or tingling of the right foot or toes. Objective Nursing Vitals Vital Signs (Last) Result Date Time Pulse Ox 95 01/07 822 B/P 122/64 01/07 822 Temp 97.9 01/07 822 Pulse 85 01/07 822 Resp 16 01/07 822 O2 Delivery NASAL CANNULA 01/07 310 O2 Flow Rate 2 01/070 General Appearance 73-year-old female, alert, pleasant, no acute distress. Physical Exam Vital signs are stable, afebrile. General Appearance: This is a 73-year-old female, appears stated age, alert and in no acute distress. Cardiovascular: Regular rate via right dorsal pedal pulse. Pulmonary: No evidence of labored breathing, on room air. Musculoskeletal: Silver alginate dressing is dry and intact. No shadowing through. Mild edema as to be expected. Extremities: Capillary refill within normal limits. Right toes are warm, pink, dry. Neurovascularly intact. Able to dorsiflex and plantarflex right foot Neurological: Alert and appropriate. Diagnostic Data Lab 24hr (CBC/BMP [facility]) 01/07/19 0527: [Embedded Image Not Available] Anion Gap 9, Est GFR ( Amer) Greater than 60, Est GFR (Non-Af Amer) Greater than 60 , BUN/Creatinine Ratio 27 H, Glucose 156 H, Total Calcium 8.4 L, Iron 28 L, TIBC 251, Iron Saturation 11 L, Ferritin 310.5 H, RBC 3.37 L, MCV 93.2, MCHC 31.8 L, RDW 15.7 H, MPV 10.3 , Nucleated RBCs 0.2 Assessment/Plan Conclusion 1. Osteoarthritis of right knee -Patient is doing well today. Vital signs are stable and patient is afebrile. Labs are within normal limits, HandH is 10.0, 31.4. -Patient will receive physical therapy and occupational therapy. As long as the patient passes PT/OT and is cleared by medical consult, the patient can be discharged home today. -DVT prophylaxis: Currently has SCDs, will go home on aspirin 325 mg p.o. twice daily for 30 days and knee-high KINGA hose. -Follow-up appointment is with Dr. Price on 01/21/2019 at 2:45 PM. -Has prescriptions at home for use postoperatively for Percocet, Ultram, and Celebrex twice daily for 30 days. Patient advised to also take weof-qoi-uhvykkm stool softener as needed for constipation. Stable Problems Problems not specifically addressed in the above plan are stable and do not warrant adjustment of the current method of therapy. Collaborating Physician Barry Price MD Physician Attestation Statement of Attestation I confirm that I have evaluated the patient, reviewed the history and physical, medications, diagnostic results, physical exam, assessment and plan of care of the patient. Disclaimer This dictation was created using voice recognition software. Phonetic and/or minor grammatical errors may exist. eSign Date and Time Shira Jimenez PAC Verified/Reviewed by 01/07/19 0936 [facility] PTDSon 01-07-2019 PTDS Physical Therapy Inpatient Last Visit Note The inpatient Physical Therapy services are discontinued at this time for the following reasons: Goals Met. SHOELACE TIPPING MACHINE OPERATOR has assisted with documenting discharge plan and recommendations under the direction of supervising therapist. Therapist's co-signature denotes agreement with planned discharge from acute physical therapy. AM-PAC Basic Mobility: Turning Over in Bed: No difficulty Sitting/Standing Chair with Arms: A little difficulty Lying on Back to Sitting on Side of Bed: No difficulty Moving To/From Bed to Chair: A little help needed Walking in Hospital Room: A little help needed Climbing 3-5 Steps with Railing: A little help needed Raw Score = 20 , AM-PAC t-Scale Score = 47.67 and G-Code Modifier = CJ Interventions: Gait Training: Functional transfers:sit<->stand w/ Supervision. Good static sitting and standing balance. Car tx: verbal review w/ mat table used to simulate. Gait training:amb. 80'x 1 and 230' w/ ww and Supervision w/ step to pattern progressing to step through. Steps:up/down 2 steps w/ one rail and std cane and SBA. Pt voiced comfort performing. Thex:verbal review supine AP,QS, GS and pt performed seated LE thex including AP,GS, LAQ and HS. Issued written HEP for home as well as thex progression. Pt education:polar ice use, home safety, walker safety, home walking program, discharge planning. Pt voiced understanding to all and pt is cleared for home from PT standpoint. Education: Education Provided: Precautions. Pain management. Pain scale. Functional transfers. Car transfers. Safety. Gait. Home exercise/activity plan. Stair/curb/environmental barrier negotiation. Audience: Patient. Mode: Explanation. Demonstration. Printed material provided. Response: Verbalized understanding. Demonstrated skill. Recommendations: Upon acute care discharge, the following is currently recommended: Outpatient Physical Therapy. Activity/Participation Problem List and Goals: No updates at this time. Treatment Goals: Time frame to achieve treatment goal(s): 2 weeks 1. Complete 80 feet supv ww MET 2. Complete transfers supv MET 3. Complete verbalization of HEP indep MET 4. Complete 2 steps with left ascending rail and SBA MET Discharge Plan: The patient's status and plan was discussed with patient and [facility] PATIENT NAME: NAHEED LAFLEUR [address] [facility] [address] MEDICAL REC #: [id number] [place] [address] ADMIT DATE: SERVICE DATE: 01/07/19 Physical Therapy Discharge Summary ATTENDING PHY: Barry Price MD agreed upon. If there are any questions regarding this service, please contact the Acute Therapy Department at extension [phone] Services: Total Billed: 38 minutes (Timed: 38, Untimed: 0) 38.00 Timed: [79157] GAIT TRAIN EA 15 MIN 0.00 Untimed: [] PT Treatment- General ORDER Signed by: MILLIE SCHAEFER PTA 01/07/2019 10:46:05 - CoSigned By: Halle Parker 01/07/2019 12:55:50 PM [facility] PATIENT NAME: NAHEED LAFLEUR [facility] [address] MEDICAL REC #: [id number] [place] [address] ADMIT DATE: SERVICE DATE: 01/07/19 Physical Therapy Discharge Summary ATTENDING PHY: Barry Price MD [facility] [place] CRon 01-06-2019 CONSULTATION REPORT [facility] CR DATE OF CONSULTATION : 01/06/2019 ATTENDING: Dr. Barry Price. CONSULTING: Dr. James Almazan. REASON FOR CONSULTATION: Medical evaluation and management. HISTORY OF PRESENT ILLNESS: Mrs. Lafleur is a very pleasant 73-year-old white female who underwent total knee arthroplasty on the right. She was preoperatively cleared by Dr. Bourne in the [place] area, who does not come to this institution. PAST MEDICAL HISTORY: Significant for hypertension, obstructive sleep apnea. Hyperlipidemia, depression. SOCIAL HISTORY: She is . She is a nonsmoker. She is a social drinker. ALLERGIES: SULFA. MEDICATIONS: See chart. FAMILY HISTORY: Noncontributory in this 73-year old. REVIEW OF SYSTEMS: Prior to admission, she had increasing pain for which she had the surgery. This has limited her ability to get around. She denied chest pain. She denied shortness of breath. There is no change of bowel or bladder habits. There is no lightheadedness, dizziness. There has been no melena, hematochezia, weight loss. No travel or trauma. All others are negative other than what is dictated above in a 10-system review. PHYSICAL EXAMINATION: General: She is awake. She is alert. She is oriented. Pain is 2/10. Vital Signs: Blood pressure is 123/60. Respiratory rate is 20. Pulse is about 94 and regular. Temperature is 97 degrees Fahrenheit, and pulse oximetry is 99%. HEENT: Normocephalic, atraumatic. Eyes PERRLA, EOMI. Mouth and throat reveal an intact gag reflex without significant pathology. Neck: No JVD, HJR, bruits, adenopathy or thyromegaly. Lungs: Clear. No wheezes, rales or rhonchi. Cardiac: Regular rate and rhythm. No gallops, no murmurs or rubs or clicks heard at the present time. Abdomen: Soft, nontender, normal bowel sounds, no bruits. Extremities: No edema, cyanosis or clubbing. Neuromuscular: Alert, awake and oriented without any focal neurologic deficits. [facility] PATIENT NAME: [facility]AF[facility]UR [facility] MED[facility] REC #: [id number] [place] [address] ADMIT DATE: DISCHARGE DATE: CONSULTATION REPORT ATTENDING PHY: Barry Price MD Toes are downgoing bilaterally. LABORATORIES: None. ASSESSMENT: 1. Status post total knee arthroplasty. 2. Overweight. Patient's body mass index is 29.0. 3. Hypertension. 4. Hyperlipidemia. PLANS: Will follow the patient with you. Currently, she is medically stable. Thank you very much. James Almazan MD /[id number] [facility] File#: [id number] Verified/Reviewed by 01/07/19 06 [place] [facility] PATIENT NAME: NAHEED LAFLEUR [facility] MED[facility] REC #: [id number] [place] [address] ADMIT DATE: DISCHARGE DATE: CONSULTATION REPORT ATTENDING PHY: Barry [facility] MD [facility] DATE OF SERVICE: 01/06/2019 PREOPERATIVE DIAGNOSIS: Advanced osteoarthritis of right knee with valgus deformity. POSTOPERATIVE DIAGNOSIS: Advanced osteoarthritis of right knee with valgus deformity. OPERATION: Total knee arthroplasty, right, utilizing a posteriorly stabilized size 4 Triathlon primary femoral component, a size 5 primary Triathlon tibial baseplate, a 9-mm posted spacer and a 35-mm patellar button, all cemented. SURGEON: Barry Price MD ANESTHESIA: Spinal with preoperative right adductor block per Anesthesia and intraoperative right Exparel block per surgeon. COMPLICATIONS: None. BLOOD LOSS: 100 mL FUR CLEANER: Carlos Araiza PA-C. Teodora's presence was deemed medically necessary. Ms Araiza assisted in positioning and preparation of the patient. She made sure of proper tourniquet application and location and that thorough skin prep was performed. Intraoperatively, Ms Araiza provided primary retraction and, most importantly, protection of vital neurovascular structures. She assisted in the sizing and placement of all componentry. At closure she supervised the appropriate alignment of soft tissues. OPERATIVE INDICATIONS: This patient is a 73-year-old female with end-stage lateral degenerative disease. This is evidenced radiographically with bwbm-yh-osyq deformity. Physical exam showed valgus deformity. Symptomatology, despite conservative efforts, had reached the point where simple ambulation and stair-climbing were markedly painful for her. She was thoroughly counseled on the risks and benefits including but not limited to infection, thrombophlebitis, neurovascular injury, osseous injury, loss of joint motion, joint instability and persistence of pain without any obvious cause. This was contrasted and compared with her current state with conservative measures. The patient, weighing all of this, opted for intervention. DESCRIPTION OF PROCEDURE: The patient was seen in the preoperative area where we reconfirmed the sidedness of the surgery. This was labeled. She received her adductor block and spinal anesthetic and was transferred to the operating room. In the operating room, Ms Araiza supervised the positioning of the patient and application of tourniquet. Sterile prep and drape ensued. Under tourniquet control, [facility] PATIENT NAME: NAHEED LAFLEUR [facility] [address] [address] MEDICAL REC #: [id number] [place] [address] ADMIT DATE: DISCHARGE DATE: 01/07/19 OPERATIVE REPORT ATTENDING PHY: Barry Price MD we made an anterior skin incision. Dissection proceeded sharply through skin and subcutaneous tissue, exposing the quadriceps mechanism. A median parapatellar incision was carried out allowing for lateral patellar dislocation. A central access hole was made in the distal femur, and a 10-mm distal femoral resection was accomplished. Sizing was done. The patient was measured as a 4, and the 4-in-1 cutting block was applied. Our attention was then turned to the tibia where proximal tibial osteotomy was carried out. This allowed for removal of extraneous osteophytes and soft tissues. We then returned to the femur where the notch was created for the stabilizing post. We ensured hemostasis and dispersed Exparel with epinephrine posteriorly in the gutters. Tourniquet was reinflated. Trial componentry was installed at this point. With a [address], we affirmed good varus/valgus stability and no AP instability. Patella was prepared with a Rubi planer. Now with all trial componentry in place, we affirmed stability, range of motion, smooth centralized patellar tracking. Well pleased with the trial construct, copious pressure lavage was done to all osseous surfaces. Standard cement techniques were used to affix all surfaces. All soft extraneous cement was removed. As the cement hardened, the remainder of the Exparel was dispersed. When the cement was thoroughly hardened, we did a final check for stability, motion and patellar tracking and affirmed all of these parameters. Well pleased, a final round of copious irrigation was done. Then the quadriceps was reapproximated over vancomycin powder using nonabsorbable suture. With the quadriceps thus reconstructed, we did a final check of all of our parameters and closed the subcutaneous tissue in layers followed by running subcuticular skin closure. A sterile silver dressing was applied. The patient was awakened and taken to the recovery room in good condition. Barry Price MD AP/[id number] [facility] File#: [id number] Verified/Reviewed by 01/08/19 0717 [facility] PATIENT NAME: NAHEED LAFLEUR [address] [facility] [address] MEDICAL REC #: [id number] [place] [address] ADMIT DATE: DISCHARGE DATE: 01/07/19 OPERATIVE REPORT ATTENDING PHY: Barry Price MD [facility] PTARon 01-06-2019 PT Assessment Report [facility] PTAR Physical Therapy Inpatient Evaluation Medical Diagnosis: s/p Right TKA performed by on 01/06/2019 Therapy Diagnosis: Rank Code Description 1 R26.81 Unsteadiness on feet 2 M62.81 Muscle weakness (generalized) Demographics: Age: 73Y Gender: Female Primary Language: Niuean Preferred Language: Niuean Referring Service/Team: Orthopedics Past Medical History: Hypercholesterolemia, HTN, GERD, arthritis, cataract, Left TKA Melquiades Miller History of Present Illness: Date of Surgery: 01/06/2019 Additional Information: ELective SUrgery Date of Admission: 01/06/2019 5:59:00 AM Rehabilitation Precautions/Restrictions: WBAT RLE Imaging/Testing Results from Chart: N/A SUBJECTIVE Prior Level of Functioning: Indoor Mobility: Patient completed the activities by him/herself, with or without an assistive device, with no assistance from a helper. Stairs: Patient completed the activities by him/herself, with or without an assistive device, with no assistance from a helper. Denies use of AD. Denies falls. Indep with ADL. Indep with cooking and cleaning Prior Device Use: Performance GG110. Prior Device None of Above Yes Patient/Caregiver Goals: Patient's functional goals: To go home Pain: Patient currently without complaints of pain. Home Environment: Patient lives with whom is able to assist PRN, retired , who is able to assist patient at discharge. Patient lives in a single family home. Home is single level. Patient is not required to manage stairs within the home. First floor full bathroom setup available. There are 2 steps to enter the home, with left ascending handrails. There is no ramp available to enter home. [facility] PATIENT NAME: NAHEED LAFLEUR [address] [facility] [address] MEDICAL REC #: [id number] [place] [address] ADMIT DATE: SERVICE DATE: 01/06/19 Physical Therapy Assessment Report ATTENDING PHY: Barry Price MD Equipment Owned: ww, cane, high commode, hotel housekeeper, sock aid, WIS with shower chair Social History: Marital Status: Children: One son known- present at bedside Reside: Local Employment Status: Retired Recreational Activities/Hobbies: Reading, crafts, OBJECTIVE Cognitive Screen Responsiveness: Alert. Orientation: Oriented to person, place, time, and situation. Following Commands: Patient is able to follow 3-step commands. Range of Motion Upper Extremity: Grossly within functional limits Lower Extremity: Not within functional limits RLE ROM decrease Strength Upper Extremity: Grossly within functional limits Lower Extremity: Not within functional limits RLE MMT deferred Tone/Spasticity: Within Normal Limits throughout. Sensation: Grossly intact. Balance: Dynamic balance in a standing position is fair. CGA Therapeutic/Functional Activities: Bed Mobility: All bed mobility including supine to sit, rolling, scooting. requiring supervision. Pt able to lift and lower RLE Transfers: Patient transferred sit to/from stand requiring minimal assistance of 1 person. Patient used the following equipment: Arms of chair. Verbal cues for hand placemen Locomotion/Gait/Ambulation : Patient was contact guard with gait/ambulation of 1 person for 230 feet . Patient requires the following assistive device(s): Rolling walker. Step to gait pattern initially progressed to reciprocal gait aiden Gait was completed at: 1530 Gait Deviations: No gait deviations. Stairs: Not assessed. AM-PAC Basic Mobility: Turning Over in Bed: No difficulty Sitting/Standing Chair with Arms: A little difficulty Lying on Back to Sitting on Side of Bed: No difficulty Moving To/From Bed to Chair: A little help needed Walking in Hospital Room: A little help needed Climbing 3-5 Steps with Railing: A little help needed [facility] PATIENT NAME: NAHEED LAFLEUR [address] [facility] [address] MEDICAL REC #: [id number] [place] [address] ADMIT DATE: SERVICE DATE: 01/06/19 Physical Therapy Assessment Report ATTENDING PHY: Barry Price MD Raw Score = 20 , AM-PAC t-Scale Score = 47.67 and G-Code Modifier = CJ Vital Signs: Not assessed. Interventions: Evaluation LOW Complexity Therapeutic Activities: AP, LAQ, heel slides, gut sets, quad sets, educated on PT plan of care, educated on mobility benefits, educated on discharge recommendation Pain Reassessment: Increase in pain during session. Increase pain Education: The patient's preferred learning method is: Explanation, Demonstration Barriers to Learning: Acuity of illness Learning Needs: Precautions. Pain management. Plan of care. Rehabilitation techniques and procedures. Safety. Education Provided: No education provided this session. ASSESSMENT Problem List: Decreased endurance, Impaired ambulation, Impaired balance, Impaired stair/curb negotiation, Impaired transfers Strengths: Independent premorbid function Rehabilitation Potential: Good Pt agreeable Motivation/Commitment to Therapy: Good. Response to Evaluation: Patient tolerated PT evaluation welll due to motivation. Educated patient on knee precautions, weight bearing status, functional transfer training, safety awareness, and therapeutic exercise. Patient completed functional mobility of transfers and gait with CGA along with verbal cues for sequencing and safety concerns. Implement acute care physical therapy interventions to address gait and steps in preparations for home going. Recommend home with OP PT upon acute care discharge. Activity/Participation Problem List and Goals: Functional Impairment: Mobility: Walking and Moving Around. Modifier: [id number] (at least 20%, but less than 40% impaired, limited, or restricted) Goal: Complete 80 feet supv ww Goal Modifier: E1079-OC (0% impaired, limited or restricted) Treatment Goals: Time frame to achieve treatment goal(s): 2 weeks 1. Complete 80 feet supv ww 2. Complete transfers supv 3. Complete verbalization of HEP indep 4. Complete 2 steps with left ascending rail and SBA [facility] PATIENT NAME: NAHEED LAFLEUR [address] Aguilar MEDICAL REC #: [id number] [place] [address] ADMIT DATE: SERVICE DATE: 01/06/19 Physical Therapy Assessment Report ATTENDING PHY: Barry Price MD PLAN Treatment Frequency, Duration and Interventions: Physical Therapy is recommended for BID for three days Physical Therapy treatment is to include: Gait training, transfer training, balance, functional tasks, HEP, thera act, thera exercise, steps, education on home going safety/recommendations, educated on fall risk, education on mobility benefits, educate on ice management, educate on car transfer Recommended Physical Therapy Follow Up: Upon acute care discharge, the following is currently recommended: Outpatient Physical Therapy. Recommended Equipment: Rolling walker. ww . Rolling walker. Recommended Consults: Occupational Therapy. Development of Plan of Care: Patient participated in plan of care development today. Pt agreeable If there are any questions regarding this service, please contact the Acute Therapy Department at extension [phone] Communication to Nursing: Walking: CGA Location of Patient at End of Therapy Session: In chair, call light within reach Services: Total Billed: 8 minutes (Timed: 8, Untimed: 0) 8.00 Timed: [53107] THER ACTIVITIES / 15 MIN 0.00 Untimed: [98400] PT-EVALUATION LOW COMPLEXITY 0.00 Untimed: [] PT Evaluation ORDER 0.00 Untimed: [] PT Treatment- General ORDER 0.00 Untimed: [G8978] PT-Mobility: Walking and Moving Around-CJ 0.00 Untimed: [G8979] KJ-Kirn-Kywqzfmj: Walking and Moving Around- Signed by: Halle Parker, 01/06/2019 16:22:39 [facility] PATIENT NAME: NAHEED LAFLEUR [address] [place] [address] Dr. Aguilar MEDICAL REC #: [id number] [place] [address] ADMIT DATE: SERVICE DATE: 01/06/19 Physical Therapy Assessment Report ATTENDING PHY: Barry Price MD Normal [facility] TS 01-06-2019 ABO and Rh group Nom (Bld) AB POSITIVE [facility] Comment on above: Order Comment: Canelo Ashton Prakash 12-27-2018 FERR 47.0 NG/ML Normal 8.0-307.0 [facility] Comment on above: Order Comment: Canelo Ashton Performed By: #### L 300.20264, L300.41732 #### [facility] [address] [place] [address] IRON PANELon 12-27-2018 Iron mass conc 456 ug/dL High 50-170 [facility] Comment on above: Order Comment: Canelo Ashton Result Comment: Slig ht Hemolysis, Result may be falsely increased. Patients treated with metal-binding drugs (e.g.deferoxamine) may have depressed iron values, as chelated iron may not properly react in the Siemens iron assay. Performed By: #### L 300.87948, L300.38954 #### [facility] [address] [place] [address] IRON SAT 131 % High 22-44 [facility] Comment on above: Order Comment: Campu s: M Performed By: #### L 300.93425, L300.40957 #### [facility] [address] [place] [id number] TIBC 349 UG/DL Normal 221-481 [facility] Comment on above: Order Comment: Campu s: M Performed By: #### L 300.29158, L300.30101 #### [facility] [place] [address] URINE CULTUREon 12-21-2018 Bacteria identified Cx Nom (U) URINE RESULT >100,000 COL/ML MIXED DIANE-PLEASE REPEAT-POSSIBLE CONTAMIN [facility] Comment on above: Order Comment: Campu s: M Performed By: #### L 300.11636, L300.17835 #### [facility] [address] [place], [place] [id number] ABIDon 12-20-2018 ABID ANTI-E [facility] Comment on above: Order Comment: Canelo s: M ABO/RH NCon 12-20-2018 ABO and Rh group Nom (Bld) AB POSITIVE [facility] Comment on above: Order Comment: Canelo s: M Is This Patient Going To Surgery? Y Surgery Date: 01/06/19 BB COMMENTon 12-20-2018 BB COMMENT [facility] Comment on above: Result Comment: The Miquel plasma contains allo anti-E, reacting 1+ at the antiglobulin phase of testing. All other common red cell antibodies have been excluded by testing the plasma against a panel of reagent red cells of known antigenicity. TRANSFUSION: Anti-E is known to cause increased red cell destruction in vivo. Units selected for transfusion should lack the E antigen. Approximately 70% of the random donor population is antigen E negative. SCHEDULED SURGERY: Two E negative, crossmatch compatible RBC units have been reserved for the 01/06/19 surgery. Reviewed by Sara Fuentes MT([facility])BB on December 20, 2018. BLOOD.[facility] 12-20-2018 BLOOD.[facility] Patient Name: NAHEED LAFLEUR A [address] Date of : [address] [address] Unit Number: [id number] Progress Note Patient Status: REG CLI Attending Doctor: Barry Price MD Service Date: 12/20/18 1109 Patient Blood Management Chief Complaint Screen for anemia preoperatively. History of Present Illness Ms Lafleur is a 73 yo WF who presents to [facility]. She has right knee OA, and has failed conservative tx. She is scheduled for right TKA by Dr Price on 01/06/19. We are asked to screen for anemia. Past Medical/Surgical History Denies Asthma, RA, liver or kidney disease. She denies anemia. She denies transfusion hx. Vital Signs 126/61, 79, 18, 94% RA. Review of Systems Denies chest pain or SOB. Feeling well today. Physical Exam CV: RRR. Warm extremities. Resp: CTA, even and unlabored. 5'7, 185 lbs. Meds and Labs No current ASA or blood thinners. Lab 72hr (CBC/BMP Fishbone) HandH at outside lab: 11.4/ 35.2. 12/20/18 1030: Iron 62, TIBC 367, Iron Saturation 17 L, Ferritin 57.8 Conclusion and Plan 1. Encounter for screening for diseases of the blood and blood-forming organs and certain disorders involving the immune mechanism HandH 11.4/ 35.2. Fe 62, TIBC 367, Fe sat 17, and ferritin 57.8. Recommend Feraheme 510 mg x 1, followed by EPO 50,000 units x 2 doses. Recommendations sent to Dr Price. 2. Osteoarthritis of right knee will f/u after surgery if ordered. Disclaimer This dictation was created using voice recognition software. Phonetic and/or minor grammatical errors may exist. eSign Date and Time Malena Avalos [employer] Verified/Reviewed by 12/20/18 1119 [facility] 12-[facility]-2018 FERR 57.8 NG/ML Normal 8.0-307.0 [facility] Comment on above: Order Comment: Canelo s: M : pt in PEAT right now and nurse aware Performed By: #### L 500.09974, L500.20078 #### [facility] [place] [address] HGB A1C GLYCOHBon 12-20-2018 Hemoglobin A1c/Hemoglobin.total mass fraction (Bld) 5.3 % Normal 4.3-6.0 [facility] Comment on above: Order Comment: Canelo s: M Performed By: #### L 550.10386 #### [facility] [address] [place], [place] [id number] IRON PANELon 12-20-2018 Iron mass conc 62 ug/dL Normal 50-170 [facility] Comment on above: Order Comment: Canelo s: M : pt in PEAT right now and nurse aware Result Comment: Adilene ents treated with metal-binding drugs (e.g.deferoxamine) may have depressed iron values, as chelated iron may not properly react in the Siemens iron assay. Performed By: #### L 500.96967, L500.37563 #### [facility] [address] [place] [address] IRON SAT 17 % Low 22-44 [facility] Comment on above: Order Comment: Canelo s: M : pt in PEAT right now and nurse aware Performed By: #### L 500.13786, L500.84512 #### [facility] [address] [place] [address] TIBC 367 UG/DL Normal 221-481 [facility] Comment on above: Order Comment: Canelo s: M : pt in PEAT right now and nurse aware Performed By: #### L 500.89482, L500.27486 #### [facility] [place] [address] MRSA PCRon 12-20-2018 MRSA PCR Negative Normal NEGATIVE [facility] Comment on above: Order Comment: Canelo benedict: Daisha Result Comment: PLEKrista MA NOTE: TESTING DONE BY PCR TECHNOLOGY. The SA Nasal complete MRSA assay on the [employer] GeneXpert has not been validated for use on patients under 21 years of age. All patients under 21 years of age, run on the GeneXpert will be confirmed by a Blood [place] plate, followed by an NEERAJ, to confirm MRSA. Performed By: #### L 770.18808 #### [facility] [address] [place] [address] SA PCR Negative Normal NEGATIVE [facility] Comment on above: Order Comment: Canelo benedict: Daisha Result Comment: MER MA NOTE: TESTING DONE BY PCR TECHNOLOGY. Performed By: #### L 770.13590 #### [facility] [address] [place] [address] PATIENT RETYPEon 12-20-2018 RETYPE INTERP Positive Normal [facility] Comment on above: Order Comment: Canelo benedict: Daisha PTon 12-20-2018 INR Coag RelTime (PPP) 1.03 {INR} Normal 0.9-1.1 [facility] Comment on above: Order Comment: Canelo benedict: Daisha Result Comment: Vishal mmended PT INR therapeutic range for fci and prophylactic therapy is 2.0 - 3.0. For heart valve and shunt patients the range is 2.5 - 3.5. Performed By: #### L 300.55221, L300.77022 #### [facility] [address] [place], [place] [id number] Prothrombin time (PT) Coag time (PPP) 10.9 s Normal 9.5-12.0 [facility] Comment on above: Order Comment: Canelo gallardo M Performed By: #### L 300.33602, L300.56130 #### [facility] [address] [place] [address] PTTon 12-20-2018 aPTT Coag time (Bld) 27.0 s Normal 22.0-31.5 [facility] Comment on above: Order Comment: Serjiou s: M Result Comment: Ther apeutic Heparin Reference Range: High Dose: 46-75 seconds (DVT/PE) Low Dose: 39-60 seconds (Acute Coronary Syndrome) For low molecular weight heparin or danaparoid, monitoring is often NOT necessary, but the heparin assay, Xa inhibition assay (send-out) may be used in certain circumstances, as the PTT is generally insensitive to the effect of these agents. Direct thrombin inhibitors are becoming more widely utilized and these drugs are often monitored using the PTT. Performed By: #### L 300.05873, L300.17446 #### [facility] [address] [place] [address] UA COMPLETEon 12-20-2018 Color Nom (U) Yellow Normal [facility] Comment on above: Order Comment: Campu s: M Performed By: #### L 600.93496 #### [facility] [address] [place] [address] Glucose mass conc (U) Negative Normal NORMAL [facility] Comment on above: Order Comment: Serjiou s: M Performed By: #### L 600.34977 #### [facility] [address] [place] [address] Mucus Ql (Urine sed) TRACE Normal NEGATIVE [facility] Comment on above: Order Comment: Serjiou s: M Performed By: #### L 600.98858 #### [facility] [address] [place] [address] SQUAMOUS EPIS 1 EPI/HPF Normal 0-5 [facility] Comment on above: Order Comment: Campu s: M Performed By: #### L 600.90206 #### [facility] [address] [place] [address] TRANSITIONAL EP FEW Normal [facility] Comment on above: Order Comment: Serjiou s: M Performed By: #### L 600.76546 #### [facility] [address] [place] [address] [place] [id number] UA APPEARANCE Clear Normal CLEAR [facility] Comment on above: Order Comment: Campu s: M Performed By: #### L 600.65196 #### [facility] [address] [facility] [place] [address] UA BACTERIA TRACE Normal NONE [facility] Comment on above: Order Comment: Campu s: M Performed By: #### L 600.48812 #### [facility] [address] [place] [address] UA BILIRUBIN Negative Normal NEGATIVE [facility] Comment on above: Order Comment: Campu s: M Performed By: #### L 600.91337 #### [facility] [place] [address] UA BLOOD Negative Normal NEGATIVE [facility] Comment on above: Order Comment: Campu s: M Performed By: #### L 600.19306 #### [facility] [place] [address] UA KETONE Negative Normal NEGATIVE [facility] Comment on above: Order Comment: Campu s: M Performed By: #### L 600.62128 #### [facility] [place] [address] UA LK ESTERASE 75 Normal NEGATIVE [facility] Comment on above: Order Comment: Campu s: M Performed By: #### L 600.74930 #### [facility] [address] [facility] [place] [address] UA NITRITE Negative Normal NEGATIVE [facility] Comment on above: Order Comment: Campu s: M Performed By: #### L 600.06918 #### [facility] [address] [place] [address] UA PH 7.0 Normal 5-6 [facility] Comment on above: Order Comment: Campu s: M Performed By: #### L 600.93702 #### [facility] [address] [place] [address] UA PROTEIN Negative Normal NEGATIVE [facility] Comment on above: Order Comment: Campu s: M Performed By: #### L 600.10210 #### [facility] [address] [place] [address] UA RBC 1 RBC/HPF Normal 0-3 [facility] Comment on above: Order Comment: Campu s: M Performed By: #### L 600.31615 #### [facility] [address] [place] [address] UA RENAL EPITH FEW Normal [facility] Comment on above: Order Comment: Campu s: M Performed By: #### L 600.46863 #### [facility] [address] [place] [address] UA SPEC GRAV 1.012 Normal 1.005-1.03 0 [facility] Comment on above: Order Comment: Campu s: M Performed By: #### L 600.50176 #### [facility] [address] [place] [address] UA UROBILINOGEN Negative Normal NORMAL [facility] Comment on above: Order Comment: Campu s: M Performed By: #### L 600.02568 #### [facility] [address] [place] [address] UA WBC 3 WBC/HPF Normal 0-5 [facility] Comment on above: Order Comment: Campu s: M Performed By: #### L 600.90468 #### [facility] [address] [place] [address] Vital Signs Date Time Vital Sign Value Performing Clinician Facility 06-04-2023 15:01-040 Body height 170.18 cm Valerie Sánchez LPN [facility] Work Phone: 06-04-2023 15:01-0400 Body mass index (BMI) [Ratio] 31.25 kg/m2 Valerie Sánchez LPN [facility]; [facility] Work Phone: 06-04-2023 15:01-0400 Body surface area Derived from formula 2.02 m2 Valerie Sánchez LPN [facility]; [facility] Work Phone: 06-04-2023 15:01-0400 Body temperature 98.1 [degF] Valerie Sánchez LPN [facility]; [facility] Work Phone: 06-04-2023 15:01-0400 Body weight 90.49 kg Valerie Sánchez [employer] [facility] Work Phone: 06-04-2023 15:01-0400 Diastolic blood pressure 62 mm[Hg] Valerie Sánchez LPN [facility]; [facility] Work Phone: Comment on above: Patient Position: Sitting; Cuff Location : Left Arm; Cuff Size: Standard 06-04-2023 15:01-0400 Heart rate 84 /min Valerie Sánchez LPN [facility]; [facility] Work Phone: Comment on above: Pattern: Regular 06-04-2023 15:01-0400 Respiratory rate 16 /min Valerie Sánchez LPN [facility]; [facility] Work Phone: Comment on above: Pattern: Unlabored 06-04-2023 15:01-0400 SaO2% (BldA) [Mass fraction] 97 % Valerie Sánchez LPN [facility]; [facility] Work Phone: Comment on above: Room air 06-04-2023 15:01-0400 Systolic blood pressure 120 mm[Hg] Valerie Sánchez [employer] [facility]; [facility] Work Phone: Comment on above: Patient Position: Sitting; Cuff Location : Left Arm; Cuff Size: Standard 05-15-2023 09:55-0400 Body height 170.18 cm Valerie Sánchez GLEN [facility]; [facility] Work Phone: 05-15-2023 09:55-0400 Body mass index (BMI) [Ratio] 31.05 kg/m2 Valerie Sánchez GLEN [facility]; [facility] Work Phone: 05-15-2023 09:55-0400 Body surface area Derived from formula 2.01 m2 Valerie Sánchez GLEN [facility]; [facility] Work Phone: 05-15-2023 09:55-0400 Body temperature 97.9 [degF] Valerie Sánchez GLEN [facility]; [facility] Work Phone: 05-15-2023 09:55-0400 Body weight 89.93 kg Valerie Sánchez GLEN [facility]; [facility] Work Phone: 05-15-2023 09:55-0400 Diastolic blood pressure 78 mm[Hg] Valerie Sánchez GLEN [facility]; [facility] Work Phone: Comment on above: Patient Position: Sitting; Cuff Location : Left Arm; Cuff Size: Standard 05-15-2023 09:55-0400 Heart rate 77 /min Valerie Sánchez GLEN [facility]; [facility] Work Phone: Comment on above: Pattern: Regular 05-15-2023 09:55-0400 Respiratory rate 16 /min Valerie Sánchez GLEN [facility]; [facility] Work Phone: Comment on above: Pattern: Unlabored 05-15-2023 09:55-0400 SaO2% (BldA) [Mass fraction] 97 % Valerie Sánchez GLEN [facility]; [facility] Work Phone: Comment on above: Room air 05-15-2023 09:55-0400 Systolic blood pressure 122 mm[Hg] Valerie Sánchez GLEN [facility]; [facility] Work Phone: Comment on above: Patient Position: Sitting; Cuff Location : Left Arm; Cuff Size: Standard 04-16-2023 14:21-0400 Body height 170.18 cm Aries Baker LPN [facility]; [facility] Work Phone: 04-16-2023 14:21-0400 Body mass index (BMI) [Ratio] 31.07 kg/m2 [facility]; [facility] Work Phone: 04-16-2023 14:0400 Body surface area Derived from formula 2.[address] [facility]; [facility] Work Phone: 04-16-2023 14:040 Body temperature 97 [degF] [facility]; [facility] Work Phone: 04-16-2023 14:040 Body weight 89.[address] [facility]; [facility] Work Phone: 04-16-2023 14:040 Diastolic blood pressure 60 mm[Hg] [facility]; [facility] Work Phone: Comment on above: Patient Position: Sitting; Cuff Location : Left Arm; Cuff Size: Standard 04-16-2023 14:21-0400 Heart rate 84 /min [facility]; [facility] Work Phone: Comment on above: Pattern: Regular 04-16-2023 14:21-0400 Respiratory rate 18 /min [facility]; [facility] Work Phone: Comment on above: Pattern: Unlabored 04-16-2023 14:21-0400 SaO2% (BldA) [Mass fraction] 97 % [facility]; [facility] Work Phone: Comment on above: Room air 04-16-2023 14:21-0400 Systolic blood pressure 124 mm[Hg] [facility]; [facility] Work Phone: Comment on above: Patient Position: Sitting; Cuff Location : Left Arm; Cuff Size: Standard 02-06-2023 08:25-0400 Body height 170.18 cm Nanette Jackson MA [facility]; [facility] Work Phone: 02-06-2023 08:25-0400 Body mass index (BMI) [Ratio] 31.07 kg/m2 Nanette Jackson MA [facility]; [facility] Work Phone: 02-06-2023 08:25-0400 Body surface area Derived from formula 2.02 m2 Nanette Jackson MA [facility]; [facility] Work Phone: 02-06-2023 08:25-0400 Body temperature 96.4 [degF] Nanette Jackson MA [facility]; [facility] Work Phone: 02-06-2023 08:25-0400 Body weight 89.98 kg Nanette Jackson MA [facility]; [facility] Work Phone: 02-06-2023 08:25-0400 Diastolic blood pressure 60 mm[Hg] Nanette Jackson MA [facility]; [facility] Work Phone: Comment on above: Patient Position: Sitting; Cuff Location : Left Arm; Cuff Size: Standard 02-06-2023 08:25-0400 Heart rate 74 /min Nanette Jackson MA [facility]; [facility] Work Phone: Comment on above: Pattern: Regular 02-06-2023 08:25-0400 SaO2% (BldA) [Mass fraction] 97 % Nanette Jackson MA [facility]; [facility] Work Phone: Comment on above: Room air 02-06-2023 08:25-0400 Systolic blood pressure 120 mm[Hg] Nanette Jackson MA [facility]; [facility] Work Phone: Comment on above: Patient Position: Sitting; Cuff Location : Left Arm; Cuff Size: Standard 01-08-2023 09:46-0400 Body height 170.18 cm Valerie Sánchez LPN [facility] Work Phone: Comment on above: virtual, none reported 01-08-2023 09:46-0400 Body mass index (BMI) [Ratio] 31.07 kg/m2 Valerie Princess [employer] [facility]; [facility] Work Phone: Comment on above: virtual, none reported 01-08-2023 09:46-0400 Body surface area Derived from formula 2.02 m2 Valerie Sánchez [employer] [facility]; [facility] Work Phone: Comment on above: virtual, none reported 01-08-2023 09:46-0400 Body weight 89.98 kg Valerie Sánchez [employer] [facility]; [facility] Work Phone: Comment on above: virtual, none reported 11-06-2022 09:13-0500 Body height 170.18 cm Valerie Sánchez [employer] [facility]; [facility] Work Phone: 11-06-2022 09:13-0500 Body mass index (BMI) [Ratio] 31.07 kg/m2 Valerie Sánchez [employer] [facility]; [facility] Work Phone: 11-06-2022 09:13-0500 Body surface area Derived from formula 2.02 m2 Valerie Sánchez [employer] [facility]; [facility] Work Phone: 11-06-2022 09:13-0500 Body temperature 97.9 [degF] Valerie Sánchez LPN [facility]; [facility] Work Phone: 11-06-2022 09:13-0500 Body weight 89.98 kg Valerie Sánchez [employer] [facility]; [facility] Work Phone: 11-06-2022 09:13-0500 Diastolic blood pressure 68 mm[Hg] Valerie Sánchez [employer] [facility]; [facility] Work Phone: Comment on above: Patient Position: Sitting; Cuff Location : Left Arm; Cuff Size: Standard 11-06-2022 09:13-0500 Heart rate 83 /min Valerie Sánchez [employer] [facility]; [facility] Work Phone: Comment on above: Pattern: Regular 11-06-2022 09:13-0500 Respiratory rate 16 /min Valerieisis Sánchez [employer] [facility]; [facility] Work Phone: Comment on above: Pattern: Unlabored 11-06-2022 09:13-0500 SaO2% (BldA) [Mass fraction] 97 % Valerie Princess CARROLL [facility]; [facility] Work Phone: Comment on above: Room air 11-06-2022 09:13-0500 Systolic blood pressure 132 mm[Hg] Valerie Sánchez LPN [facility]; [facility] Work Phone: Comment on above: Patient Position: Sitting; Cuff Location : Left Arm; Cuff Size: Standard 04-10-2022 08:07-0400 Body height 170.[address] Debbie Chacon Work Phone: [facility] Work Phone: 04-10-2022 08:07-0400 Body weight 91.[address] Debbie Chacon Work Phone: [facility] Work Phone: 04-07-2022 08:54-0400 Body mass index (BMI) [Ratio] 31.6 kg/m2 Dr. Debbie Chacon Work Phone: [facility] Work Phone: 03-22-2022 12:39-0400 Body height 170.[address] Debbie Chacon Work Phone: [facility] Work Phone: 03-22-2022 12:39-0400 Body mass index (BMI) [Ratio] 31.6 kg/m2 Dr. Debbie Chacon Work Phone: [facility] Work Phone: 03-22-2022 12:39-0400 Body weight 91.[address] Debbie Chacon Work Phone: [facility] Work Phone: 03-22-2022 12:39-0400 Diastolic blood pressure 78 mm[Hg] Dr. Debbie Chacon Work Phone: [facility] Work Phone: 03-22-2022 12:39-0400 Heart rate 90 /min Dr. Debbie Chacon Work Phone: [facility] Work Phone: 03-22-2022 12:39-0400 Respiratory rate 16 /min Dr. Debbie Chacon Work Phone: [facility] Work Phone: 03-22-2022 12:39-0400 SaO2% (BldA) [Mass fraction] 98 % Dr. Debbie Chacon Work Phone: [facility] Work Phone: 03-22-2022 12:39-0400 Systolic blood pressure 153 mm[Hg] Dr. Debbie Chacon Work Phone: [facility] Work Phone: 03-20-2022 09:48-0400 Body height 170.18 cm [facility] Work Phone: 03-20-2022 09:48-0400 Body mass index (BMI) [Ratio] 31.64 kg/m2 [facility] Work Phone: 03-20-2022 09:48-0400 Body surface area Derived from formula 2.03 m2 Uzma Navarro [facility] Work Phone: 03-20-2022 09:48-0400 Body temperature 96.8 [degF] [facility] Work Phone: Comment on above: Method: Thermal Scan 03-20-2022 09:48-0400 Body weight 91.63 kg [facility] [place] Work Phone: 03-20-2022 09:48-0400 Diastolic blood pressure 62 mm[Hg] [facility] Work Phone: Comment on above: Patient Position: Sitting; Cuff Location : Left Arm; Cuff Size: Standard 03-20-2022 09:48-0400 Heart rate 78 /min Uzma Mancharles [facility]; [facility] Work Phone: Comment on above: Pattern: Regular 03-20-2022 09:48-0400 Respiratory rate 16 /min Uzma Ramon [facility]; [facility] Work Phone: Comment on above: Pattern: Unlabored 03-20-2022 09:48-0400 SaO2% (BldA) [Mass fraction] 97 % Uzma Mancharles [facility]; [facility] Work Phone: Comment on above: Room air 03-20-2022 09:48-0400 Systolic blood pressure 138 mm[Hg] Uzma Navarro [facility] Work Phone: Comment on above: Patient Position: Sitting; Cuff Location : Left Arm; Cuff Size: Standard 02-27-2022 08:57-0400 Body height 170.18 cm JOHNNY Cervantes LPN [facility]; [facility] Work Phone: 02-27-2022 08:57-0400 Body mass index (BMI) [Ratio] 31.32 kg/m2 JOHNNY Cervantes LPN [facility]; [facility] Work Phone: 02-27-2022 08:57-0400 Body surface area Derived from formula 2.02 m2 JOHNNY Cervantes LPN [facility]; [facility] Work Phone: 02-27-2022 08:57-0400 Body temperature 97.9 [degF] JOHNNY Cervantes LPN [facility]; [facility] Work Phone: Comment on above: Method: Temporal 02-27-2022 08:57-0400 Body weight 90.72 kg JOHNNY Cervantes LPN [facility]; [facility] Work Phone: 02-27-2022 08:57-0400 Diastolic blood pressure 70 mm[Hg] JOHNNY Cervantes LPN [facility]; [facility] Work Phone: Comment on above: Patient Position: Sitting; Cuff Location : Left Arm; Cuff Size: Large 02-27-2022 08:57-0400 Heart rate 86 /min JOHNNY Cervantes LPN [facility]; [facility] Work Phone: Comment on above: Pattern: Regular 02-27-2022 08:57-0400 Respiratory rate 20 /min JOHNNY Cervantes LPN [facility]; [facility] Work Phone: Comment on above: Pattern: Unlabored 02-27-2022 08:57-0400 SaO2% (BldA) [Mass fraction] 98 % JOHNNY Cervantes LPN [facility]; [facility] Work Phone: Comment on above: Room air 02-27-2022 08:57-0400 Systolic blood pressure 140 mm[Hg] JOHNNY Cervantes LPN [facility]; [facility] Work Phone: Comment on above: Patient Position: Sitting; Cuff Location : Left Arm; Cuff Size: Large 02-07-2022 10:48-0400 Diastolic blood pressure 70 mm[Hg] Debbie Chacon MD Work Phone: [facility]; [facility] Work Phone: Comment on above: Patient Position: Sitting 02-07-2022 10:48-0400 Systolic blood pressure 153 mm[Hg] Debbie Chacon MD Work Phone: [facility]; [facility] Work Phone: Comment on above: Patient Position: Sitting 01-23-2022 11:44-0400 Body temperature 97.1 [degF] Valerie Sánchez LPN [facility]; [facility] Work Phone: 01-23-2022 11:44-0400 Body weight 87.09 kg Valerie Sánchez LPN [facility]; [facility] Work Phone: 01-23-2022 11:44-0400 Diastolic blood pressure 72 mm[Hg] Valerie Sánchez LPN [facility]; [facility] Work Phone: Comment on above: Patient Position: Sitting; Cuff Location : Left Arm; Cuff Size: Standard 01-23-2022 11:44-0400 Heart rate 96 /min Valerieisis Sánchez GLEN [facility]; [facility] Work Phone: Comment on above: Pattern: Regular 01-23-2022 11:44-0400 Respiratory rate 16 /min Valerie Princess CARROLL [facility]; [facility] Work Phone: Comment on above: Pattern: Unlabored 01-23-2022 11:44-0400 SaO2% (BldA) [Mass fraction] 96 % Valerieisis Gannivan CARROLL [facility]; [facility] Work Phone: Comment on above: Room air 01-23-2022 11:44-0400 Systolic blood pressure 168 mm[Hg] Valerie Princess CARROLL [facility]; [facility] Work Phone: Comment on above: Patient Position: Sitting; Cuff Location : Left Arm; Cuff Size: Standard 12-26-2021 13:24-0400 Body height 170.18 cm [facility] Work Phone: 12-26-2021 13:24-0400 Body mass index (BMI) [Ratio] 29.7 kg/m2 [facility] Work Phone: 12-26-2021 13:24-0400 Body weight 86.18 kg [facility] Work Phone: 12-26-2021 13:24-0400 SaO2% (BldA) [Mass fraction] 96 % [facility] Work Phone: 12-01-2021 09:04-0400 Body weight 87.09 kg Debbie Chacon MD Work Phone: [facility]; [facility] Work Phone: 12-01-2021 09:04-0400 Diastolic blood pressure 80 mm[Hg] Debbie Chacon MD Work Phone: [facility]; [facility] Work Phone: Comment on above: Patient Position: Sitting 12-01-2021 09:04-0400 Heart rate 100 /min Debbie Chacon MD Work Phone: [facility]; [facility] Work Phone: Comment on above: Pattern: Regular 12-01-2021 09:04-0400 SaO2% (BldA) [Mass fraction] 98 % Debbie Chacon MD Work Phone: [facility]; [facility] Work Phone: Comment on above: Room air 12-01-2021 09:04-0400 Systolic blood pressure 164 mm[Hg] Debbie Chacon MD Work Phone: [facility]; [facility] Work Phone: Comment on above: Patient Position: Sitting 11-17-2021 09:13-0500 Body height 170.18 cm JOHNNY Cervantes LPN [facility]; [facility] Work Phone: 11-17-2021 09:13-0500 Body mass index (BMI) [Ratio] 29.76 kg/m2 JOHNNY Cervantes LPN [facility]; [facility] Work Phone: 11-17-2021 09:13-0500 Body surface area Derived from formula 1.98 m2 JOHNNY Cervantes LPN [facility]; [facility] Work Phone: 11-17-2021 09:13-0500 Body temperature 97.9 [degF] JOHNNY Cervantes LPN [facility] Work Phone: Comment on above: Method: Temporal 11-17-2021 09:13-0500 Body weight 86.18 kg JOHNNY Cervantes LPN [facility]; [facility] Work Phone: 11-17-2021 09:13-0500 Diastolic blood pressure 78 mm[Hg] JOHNNY Cervantes LPN [facility]; [facility] Work Phone: Comment on above: Patient Position: Sitting; Cuff Location : Left Arm; Cuff Size: Standard 11-17-2021 09:13-0500 Heart rate 70 /min JOHNNY Cervantes LPN [facility]; [facility] Work Phone: Comment on above: Pattern: Regular 11-17-2021 09:13-0500 Respiratory rate 20 /min JOHNNY Billy CARROLL [facility] Work Phone: Comment on above: Pattern: Unlabored 11-17-2021 09:13-0500 SaO2% (BldA) [Mass fraction] 97 % JONHNY Cervantes LPN [facility]; [facility] Work Phone: Comment on above: Room air 11-17-2021 09:13-0500 Systolic blood pressure 140 mm[Hg] JOHNNY Cervantes LPN [facility]; [facility] Work Phone: Comment on above: Patient Position: Sitting; Cuff Location : Left Arm; Cuff Size: Standard 10-20-2021 10:28-0500 Body height 170.18 cm JOHNNY Cervantes LPN [facility]; [facility] Work Phone: 10-20-2021 10:28-0500 Body mass index (BMI) [Ratio] 29.45 kg/m2 JOHNNY Cervantes LPN [facility]; [facility] Work Phone: 10-20-2021 10:28-0500 Body surface area Derived from formula 1.97 m2 JOHNNY Cervantes LPN [facility]; [facility] Work Phone: 10-20-2021 10:28-0500 Body temperature 97 [degF] JOHNNY Cervantes LPN [facility] Work Phone: Comment on above: Method: Temporal 10-20-2021 10:28-0500 Body weight 85.3 kg JOHNNY Cervantes LPN [facility]; [facility] Work Phone: 10-20-2021 10:28-0500 Diastolic blood pressure 78 mm[Hg] JOHNNY Cervantes LPN [facility]; [facility] Work Phone: Comment on above: Patient Position: Sitting; Cuff Location : Left Arm; Cuff Size: Standard 10-20-2021 10:28-0500 Heart rate 86 /min JOHNNY Cervantes GLEN [facility]; [facility] Work Phone: Comment on above: Pattern: Regular 10-20-2021 10:28-0500 Respiratory rate 18 /min JOHNNY Cervantes GLEN [facility]; [facility] Work Phone: Comment on above: Pattern: Unlabored 10-20-2021 10:28-0500 SaO2% (BldA) [Mass fraction] 97 % JOHNNY Cervantes GLEN [facility]; [facility] Work Phone: Comment on above: Room air 10-20-2021 10:28-0500 Systolic blood pressure 120 mm[Hg] JOHNNY Cervantes GLEN [facility]; [facility] Work Phone: Comment on above: Patient Position: Sitting; Cuff Location : Left Arm; Cuff Size: Standard 07-18-2021 14:01-0500 Body height 170.18 cm JOHNNY Cervantes GLEN [facility]; [facility] Work Phone: 07-18-2021 14:01-0500 Body mass index (BMI) [Ratio] 30.23 kg/m2 JOHNNY Cervantes GLEN [facility]; [facility] Work Phone: 07-18-2021 14:01-0500 Body surface area Derived from formula 1.99 m2 JOHNNYJERMAIN Cervantes LPN [facility]; [facility] Work Phone: 07-18-2021 14:01-0500 Body temperature 97.9 [degF] JOHNNY Cervantes GLEN [facility]; [facility] Work Phone: Comment on above: Method: Temporal 07-18-2021 14:01-0500 Body weight 87.54 kg JOHNNY Cervantes GLEN [facility]; [facility] Work Phone: 07-18-2021 14:01-0500 Diastolic blood pressure 68 mm[Hg] JOHNNY Cervantes LPN [facility]; [facility] Work Phone: Comment on above: Patient Position: Sitting; Cuff Location : Left Arm; Cuff Size: Large 07-18-2021 14:01-0500 Heart rate 78 /min JOHNNY Cervantes LPN [facility]; [facility] Work Phone: Comment on above: Pattern: Regular 07-18-2021 14:01-0500 Respiratory rate 20 /min JOHNNY Cervantes LPN [facility] Work Phone: Comment on above: Pattern: Unlabored 07-18-2021 14:01-0500 SaO2% (BldA) [Mass fraction] 98 % JOHNNY Cervantes LPN [facility]; [facility] Work Phone: Comment on above: Room air 07-18-2021 14:01-0500 Systolic blood pressure 120 mm[Hg] JOHNNY Cervantes LPN [facility]; [facility] Work Phone: Comment on above: Patient Position: Sitting; Cuff Location : Left Arm; Cuff Size: Large Encounters Encounter Date Encounter Type Care Provider Facility Start: 11-10-2024 End: 11-10-2024 ambulatory Debbie Chacon [place] [place] Start: 08-12-2024 End: 08-12-2024 ambulatory Debbie Chacon Facility:[facility] Start: 04-15-2024 End: 04-15-[address] SHAYY BOURNE MD Facility:[facility] Start: 08-09-2023 End: 08-09-[address] Debbie Chacon Work Phone: [facility] Work Phone: Start: 08-09-2023 End: 08-09-[address] Debbie Chacon Work Phone: [facility] Work Phone: Start: 06-04-2023 End: 06-04-2023 Office outpatient visit 15 minutes Debbie Chacon MD Work Phone: [facility] Start: 05-15-2023 End: 05-15-2023 Office outpatient visit 25 minutes Debbie Chacon MD Work Phone: [facility] Start: 05-15-2023 Review Debbie Griffith Work Phone: [facility] Start: 04-16-2023 End: 04-16-2023 Patient encounter procedure Ariesflorencio Baker GLEN [facility]; [facility] Work Phone: Comment on above: 02-27-22 AMP 10-20-21 [facility]: colonoscopy 9-20 every 5years, mammogram 11- due, MOCA 25/30, cognivue 78, immunizations are up to date, hepatitis C negative, BD 3-22, CTA total score 339 (L desc 327, RCA 11.3) Start: 04-16-2023 End: 04-16-2023 Office outpatient visit 15 minutes Debbie Chacon MD Work Phone: [facility] Start: 03-22-2023 End: 03-22-2023 Annotation/Addendum Debbie Chacon MD Work Phone: [facility] Start: 02-06-2023 Review Debbie Griffith Work Phone: [facility] Start: 02-06-2023 End: 02-06-2023 Office outpatient visit 25 minutes Debbie Chacon MD Work Phone: [facility] Start: 01-18-2023 End: 01-18-2023 Annotation/Addendum Debbie Chacon MD Work Phone: [facility] Start: 01-08-2023 ambulatory Debbie Chacon MD [facility] Start: 01-08-2023 End: 01-08-2023 Office outpatient visit 10 minutes Debbie Chacon MD Work Phone: [facility] Start: 11-10-2022 End: 11-10-2022 Prescription Refill Debbie Chacon MD Work Phone: [facility] Start: 11-06-2022 Review Debbie Griffith Work Phone: [facility] Start: 11-06-2022 End: 11-06-2022 Patient encounter procedure Valerie Sánchez [employer] [facility]; [facility] Work Phone: Comment on above: 02-27-22 AMP 10-20-21 [facility]: colonoscopy 9-20 every 5years, mammogram 07-27-21, MOCA 25/30, cognivue 78, immunizations are up to date, hepatitis C negative, BD 3-21, CTA total score 339 (L desc 327, RCA 11.3) Start: 09-18-2022 End: 09-18-2022 Lab Order Debbie Chacon MD Work Phone: [facility] Start: 09-14-2022 End: 09-14-2022 Prescription Refill Debbie Chacon MD Work Phone: [facility] Start: 09-14-2022 End: 09-14-2022 Lab Order Debbie Chacon MD Work Phone: [facility] Start: 07-10-2022 End: 07-10-2022 Annotation/Addendum Debbie Chacon MD Work Phone: [facility] Start: 04-17-2022 End: 04-17-2022 Office outpatient visit 10 minutes Debbie Chacon MD Work Phone: [facility] Start: 04-10-2022 End: 04-10-2022 Admission to same day surgery center Dr. Debbie Chacon Work Phone: [facility]/Special Procedures Start: 04-03-2022 Non-patient / Non-visit Dr. Santana Work Phone: [facility] Start: 04-03-2022 End: 04-03-[address] Debbie Chacon Work Phone: [facility]Cardiovascular Services Start: 03-27-2022 End: 03-27-[address] Debbie Chacon Work Phone: [facility] Start: 03-24-2022 Non-patient / Non-visit Dr. Santana Work Phone: [facility] Start: 03-24-2022 End: 03-24-[address] Debbie Chacon Work Phone: [facility] Start: 03-22-2022 End: 03-22-[address] Debbie Chacon Work Phone: [facility] Start: 03-21-2022 Review Debbie Griffith Work Phone: [facility] Start: 03-20-2022 End: 03-20-2022 Office outpatient visit 15 minutes Debbie Chacon MD Work Phone: [facility] Start: 03-20-2022 End: 03-20-2022 Patient encounter procedure Debbie Chacon MD Work Phone: [facility]; [facility] Work Phone: Comment on above: 02-27-22 AMP 10-20-21 [facility]: colonoscopy 9-20 every 5years, mammogram 07-27-21, MOCA 25/30, cognivue 78, immunizations are up to date, hepatitis C negative, BD 3-21, CTA -2021 total score 339 (L desc 327, RCA 11.3) Start: 02-27-2022 End: 02-27-2022 Office outpatient visit 40 minutes Debbie Chacon MD Work Phone: [facility] Start: 02-27-2022 End: 02-27-2022 Patient encounter procedure JOHNNY Cervantes LPN [facility]; [facility] Work Phone: Comment on above: 02-27-22 AMP 10-20-21 [facility]: colonoscopy 9-20 every 5years, mammogram 11-17-21, MOCA 25/30, cognivue 78, immunizations are up to date, hepatitis C negative, BD 3-21, CTA total score 339 (L desc 327, RCA 11.3) Start: 02-27-2022 Review Debbie Griffith Work Phone: [facility] Start: 02-16-2022 End: 02-16-2022 Office outpatient visit 15 minutes Debbie Chacon MD Work Phone: [facility] Start: 02-14-2022 End: 02-14-2022 Phone Encounter Debbie Chacon MD Work Phone: [facility] Start: 02-14-2022 End: 02-14-2022 Annotation/Addendum Debbie Chacon MD Work Phone: [facility] Start: 02-10-2022 End: 02-10-2022 Annotation/Addendum Debbie Chacon MD Work Phone: [facility] Start: 02-09-2022 End: 02-09-2022 Lab Order Debbie Chacon MD Work Phone: [facility] Start: 02-07-2022 End: 02-07-2022 Office outpatient visit 25 minutes Debbie Chacon MD Work Phone: [facility] Start: 01-25-2022 End: 01-25-[address] Debbie Chacon Work Phone: [facility]Pulmonary Services/Neurology Start: 01-23-2022 End: 01-23-2022 Periodic preventive med est patient 40-64yrs Debbie Chacon MD Work Phone: [facility] Start: 01-09-2022 End: 01-09-2022 Office outpatient visit 15 minutes Debbie Chaocn MD Work Phone: [facility] Start: 01-08-2022 Non-patient / Non-visit Dr. Santana Work Phone: [facility] Start: 01-04-2022 End: 01-04-[address] Debbie Chacon Work Phone: [facility] Start: 12-29-2021 End: 12-29-2021 Phone Encounter Debbie Chacon MD Work Phone: [facility] Start: 12-29-2021 End: 12-29-2021 Office outpatient visit 40 minutes Debbie Chacon MD Work Phone: [facility] Start: 12-26-2021 End: 12-26-2021 Patient encounter procedure [facility] Start: 12-01-2021 End: 12-01-2021 Periodic preventive med est patient 18-39 yrs Debbie Chacon MD Work Phone: [facility] Start: 11-22-2021 End: 11-22-2021 Office outpatient visit 10 minutes Debbie Chacon MD Work Phone: [facility] Start: 11-17-2021 End: 11-17-2021 Office outpatient visit 15 minutes Debbie Chacon MD Work Phone: [facility] Start: 11-15-2021 End: 11-15-2021 Patient encounter procedure [facility]-Outpatient Bone Densitometry Start: 11-15-2021 Registered Referred [facility]-Cardi[facility] Services Start: 10-20-2021 End: 10-30-2021 Office outpatient visit 25 minutes Debbie Chacon MD Work Phone: [facility] Start: 10-20-2021 End: 10-30-2021 Patient encounter procedure JOHNNY Cervantes LPN [facility]; [facility] Work Phone: Comment on above: 10-20-21 [facility]: colonoscopy 9-20 every 5years, mammogram 07-27-21, MOCA 25/30, cognivue 78, immunizations are up to date, hepatitis C negative, needs BD Start: 10-20-2021 Review Debbie Griffith Work Phone: [facility] Start: 07-18-2021 End: 07-18-2021 Office outpatient visit 15 minutes Debbie Chacon MD Work Phone: [facility] Start: 07-18-2021 End: 07-18-2021 Patient encounter procedure Debbie Chacon MD Work Phone: [facility] Patient encounter procedure Debbie Chacon MD Work Phone: [facility]; [facility] Work Phone: Comment on above: 10-20-21 [facility]: colonoscopy 9-20 every 5years, mammogram 11-17-21, MOCA 25/30, cognivue 78, immunizations are up to date, hepatitis C negative, needs BD Patient encounter procedure JOHNNY Cervantes [facility]; [facility] Work Phone: Comment on above: 10-20-21 [facility]: colonoscopy 9-20 every 5years, mammogram 11-17-21, MOCA 25/30, cognivue 78, immunizations are up to date, hepatitis C negative, needs BD Patient encounter procedure Debbie Chacon MD Work Phone: [facility]; [facility] Work Phone: Comment on above: 10-20-21 [facility]: colonoscopy 9-20 every 5years, mammogram 11-17-21, MOCA 25/30, cognivue 78, immunizations are up to date, hepatitis C negative, needs BD Patient encounter procedure Valerie Sánchez [facility]; [facility] Work Phone: Comment on above: 10-20-21 [facility]: colonoscopy 9-20 every 5years, mammogram 11-17-21, MOCA 25/30, cognivue 78, immunizations are up to date, hepatitis C negative, needs BD Patient encounter procedure Debbie Chacon MD Work Phone: [facility]; [facility] Work Phone: Comment on above: 10-20-21 [facility]: colonoscopy 9-20 every 5years, mammogram 11-17-21, MOCA 25/30, cognivue 78, immunizations are up to date, hepatitis C negative, needs BD Patient encounter procedure Debbie Chacon MD Work Phone: [facility]; [facility] Work Phone: Comment on above: 10-20-21 [facility]: colonoscopy 9-20 every 5years, mammogram 11-17-21, MOCA 25/30, cognivue 78, immunizations are up to date, hepatitis C negative, needs BD Patient encounter procedure Debbie Chacon MD Work Phone: [facility]; [facility] Work Phone: Comment on above: 02-27-22 [facility] 10-20-21 [facility]: colonoscopy 9-20 every 5years, mammogram 11-17-21, MOCA 25/30, cognivue 78, immunizations are up to date, hepatitis C negative, BD 3-21, CTA 5-2021 total score 339 (L desc 327, RCA 11.3) Patient encounter procedure Bairon Zambrano LPN [facility]; [facility] Work Phone: Comment on above: 02-27-22 AMP 10-20-21 [facility]: colonoscopy 9-20 every 5years, mammogram 11-17-21, MOCA 25/30, cognivue 78, immunizations are up to date, hepatitis C negative, BD 3-21, CTA 5-2021 total score 339 (L desc 327, RCA 11.3) Patient encounter procedure Mellisa Paulino DO Work Phone: [facility]; [facility] Work Phone: Comment on above: 02-27-22 AMP 10-20-21 [facility]: colonoscopy 9-20 every 5years, mammogram 11-17-21, MOCA 25/30, cognivue 78, immunizations are up to date, hepatitis C negative, BD 3-21, CTA 5-2021 total score 339 (L desc 327, RCA 11.3) Patient encounter procedure Debbie Chacon MD Work Phone: [facility]; [facility] Work Phone: Comment on above: 02-27-22 AMP 10-20-21 [facility] physical: colonoscopy 9-20 every 5years, mammogram 11-23 due, MOCA 25/30, cognivue 78, immunizations are up to date, hepatitis C negative, BD 3-22, CTA -2021 total score 339 (L desc 327, RCA 11.3) Patient encounter procedure Valerieisis Sánchez [facility]; [facility] Work Phone: Comment on above: 02-27-22 AMP 10-20-21 [facility] physical: colonoscopy 9-20 every 5years, mammogram 11-23 due, MOCA 25/30, cognivue 78, immunizations are up to date, hepatitis C negative, BD 3-22, CTA -2021 total score 339 (L desc 327, RCA 11.3) Patient encounter procedure Nanette Jackson MA [facility]; [facility] Work Phone: Comment on above: 02-27-22 AMP 10-20-21 [facility] physical: colonoscopy 9-20 every 5years, mammogram 11-23 due, MOCA 25/30, cognivue 78, immunizations are up to date, hepatitis C negative, BD 3-22, CTA total score 339 (L desc 327, RCA 11.3) Patient encounter procedure Valerieisis Sánchez GLEN [facility]; [facility] Work Phone: Comment on above: 02-27-22 AMP 10-20-21 [facility] physical: colonoscopy 9-20 every 5years, mammogram 11-23 due, MOCA 25/30, cognivue 78, immunizations are up to date, hepatitis C negative, BD 3-22, CTA -2021 total score 339 (L desc 327, RCA 11.3) Patient encounter procedure Valerieisis Sánchez GLEN [facility]; [facility] Work Phone: Comment on above: 02-27-22 AMP 10-20-21 [facility] physical: colonoscopy 9-20 every 5years, mammogram 11-23 due, MOCA 25/30, cognivue 78, immunizations are up to date, hepatitis C negative, BD 3-22, CTA -2021 total score 339 (L desc 327, RCA 11.3) Procedures Date Procedure Procedure Detail Performing Clinician Start: 08-09-[address] Debbie Chacon Work Phone: Start: 04-16-2023 End: 04-17-2023 HIP, UNI W/ Pelvis 2-3 Views Procedure Note: See Note; NOTES: [facility] [address] [place] [address] HIP, UNI W/ Pelvis 2-3 Views MR#: [id number] Acct: [id number] Name: NAHEED LAFLEUR Rep #: [id number] : 1945 F 77 From: James Acevedo MD PCP: Dr. Debbie Chacon MD Status: DEP AMB Study: HIP, UNI W/ Pelvis 2-3 Views Date of Exam: 04/01 Exam# [id number] Ordering Dr: Debbie Chacon MD STUDY: X-RAY - PELVIS AND LEFT HIP REASON FOR EXAM: Female, 77 years old. left hip pain TECHNIQUE: 3 views of the pelvis and hip. COMPARISON: None. FINDINGS: There is a non-specific bowel gas pattern. Normal visualized soft tissue structures. Normal bilateral iliac wings, sacroiliac joints and visualized sacrum. Normal bilateral superior and inferior pubic rami. Normal pubic symphysis. Normal bilateral ischial tuberosities. Normal visualized femoral head. Normal acetabulum. There is mild articular joint space narrowing of the hip. RAD/HIP, UNI W/ Pelvis 2-3 Views IMPRESSION: Mild arthrosis. Electronically Signed: James Acevedo MD at 8:54 EDT Reading Location ID and State: [facility] / ID Tel , Service support , CC: Dr. Debbie Chacon MD Assistant Program Manager: Signed Debbie Chacon MD Work Phone: Start: 04-16-2023 End: 04-17-2023 Knee 4 or More Views Procedure Note: See Note; NOTES: [facility] [address] [place] [address] Knee 4 or More Views MR#: [id number] Acct: [id number] Name: NAHEED LAFLEUR Rep #: [id number] : 1945 F 77 From: James Acevedo MD PCP: Dr. Debbie Chacon MD Status: DEP AMB Study: Knee 4 or More Views Date of Exam: 04/16/23 Exam# [id number] Ordering Dr: Debbie Chacon MD STUDY: X-RAY - LEFT KNEE REASON FOR EXAM: Female, 77 years old. knee pain, left anterior TECHNIQUE: 4 view(s) of the knee. COMPARISON: None. FINDINGS: Normal visualized distal femur. Normal visualized proximal tibia and fibula. Normal proximal tibiofibular articulation. Status post total knee arthroplasty. The prosthesis appears located. No ostial lysis to suggest loosening. . The soft tissue structures are unremarkable. RAD/Knee 4 or More Views IMPRESSION: Normal x-ray examination of the knee after total knee arthroplasty. Electronically Signed: James Acevedo MD at 8:52 EDT Reading Location ID and State: [address] [place] [address] Tel , Service support , CC: Dr. Debbie Chacon MD Assistant Program Manager: Signed Debbie Chacon MD Work Phone: Start: 04-16-2023 Plain x-ray of pelvis and lower extremity Dr. Debbie Chacon Work Phone: Start: 04-16-2023 Radiologic examination of knee Dr. Debbie Cahcon Work Phone: Start: 01-25-2023 End: 01-25-2023 Cardiology Visit Report Procedure Note: See Note; NOTES: [facility] [address] [place], [place] [address] OFFICE VISIT Date of Service: 01/25/23 MR#: [id number] Acct: [id number] Name: NAHEED LAFLEUR Rep #: [id number] : 1945 Provider: LUCIE jimenez Age/Sex: 77/F Location: [facility] Status: Signed HPI HPI History of Present Illness Details: This is a pleasant 77-year-old lady who presents to the office today for a cardiovascular follow-up visit. She has a history of hypertension,and probable valvular heart disease, and hyperlipidemia. As part of her routine follow-up and evaluation she had a coronary calcium score which was noted to have a total of 339 with 327 Agatston score noted in the LAD distribution. She underwent a cardiac catheterization which demonstrated nonobstructive coronary artery disease with moderate disease noted n the LAD with calcification. Mild disease noted in the right coronary artery and minimal disease in the circumflex artery. Preserved ejection fraction. Medical therapy was recommended at that time. From a cardiac standpoint, the patient is doing well. She is accompanied by her daughter. She denies any palpitations, chest pain, pressure or heaviness. She does have occasional SOB with climbing stairs. This is new or worsening. She denies Orthopnea, and PND. She does not have bleeding issues; no blood in urine, stool or nosebleeds. She denies any decrease in energy level, myalgias, or claudication. She does not have edema, or sudden weight gain. She denies dizziness, lightheadedness, syncopal or near syncopal episodes, and headaches. She does water aerobics 3x week. Intake Vital Signs 01/25/23 09:01 01/25/23 09:01 Height 5 ft 7 in 5 ft 7 in Weight: 197 lb BMI 30.8 BP 131/70 H Blood Pressure Location Lt brachial Position Sitting Respiration 18 Pulse 79 Pulse Source Monitor Pulse Oximetry (%) 98 Intake Visit Reasons: 6 M FU Keno Writer/Runner Required: No Is patient in pain?: No Allergies rosuvastatin Adverse Reaction (Intermediate, Uncoded 01/25/23 09:12) myalgias Medications ascorbic acid (vitamin C) 500 mg capsule,extended release 500 mg PO DAILY 04/14/20 [History Confirmed 01/25/23] cholecalciferol (vitamin D3) 50 mcg (2,000 unit) capsule 2,000 unit PO DAILY 04/14/20 [History Confirmed 01/25/23] cranberry 500 mg capsule 1,000 mg PO DAILY 04/14/20 [History Confirmed 01/25/23] paroxetine HCl 20 mg tablet 20 mg PO DAILY 04/14/20 [History Confirmed 01/25/23] multivit with luehldwc-xgwx-PW-lutein 8 mg iron-400 mcg-300 mcg tablet (Centrum Silver Women) 1 tab PO DAILY 03/21/22 [History Confirmed 01/25/23] spironolactone 25 mg tablet (Aldactone) 25 mg PO DAILY #90 tabs 03/22/22 [Rx Confirmed 01/25/23] aspirin 81 mg tablet,delayed release (Adult Low Dose Aspirin) 81 mg PO DAILY 04/03/22 [History Confirmed 01/25/23] simvastatin 10 mg tablet 10 mg PO QHS #30 tabs 06/05/22 [Rx Confirmed 01/25/23] furosemide 40 mg tablet 40 mg PO DAILY 07/18/22 [History Confirmed 01/25/23] losartan 100 mg tablet 50 mg PO DAILY 01/25/23 [History Confirmed 01/25/23] metoprolol succinate 25 mg tablet,extended release 24 hr (Toprol XL) 12.5 mg PO DAILY 01/25/23 [History] potassium chloride 20 mEq tablet,extended release 20 meq PO BID 01/25/23 [History Confirmed 01/25/23] PFSH Medical History Abnormal electrocardiogram COVID-19 virus detected (04/16/22) Elevated coronary artery calcium score Essential hypertension Fatty liver Grief Hyperlipidemia Nonobstructive atherosclerosis of coronary artery Obstructive sleep apnea Peripheral neuropathy Rate-dependent bundle branch block Scoliosis Surgical History H/O cystoscopy H/O left knee surgery H/O right knee surgery History of cataract surgery History of left heart catheterization (04/10/22) Family History Father Heart disease AFIB Colon cancer Mother Breast cancer Grandfather Heart disease Grandmother No problems noted. Grandfather Heart disease Social History Smoking Status: Former smoker alcohol intake: current alcohol intake frequency: a few times a month ROS Const Const: Negative for fatigue, weakness, fever(s), headache(s), chills, frequent falls, weight gain or weight loss Eyes Eyes: Negative for blind spots, loss of peripheral vision, transient loss of vision, blurry vision, change in vision, double vision, floaters or tunnel vision ENT ENT: Negative for headache(s), dizziness, Nosebleed/epistaxis, balance problems or neck pain Cardio Chest Pain: No Palpitations: No Edema: None Muscle aches with walking: None Resp Respiratory: Positive for SOB with activity (occasional climbing stairs-this is nothing new or worsening); Negative for SOB at rest or SOB orthopnea SOB lying down GI GI: Negative nausea, vomiting, heartburn, bloating, vomiting blood/hematemesis, bright, red blood in stools or black,tarry stools Musc Musc: Negative for muscle aches/ myalgia, muscle weakness, joint pain or balance problems Neuro Neuro: Negative for dizziness, lightheadedness, near syncope, syncope, orthostatic symptoms, frequent falls, headache(s), weakness, blurry vision or double vision Jarrett Hematologic/Lymphatic: Negative for easy bleeding or easy bruising Endo Endo: Negative for fatigue Cardiology Exam Const Appearance: cooperative and no acute distress Orientation: alert and oriented x3 Head Head: normal to inspection Ears: hearing grossly normal bilaterally Nose: external nose normal Face and Sinus: face symmetric Eyes General: appearance normal, both eyes and all related structures Eyelids: eyelids normal Conjunctivae: conjunctivae normal EOM: EOM intact bilaterally Neck Neck: normal visual inspection Carotids: Negative bruit Chest Chest inspection: normal inspection of the chest and normal respiratory effort Auscultation: Bilateral: Clear to Auscultation Cardio Palpation: normal PMI Rate: regular rate Rhythm: regular rhythm Heart sounds: S1 normal, S2 normal and murmur; Negative rub or gallop Murmur: Grade 2/6, holosystolic, apex and REHANA loudest at apex -> axilla GI GI: normal to inspection and soft; Negative no hepatosplenomegaly Neuro General: patient alert, patient oriented x3 and CN's II-XI intact bilaterally Skin Skin: no rashes or lesions noted Extremities Pulses: Normal: Right Posterior Tibial Pulse, Left Posterior Tibial Pulse, Right Radial Pulse and Left Radial Pulse Lower Extremity Edema: None: Bilateral Psych Psychological: normal affect Supplemental Info Supplemental Information Cardiac catheterization 04/13/2022: PROCEDURE(S) PERFORMED [id number]-([id number])[facility] CLINICAL PROFILE AND INDICATIONS Indications: Suspected CAD Heart Failure: None Stress/Imaging Date: 03/04/22Stress Test with SPECT MPI: Positive Intermediate Risk CAD Presentations: Unstable angina. CONCLUSIONS Moderate disease noted in the LAD with calcification. Mild disease noted in the right coronary artery and minimal disease in the circumflex artery. Preserved ejection fraction. RECOMMENDATIONS Medical therapy DESCRIPTION OF PROCEDURE The patient arrived to the procedure lab. The risks and benefits of the procedure as well as a full description of our services here and current unavailability of surgical backup were fully explained to the patient and/or their significant other prior to the catheterization. The Timeout was completed, verifying the correct patient and procedure. The patient's procedural site was prepped and draped in the usual fashion. Local anesthetic was given subcutaneously to right radial region with Lidocaine 2%. Using a modified Seldinger technique, arterial access was obtained via the right radial artery, a 6Fr sheath was inserted. Right Coronary Artery selective angiography was then performed in multiple views using a 5 Fr. 4.0 Hiram catheter. Left Coronary Artery selective angiography was performed in multiple views using a 5 Fr. 4.0 Hiram catheter.The arterial sheath was pulled and a TR Band was applied for hemostasis. 10cc of air CORONARY ANGIOGRAPHY DOMINANCE: Right Dominant LEFT HEART ASSESSMENT Left Ventricular Ejection Fraction: by Echo 55 % Normal LV wall motion Normal Left Ventricular systolic function LEFT MAIN: Angiographically normal LEFT ANTERIOR DESCENDING ARTERY: Moderate disease noted in the left anterior descending artery with calcification present. CIRCUMFLEX ARTERY: Mild luminal irregularities RIGHT CORONARY ARTERY: Mild luminal irregularities less than 30% Stress test 04/03/2022: Conclusion: Normal exercise myocardial perfusion stress test at a low workload. Development of a left bundle branch block. The low workload may affect sensitivity for detection of ischemia. Echocardiogram 03/24/2022: Interpretation Summary Normal LV size. Left ventricular systolic function is normal. The estimated ejection fraction is 60 %. Stage 1 diastolic dysfunction. Mild (1+) tricuspid valve insufficiency. Contrast injection was performed. CALCIUM SCORE 01/08/22 Left main coronary calcium score 0 Left anterior descending artery 327 Left circumflex artery 0 Right coronary artery 11.3. Total Agatston score 339. The above places the patient between the 75th and 90th percentile. Portions of this documentation were copied and pasted from previous office visit notes to provide a cohesive continuity of the history. The note has been reviewed, edited, and updated, as necessary. Labs: No Data to Display Diagnostics: Echocardiogram Stress Test Stress Test Nuclear Medicine Cardiac Catheterization Abdomen/Pelvis CT Pulmonary: No Data to Display Past Visits: Cardiology Visit 01/25/23 Assessment and Plan Assessment and Plan (1) Nonobstructive atherosclerosis of coronary artery: Status: Acute Plan: Patient has a history of nonobstructive coronary artery disease. Her most recent cardiac catheterization from 04/13/2022 demonstrated nonobstructive coronary arteries. She appears stable at this time, denies any recent symptoms or events. She will continue with her current medical therapy, along with aggressive risk factor and lifestyle modifications. She will continue to monitor for any concerning symptoms. (2) MVP (mitral valve prolapse): Status: Deleted Plan: Patient has a history of mitral valve prolapse. Her most recent echocardiogram 03/24/2022 demonstrated normal mitral valve. She appears stable at this time. We will continue to monitor this with history, exam, and echocardiograms as deemed appropriate. (3) Essential hypertension: Status: Chronic Plan: Patient has a history of hypertension. Her blood pressure is well controlled at this time. She will continue losartan 50 mg daily, metoprolol succinate 12.5 mg daily, furosemide 40 mg daily, and spironolactone 25 mg daily. She will continue to monitor her blood pressures at home, and notify our office of any persistent high or low blood pressure readings. (4) Hyperlipidemia: Status: Chronic Plan: Patient has a history of hyperlipidemia. Her PCP monitors this. Her most recent lipid panel from 03/2022: Cholesterol 183, HDL 63, LDL 91, triglycerides 168. She will continue simvastatin 10 mg daily, along with aggressive risk factor and lifestyle modifications. Plan Details Additional Comments: Patient will follow up in 6 months, or sooner if needed. Thank you for allowing me to participate in the care of your patient. Please don't hesitate to call if any issues arise. This note was generated using a voice recognition system and there may be incorrect words, spelling, or punctuation that were not noted when reviewing the office note prior to saving. Portions of this documentation were copied and pasted from previous office visit notes to provide a cohesive continuity of the history. The note has been reviewed, edited, and updated, as necessary. Follow Up: Please obtain most recent lipid panel from [facility] as is ([employer]) Coding Level of Care Code Off vis,est,level 3 Diagnoses Nonobstructive atherosclerosis of coronary artery I25.10 MVP (mitral valve prolapse) I34.1 Essential hypertension I10 Hyperlipidemia E78.5 Coding Level of Care Code Off vis,est,level 3 Diagnoses Nonobstructive atherosclerosis of coronary artery I25.10 MVP (mitral valve prolapse) I34.1 Essential hypertension I10 Hyperlipidemia E78.5 01/25/23 1032 <Electronically signed by Kelsea FAULKNER> Date Kelsea MANJARREZC Cosigner Signature: Date (if applicable) CC: MD Debbie Jacinto MD Work Phone: Start: 08-08-2022 End: 08-08-2022 SCRN MAMM (CAD)W/SU BILAT Procedure Note: See Note; NOTES: [facility] Imaging Services [address] [place] [address] SCRN MAMM (CAD)W/SU BILAT MR#: [id number] Acct: [id number] Name: NAHEED LAFLEUR Rep #: [id number] : 1945 F 77 From: Scout bales MD PCP: Dr. Debbie Chacon MD Status: [facility] Study: SCRN MAMM (CAD)W/SU BILAT Date of Exam: 07/12 06/01 Exam# [id number] Ordering Dr: Debbie Chacon MD MAMMOGRAPHY - BILATERAL SCREENING REASON FOR EXAM: Female, 77 years old. Routine annual screening examination. PERTINENT HISTORY: Mother with breast cancer. TECHNIQUE: Digital bilateral breast su (3D mammographic acquisition) in the CC and MLO projections. 2-D mediolateral oblique (MLO) and craniocaudad (CC) views of both breasts were obtained. CAD: Full Field Digital Mammography with Computer Added Detection was performed. COMPARISON: Comparison is made with prior study dated 07/27/2021 and 06/08/2020. FINDINGS: Breast Composition: The breasts are almost entirely fatty. There are no dominant masses or suspicious calcifications. Stable small benign-appearing bilateral axillary lymph nodes. No other significant abnormalities are identified. There has been no significant change since the prior study. BI/SCRN MAMM (CAD)W/SU BILAT IMPRESSION: Stable bilateral screening mammogram. Yearly follow-up mammogram recommended. (A) ASSESSMENT CATEGORY: BIRADS Category 2: Benign. A letter regarding these results will be sent to the patient by the facility within 30 days. Approximately 10% of breast cancers are not detected by mammography. A normal mammogram should not delay biopsy of a clinically suspicious abnormality. [id number] Electronically Signed: Scout Degroot MD at 9:49 EST Reading Location ID and State: [address] [place] [address] , Service support , CC: Dr. Debbie Chacon MD Assistant Program Manager: Signed Debbie Chacon MD Work Phone: Start: 07-18-2022 End: 07-18-2022 Cardiology Visit Report Procedure Note: See Note; NOTES: [facility] [place] [address] OFFICE VISIT Date of Service: 07/18/22 MR#: [id number] Acct: [id number] Name: NAHEED LAFLEUR Rep #: [id number] : 1945 Provider: LUCIE jimenez Age/Sex: 77/F Location: [facility] Status: Signed HPI HPI History of Present Illness Details: This is a pleasant 77-year-old lady who presents to the office today for a cardiovascular follow-up visit. She has a history of hypertension,and probable valvular heart disease, and hyperlipidemia. As part of her routine follow-up and evaluation she had a coronary calcium score which was noted to have a total of 339 with 327 Agatston score noted in the LAD distribution. She underwent a cardiac catheterization which demonstrated nonobstructive coronary artery disease with moderate disease noted n the LAD with calcification. Mild disease noted in the right coronary artery and minimal disease in the circumflex artery. Preserved ejection fraction. Medical therapy was recommended at that time. From a cardiac standpoint, the patient is doing well. She denies any palpitations, chest pain, pressure or heaviness. She denies SOB, Orthopnea, and PND. She does not have bleeding issues; no blood in urine, stool or nosebleeds. She denies any decrease in energy level, myalgias, or claudication. She does not have edema, or sudden weight gain. She does have an occasional lightheadedness with quick positional changes. She denies dizziness, syncopal or near syncopal episodes, and headaches. Intake Vital Signs 03/22/22 12:39 04/10/22 08:07 07/18/22 09:21 07/18/22 09:21 Height 5 ft 7 in 5 ft 7 in 5 ft 7 in 5 ft 7 in Weight: 202 lb 199 lb BMI 31.1 BP 138/73 H Blood Pressure Location Lt brachial Position Sitting Respiration 20 H Pulse 81 Pulse Source Monitor Pulse Oximetry (%) 97 Intake Visit Reasons: 4 M FU Keno Writer/Runner Required: No Is patient in pain?: No Allergies rosuvastatin Adverse Reaction (Intermediate, Uncoded 07/18/22 09:34) myalgias Medications ascorbic acid (vitamin C) 500 mg capsule,extended release 500 mg PO DAILY 04/14/20 [History Confirmed 07/18/22] cholecalciferol (vitamin D3) 50 mcg (2,000 unit) capsule 2,000 unit PO DAILY 04/14/20 [History Confirmed 07/18/22] cranberry 500 mg capsule 1,000 mg PO DAILY 04/14/20 [History Confirmed 07/18/22] paroxetine HCl 20 mg tablet 20 mg PO DAILY 04/14/20 [History Confirmed 07/18/22] multivit with jfnlvrhr-auni-CJ-lutein 8 mg iron-400 mcg-300 mcg tablet (Centrum Silver Women) 1 tab PO DAILY 03/21/22 [History Confirmed 07/18/22] potassium chloride 20 mEq tablet,extended release 20 meq PO DAILY 03/22/22 [History Confirmed 07/18/22] spironolactone 25 mg tablet (Aldactone) 25 mg PO DAILY #90 tabs 03/22/22 [Rx Confirmed 07/18/22] aspirin 81 mg tablet,delayed release (Adult Low Dose Aspirin) 81 mg PO DAILY 04/03/22 [History Confirmed 07/18/22] metoprolol succinate 25 mg tablet,extended release 24 hr (Toprol XL) 25 mg PO DAILY #90 tabs 04/10/22 [Rx Confirmed 07/18/22] simvastatin 10 mg tablet 10 mg PO QHS #30 tabs 06/05/22 [Rx Confirmed 07/18/22] furosemide 40 mg tablet 40 mg PO DAILY 07/18/22 [History Confirmed 07/18/22] losartan 100 mg tablet 25 mg PO DAILY 07/18/22 [History Confirmed 07/18/22] PFSH Medical History Abnormal electrocardiogram COVID-19 virus detected (04/16/22) Elevated coronary artery calcium score Essential hypertension Fatty liver Grief Hyperlipidemia Nonobstructive atherosclerosis of coronary artery Obstructive sleep apnea Peripheral neuropathy Rate-dependent bundle branch block Scoliosis Surgical History H/O cystoscopy H/O left knee surgery H/O right knee surgery History of cataract surgery History of left heart catheterization (04/10/22) Family History Father Heart disease AFIB Colon cancer Mother Breast cancer Grandfather Heart disease Grandmother No problems noted. Grandfather Heart disease Social History Smoking Status: Former smoker alcohol intake: current alcohol intake frequency: a few times a month ROS Const Const: Negative for fatigue, weakness, fever(s), headache(s), chills, frequent falls, weight gain or weight loss Eyes Eyes: Negative for blind spots, loss of peripheral vision, transient loss of vision, blurry vision, change in vision, double vision, floaters or tunnel vision ENT ENT: Negative for headache(s), dizziness, Nosebleed/epistaxis, balance problems or neck pain Cardio Chest Pain: No Palpitations: No Edema: None Muscle aches with walking: None Resp Respiratory: Negative for SOB with activity, SOB at rest or SOB orthopnea SOB lying down GI GI: Negative nausea, vomiting, heartburn, bloating, vomiting blood/hematemesis, bright, red blood in stools or black,tarry stools Musc Musc: Negative for muscle aches/ myalgia, muscle weakness, joint pain or balance problems Neuro Neuro: Positive for lightheadedness (occasional with quick positional changes); Negative for dizziness, near syncope, syncope, orthostatic symptoms, frequent falls, headache(s), weakness, blurry vision or double vision Jarrett Hematologic/Lymphatic: Negative for easy bleeding or easy bruising Endo Endo: Negative for fatigue Cardiology Exam Const Appearance: cooperative and no acute distress Orientation: alert and oriented x3 Head Head: normal to inspection Ears: hearing grossly normal bilaterally Nose: external nose normal Face and Sinus: face symmetric Eyes General: appearance normal, both eyes and all related structures Eyelids: eyelids normal Conjunctivae: conjunctivae normal EOM: EOM intact bilaterally Neck Neck: normal visual inspection Carotids: Negative bruit Chest Chest inspection: normal inspection of the chest and normal respiratory effort Auscultation: Bilateral: Clear to Auscultation Cardio Palpation: normal PMI Rate: regular rate Rhythm: regular rhythm Heart sounds: S1 normal, S2 normal and murmur; Negative rub or gallop Murmur: Grade 2/6, holosystolic, apex and REHANA loudest at apex -> axilla GI GI: normal to inspection and soft; Negative no hepatosplenomegaly Neuro General: patient alert, patient oriented x3 and CN's II-XI intact bilaterally Skin Skin: no rashes or lesions noted Extremities Pulses: Normal: Right Posterior Tibial Pulse, Left Posterior Tibial Pulse, Right Radial Pulse and Left Radial Pulse Lower Extremity Edema: None: Bilateral Psych Psychological: normal affect Supplemental Info Supplemental Information Cardiac catheterization 04/13/2022: PROCEDURE(S) PERFORMED DC02-([id number])[facility] CLINICAL PROFILE AND INDICATIONS Indications: Suspected CAD Heart Failure: None Stress/Imaging Date: 03/04/22Stress Test with SPECT MPI: Positive Intermediate Risk CAD Presentations: Unstable angina. CONCLUSIONS Moderate disease noted in the LAD with calcification. Mild disease noted in the right coronary artery and minimal disease in the circumflex artery. Preserved ejection fraction. RECOMMENDATIONS Medical therapy DESCRIPTION OF PROCEDURE The patient arrived to the procedure lab. The risks and benefits of the procedure as well as a full description of our services here and current unavailability of surgical backup were fully explained to the patient and/or their significant other prior to the catheterization. The Timeout was completed, verifying the correct patient and procedure. The patient's procedural site was prepped and draped in the usual fashion. Local anesthetic was given subcutaneously to right radial region with Lidocaine 2%. Using a modified Seldinger technique, arterial access was obtained via the right radial artery, a 6Fr sheath was inserted. Right Coronary Artery selective angiography was then performed in multiple views using a 5 Fr. 4.0 Hiram catheter. Left Coronary Artery selective angiography was performed in multiple views using a 5 Fr. 4.0 Hiram catheter.The arterial sheath was pulled and a TR Band was applied for hemostasis. 10cc of air CORONARY ANGIOGRAPHY DOMINANCE: Right Dominant LEFT HEART ASSESSMENT Left Ventricular Ejection Fraction: by Echo 55 % Normal LV wall motion Normal Left Ventricular systolic function LEFT MAIN: Angiographically normal LEFT ANTERIOR DESCENDING ARTERY: Moderate disease noted in the left anterior descending artery with calcification present. CIRCUMFLEX ARTERY: Mild luminal irregularities RIGHT CORONARY ARTERY: Mild luminal irregularities less than 30% Stress test 04/03/2022: Conclusion: Normal exercise myocardial perfusion stress test at a low workload. Development of a left bundle branch block. The low workload may affect sensitivity for detection of ischemia. Echocardiogram 03/24/2022: Interpretation Summary Normal LV size. Left ventricular systolic function is normal. The estimated ejection fraction is 60 %. Stage 1 diastolic dysfunction. Mild (1+) tricuspid valve insufficiency. Contrast injection was performed. CALCIUM SCORE 01/08/22 Left main coronary calcium score 0 Left anterior descending artery 327 Left circumflex artery 0 Right coronary artery 11.3. Total Agatston score 339. The above places the patient between the 75th and 90th percentile. Portions of this documentation were copied and pasted from previous office visit notes to provide a cohesive continuity of the history. The note has been reviewed, edited, and updated, as necessary. Labs: No Data to Display Diagnostics: Echocardiogram Stress Test NM Stress Test Cardiac Catheterization Coronary Angiography CT Pulmonary: No Data to Display Assessment and Plan Assessment and Plan (1) Nonobstructive atherosclerosis of coronary artery: Status: Acute Plan: Patient has a history of nonobstructive coronary artery disease. Her most recent cardiac catheterization from 04/13/2022 demonstrated nonobstructive coronary arteries. She appears stable at this time, denies any recent symptoms or events. She will continue with her current medical therapy, along with aggressive risk factor and lifestyle modifications. (2) MVP (mitral valve prolapse): Status: Deleted Plan: Patient has a history of mitral valve prolapse. Her most recent echocardiogram 03/24/2022 demonstrated normal mitral valve. She appears stable at this time. We will continue to monitor this with history, exam, and echocardiograms as deemed appropriate. (3) Essential hypertension: Status: Chronic Plan: Patient has a history of hypertension. Her blood pressure is well controlled at this time. She will continue losartan 25 mg daily, metoprolol succinate 25 mg daily, furosemide 40 mg daily, and spironolactone 25 mg daily. She will continue to monitor her blood pressures at home, and notify our office of any persistent high or low blood pressure readings. (4) Hyperlipidemia: Status: Chronic Plan: Patient has a history of hyperlipidemia. Her PCP monitors this. Her most recent lipid panel from 03/2022: Cholesterol 183, HDL 63, LDL 91, triglycerides 168. She will continue simvastatin 10 mg daily, along with aggressive risk factor and lifestyle modifications. Plan Details Additional Comments: Patient will follow up in 6 months, or sooner if needed. Thank you for allowing me to participate in the care of your patient. Please don't hesitate to call if any issues arise. This note was generated using a voice recognition system and there may be incorrect words, spelling, or punctuation that were not noted when reviewing the office note prior to saving. Portions of this documentation were copied and pasted from previous office visit notes to provide a cohesive continuity of the history. The note has been reviewed, edited, and updated, as necessary. 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) Coding Level of Care Code Off vis,est,level 3 Diagnoses Nonobstructive atherosclerosis of coronary artery I25.10 MVP (mitral valve prolapse) I34.1 Essential hypertension I10 Hyperlipidemia E78.5 Coding Level of Care Code Off vis,est,level 3 Diagnoses Nonobstructive atherosclerosis of coronary artery I25.10 MVP (mitral valve prolapse) I34.1 Essential hypertension I10 Hyperlipidemia E78.5 07/18/22 1022 <Electronically signed by Kelsea MANJARREZC> Date Kelsea Kapadia NP JUKEBOX ROUTE DRIVER-C Cosigner Signature: Date (if applicable) CC: MD Debbie Jacinto MD Work Phone: Start: 04-13-2022 End: 04-13-2022 Cardiac Cath Diagnostic Procedure Note: See Note; NOTES: [facility] Imaging Services [address] [place] [address] Cardiac Cath Diagnostic MR#: [id number] Acct: [id number] Name: NAHEED LAFLEUR Rep #: [id number] : 1945 76 From: Get Sanchez MD PCP: Dr. Debbie Chacon MD Status:[facility] Patient Name: NAHEED LAFLEUR Study Date: 04/10/2022 Performing: Get Sanchez MD Ht: 66.92 inches 170 cm : 1945 Wt: 202.83 lbs 92 kg Age: 76 Gender: female BSA: 2.03 PROCEDURE(S) PERFORMED [facility]-([id number])[facility] CLINICAL PROFILE AND INDICATIONS Indications: Suspected CAD Heart Failure: None Stress/Imaging Date: 03/04/22Stress Test with SPECT MPI: Positive Intermediate Risk CAD Presentations: Unstable angina. CONCLUSIONS Moderate disease noted in the LAD with calcification. Mild disease noted in the right coronary artery and minimal disease in the circumflex artery. Preserved ejection fraction. RECOMMENDATIONS Medical therapy DESCRIPTION OF PROCEDURE The patient arrived to the procedure lab. The risks and benefits of the procedure as well as a full description of our services here and current unavailability of surgical backup were fully explained to the patient and/or their significant other prior to the catheterization. The Timeout was completed, verifying the correct patient and procedure. The patient's procedural site was prepped and draped in the usual fashion. Local anesthetic was given subcutaneously to right radial region with Lidocaine 2%. Using a modified Seldinger technique, arterial access was obtained via the right radial artery, a 6Fr sheath was inserted. Right Coronary Artery selective angiography was then performed in multiple views using a 5 Fr. 4.0 Hiram catheter. Left Coronary Artery selective angiography was performed in multiple views using a 5 Fr. 4.0 Hiram catheter.The arterial sheath was pulled and a TR Band was applied for hemostasis. 10cc of air CORONARY ANGIOGRAPHY DOMINANCE: Right Dominant LEFT HEART ASSESSMENT Left Ventricular Ejection Fraction: by Echo 55 % Normal LV wall motion Normal Left Ventricular systolic function LEFT MAIN: Angiographically normal LEFT ANTERIOR DESCENDING ARTERY: Moderate disease noted in the left anterior descending artery with calcification present. CIRCUMFLEX ARTERY: Mild luminal irregularities RIGHT CORONARY ARTERY: Mild luminal irregularities less than 30% COMPLICATIONS No Complications PROCEDURE MEDICATIONS Fentanyl 50 mcg IV Versed 1 mg IV Versed 1 mg IV Oxygen: 2 L/min via nasal cannula Heparin given IA 04/10/2022 09:08:06 Verapamil 2.5mg, Ntg 100mcgs, 3000 units of Heparin given IA 04/10/2022 09:08:06 SUMMARY OF HEMODYNAMIC DATA Time AIR REST ECG 08:04:13 Art 180/63 (99) 09:06:07 AO 120/67 (91) SA 09:10:23 Signed By Get Sanchez MD On 04/10/2022 9:23:52 AM Get Sanchez MD 04/10/22922 Date Get Sanchez MD Cosigner Signature: Date (if indicated) CC: Dr. Get Sanchez MD; Dr. Debbie Chacon MD Date Dictated: 04/10/22856 Date Transcribed: 04/10/22913 Assistant Program Manager: [place] Signed Debbie Chacon MD Work Phone: Start: 04-03-2022 End: 04-03-2022 Stress Report Procedure Note: See Note; NOTES: [facility] [address] [place] [address] MR#: [id number] Acct: [id number] Name: NAHEED LAFLEUR SAMRA Rep #: [id number] : 1945 76 From: Get Sanchez MD Primary Care: Dr. Debbie Chacon MD Status: REG CLI Referring Dr: Get Sanchez MD Sex: F C Stress Test Report Exercise myocardial perfusion stress test. 76-year-old lady with a history of coronary artery disease. Stress protocol: Resting EKG demonstrates normal sinus rhythm with a rate of 85 bpm normal intervals are noted resting blood pressure is 128/70 mmHg. The patient exercised according to the regular Dick protocol for total duration of 3 minutes. Patient completed stage one of the Dick protocol the maximum heart rate attained was 150 bpm which was 103% of max impacted heart rate. Patient appeared to have developed a rate dependent bundle branch block of the left bundle branch block type. Left bundle branch block changes were noted. During recovery patient appeared to be intermittently going back to a narrow complex conducted rhythm and a left bundle branch block pattern. The test was terminated due to dyspnea. The maximum workload attained was 4.6 metabolic equivalents. The peak blood pressure was 180/74 mmHg. Myocardial perfusion protocol. 11.9 mCi of technetium 99m sestamibi was injected at rest. The patient exercised according to regular Dick protocol for total duration of 3 minutes and at peak exercise 35.3 mCi of technetium 99m sestamibi was injected stress images were obtained stress and rest images were reconstructed and compared in the short axis vertical long and horizontal long axis. Gated images were also obtained. Perfusion SPECT analysis: Review of the stress images demonstrated normal perfusion noted in all areas of the myocardium on the stress and resting images. No obvious reversibility is noted to suggest ischemia and no previous infarct is noted. The low workload may affect sensitivity for detection of ischemia. Gated SPECT analysis: The gated ejection fraction is 72%. Conclusion: Normal exercise myocardial perfusion stress test at a low workload. Development of a left bundle branch block. The low workload may affect sensitivity for detection of ischemia. 04/03/22 1005 <Electronically signed by Get Sanchez MD> Date Get Sanchez MD CC: Dr. Get Sanchez MD; Dr. Debbie Chacon MD Date Dictated: 04/03/221000 Date Transcribed: 04/03/221000 Assistant Program Manager: [place] Signed Debbie Chacon MD Work Phone: Start: 04-03-2022 Radionuclide imaging of perfusion of myocardium under exercise stress Dr. Debbie Chacon Work Phone: Start: 03-27-2022 End: 03-27-2022 Abdomen/Pelvis W IV Cont ONLY Comments: See Note; NOTES: [facility] Imaging Services [address] [place] [address] Abdomen/Pelvis W IV Cont ONLY MR#: [id number] Acct: [id number] Name: NAHEED LAFLEUR SAMRA Rep #: [id number] : 1945 F 76 From: Scout bales MD PCP: Dr. Debbie Chacon MD Status: REG CL Study: Abdomen/Pelvis W IV Cont ONLY Date of Exam: Exam# [id number] Ordering Dr: Debbie Chacon MD STUDY: CT ABDOMEN AND PELVIS WITH CONTRAST REASON FOR EXAM: Female, 76 years old. Follow-up for history of pancreatic cyst. RADIATION DOSAGE (If Supplied By Facility): CTDIvol = ( 13.65 ) mGy, DLP = ( 826.88 ) mGycm TECHNIQUE: Transaxial images were obtained from the dome of the diaphragm to the symphysis pubis without oral contrast. IV 100mL Isovue-300 was administered. Sagittal and coronal images were reconstructed. Individualized dose optimization techniques were used for this CT. COMPARISON: Comparison is made with prior study dated 01/04/2022. FINDINGS: Stable minimal scarring at the lung bases. The visualized portions of the heart are within normal limits. There is decreased attenuation of the liver consistent with steatosis. Prominent Phani''s lobe of the liver. Normal gallbladder and extrahepatic biliary system. Normal spleen. Essentially stable 1.6 cm x 1.2 cm cyst in the body of the pancreas. Normal bilateral adrenal glands. Stable appearance of the bilateral renal cysts more prominent on the left side. The largest cyst in the left kidney measures 5.8 cm x 4.4 cm. Left parapelvic cyst. Normal visualized stomach. Normal small intestine. Scattered sigmoid diverticula. Moderate amount of fecal material is seen in the colon. The appendix is visualized and appears normal. There is scattered atherosclerotic calcification of the abdominal aorta, without a demonstrated aneurysm. Normal inferior vena cava. Normal retroperitoneum. Normal urinary bladder. Normal abdominal wall. There are degenerative changes of the visualized lumbar spine. CT/Abdomen/Pelvis W IV Cont ONLY IMPRESSION: Stable examination. Electronically Signed: Scout Degroot MD at 8:41 EDT , CC: Dr. Debbie Chacon MD Assistant Program Manager: Signed Debbie Chacon MD Work Phone: Start: 03-27-2022 Computed tomography of abdomen and pelvis with intravenous contrast Dr. Debbie Chacon Work Phone: Start: 03-24-2022 End: 03-24-2022 Echo Complete W/ Contrast Comments: See Note; NOTES: [facility] [address] [place] [address] Echo Complete W/ Contrast 03/24/22 1456 MR#: [id number] Acct: [id number] Name: NAHEED LAFLEUR Rep #: [id number] : 1945 76 From: Get Sanchez MD Attending Dr: Dr. Debbie Chacon MD Status: REG CLI Ordering Dr: Debbie Chacon MD Date: 03/24/22 Location: [facility] Sex: F C Admitted: Reason For Study: PULIDO Procedure This was a 2D Doppler, Color Flow transthoracic echocardiogram. The study was technically difficult. Contrast injection was performed. Exam performed in department. Left Ventricle Normal LV size. Left ventricular systolic function is normal. The estimated ejection fraction is 60 %. Stage 1 diastolic dysfunction. No regional wall motion abnormalities noted. Right Ventricle Normal RV size. Normal systolic function. Atria Normal left atrium. Normal right atrium. Mitral Valve Normal mitral valve. Tricuspid Valve Normal tricuspid valve. Mild (1+) tricuspid valve insufficiency. Pulmonary artery systolic pressure is 34 mmHg. Aortic Valve Normal aortic valve. Trisinus/trileaflet aortic valve. Pulmonic Valve Normal pulmonic valve. Great Vessels Normal aortic root. The pulmonary artery is normal size. Normal inferior vena cava. Pericardium/Pleural No pericardial effusion. Medication 20 gauge I.V. with prn adaptor inserted into right arm. Diluted definity 1.5ml given slow IV push to enhance endocardial definition. MMode/2D Measurements Calculations LVIDd: 3.7 cm IVSd: 1.4 cm Ao root diam: 3.2 cm LVIDs: 2.7 cm LVPWd: 1.0 cm LA dimension: 3.7 cm RVDd: 3.0 cm FS: 27.9 % LAV(MOD-bp): 48.2 ml LA A4 area: 16.9 cm2 LAV(MOD-bp) Indexed: 23.7 ml/m2 LAV(MOD-sp2): 43.0 ml LAV(MOD-sp4): 48.3 ml Time Measurements MV dec time: 0.22 sec Doppler Measurements Calculations MV E max teresita: 74.5 cm/sec MV V2 max: 125.2 cm/sec MV dec slope: 342.0 cm/sec2 MV A max teresita: 106.5 cm/sec MV max P.3 mmHg MV E/A: 0.70 MV V2 mean: 86.0 cm/sec MV mean P.2 mmHg MV V2 VTI: 34.3 cm Ao V2 max: 168.2 cm/sec LV V1 max: 113.8 cm/sec PA V2 max: 94.9 cm/sec Ao max P.3 mmHg LV V1 max P.2 mmHg TR max teresita: 277.5 cm/sec TR max P.0 mmHg ECHO/Echo Complete W/ Contrast Interpretation Summary Normal LV size. Left ventricular systolic function is normal. The estimated ejection fraction is 60 %. Stage 1 diastolic dysfunction. Mild (1+) tricuspid valve insufficiency. Contrast injection was performed. _ Ordering Physician: Debbie Chacon Referring Physician: Debbie Chacon Performed By: René Hilton, [facility] 03/24/221657 Date Get Sanchez MD CC: Dr. Debbie Chacon MD Date Dictated: 03/24/221455 Date Transcribed: 03/24/221657 Assistant Program Manager: Signed Debbie Chacon MD Work Phone: Start: 03-22-2022 End: 03-22-2022 Cardiology Visit Report Comments: See Note; NOTES: [facility] [address] [place], [place] [address] OFFICE VISIT Date of Service: 03/22/22 MR#: [id number] Acct: [id number] Name: NAHEED LAFLEUR SAMRA Rep #: [id number] : 1945 Provider: Dr. Get Sanchez MD Age/Sex: 76/F [place] [facility] [place]: Signed HPI [facility] History of Present Illness Details: Pleasant 76-year-old lady with a history of hypertension probable valvular heart disease who has been doing well with no cardiac complaints. As part of her routine follow-up and evaluation she had a coronary calcium score which was noted to have a total of 339 with 327 Agatston score noted in the LAD distribution. She has had a previous history of hyperlipidemia as well as hypertension. She had previously been on triamterene but her pedal edema persisted and this was discontinued and she was put on Lasix 40 mg twice a day in addition to her losartan. She denies any dizziness or diaphoresis near syncope or syncope and presents today for evaluation. She has had some shortness of breath with exertion. Her physical exam demonstrates clear lung magdaleno regular rate and rhythm with 2/6 soft systolic murmur noted at the apex radiating to the axilla with a midsystolic click. Her electrocardiogram demonstrates normal sinus mechanism. Rate of 77 bpm is noted. Intake Vital Signs 12/26/21 13:24 03/22/22 12:39 03/22/22 12:39 Height 5 ft 7 in 5 ft 7 in 5 ft 7 in Weight: 190 lb 202 lb BMI 29.7 31.6 BP 153/78 H Respiration 16 Pulse 90 Pulse Oximetry (%) 96 98 Intake Visit Reasons: DUE TO CTA/(BONEZZI) Allergies No Known Allergies Allergy (Verified 03/22/22 12:39) Medications ascorbic acid (vitamin C) 500 mg capsule,extended release 500 mg PO DAILY 04/14/20 [History Confirmed 03/21/22] cholecalciferol (vitamin D3) 50 mcg (2,000 unit) capsule 2,000 unit PO DAILY 04/14/20 [History Confirmed 03/21/22] cranberry 500 mg capsule 1,000 mg PO DAILY 04/14/20 [History Confirmed 03/21/22] paroxetine HCl 20 mg tablet 20 mg PO DAILY 04/14/20 [History Confirmed 03/21/22] multivit with wysfivdt-apgb-NE-lutein 8 mg iron-400 mcg-300 mcg tablet (Centrum Silver Women) 1 tab PO DAILY 03/21/22 [History Confirmed 03/21/22] furosemide 40 mg tablet 40 mg PO BID 03/22/22 [History Confirmed 03/22/22] losartan 100 mg tablet 100 mg PO DAILY 03/22/22 [History Confirmed 03/22/22] potassium chloride 20 mEq tablet,extended release 20 meq PO DAILY 03/22/22 [History Confirmed 03/22/22] rosuvastatin 10 mg tablet tablet PO 03/22/22 [History Confirmed 03/22/22] spironolactone 25 mg tablet (Aldactone) 25 mg PO DAILY #90 tabs 03/22/22 [Rx Confirmed 03/22/22] [facility] Medical History Elevated coronary artery calcium score Essential hypertension Fatty liver Hyperlipidemia Obstructive sleep apnea Peripheral neuropathy Scoliosis Surgical History H/O cystoscopy H/O left knee surgery H/O right knee surgery History of cataract surgery Family History Father Heart disease AFIB Colon cancer Mother Breast cancer Grandfather Heart disease Grandmother No problems noted. Grandfather Heart disease Social History Smoking Status: Former smoker alcohol intake: current alcohol intake frequency: a few times a month ROS Const Const: Negative for fatigue, weakness, headache(s), frequent falls, difficulty sleeping or excessive sweating Eyes Eyes: Negative for loss of peripheral vision, transient loss of vision, blurry vision, double vision or tunnel vision ENT ENT: Negative for headache(s), dizziness, Nosebleed/epistaxis or balance problems Cardio Chest Pain: No Palpitations: No Edema: Bilateral (BLE PITTING EDEMA L>R) Muscle aches with walking: None Resp Respiratory: Positive for SOB with activity; Negative for SOB at rest, SOB orthopnea SOB lying down, Cough or paroxysmal nocturnal dyspnea GI GI: Negative nausea, vomiting, heartburn or black,tarry stools : Negative for hematuria Musc Musc: Negative for muscle aches/ myalgia, muscle weakness, joint pain (BACK) or balance problems Skin Skin: Negative non-healing lesions, rash or unusual bruising Neuro Neuro: Negative for dizziness, lightheadedness, near syncope, syncope, orthostatic symptoms, frequent falls, headache(s), weakness, confusion, memory loss, blurry vision, double vision, vertigo or lack of coordination Jarrett Hematologic/Lymphatic: Negative for easy bleeding or easy bruising Endo Endo: Negative for fatigue, excessive sweating, flushing or increased thirst/drinking Psych Psych: Negative for anxiety or depression Allergy Allergy/Immunology: Negative for hives and Negative for rash Cardiology Exam Const Appearance: cooperative, healthy appearing, no acute distress, well developed and well groomed Nutritional Appearance: average body habitus and well nourished Orientation: alert, awake and oriented x3 Head Head: normal to inspection, normocephalic and atraumatic Ears: hearing grossly normal bilaterally and external ears normal Nose: external nose normal, nares normal, nasal mucous membranes and turbinates normal, septum normal and no nasal discharge Face and Sinus: face symmetric Mouth: oral mucosae normal, tongue normal, oropharynx normal and moist mucous membranes Teeth and gingiva: dentition normal Throat: posterior oropharynx normal, tonsils normal and uvula midline Eyes General: appearance normal, both eyes and all related structures Eyelids: eyelids normal Conjunctivae: conjunctivae normal Pupils: PERRL, normal by confrontation and accommodation normal EOM: EOM intact bilaterally Neck Neck: normal visual inspection, trachea midline and no JVD JVD: +5 Carotids: normal carotid upstroke and bounding pulses Chest Chest inspection: normal inspection of the chest, symmetric chest movement and normal respiratory effort Auscultation: Bilateral: Clear to Auscultation Cardio Palpation: normal PMI Rate: regular rate Rhythm: regular rhythm Heart sounds: S1 normal, S2 normal and normal, physiologic split S2; Negative rub, gallop or murmur Murmur: Grade 2/6, holosystolic and REHANA loudest at apex -> axilla GI GI: normal to inspection, soft, no hepatosplenomegaly and bowel sounds present Neuro General: patient alert, patient awake, patient oriented x3, gait normal, moves all extremities and no focal sensory deficit Skin Skin: no rashes or lesions noted Extremities Pulses: Normal: Right Femoral Pulse, Left Femoral Pulse, Right Dorsalis Pedis Pulse, Left Dorsalis Pedis Pulse, Right Posterior Tibial Pulse, Left Posterior Tibial Pulse, Right Radial Pulse and Left Radial Pulse Lower Extremity Edema: None: Bilateral Musculoskel Musculoskeletal: No joint tenderness Psych Psychological: normal affect Supplemental Info Supplemental Information CALCIUM SCORE 01/08/22 Left main coronary calcium score 0 Left anterior descending artery 327 Left circumflex artery 0 Right coronary artery 11.3. Total Agatston score 339. The above places the patient between the 75th and 90th percentile. LIPID LABS 08/2021 CHOL 236 LDL 138 HDL 66 TRIG 105 LIPIDS CHOL 183 TRIG 168 HDL 63 LDL 91 Portions of this documentation were copied and pasted from previous office visit notes to provide a cohesive continuity of the history. The note has been reviewed, edited, and updated, as necessary. Labs: No Data to Display Diagnostics: Coronary Angiography CT Pulmonary: No Data to Display Assessment and Plan Assessment and Plan (1) Elevated coronary artery calcium score: Status: Chronic Plan: She does have an elevated calcium score suggesting moderate amount of coronary artery disease. With her risk factors of hypertension and hyperlipidemia I would suggest that we evaluate the above with some formal stress testing. Depending on the findings further recommendations will be made. (2) Essential hypertension: Status: Chronic Plan: Her blood pressure appears to be under fair control on the current medical therapy with the diuretic as well as the ARB. She still has some pedal edema and I will recommend that we add Aldactone 25 mg a day to her regimen and check a chemistry profile in approximately a week. Depending on the findings further recommendations will be made with regard to potassium supplementation. (3) MVP (mitral valve prolapse): Status: Acute Plan: She does have evidence of mitral valve disease with mild mitral regurgitation. I would like us to evaluate the above with an echocardiogram. She is scheduled to have 1 in a few days. Depending on the findings further recommendations will be made. Thank you for allowing me to participate in the care of your patient. Please don't hesitate to call if any issues arise. Orders: Orders Nuclear Stress Test - Treadmil Today R93.1 - Abnormal findings on diagnostic imaging of heart and coronary circulation Basic Metabolic Profile (BMP) Today I10 - Essential (primary) hypertension, R93.1 - Abnormal findings on diagnostic imaging of heart and coronary circulation Medications: New spironolactone (Aldactone) 25 mg PO DAILY 90 tabs 3RF Plan Details Follow Up: 6 Months (kr) Coding Level of Care Code Off vis,new,level 4 Diagnoses Elevated coronary artery calcium score R93.1 Essential hypertension I10 MVP (mitral valve prolapse) I34.1 Coding Level of Care Code Off vis,new,level 4 Diagnoses Elevated coronary artery calcium score R93.1 Essential hypertension I10 MVP (mitral valve prolapse) I34.1 03/22/22 1536 <Electronically signed by Get Sanchez MD> Date Get Sanchez MD Cosigner Signature: Date (if applicable) CC: MD Debbie Jacinto MD Work Phone: Start: 01-25-2022 End: 01-25-2022 NCS and/or EMG Patient Comments: See Note; NOTES: [facility] Pulmonary Services/Neurology [address] [place] [address] MR#: [id number] Acct: [id number] Name: NAHEED LAFLEUR SAMRA Rep #: [id number] : 1945 76 From: Elgin Jimenez MD Referring Dr: Debbie Chacon MD Status: REG CLI Location: [facility] Date: 01/25/22 Sex: F C NCS and/or EMG Patient Report Ordering Doctor: Debbie Chacon DATE OF SERVICE: 01/25/22 Naheed presents for electrodiagnostic testing of the right upper limb she reports numbness and tingling in the right hand. Electrodiagnostic findings: Right median motor nerve demonstrates prolonged distal latency with normal amplitude and reduced conduction velocity. Normal right ulnar motor response. Prolonged right median sensory latency at the wrist and palm. Normal ulnar and radial sensory responses. On needle EMG, all muscles tested in the right upper limb showed no evidence of denervation with normal motor unit action potentials. No denervation noted in the right cervical paraspinals. Electrodiagnostic impression: This is an abnormal study in the right upper limb 1. Electrodiagnostic findings suggestive of right-sided median neuropathy. This is consistent with a moderate right carpal tunnel syndrome. 2. No electrodiagnostic evidence is noted for cervical radiculopathy. 01/25/22 1501 <Electronically signed by Elgin Jimenez MD> Date Elgin Jimenez MD CC: Dr. Elgin Jimenez MD; Dr. Debbie Chacon MD Date Dictated: 01/25/221458 Date Transcribed: 01/25/221458 Assistant Program Manager: AA Signed Debbie Chacon MD Work Phone: Start: 01-08-2022 End: 01-08-[address] Comments: See Note; NOTES: [facility] Imaging Services [address] [place] [address] 01/08/221625 MR#: [id number] Acct: [id number] Name: NAHEED LAFLEUR Rep #: [id number] : 1945 76 From: Get Sanchez MD PCP: Dr. Debbie Chacon MD Status:DEP CLI Y Location: CT Calcium Scoring Coronary Calcium Scoring: High-resolution Computed Tomographic imaging of the chest was performed on [December 26 2021], with particular attention paid to the coronary arteries. Images from the examination were analyzed for the presence and extent of coronary artery calcification , using coronary calcium quantification software. The patient tolerated the procedure well and there were no complications. The results of the coronary calcification analysis are provided below. Left main coronary calcium score 0 Left anterior descending artery 327 Left circumflex artery 0 Right coronary artery 11.3. Total Agatston score 339. The above places the patient between the 75th and 90th percentile. Calcium Scoring Interpretation: 0 No identifiable atherosclerotic plaque. Very low cardiovascular disease risk. <5% chance of presence coronary artery disease A Negative Examination 1-10 Minimal Plaque burden. Significant coronary artery disease very unlikely. 11-100 Mild plaque burden. Likely mild or minimal coronary atherosclerosis. 101-400 Moderate plaque burden Moderate non-obstructive coronary artery disease highly likely. Over 400 Extensive plaque burden. High likelihood of at least one significant coronary stenosis (>50% diameter) 01/08/228 <Electronically signed by Get Sanchez MD> Date Get Swansonigner Signature (if applicable): Date CC: Dr. Debbie Chacon MD Signed Debbie Chacon MD Work Phone: Start: 01-04-2022 End: 01-04-2022 Abdomen/Pelvis WITH Contrast Comments: See Note; NOTES: [facility] Imaging Services [address] [place] [address] Abdomen/Pelvis WITH Contrast MR#: [id number] Acct: [id number] Name: NAHEED LAFLEUR Rep #: [id number] : 1945 F 76 From: Scout bales MD PCP: Dr. Debbie Chacon MD Status: REG CLI Study: Abdomen/Pelvis WITH Contrast Date of Exam: Exam# [id number] Ordering Dr: Debbie Chacon MD STUDY: CT ABDOMEN AND PELVIS WITH CONTRAST REASON FOR EXAM: Female, 76 years old. ABDOMINAL MASS RADIATION DOSAGE (If Supplied By Facility): CTDIvol = ( 16.71 ) mGy, DLP = ( 1006.74 ) mGycm TECHNIQUE: Transaxial images were obtained from the dome of the diaphragm to the symphysis pubis with oral contrast. Oral and amp; IV Readi-CAT and amp; 100mL Isovue-300 was administered. Sagittal and coronal images were reconstructed. Individualized dose optimization techniques were used for this CT. COMPARISON: Comparison is made with prior examination dated 05/25/2020. FINDINGS: Minimal degree of increased markings at the lung bases suggestive of mild atelectasis and/or scarring. The visualized portions of the heart are within normal limits. There is decreased attenuation of the liver consistent with steatosis. Prominent Phani''s lobe of the liver. Normal gallbladder and extrahepatic biliary system. Normal spleen. There is a 1.2 cm x 1.7 cm cyst in the body of the pancreas. Normal bilateral adrenal glands. Multiple bilateral renal cysts more prominent on the left side. Normal visualized stomach. Small duodenal diverticulum. There are multiple colonic diverticula consistent with diverticulosis. Moderate amount of fecal material is seen throughout the colon. The appendix is visualized and appears normal. There is scattered atherosclerotic calcification of the abdominal aorta, without a demonstrated aneurysm. Normal inferior vena cava. Normal retroperitoneum. Normal urinary bladder. Enlarged fibroid uterus. Normal abdominal wall. There are degenerative changes of the visualized lumbar spine. CT/Abdomen/Pelvis WITH Contrast IMPRESSION: Stable 1.2 cm x 1.7 cm cyst in the body of the pancreas. Multiple bilateral renal cysts more prominent on the left side. Fatty infiltration of the liver and prominent Phani''s lobe of the liver. Enlarged fibroid uterus. Electronically Signed: Scout Degroot MD at 14:51 EDT , CC: Dr. Debbie Chacon MD Assistant Program Manager: Signed Debbie Chacon MD Work Phone: Start: 01-04-2022 Computed tomography of abdomen and pelvis with contrast Dr. Debbie Chacon Work Phone: Start: 12-26-2021 CT angiography of coronary arteries Start: 12-26-2021 CT of chest Start: 12-26-2021 End: 12-27-[address] w/CCTA Comments: See Note; NOTES: [facility] Imaging Services [address] [place] [address] w/CCTA MR#: [id number] Acct: [id number] Name: NAHEED LAFLEUR SAMRA Rep #: [id number] : 1945 F 76 From: Nate Bright MD PCP: Dr. Debbie Chacon MD Status: REG CL Study: Limited Chest CT w/CCTA Date of Exam: 12/26/21 Exam# [id number] Ordering Dr: Debbie Chacon MD INDICATION: HYPERLIPIDEMIA EXAMINATION: CT CHEST WITHOUT CONTRAST - CT Chest W/O Contrast Injection TECHNIQUE: Helically acquired images were obtained of the chest for coronary artery scoring (performed by another service). A radiation dose optimization technique was used for this scan. IV Contrast dosage and agent: None. COMPARISON: MRI 07/01/2020 FINDINGS: LUNGS, PLEURA AND LARGE AIRWAYS: Mild subpleural atelectasis of the medial right lower lobe related to thoracic spondylosis. No pleural effusion or thickening. No pneumothorax. THYROID: No thyroid lesions. HEART AND PERICARDIUM: Heart size is normal. No pericardial effusion. CORONARY ARTERIES: Coronary artery calcification is seen. VESSELS: Thoracic aorta is not dilated. MEDIASTINUM AND LUI: No mediastinal or hilar adenopathy. UPPER ABDOMEN: The upper central abdomen posterior to the left hepatic lobe, there is a 1.5 x 2.0 cm nodule seen on the last 4 images, incompletely visualized. BONES: No suspicious lytic or blastic abnormality. CT/Limited Chest CT w/CCTA IMPRESSION: 1. 1.5 x 2.0 cm potential soft tissue nodule of the upper abdomen, incompletely visualized but not clearly seen on prior MRI. Recommend abdomen/pelvis CT with IV and oral contrast. Electronically Signed: Nate Bright MD (Brooks) at 8:57 EDT Reading Location ID and State: [address] [place] [address] , Service support , CC: Dr. Debbie Chacon MD Assistant Program Manager: Signed Debbie Chacon MD Work Phone: Start: 11-15-2021 End: 11-16-2021 Dexa Bone Density Study Comments: See Note; NOTES: [facility] Imaging Services [address] [place] [address] Dexa Bone Density Study MR#: [id number] Acct: [id number] Name: NAHEED LAFLEUR Rep #: [id number] : 1945 F 76 From: Scout bales MD PCP: Dr. Debbie Chacon MD Status: [facility] Study: Dexa Bone Density Study Date of Exam: 11/15/21 Exam# [id number] Ordering Dr: Debbie Chacon MD STUDY: DUAL ENERGY X-RAY ABSORPTIOMETRY / DXA REASON FOR EXAM: Female, 76 years old. Z78.0. Patient is postmenopausal. TECHNIQUE: Bone Mineral Density (BMD) measurements of lumbar spine and bilateral hips were obtained. COMPARISON: None. FINDINGS: Lumbar Spine (L1-L4): g/cm2 (1.067) / T-score (0.4) / Z-score (2.8) Findings are suggestive of normal bone density with a low fracture risk. Left Femur Total: g/cm2 (0.948) / T-score (0.0) / Z-score (1.9) Left Femoral Neck: g/cm2 (0.938) / T-score (0.8) / Z-score (2.9) Right Femur Total: g/cm2 (0.868) / T-score (-0.6) / Z-score (1.2) Right Femoral Neck: g/cm2 (0.799) / T-score (0.5) / Z-score (1.6) BD/Dexa Bone Density Study IMPRESSION: The patient is considered normal as outlined below according to World Sree Organization (WHO) criteria with a low fracture risk. Reference Information: The T-score is the number of standard deviations above or below the standard which is normal for young adults at their peak bone mineral density. The World Health Organization (WHO) interprets the T-scores as follows: Above -1 Normal bone density Between -1 and -2.5 Osteopenia Equal to / or below -2.5 Osteoporosis As a practical clinical guideline, osteopenia may be graded as follows: Mild -1 through -1.5 Moderate -1.6 through -2.0 Severe -2.1 through -2.4 The Z-score is the number of standard deviations above or below age-matched controls. A Z-score of less than -1.5 would be considered abnormal. References: 1. NIH Osteoporosis and Related Bone Diseases www osteo.org 2. International Society for Clinical Densitometry www iscd.org 3. National Osteoporosis Foundation www nof.org Electronically Signed: Scout Degroot MD at 12:24 EST Reading Location ID and State: [facility] / ID , Service support , CC: Dr. Debbie Chacon MD Assistant Program Manager: Signed Debbie Chacon MD Work Phone: Start: 11-15-2021 Dual energy X-ray absorptiometry Start: 07-27-2021 End: 07-27-2021 SCRN MAMM (CAD)W/SU BILAT Comments: See Note; NOTES: [facility] Imaging Services [address] [place] [address] SCRN MAMM (CAD)W/SU BILAT MR#: [id number] Acct: [id number] Name: NAHEED LAFLEUR Rep #: [id number] : 1945 F 76 From: Scout bales MD PCP: Dr. Debbie Chacon MD Status: [facility] Study: SCRN MAMM (CAD)W/SU BILAT Date of Exam: 07/11 03/30 Exam# [id number] Ordering Dr: Debbie Chacon MD MAMMOGRAPHY - BILATERAL SCREENING REASON FOR EXAM: Female, 76 years old. Routine annual screening examination. PERTINENT HISTORY: Mother with breast cancer. TECHNIQUE: Digital bilateral breast su (3D mammographic acquisition) in the CC and MLO projections. 2-D mediolateral oblique (MLO) and craniocaudad (CC) views of both breasts were obtained. CAD: Full Field Digital Mammography with Computer Added Detection was performed. COMPARISON: Comparison is made with prior study dated 08/08/2020 06/05/2019. FINDINGS: Breast Composition: The breasts are almost entirely fatty. There are no dominant masses or suspicious calcifications. Stable small benign-appearing bilateral axillary lymph nodes. No other significant abnormalities are identified. There has been no significant change since the prior study. BI/SCRN MAMM (CAD)W/SU BILAT IMPRESSION: Stable bilateral screening mammogram. Yearly follow-up mammogram recommended. (A) ASSESSMENT CATEGORY: BIRADS Category 2: Benign. A letter regarding these results will be sent to the patient by the facility within 30 days. Approximately 10% of breast cancers are not detected by mammography. A normal mammogram should not delay biopsy of a clinically suspicious abnormality. [id number] Electronically Signed: Scout Dgeroot MD at 14:53 EST , Service support , CC: Dr. Debbie Chacon MD Assistant Program Manager: Signed Debbie Chacon MD Work Phone: Start: 07-27-2021 End: 07-27-2021 Screening mammography JOHNNY Cervantes LPN Start: 04-28-2020 End: 04-28-2020 Screening colonoscopy JOHNNY Cervantes LPN Comment on above: Dr. Pedro repeat in 10 years Start: 01-06-2019 Antibody screen Comment on above: Order Comment: Cactus: Result Comment: Adilene ent was NOT transfused or in the past 3 months. Antibody screen not indicated. Start: 12-20-2018 Antibody screen Comment on above: Order Comment: Cactus: Start: 12-20-2018 Ecg routine ecg w/least 12 lds i&r only Arthrp kne condyle&platu medial&lat compartments JOHNNY Cervantes LPN Comment on above: [facility] [place] Arthrp kne condyle&platu medial&lat compartments Debbie Chacon MD Work Phone: Comment on above: [facility] [place], around 2017 Arthrp kne condyle&platu medial&lat compartments JOHNNY Cervantes LPN Comment on above: [facility] [place], around 2017 Arthrp kne condyle&platu medial&lat compartments Debbie Chacon MD Work Phone: Comment on above: [facility] [place], around 2017 Arthrp kne condyle&platu medial&lat compartments Valerie Sánchez LPN Comment on above: [facility] [place], around 2017 Arthrp kne condyle&platu medial&lat compartments Debbie Chacon MD Work Phone: Comment on above: [facility] [place], around 2017 Arthrp kne condyle&platu medial&lat compartments Debbie Cahcon MD Work Phone: Comment on above: [facility] [place], around 2017 Arthrp kne condyle&platu medial&lat compartments JOHNNY Cervantes LPN Comment on above: [facility] [place], around 2017 Arthrp kne condyle&platu medial&lat compartments Uzma Navarro CMA Comment on above: [facility] [place], around 2017 Arthrp kne condyle&platu medial&lat compartments Mellisa Paulino DO Work Phone: Comment on above: [facility] [place], around 2017 Arthrp kne condyle&platu medial&lat compartments Valerie Princess LPN Comment on above: [facility] [place], around 2017 Arthrp kne condyle&platu medial&lat compartments Valerie Princess LPN Comment on above: [facility] [place], around 2017 Arthrp kne condyle&platu medial&lat compartments Nanette Jackson MA Comment on above: [facility] [place], around 2017 Arthrp kne condyle&platu medial&lat compartments Aries Baker LPN Comment on above: [facility] [place], around 2017 Arthrp kne condyle&platu medial&lat compartments Valerie Princess LPN Comment on above: [facility] [place], around 2017 Arthrp kne condyle&platu medial&lat compartments Valerie Princess LPN Comment on above: [facility] [place], around 2017 Cataract extraction and insertion of intraocular lens JOHNNY Cervantes LPN Comment on above: bilateral Cataract extraction and insertion of intraocular lens JOHNNY Cervantes LPN Comment on above: bilateral Cataract extraction and insertion of intraocular lens Debbie Chacon MD Work Phone: Comment on above: bilateral Cataract extraction and insertion of intraocular lens Valerie Princess [employer] Comment on above: bilateral Cataract extraction and insertion of intraocular lens Debbie Chacon MD Work Phone: Comment on above: bilateral Cataract extraction and insertion of intraocular lens Debbie Chacon MD Work Phone: Comment on above: bilateral Cataract extraction and insertion of intraocular lens JOHNNY Billy AND [employer] Comment on above: bilateral Cataract extraction and insertion of intraocular lens Uzma Ivancharles MARKETING AUTOMATION MANAGER Comment on above: bilateral Cataract extraction and insertion of intraocular lens Mellisa Paulino DO Work Phone: Comment on above: bilateral Cataract extraction and insertion of intraocular lens Valerie Princess AND [employer] Comment on above: bilateral Cataract extraction and insertion of intraocular lens Valerie Princess AND [employer] Comment on above: bilateral Cataract extraction and insertion of intraocular lens Nanette Jackson MA Comment on above: bilateral Cataract extraction and insertion of intraocular lens Aries Olivia AND [employer] Comment on above: bilateral Cataract extraction and insertion of intraocular lens Valerie Princess AND [employer] [employer] Comment on above: bilateral Cataract extraction and insertion of intraocular lens Valerie Princess AND [employer] Comment on above: bilateral Plan of Treatment Date Care Activity Detail Author Start: 06-04-2023 Procedure Education Eprescribe d prescriptions (G8553) [facility] Work Phone: Start: 05-15-2023 Procedure Education Eprescribe d prescriptions (G8553) [facility]; [facility] Work Phone: Start: 05-15-2023 Basic metabolic pane l calcium total METABOLIC PANEL, BASIC (81138) [facility]; [facility] Work Phone: Start: 04-16-2023 Procedure Education Eprescribe d prescriptions (G8553) [facility]; [facility] Work Phone: Start: 02-06-2023 Procedure Education Eprescribe d prescriptions (G8553) [facility]; [facility] Work Phone: Start: 02-06-2023 Lipid panel LIPID PANEL (65363) [facility]; [facility] Work Phone: Start: 02-06-2023 Comprehensive metabo lic panel METABOLIC PANEL, COMPREHENSIVE (12211) [facility]; [facility] Work Phone: Start: 02-06-2023 Blood count manual c ell count each CBC with auto diff (76552) [facility]; [facility] Work Phone: Start: 02-06-2023 25 hydroxy includes fractions if performed CALCIFIDIOL (49258) VIT D 25 [facility]; [facility] Work Phone: Start: 01-08-2023 Procedure Education Eprescribe d prescriptions (G8553) [facility]; [facility] Work Phone: Start: 11-06-2022 Procedure Education Eprescribe d prescriptions (G8553) [facility]; [facility] Work Phone: Start: 11-06-2022 Basic metabolic pane l calcium total METABOLIC PANEL, BASIC (96176) [facility]; [facility] Work Phone: Start: 09-18-2022 25 hydroxy includes fractions if performed CALCIFIDIOL (75908) VIT D 25 [facility]; [facility] Work Phone: Start: 09-18-2022 Urnls dip stick/tabl et reagent auto microscopy URINALYSIS, W/ MICRO (84796) [facility]; [facility] Work Phone: Start: 09-18-2022 Urine albumin quantitative MICROALBUMIN: CREATININE RATIO (73088) AND (99614) [facility]; [facility] Work Phone: Start: 09-18-2022 Assay of thyroid stimulating hormone tsh TSH (41431) [facility]; [facility] Work Phone: Start: 09-18-2022 Comprehensive metabo lic panel METABOLIC PANEL, COMPREHENSIVE (49169) [facility]; [facility] Work Phone: Start: 09-18-2022 Blood count manual c ell count each CBC with auto diff (61405) [facility]; [facility] Work Phone: Start: 09-14-2022 Culture bacterial quanttative colony count urine URINE DINAH CULTURE (DARLENE COL COUNT) (93242) [facility]; [facility] Work Phone: Start: 04-17-2022 Procedure Education Eprescribe d prescriptions (G8553) [facility]; [facility] Work Phone: Start: 03-20-2022 Procedure Education Eprescribe d prescriptions (G8553) [facility]; [facility] Work Phone: Start: 02-27-2022 Natriuretic peptide BNTP (92403) [facility]; [facility] Work Phone: Start: 02-27-2022 Blood count manual c ell count each CBC with auto diff (01029) [facility]; [facility] Work Phone: Start: 02-27-2022 Comprehensive metabo lic panel METABOLIC PANEL, COMPREHENSIVE (51676) [facility]; [facility] Work Phone: Start: 02-27-2022 Culture bct isol&prsmptv id isolate ea urine URINE DINAH CULTURE-IDENTIFICATN (67649) [facility]; [facility] Work Phone: Start: 02-10-2022 Culture bct isol&prsmptv id isolate ea urine URINE DINAH CULTURE-IDENTIFICATN (21192) [facility]; [facility] Work Phone: Start: 02-10-2022 Urnls dip stick/tabl et rgnt non-auto w/o micrscp Urinalysis, Office (31091) [facility]; [facility] Work Phone: Start: 02-09-2022 Culture bct isol&prsmptv id isolate ea urine URINE DINAH CULTURE-IDENTIFICATN (00047) [facility]; [facility] Work Phone: Start: 02-09-2022 Urinalysis qual/semiquant except immunoassays URINALYSIS (61597) [facility]; [facility] Work Phone: Start: 01-23-2022 Procedure Education Eprescribe d prescriptions (G8553) [facility]; [facility] Work Phone: Start: 01-23-2022 Basic metabolic pane l calcium total METABOLIC PANEL, BASIC (02763) [facility]; [facility] Work Phone: Start: 01-23-2022 Culture bacterial quanttative colony count urine URINE DINAH CULTURE (DALRENE COL COUNT) (76781) [facility]; [facility] Work Phone: Start: 01-09-2022 Basic metabolic pane l calcium total METABOLIC PANEL, BASIC (48712) [facility]; [facility] Work Phone: Comment on above: 3 weeks Start: 12-29-2021 Provider Instruction s for Treatment Carpal Tunnel Injection [facility]; [facility] Work Phone: Start: 12-29-2021 Basic metabolic pane l calcium total METABOLIC PANEL, BASIC (30155) [facility]; [facility] Work Phone: Start: 11-22-2021 C-reactive protein h igh sensitivity C-REACT PROT HIGH SENS(hsCRP) (64957) [facility]; [facility] Work Phone: Start: 11-22-2021 Comprehensive metabo lic panel METABOLIC PANEL, COMPREHENSIVE (21548) [facility]; [facility] Work Phone: Start: 11-22-2021 Lipid panel LIPID PANEL (67303) [facility]; [facility] Work Phone: Start: 11-17-2021 Comprehensive metabo lic panel METABOLIC PANEL, COMPREHENSIVE (22385) [facility]; [facility] Work Phone: Comment on above: 4 months Start: 11-17-2021 Lipid panel LIPID PANEL (04995) [facility]; [facility] Work Phone: Comment on above: in 4months Start: 10-20-2021 ANCA-P (ANTI NEUTROP HIL CYTOPLASMIC ANTIBODY) ANCA-P (ANTI NEUTROPHIL CYTOPLASMIC ANTIBODY) [facility]; [facility] Work Phone: Start: 10-20-2021 ANCA-C (ANTI NEUTROP HIL CYTOPLASMIC ANTIBODY) ANCA-C (ANTI NEUTROPHIL CYTOPLASMIC ANTIBODY) [facility]; [facility] Work Phone: Start: 10-20-2021 Comprehensive metabo lic panel Metabolic Panel, Comprehensive (95475) [facility]; [facility] Work Phone: Start: 10-20-2021 Lipid panel Lipid Panel (06580) [facility]; [facility] Work Phone: Start: 10-20-2021 Basic metabolic pane l calcium total Metabolic Panel, Basic (49024) [facility]; [facility] Work Phone: Comment on above: 3 weeks Start: 10-20-2021 Urinalysis qual/semiquant except immunoassays URINALYSIS (84047) [facility]; [facility] Work Phone: Start: 10-20-2021 C-reactive protein h igh sensitivity C-REACT PROT HIGH SENS(hsCRP) (73420) [facility]; [facility] Work Phone: Start: 07-18-2021 Assay of arsenic HEAVY METALS, BLOOD 88418 (90394) [facility]; [facility] Work Phone: Blood chemistry [facility] Work Phone: Radionuclide imaging of perfusion of myocardium under exercise stress [facility] Work Phone: [facility] Work Phone: [facility] Work Phone: [facility] Work Phone: [facility] Work Phone: [facility] Work Phone: [facility] Work Phone: [facility] Work Phone: [facility] Work Phone: [facility] Work Phone: [facility] Work Phone: [facility] Work Phone: Immunizations Immunization Date Immunization Notes Care Provider Fa [facility] 07-14-2021 Seasonal, quadrivalent, recombinant, injectable influenza vaccine, preservative free Debbie Chacon MD Work Phone: [facility]; [facility] Work Phone: 07-11-2021 COVID-Moderna (100 MCG/0.5 ML) Debbie Chacon MD Work Phone: [facility]; [facility] Work Phone: 11-08-2020 COVID-Moderna (100 MCG/0.5 ML) Debbie Chacon MD Work Phone: [facility]; [facility] Work Phone: 10-11-2020 COVID-Moderna (100 MCG/0.5 ML) Debbie Chacon MD Work Phone: [facility]; [facility] Work Phone: Payers Date Payer Category Payer Self-pay [id number] 2023 Medicare [id number] 2021 Medicare [id number] 2021 Unknown [id number] 1945 Unknown [id number] 1945 Unknown [id number] Unknown Unknown [id number] Unknown [id number] Unknown [id number] Social History Date Type Detail Facility Alcohol Use: Alcohol Use: [facility] Work Phone: Comment on above: socially 1-2 month Current Work/Study Status: Current Work/Study Status: [facility]; [facility] 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 [facility] Work Phone: Comment on above: recent ly recent ly POA Yadiel Lafleur [phone] No Caffeine Use No Caffeine Use [facility]; [facility] Work Phone: Tobacco Use: Tobacco Use: [facility]; [facility] Work Phone: Start: 04-14-2020 End: 01-25-2023 Tobacco smoking status NHIS Unknown if ever smoked [facility] Start: 04-14-2020 Non-smoker [facility] Start: 1945 Sex Assigned At Female W [facility] Mental Status Date Assessment Result Facility 12-26-2021 Cognitive function Voice/Name [facility] Work Phone: Clinical Notes 11-03-2020 Note Date & Type Note Facility 11-03-2020 Note Patient Outreach (SUSANA LYONS) -- NAHEED LAFLEUR ([id number]) 1945 F Date Time Provider Department 11/03/20 TAWANDA BURGOS During your visit today, we recorded the following information about you: Allergies As of Date: 11/03/2020 Noted Allergy Reaction SULFA (SULFONAMIDE ANTIBIOTICS) 02/15/2019 17 - Unknown Date Reviewed: 02/15/2019 Reviewed by: Therese Combs Traveling Representative - Fully Assessed Order(s):SARS-COVID VACCINE 1ST DOSE APPT [[id number]] Order #: [id number] FUTURE Prescriptions as of 11/03/2020 Sig: TRIAMTERENE 37.5 MG-HYDROCHLO* triamterene 37.5 mg-hydrochlo* SIMVASTATIN 10 MG TABLET TAKE 1 TABLET BY MOUTH EVERY * MONTELUKAST 10 MG TABLET montelukast 10 mg tablet TA* LORAZEPAM 1 MG TABLET lorazepam 1 mg tablet TAKE * FLUTICASONE PROPIONATE 50 MCG* fluticasone propionate 50 mcg* ESCITALOPRAM 20 MG TABLET escitalopram 20 mg tablet T* ENALAPRIL MALEATE 5 MG TABLET enalapril maleate 5 mg tablet* Problem List As Of Date: 11/03/2020 (None) Letter Text Encounter Status:Closed by JACOB ALEXIS on 11/08/20 [facility] Evaluation note No assessment information availa [facility] Work Phone: Evaluation note Diagnosis Onset Date MVP (mitral valve prolapse) acute Elevated coronary artery calcium score chronic Essential hypertension [facility] Work Phone: Evaluation note* Diagnosis Onset Date Resolution Status Essential hypertension [facility] Work Phone: Instructions* Name Dates Details Patient Instructions Indication:Encounter for annual general medical examination with abnormal findings in adult Start:20-Oct-2021 Instruction Type:Provider Instructions for Treatment How to Access Health Informa tion Online using Patient Portal and [employer] Apps Indication:Encounter for annual general medical examination with abnormal findings in adult Start:20-Oct-2021 Instruction Type:Patient Education [facility]; [facility] Work Phone: Instructions* Name Dates Details Patient Instructions Indication:Encounter for annual general medical examination with abnormal findings in adult Start:20-Oct-2021 Instruction Type:Provider Instructions for Treatment How to Access Health Informa tion Online using Patient Portal and [employer] Indication:Encounter for annual general medical examination with abnormal findings in adult Start:20-Oct-2021 Instruction Type:Patient Education [facility]; [facility] Work Phone: instructions* Name Dates Details Patient Instructions Indication:Encounter for annual general medical examination with abnormal findings in adult Start:20-Oct-2021 Instruction Type:Provider Instructions for Treatment How to Access Health Informa tion Online using Patient Portal and [employer] Indication:Encounter for annual general medical examination with abnormal findings in adult Start:20-Oct-2021 Instruction Type:Patient Education [facility]; [facility] Work Phone: instructions* Name Dates Details Patient Instructions Indication:Encounter for annual general medical examination with abnormal findings in adult Start:20-Oct-2021 Instruction Type:Provider Instructions for Treatment How to Access Health Informa tion Online using Patient Portal and [employer] Indication:Encounter for annual general medical examination with abnormal findings in adult Start:20-Oct-2021 Instruction Type:Patient Education [facility]; [facility] Work Phone: instructions* Name Dates Details Patient Instructions Indication:Elevated high sensitivity C-reactive protein Start:17-Nov-2021 Instruction Type:Provider Instructions for Treatment How to Access Health Informa tion Online using Patient Portal and [employer] Indication:Elevated high sensitivity C-reactive protein Start:17-Nov-2021 Instruction Type:Patient Education Patient Instructions Indication:Encounter for annual general medical examination with abnormal findings in adult Start:20-Oct-2021 Instruction Type:Provider Instructions for Treatment How to Access Health Informa tion Online using Patient Portal and [employer] Indication:Encounter for annual general medical examination with abnormal findings in adult Start:20-Oct-2021 Instruction Type:Patient Education [facility]; [facility] Work Phone: instructions* Name Dates Details Patient Instructions Indication:Elevated high sensitivity C-reactive protein Start:17-Nov-2021 Instruction Type:Provider Instructions for Treatment How to Access Health Informa tion Online using Patient Portal and [employer] Indication:Elevated high sensitivity C-reactive protein Start:17-Nov-2021 Instruction Type:Patient Education Patient Instructions Indication:Encounter for annual general medical examination with abnormal findings in adult Start:20-Oct-2021 Instruction Type:Provider Instructions for Treatment How to Access Health Informa tion Online using Patient Portal and [employer] Indication:Encounter for annual general medical examination with abnormal findings in adult Start:20-Oct-2021 Instruction Type:Patient Education [facility]; [facility] Work Phone: [employer]* Name Dates Details Patient Instructions Indication:CTS (carpal tunnel syndrome) Start:01-Dec-2021 Instruction Type:Provider Instructions for Treatment Patient Instructions Indication:Elevated high sensitivity C-reactive protein Start:17-Nov-2021 Instruction Type:Provider Instructions for Treatment How to Access Health Informa tion Online using Patient [employer] and [employer] Indication:Elevated high sensitivity C-reactive protein Start:17-Nov-2021 Instruction Type:Patient Education Patient Instructions Indication:Encounter for annual general medical examination with abnormal findings in adult Start:20-Oct-2021 Instruction Type:Provider Instructions for Treatment How to Access Health Informa tion Online using Patient [employer] and [employer] Indication:Encounter for annual general medical examination with abnormal findings in adult Start:20-Oct-2021 Instruction Type:Patient Education [facility]; [facility] Work Phone: instructions* Name Dates Details Patient Instructions Indication:CTS (carpal tunnel syndrome) Start:01-Dec-2021 Instruction Type:Provider Instructions for Treatment Patient Instructions Indication:Elevated high sensitivity C-reactive protein Start:17-Nov-2021 Instruction Type:Provider Instructions for Treatment How to Access Health Informa tion Online using Patient [employer] and [employer] Indication:Elevated high sensitivity C-reactive protein Start:17-Nov-2021 Instruction Type:Patient Education Patient Instructions Indication:Encounter for annual general medical examination with abnormal findings in adult Start:20-Oct-2021 Instruction Type:Provider Instructions for Treatment How to Access Health Informa tion Online using Patient Portal and [employer] Indication:Encounter for annual general medical examination with abnormal findings in adult Start:20-Oct-2021 Instruction Type:Patient Education [facility]; [facility] Work Phone: instructions* Name Dates Details Patient Instructions Indication:BMI 30.0-30.9,adult Start:23-Jan-2022 Instruction Type:Provider Instructions for Treatment How to Access Health Informa tion Online using Patient Portal and [employer] Apps Indication:BMI 30.0-30.9,adult Start:23-Jan-2022 Instruction Type:Patient Education Patient Instructions Indication:CTS (carpal tunnel syndrome) Start:01-Dec-2021 Instruction Type:Provider Instructions for Treatment Patient Instructions Indication:Elevated high sensitivity C-reactive protein Start:17-Nov-2021 Instruction Type:Provider Instructions for Treatment How to Access Health Informa tion Online using Patient Portal and [employer] Indication:Elevated high sensitivity C-reactive protein Start:17-Nov-2021 Instruction Type:Patient Education Patient Instructions Indication:Encounter for annual general medical examination with abnormal findings in adult Start:20-Oct-2021 Instruction Type:Provider Instructions for Treatment How to Access Health Informa tion Online using Patient Portal and [employer] Indication:Encounter for annual general medical examination with abnormal findings in adult Start:20-Oct-2021 Instruction Type:Patient Education [facility]; [facility] Work Phone: Instructions* Name Dates Details Patient Instructions Indication:BMI 30.0-30.9,adult Start:23-Jan-2022 Instruction Type:Provider Instructions for Treatment How to Access Health Informa tion Online using Patient Portal and [employer] Indication:BMI 30.0-30.9,adult Start:23-Jan-2022 Instruction Type:Patient Education Patient Instructions Indication:CTS (carpal tunnel syndrome) Start:01-Dec-2021 Instruction Type:Provider Instructions for Treatment Patient Instructions Indication:Elevated high sensitivity C-reactive protein Start:17-Nov-2021 Instruction Type:Provider Instructions for Treatment How to Access Health Informa tion Online using Patient Portal and [employer] Indication:Elevated high sensitivity C-reactive protein Start:17-Nov-2021 Instruction Type:Patient Education Patient Instructions Indication:Encounter for annual general medical examination with abnormal findings in adult Start:20-Oct-2021 Instruction Type:Provider Instructions for Treatment How to Access Health Informa tion Online using Patient Portal and [employer] Indication:Encounter for annual general medical examination with abnormal findings in adult Start:20-Oct-2021 Instruction Type:Patient Education [facility]; [facility] Work Phone: Instructions* Name Dates Details Patient Instructions Indication:BMI 30.0-30.9,adult Start:23-Jan-2022 Instruction Type:Provider Instructions for Treatment How to Access Health Informa tion Online using Patient Portal and [employer] Indication:BMI 30.0-30.9,adult Start:23-Jan-2022 Instruction Type:Patient Education Patient Instructions Indication:CTS (carpal tunnel syndrome) Start:01-Dec-2021 Instruction Type:Provider Instructions for Treatment Patient Instructions Indication:Elevated high sensitivity C-reactive protein Start:17-Nov-2021 Instruction Type:Provider Instructions for Treatment How to Access Health Informa tion Online using Patient Portal and [employer] Indication:Elevated high sensitivity C-reactive protein Start:17-Nov-2021 Instruction Type:Patient Education Patient Instructions Indication:Encounter for annual general medical examination with abnormal findings in adult Start:20-Oct-2021 Instruction Type:Provider Instructions for Treatment How to Access Health Informa tion Online using Patient Portal and [employer] Indication:Encounter for annual general medical examination with abnormal findings in adult Start:20-Oct-2021 Instruction Type:Patient Education [facility]; [facility] Work Phone: Instructions* Name Dates Details Patient Instructions Indication:BMI 30.0-30.9,adult Start:23-Jan-2022 Instruction Type:Provider Instructions for Treatment How to Access Health Informa tion Online using Patient Portal and [employer] Indication:BMI 30.0-30.9,adult Start:23-Jan-2022 Instruction Type:Patient Education Patient Instructions Indication:CTS (carpal tunnel syndrome) Start:01-Dec-2021 Instruction Type:Provider Instructions for Treatment Patient Instructions Indication:Elevated high sensitivity C-reactive protein Start:17-Nov-2021 Instruction Type:Provider Instructions for Treatment How to Access Health Informa tion Online using Patient Portal and [employer] Indication:Elevated high sensitivity C-reactive protein Start:17-Nov-2021 Instruction Type:Patient Education Patient Instructions Indication:Encounter for annual general medical examination with abnormal findings in adult Start:20-Oct-2021 Instruction Type:Provider Instructions for Treatment How to Access Health Informa tion Online using Patient Portal and [employer] Apps Indication:Encounter for annual general medical examination with abnormal findings in adult Start:20-Oct-2021 Instruction Type:Patient Education [facility]; [facility] Work Phone: instructions* Name Dates Details Patient Instructions Indication:BMI 30.0-30.9,adult Start:23-Jan-2022 Instruction Type:Provider Instructions for Treatment How to Access Health Informa tion Online using Patient Portal and [employer] Indication:BMI 30.0-30.9,adult Start:23-Jan-2022 Instruction Type:Patient Education Patient Instructions Indication:CTS (carpal tunnel syndrome) Start:01-Dec-2021 Instruction Type:Provider Instructions for Treatment Patient Instructions Indication:Elevated high sensitivity C-reactive protein Start:17-Nov-2021 Instruction Type:Provider Instructions for Treatment How to Access Health Informa tion Online using Patient Portal and [employer] Indication:Elevated high sensitivity C-reactive protein Start:17-Nov-2021 Instruction Type:Patient Education Patient Instructions Indication:Encounter for annual general medical examination with abnormal findings in adult Start:20-Oct-2021 Instruction Type:Provider Instructions for Treatment How to Access Health Informa tion Online using Patient Portal and [employer] Indication:Encounter for annual general medical examination with abnormal findings in adult Start:20-Oct-2021 Instruction Type:Patient Education [facility]; [facility] Work Phone: instructions* Name Dates Details Patient Instructions Indication:Encounter for annual general medical examination with abnormal findings in adult Start:27-Feb-2022 Instruction Type:Provider Instructions for Treatment How to Access Health Informa tion Online using Patient Portal and [employer] Indication:Encounter for annual general medical examination with abnormal findings in adult Start:27-Feb-2022 Instruction Type:Patient Education Patient Instructions Indication:BMI 30.0-30.9,adult Start:23-Jan-2022 Instruction Type:Provider Instructions for Treatment How to Access Health Informa tion Online using Patient Portal and [employer] Indication:BMI 30.0-30.9,adult Start:23-Jan-2022 Instruction Type:Patient Education Patient Instructions Indication:CTS (carpal tunnel syndrome) Start:01-Dec-2021 Instruction Type:Provider Instructions for Treatment Patient Instructions Indication:Elevated high sensitivity C-reactive protein Start:17-Nov-2021 Instruction Type:Provider Instructions for Treatment How to Access Health Informa tion Online using Patient Portal and [employer] Indication:Elevated high sensitivity C-reactive protein Start:17-Nov-2021 Instruction Type:Patient Education Patient Instructions Indication:Encounter for annual general medical examination with abnormal findings in adult Start:20-Oct-2021 Instruction Type:Provider Instructions for Treatment How to Access Health Informa tion Online using Patient Portal and [employer] Indication:Encounter for annual general medical examination with abnormal findings in adult Start:20-Oct-2021 Instruction Type:Patient Education [facility]; [facility] Work Phone: [employer]* Name Dates Details Patient Instructions Indication:Encounter for annual general medical examination with abnormal findings in adult Start:27-Feb-2022 Instruction Type:Provider Instructions for Treatment How to Access Health Informa tion Online using Patient Portal and [employer] Indication:Encounter for annual general medical examination with abnormal findings in adult Start:27-Feb-2022 Instruction Type:Patient Education Patient Instructions Indication:BMI 30.0-30.9,adult Start:23-Jan-2022 Instruction Type:Provider Instructions for Treatment How to Access Health Informa tion Online using Patient Portal and [employer] Indication:BMI 30.0-30.9,adult Start:23-Jan-2022 Instruction Type:Patient Education Patient Instructions Indication:CTS (carpal tunnel syndrome) Start:01-Dec-2021 Instruction Type:Provider Instructions for Treatment Patient Instructions Indication:Elevated high sensitivity C-reactive protein Start:17-Nov-2021 Instruction Type:Provider Instructions for Treatment How to Access Health Informa tion Online using Patient Portal and [employer] Indication:Elevated high sensitivity C-reactive protein Start:17-Nov-2021 Instruction Type:Patient Education Patient Instructions Indication:Encounter for annual general medical examination with abnormal findings in adult Start:20-Oct-2021 Instruction Type:Provider Instructions for Treatment How to Access Health Informa tion Online using Patient Portal and [employer] Indication:Encounter for annual general medical examination with abnormal findings in adult Start:20-Oct-2021 Instruction Type:Patient Education [facility]; [facility] Work Phone: instructions* Name Dates Details Patient Instructions Indication:Encounter for annual general medical examination with abnormal findings in adult Start:27-Feb-2022 Instruction Type:Provider Instructions for Treatment How to Access Health Informa tion Online using Patient Portal and [employer] Indication:Encounter for annual general medical examination with abnormal findings in adult Start:27-Feb-2022 Instruction Type:Patient Education Patient Instructions Indication:BMI 30.0-30.9,adult Start:23-Jan-2022 Instruction Type:Provider Instructions for Treatment How to Access Health Informa tion Online using Patient Portal and [employer] Indication:BMI 30.0-30.9,adult Start:23-Jan-2022 Instruction Type:Patient Education Patient Instructions Indication:CTS (carpal tunnel syndrome) Start:01-Dec-2021 Instruction Type:Provider Instructions for Treatment Patient Instructions Indication:Elevated high sensitivity C-reactive protein Start:17-Nov-2021 Instruction Type:Provider Instructions for Treatment How to Access Health Informa tion Online using Patient Portal and [employer] Indication:Elevated high sensitivity C-reactive protein Start:17-Nov-2021 Instruction Type:Patient Education Patient Instructions Indication:Encounter for annual general medical examination with abnormal findings in adult Start:20-Oct-2021 Instruction Type:Provider Instructions for Treatment How to Access Health Informa tion Online using Patient Portal and [employer] Indication:Encounter for annual general medical examination with abnormal findings in adult Start:20-Oct-2021 Instruction Type:Patient Education [facility]; [facility] Work Phone: Instructions* Name Dates Details Patient Instructions Indication:Encounter for annual general medical examination with abnormal findings in adult Start:27-Feb-2022 Instruction Type:Provider Instructions for Treatment How to Access Health Informa tion Online using Patient Portal and [employer] Indication:Encounter for annual general medical examination with abnormal findings in adult Start:27-Feb-2022 Instruction Type:Patient Education Patient Instructions Indication:BMI 30.0-30.9,adult Start:23-Jan-2022 Instruction Type:Provider Instructions for Treatment How to Access Health Informa tion Online using Patient Portal and [employer] Indication:BMI 30.0-30.9,adult Start:23-Jan-2022 Instruction Type:Patient Education Patient Instructions Indication:CTS (carpal tunnel syndrome) Start:01-Dec-2021 Instruction Type:Provider Instructions for Treatment Patient Instructions Indication:Elevated high sensitivity C-reactive protein Start:17-Nov-2021 Instruction Type:Provider Instructions for Treatment How to Access Health Informa tion Online using Patient Portal and [employer] Indication:Elevated high sensitivity C-reactive protein Start:17-Nov-2021 Instruction Type:Patient Education Patient Instructions Indication:Encounter for annual general medical examination with abnormal findings in adult Start:20-Oct-2021 Instruction Type:Provider Instructions for Treatment How to Access Health Informa tion Online using Patient Portal and [employer] Indication:Encounter for annual general medical examination with abnormal findings in adult Start:20-Oct-2021 Instruction Type:Patient Education [facility]; [facility] Work Phone: Instructions* Name Dates Details Patient Instructions Indication:Non-smoker Start:20-Mar-2022 Instruction Type:Provider Instructions for Treatment How to Access Health Informa tion Online using Patient Portal and [employer] Indication:Non-smoker Start:20-Mar-2022 Instruction Type:Patient Education Patient Instructions Indication:Encounter for annual general medical examination with abnormal findings in adult Start:27-Feb-2022 Instruction Type:Provider Instructions for Treatment How to Access Health Informa tion Online using Patient Portal and [employer] Indication:Encounter for annual general medical examination with abnormal findings in adult Start:27-Feb-2022 Instruction Type:Patient Education Patient Instructions Indication:BMI 30.0-30.9,adult Start:23-Jan-2022 Instruction Type:Provider Instructions for Treatment How to Access Health Informa tion Online using Patient Portal and [employer] Indication:BMI 30.0-30.9,adult Start:23-Jan-2022 Instruction Type:Patient Education Patient Instructions Indication:CTS (carpal tunnel syndrome) Start:01-Dec-2021 Instruction Type:Provider Instructions for Treatment Patient Instructions Indication:Elevated high sensitivity C-reactive protein Start:17-Nov-2021 Instruction Type:Provider Instructions for Treatment How to Access Health Informa tion Online using Patient Portal and [employer] Indication:Elevated high sensitivity C-reactive protein Start:17-Nov-2021 Instruction Type:Patient Education Patient Instructions Indication:Encounter for annual general medical examination with abnormal findings in adult Start:20-Oct-2021 Instruction Type:Provider Instructions for Treatment How to Access Health Informa tion Online using Patient Portal and [employer] Indication:Encounter for annual general medical examination with abnormal findings in adult Start:20-Oct-2021 Instruction Type:Patient Education [facility]; [facility] Work Phone: instructions* Name Dates Details Patient Instructions Indication:Non-smoker Start:20-Mar-2022 Instruction Type:Provider Instructions for Treatment How to Access Health Informa tion Online using Patient Portal and [employer] Indication:Non-smoker Start:20-Mar-2022 Instruction Type:Patient Education Patient Instructions Indication:Encounter for annual general medical examination with abnormal findings in adult Start:27-Feb-2022 Instruction Type:Provider Instructions for Treatment How to Access Health Informa tion Online using Patient Portal and [employer] Indication:Encounter for annual general medical examination with abnormal findings in adult Start:27-Feb-2022 Instruction Type:Patient Education Patient Instructions Indication:BMI 30.0-30.9,adult Start:23-Jan-2022 Instruction Type:Provider Instructions for Treatment How to Access Health Informa tion Online using Patient Portal and [employer] Indication:BMI 30.0-30.9,adult Start:23-Jan-2022 Instruction Type:Patient Education Patient Instructions Indication:CTS (carpal tunnel syndrome) Start:01-Dec-2021 Instruction Type:Provider Instructions for Treatment Patient Instructions Indication:Elevated high sensitivity C-reactive protein Start:17-Nov-2021 Instruction Type:Provider Instructions for Treatment How to Access Health Informa tion Online using Patient Portal and [employer] Indication:Elevated high sensitivity C-reactive protein Start:17-Nov-2021 Instruction Type:Patient Education Patient Instructions Indication:Encounter for annual general medical examination with abnormal findings in adult Start:20-Oct-2021 Instruction Type:Provider Instructions for Treatment How to Access Health Informa tion Online using Patient Portal and [employer] Indication:Encounter for annual general medical examination with abnormal findings in adult Start:20-Oct-2021 Instruction Type:Patient Education [facility]; [facility] Work Phone: Instructions* Name Dates Details Patient Instructions Indication:Non-smoker Start:20-Mar-2022 Instruction Type:Provider Instructions for Treatment How to Access Health Informa tion Online using Patient Portal and [employer] Indication:Non-smoker Start:20-Mar-2022 Instruction Type:Patient Education Patient Instructions Indication:Encounter for annual general medical examination with abnormal findings in adult Start:27-Feb-2022 Instruction Type:Provider Instructions for Treatment How to Access Health Informa tion Online using Patient Portal and [employer] Indication:Encounter for annual general medical examination with abnormal findings in adult Start:27-Feb-2022 Instruction Type:Patient Education Patient Instructions Indication:BMI 30.0-30.9,adult Start:23-Jan-2022 Instruction Type:Provider Instructions for Treatment How to Access Health Informa tion Online using Patient Portal and [employer] Indication:BMI 30.0-30.9,adult Start:23-Jan-2022 Instruction Type:Patient Education Patient Instructions Indication:CTS (carpal tunnel syndrome) Start:01-Dec-2021 Instruction Type:Provider Instructions for Treatment Patient Instructions Indication:Elevated high sensitivity C-reactive protein Start:17-Nov-2021 Instruction Type:Provider Instructions for Treatment How to Access Health Informa tion Online using Patient Portal and [employer] Indication:Elevated high sensitivity C-reactive protein Start:17-Nov-2021 Instruction Type:Patient Education Patient Instructions Indication:Encounter for annual general medical examination with abnormal findings in adult Start:20-Oct-2021 Instruction Type:Provider Instructions for Treatment How to Access Health Informa tion Online using Patient Portal and [employer] Indication:Encounter for annual general medical examination with abnormal findings in adult Start:20-Oct-2021 Instruction Type:Patient Education [facility]; [facility] Work Phone: Instructions* Name Dates Details Patient Instructions Indication:Non-smoker Start:20-Mar-2022 Instruction Type:Provider Instructions for Treatment How to Access Health Informa tion Online using Patient Portal and [employer] Indication:Non-smoker Start:20-Mar-2022 Instruction Type:Patient Education Patient Instructions Indication:Encounter for annual general medical examination with abnormal findings in adult Start:27-Feb-2022 Instruction Type:Provider Instructions for Treatment How to Access Health Informa tion Online using Patient Portal and [employer] Indication:Encounter for annual general medical examination with abnormal findings in adult Start:27-Feb-2022 Instruction Type:Patient Education Patient Instructions Indication:BMI 30.0-30.9,adult Start:23-Jan-2022 Instruction Type:Provider Instructions for Treatment How to Access Health Informa tion Online using Patient Portal and [employer] Indication:BMI 30.0-30.9,adult Start:23-Jan-2022 Instruction Type:Patient Education Patient Instructions Indication:CTS (carpal tunnel syndrome) Start:01-Dec-2021 Instruction Type:Provider Instructions for Treatment Patient Instructions Indication:Elevated high sensitivity C-reactive protein Start:17-Nov-2021 Instruction Type:Provider Instructions for Treatment How to Access Health Informa tion Online using Patient Portal and [employer] Indication:Elevated high sensitivity C-reactive protein Start:17-Nov-2021 Instruction Type:Patient Education Patient Instructions Indication:Encounter for annual general medical examination with abnormal findings in adult Start:20-Oct-2021 Instruction Type:Provider Instructions for Treatment How to Access Health Informa tion Online using Patient Portal and [employer] Indication:Encounter for annual general medical examination with abnormal findings in adult Start:20-Oct-2021 Instruction Type:Patient Education [facility]; [facility] Work Phone: Instructions* Name Dates Details Patient Instructions Indication:Non-smoker Start:20-Mar-2022 Instruction Type:Provider Instructions for Treatment How to Access Health Informa tion Online using Patient Portal and [employer] Indication:Non-smoker Start:20-Mar-2022 Instruction Type:Patient Education Patient Instructions Indication:Encounter for annual general medical examination with abnormal findings in adult Start:27-Feb-2022 Instruction Type:Provider Instructions for Treatment How to Access Health Informa tion Online using Patient Portal and [employer] Indication:Encounter for annual general medical examination with abnormal findings in adult Start:27-Feb-2022 Instruction Type:Patient Education Patient Instructions Indication:BMI 30.0-30.9,adult Start:23-Jan-2022 Instruction Type:Provider Instructions for Treatment How to Access Health Informa tion Online using Patient Portal and [employer] Indication:BMI 30.0-30.9,adult Start:23-Jan-2022 Instruction Type:Patient Education Patient Instructions Indication:CTS (carpal tunnel syndrome) Start:01-Dec-2021 Instruction Type:Provider Instructions for Treatment Patient Instructions Indication:Elevated high sensitivity C-reactive protein Start:17-Nov-2021 Instruction Type:Provider Instructions for Treatment How to Access Health Informa tion Online using Patient Portal and [employer] Indication:Elevated high sensitivity C-reactive protein Start:17-Nov-2021 Instruction Type:Patient Education Patient Instructions Indication:Encounter for annual general medical examination with abnormal findings in adult Start:20-Oct-2021 Instruction Type:Provider Instructions for Treatment How to Access Health Informa tion Online using Patient Portal and [employer] Indication:Encounter for annual general medical examination with abnormal findings in adult Start:20-Oct-2021 Instruction Type:Patient Education [facility]; [facility] Work Phone: instructions* Name Dates Details Patient Instructions Indication:COVID Start:17-Apr-2022 Instruction Type:Provider Instructions for Treatment Patient Instructions Indication:Non-smoker Start:20-Mar-2022 Instruction Type:Provider Instructions for Treatment How to Access Health Informa tion Online using Patient Portal and [employer] Indication:Non-smoker Start:20-Mar-2022 Instruction Type:Patient Education Patient Instructions Indication:Encounter for annual general medical examination with abnormal findings in adult Start:27-Feb-2022 Instruction Type:Provider Instructions for Treatment How to Access Health Informa tion Online using Patient Portal and [employer] Indication:Encounter for annual general medical examination with abnormal findings in adult Start:27-Feb-2022 Instruction Type:Patient Education Patient Instructions Indication:BMI 30.0-30.9,adult Start:23-Jan-2022 Instruction Type:Provider Instructions for Treatment How to Access Health Informa tion Online using Patient Portal and [employer] Indication:BMI 30.0-30.9,adult Start:23-Jan-2022 Instruction Type:Patient Education Patient Instructions Indication:CTS (carpal tunnel syndrome) Start:01-Dec-2021 Instruction Type:Provider Instructions for Treatment Patient Instructions Indication:Elevated high sensitivity C-reactive protein Start:17-Nov-2021 Instruction Type:Provider Instructions for Treatment How to Access Health Informa tion Online using Patient Portal and [employer] Indication:Elevated high sensitivity C-reactive protein Start:17-Nov-2021 Instruction Type:Patient Education Patient Instructions Indication:Encounter for annual general medical examination with abnormal findings in adult Start:20-Oct-2021 Instruction Type:Provider Instructions for Treatment How to Access Health Informa tion Online using Patient Portal and [employer] Indication:Encounter for annual general medical examination with abnormal findings in adult Start:20-Oct-2021 Instruction Type:Patient Education [facility]; [facility] Work Phone: instructions* Name Dates Details Patient Instructions Indication:COVID Start:17-Apr-2022 Instruction Type:Provider Instructions for Treatment Patient Instructions Indication:Non-smoker Start:20-Mar-2022 Instruction Type:Provider Instructions for Treatment How to Access Health Informa tion Online using Patient Portal and [employer] Indication:Non-smoker Start:20-Mar-2022 Instruction Type:Patient Education Patient Instructions Indication:Encounter for annual general medical examination with abnormal findings in adult Start:27-Feb-2022 Instruction Type:Provider Instructions for Treatment How to Access Health Informa tion Online using Patient Portal and [employer] Indication:Encounter for annual general medical examination with abnormal findings in adult Start:27-Feb-2022 Instruction Type:Patient Education Patient Instructions Indication:BMI 30.0-30.9,adult Start:23-Jan-2022 Instruction Type:Provider Instructions for Treatment How to Access Health Informa tion Online using Patient Portal and [employer] Indication:BMI 30.0-30.9,adult Start:23-Jan-2022 Instruction Type:Patient Education Patient Instructions Indication:CTS (carpal tunnel syndrome) Start:01-Dec-2021 Instruction Type:Provider Instructions for Treatment Patient Instructions Indication:Elevated high sensitivity C-reactive protein Start:17-Nov-2021 Instruction Type:Provider Instructions for Treatment How to Access Health Informa tion Online using Patient Portal and [employer] Indication:Elevated high sensitivity C-reactive protein Start:17-Nov-2021 Instruction Type:Patient Education Patient Instructions Indication:Encounter for annual general medical examination with abnormal findings in adult Start:20-Oct-2021 Instruction Type:Provider Instructions for Treatment How to Access Health Informa tion Online using Patient Portal and [employer] Indication:Encounter for annual general medical examination with abnormal findings in adult Start:20-Oct-2021 Instruction Type:Patient Education [facility]; [facility] Work Phone: Instructions* Name Dates Details Patient Instructions Indication:COVID Start:17-Apr-2022 Instruction Type:Provider Instructions for Treatment Patient Instructions Indication:Non-smoker Start:20-Mar-2022 Instruction Type:Provider Instructions for Treatment How to Access Health Informa tion Online using Patient Portal and [employer] Indication:Non-smoker Start:20-Mar-2022 Instruction Type:Patient Education Patient Instructions Indication:Encounter for annual general medical examination with abnormal findings in adult Start:27-Feb-2022 Instruction Type:Provider Instructions for Treatment How to Access Health Informa tion Online using Patient Portal and [employer] Indication:Encounter for annual general medical examination with abnormal findings in adult Start:27-Feb-2022 Instruction Type:Patient Education Patient Instructions Indication:BMI 30.0-30.9,adult Start:23-Jan-2022 Instruction Type:Provider Instructions for Treatment How to Access Health Informa tion Online using Patient Portal and [employer] Indication:BMI 30.0-30.9,adult Start:23-Jan-2022 Instruction Type:Patient Education Patient Instructions Indication:CTS (carpal tunnel syndrome) Start:01-Dec-2021 Instruction Type:Provider Instructions for Treatment Patient Instructions Indication:Elevated high sensitivity C-reactive protein Start:17-Nov-2021 Instruction Type:Provider Instructions for Treatment How to Access Health Informa tion Online using Patient Portal and [employer] Indication:Elevated high sensitivity C-reactive protein Start:17-Nov-2021 Instruction Type:Patient Education Patient Instructions Indication:Encounter for annual general medical examination with abnormal findings in adult Start:20-Oct-2021 Instruction Type:Provider Instructions for Treatment How to Access Health Informa tion Online using Patient Portal and [employer] Indication:Encounter for annual general medical examination with abnormal findings in adult Start:20-Oct-2021 Instruction Type:Patient Education [facility]; [facility] Work Phone: Instructions* Name Dates Details Patient Instructions Indication:COVID Start:17-Apr-2022 Instruction Type:Provider Instructions for Treatment Patient Instructions Indication:Non-smoker Start:20-Mar-2022 Instruction Type:Provider Instructions for Treatment How to Access Health Informa tion Online using Patient Portal and [employer] Indication:Non-smoker Start:20-Mar-2022 Instruction Type:Patient Education Patient Instructions Indication:Encounter for annual general medical examination with abnormal findings in adult Start:27-Feb-2022 Instruction Type:Provider Instructions for Treatment How to Access Health Informa tion Online using Patient Portal and [employer] Indication:Encounter for annual general medical examination with abnormal findings in adult Start:27-Feb-2022 Instruction Type:Patient Education Patient Instructions Indication:BMI 30.0-30.9,adult Start:23-Jan-2022 Instruction Type:Provider Instructions for Treatment How to Access Health Informa tion Online using Patient Portal and [employer] Indication:BMI 30.0-30.9,adult Start:23-Jan-2022 Instruction Type:Patient Education Patient Instructions Indication:CTS (carpal tunnel syndrome) Start:01-Dec-2021 Instruction Type:Provider Instructions for Treatment Patient Instructions Indication:Elevated high sensitivity C-reactive protein Start:17-Nov-2021 Instruction Type:Provider Instructions for Treatment How to Access Health Informa tion Online using Patient Portal and [employer] Indication:Elevated high sensitivity C-reactive protein Start:17-Nov-2021 Instruction Type:Patient Education Patient Instructions Indication:Encounter for annual general medical examination with abnormal findings in adult Start:20-Oct-2021 Instruction Type:Provider Instructions for Treatment How to Access Health Informa tion Online using Patient Portal and [employer] Indication:Encounter for annual general medical examination with abnormal findings in adult Start:20-Oct-2021 Instruction Type:Patient Education [facility]; [facility] Work Phone: Instructions* Name Dates Details Patient Instructions Indication:COVID Start:17-Apr-2022 Instruction Type:Provider Instructions for Treatment Patient Instructions Indication:Non-smoker Start:20-Mar-2022 Instruction Type:Provider Instructions for Treatment How to Access Health Informa tion Online using Patient Portal and [employer] Indication:Non-smoker Start:20-Mar-2022 Instruction Type:Patient Education Patient Instructions Indication:Encounter for annual general medical examination with abnormal findings in adult Start:27-Feb-2022 Instruction Type:Provider Instructions for Treatment How to Access Health Informa tion Online using Patient Portal and [employer] Indication:Encounter for annual general medical examination with abnormal findings in adult Start:27-Feb-2022 Instruction Type:Patient Education Patient Instructions Indication:BMI 30.0-30.9,adult Start:23-Jan-2022 Instruction Type:Provider Instructions for Treatment How to Access Health Informa tion Online using Patient [employer] and [employer] Indication:BMI 30.0-30.9,adult Start:23-Jan-2022 Instruction Type:Patient Education Patient Instructions Indication:CTS (carpal tunnel syndrome) Start:01-Dec-2021 Instruction Type:Provider Instructions for Treatment Patient Instructions Indication:Elevated high sensitivity C-reactive protein Start:17-Nov-2021 Instruction Type:Provider Instructions for Treatment How to Access Health Informa tion Online using Patient Portal and [employer] Indication:Elevated high sensitivity C-reactive protein Start:17-Nov-2021 Instruction Type:Patient Education Patient Instructions Indication:Encounter for annual general medical examination with abnormal findings in adult Start:20-Oct-2021 Instruction Type:Provider Instructions for Treatment How to Access Health Informa tion Online using Patient Portal and [employer] Indication:Encounter for annual general medical examination with abnormal findings in adult Start:20-Oct-2021 Instruction Type:Patient Education [facility]; [facility] Work Phone: Instructions* Name Dates Details Patient Instructions Indication:BMI 31.0-31.9,adult Start:06-Nov-2022 Instruction Type:Provider Instructions for Treatment How to Access Health Informa tion Online using Patient Portal and [employer] Indication:BMI 31.0-31.9,adult Start:06-Nov-2022 Instruction Type:Patient Education Patient Instructions Indication:COVID Start:17-Apr-2022 Instruction Type:Provider Instructions for Treatment Patient Instructions Indication:Non-smoker Start:20-Mar-2022 Instruction Type:Provider Instructions for Treatment How to Access Health Informa tion Online using Patient Portal and [employer] Indication:Non-smoker Start:20-Mar-2022 Instruction Type:Patient Education Patient Instructions Indication:Encounter for annual general medical examination with abnormal findings in adult Start:27-Feb-2022 Instruction Type:Provider Instructions for Treatment How to Access Health Informa tion Online using Patient Portal and [employer] Indication:Encounter for annual general medical examination with abnormal findings in adult Start:27-Feb-2022 Instruction Type:Patient Education Patient Instructions Indication:BMI 30.0-30.9,adult Start:23-Jan-2022 Instruction Type:Provider Instructions for Treatment How to Access Health Informa tion Online using Patient Portal and [employer] Indication:BMI 30.0-30.9,adult Start:23-Jan-2022 Instruction Type:Patient Education Patient Instructions Indication:CTS (carpal tunnel syndrome) Start:01-Dec-2021 Instruction Type:Provider Instructions for Treatment Patient Instructions Indication:Elevated high sensitivity C-reactive protein Start:17-Nov-2021 Instruction Type:Provider Instructions for Treatment How to Access Health Informa tion Online using Patient Portal and [employer] Indication:Elevated high sensitivity C-reactive protein Start:17-Nov-2021 Instruction Type:Patient Education Patient Instructions Indication:Encounter for annual general medical examination with abnormal findings in adult Start:20-Oct-2021 Instruction Type:Provider Instructions for Treatment How to Access Health Informa tion Online using Patient Portal and [employer] Indication:Encounter for annual general medical examination with abnormal findings in adult Start:20-Oct-2021 Instruction Type:Patient Education [facility]; [facility] Work Phone: Instructions* Name Dates Details Patient Instructions Indication:BMI 31.0-31.9,adult Start:06-Nov-2022 Instruction Type:Provider Instructions for Treatment How to Access Health Informa tion Online using Patient Portal and [employer] Indication:BMI 31.0-31.9,adult Start:06-Nov-2022 Instruction Type:Patient Education Patient Instructions Indication:COVID Start:17-Apr-2022 Instruction Type:Provider Instructions for Treatment Patient Instructions Indication:Non-smoker Start:20-Mar-2022 Instruction Type:Provider Instructions for Treatment How to Access Health Informa tion Online using Patient Portal and [employer] Indication:Non-smoker Start:20-Mar-2022 Instruction Type:Patient Education Patient Instructions Indication:Encounter for annual general medical examination with abnormal findings in adult Start:27-Feb-2022 Instruction Type:Provider Instructions for Treatment How to Access Health Informa tion Online using Patient Portal and [employer] Indication:Encounter for annual general medical examination with abnormal findings in adult Start:27-Feb-2022 Instruction Type:Patient Education Patient Instructions Indication:BMI 30.0-30.9,adult Start:23-Jan-2022 Instruction Type:Provider Instructions for Treatment How to Access Health Informa tion Online using Patient Portal and [employer] Indication:BMI 30.0-30.9,adult Start:23-Jan-2022 Instruction Type:Patient Education Patient Instructions Indication:CTS (carpal tunnel syndrome) Start:01-Dec-2021 Instruction Type:Provider Instructions for Treatment Patient Instructions Indication:Elevated high sensitivity C-reactive protein Start:17-Nov-2021 Instruction Type:Provider Instructions for Treatment How to Access Health Informa tion Online using Patient Portal and [employer] Indication:Elevated high sensitivity C-reactive protein Start:17-Nov-2021 Instruction Type:Patient Education Patient Instructions Indication:Encounter for annual general medical examination with abnormal findings in adult Start:20-Oct-2021 Instruction Type:Provider Instructions for Treatment How to Access Health Informa tion Online using Patient Portal and [employer] Indication:Encounter for annual general medical examination with abnormal findings in adult Start:20-Oct-2021 Instruction Type:Patient Education [facility]; [facility] Work Phone: Instructions* Name Dates Details Patient Instructions Indication:BMI 31.0-31.9,adult Start:06-Nov-2022 Instruction Type:Provider Instructions for Treatment How to Access Health Informa tion Online using Patient Portal and [employer] Indication:BMI 31.0-31.9,adult Start:06-Nov-2022 Instruction Type:Patient Education Patient Instructions Indication:COVID Start:17-Apr-2022 Instruction Type:Provider Instructions for Treatment Patient Instructions Indication:Non-smoker Start:20-Mar-2022 Instruction Type:Provider Instructions for Treatment How to Access Health Informa tion Online using Patient Portal and [employer] Indication:Non-smoker Start:20-Mar-2022 Instruction Type:Patient Education Patient Instructions Indication:Encounter for annual general medical examination with abnormal findings in adult Start:27-Feb-2022 Instruction Type:Provider Instructions for Treatment How to Access Health Informa tion Online using Patient Portal and [employer] Indication:Encounter for annual general medical examination with abnormal findings in adult Start:27-Feb-2022 Instruction Type:Patient Education Patient Instructions Indication:BMI 30.0-30.9,adult Start:23-Jan-2022 Instruction Type:Provider Instructions for Treatment How to Access Health Informa tion Online using Patient Portal and [employer] Indication:BMI 30.0-30.9,adult Start:23-Jan-2022 Instruction Type:Patient Education Patient Instructions Indication:CTS (carpal tunnel syndrome) Start:01-Dec-2021 Instruction Type:Provider Instructions for Treatment Patient Instructions Indication:Elevated high sensitivity C-reactive protein Start:17-Nov-2021 Instruction Type:Provider Instructions for Treatment How to Access Health Informa tion Online using Patient Portal and [employer] Indication:Elevated high sensitivity C-reactive protein Start:17-Nov-2021 Instruction Type:Patient Education Patient Instructions Indication:Encounter for annual general medical examination with abnormal findings in adult Start:20-Oct-2021 Instruction Type:Provider Instructions for Treatment How to Access Health Informa tion Online using Patient Portal and [employer] Indication:Encounter for annual general medical examination with abnormal findings in adult Start:20-Oct-2021 Instruction Type:Patient Education [facility]; [facility] Work Phone: Instructions* Name Dates Details Patient Instructions Indication:BMI 31.0-31.9,adult Start:06-Nov-2022 Instruction Type:Provider Instructions for Treatment How to Access Health Informa tion Online using Patient Portal and [employer] Indication:BMI 31.0-31.9,adult Start:06-Nov-2022 Instruction Type:Patient Education Patient Instructions Indication:COVID Start:17-Apr-2022 Instruction Type:Provider Instructions for Treatment Patient Instructions Indication:Non-smoker Start:20-Mar-2022 Instruction Type:Provider Instructions for Treatment How to Access Health Informa tion Online using Patient Portal and [employer] Indication:Non-smoker Start:20-Mar-2022 Instruction Type:Patient Education Patient Instructions Indication:Encounter for annual general medical examination with abnormal findings in adult Start:27-Feb-2022 Instruction Type:Provider Instructions for Treatment How to Access Health Informa tion Online using Patient Portal and [employer] Indication:Encounter for annual general medical examination with abnormal findings in adult Start:27-Feb-2022 Instruction Type:Patient Education Patient Instructions Indication:BMI 30.0-30.9,adult Start:23-Jan-2022 Instruction Type:Provider Instructions for Treatment How to Access Health Informa tion Online using Patient Portal and [employer] Indication:BMI 30.0-30.9,adult Start:23-Jan-2022 Instruction Type:Patient Education Patient Instructions Indication:CTS (carpal tunnel syndrome) Start:01-Dec-2021 Instruction Type:Provider Instructions for Treatment Patient Instructions Indication:Elevated high sensitivity C-reactive protein Start:17-Nov-2021 Instruction Type:Provider Instructions for Treatment How to Access Health Informa tion Online using Patient Portal and [employer] Indication:Elevated high sensitivity C-reactive protein Start:17-Nov-2021 Instruction Type:Patient Education Patient Instructions Indication:Encounter for annual general medical examination with abnormal findings in adult Start:20-Oct-2021 Instruction Type:Provider Instructions for Treatment How to Access Health Informa tion Online using Patient Portal and [employer] Indication:Encounter for annual general medical examination with abnormal findings in adult Start:20-Oct-2021 Instruction Type:Patient Education [facility]; [facility] Work Phone: Instructions* Name Dates Details Patient Instructions Indication:BMI 31.0-31.9,adult Start:08-Jan-2023 Instruction Type:Provider Instructions for Treatment How to Access Health Informa tion Online using Patient Portal and [employer] Indication:BMI 31.0-31.9,adult Start:08-Jan-2023 Instruction Type:Patient Education Patient Instructions Indication:BMI 31.0-31.9,adult Start:06-Nov-2022 Instruction Type:Provider Instructions for Treatment How to Access Health Informa tion Online using Patient Portal and [employer] Indication:BMI 31.0-31.9,adult Start:06-Nov-2022 Instruction Type:Patient Education Patient Instructions Indication:COVID Start:17-Apr-2022 Instruction Type:Provider Instructions for Treatment Patient Instructions Indication:Non-smoker Start:20-Mar-2022 Instruction Type:Provider Instructions for Treatment How to Access Health Informa tion Online using Patient Portal and [employer] Indication:Non-smoker Start:20-Mar-2022 Instruction Type:Patient Education Patient Instructions Indication:Encounter for annual general medical examination with abnormal findings in adult Start:27-Feb-2022 Instruction Type:Provider Instructions for Treatment How to Access Health Informa tion Online using Patient Portal and [employer] Indication:Encounter for annual general medical examination with abnormal findings in adult Start:27-Feb-2022 Instruction Type:Patient Education Patient Instructions Indication:BMI 30.0-30.9,adult Start:23-Jan-2022 Instruction Type:Provider Instructions for Treatment How to Access Health Informa tion Online using Patient Portal and [employer] Indication:BMI 30.0-30.9,adult Start:23-Jan-2022 Instruction Type:Patient Education Patient Instructions Indication:CTS (carpal tunnel syndrome) Start:01-Dec-2021 Instruction Type:Provider Instructions for Treatment Patient Instructions Indication:Elevated high sensitivity C-reactive protein Start:17-Nov-2021 Instruction Type:Provider Instructions for Treatment How to Access Health Informa tion Online using Patient Portal and [employer] Indication:Elevated high sensitivity C-reactive protein Start:17-Nov-2021 Instruction Type:Patient Education Patient Instructions Indication:Encounter for annual general medical examination with abnormal findings in adult Start:20-Oct-2021 Instruction Type:Provider Instructions for Treatment How to Access Health Informa tion Online using Patient Portal and [employer] Indication:Encounter for annual general medical examination with abnormal findings in adult Start:20-Oct-2021 Instruction Type:Patient Education [facility]; [facility] Work Phone: Instructions* Name Dates Details Patient Instructions Indication:BMI 31.0-31.9,adult Start:08-Jan-2023 Instruction Type:Provider Instructions for Treatment How to Access Health Informa tion Online using Patient Portal and [employer] Indication:BMI 31.0-31.9,adult Start:08-Jan-2023 Instruction Type:Patient Education Patient Instructions Indication:BMI 31.0-31.9,adult Start:06-Nov-2022 Instruction Type:Provider Instructions for Treatment How to Access Health Informa tion Online using Patient Portal and [employer] Indication:BMI 31.0-31.9,adult Start:06-Nov-2022 Instruction Type:Patient Education Patient Instructions Indication:COVID Start:17-Apr-2022 Instruction Type:Provider Instructions for Treatment Patient Instructions Indication:Non-smoker Start:20-Mar-2022 Instruction Type:Provider Instructions for Treatment How to Access Health Informa tion Online using Patient Portal and [employer] Indication:Non-smoker Start:20-Mar-2022 Instruction Type:Patient Education Patient Instructions Indication:Encounter for annual general medical examination with abnormal findings in adult Start:27-Feb-2022 Instruction Type:Provider Instructions for Treatment How to Access Health Informa tion Online using Patient Portal and [employer] Indication:Encounter for annual general medical examination with abnormal findings in adult Start:27-Feb-2022 Instruction Type:Patient Education Patient Instructions Indication:BMI 30.0-30.9,adult Start:23-Jan-2022 Instruction Type:Provider Instructions for Treatment How to Access Health Informa tion Online using Patient Portal and [employer] Indication:BMI 30.0-30.9,adult Start:23-Jan-2022 Instruction Type:Patient Education Patient Instructions Indication:CTS (carpal tunnel syndrome) Start:01-Dec-2021 Instruction Type:Provider Instructions for Treatment Patient Instructions Indication:Elevated high sensitivity C-reactive protein Start:17-Nov-2021 Instruction Type:Provider Instructions for Treatment How to Access Health Informa tion Online using Patient Portal and [employer] Indication:Elevated high sensitivity C-reactive protein Start:17-Nov-2021 Instruction Type:Patient Education Patient Instructions Indication:Encounter for annual general medical examination with abnormal findings in adult Start:20-Oct-2021 Instruction Type:Provider Instructions for Treatment How to Access Health Informa tion Online using Patient Portal and [employer] Indication:Encounter for annual general medical examination with abnormal findings in adult Start:20-Oct-2021 Instruction Type:Patient Education [facility]; [facility] Work Phone: Instructions* Name Dates Details Patient Instructions Indication:Non-smoker Start:06-Feb-2023 Instruction Type:Provider Instructions for Treatment How to Access Health Informa tion Online using Patient Portal and [employer] Indication:Non-smoker Start:06-Feb-2023 Instruction Type:Patient Education Patient Instructions Indication:BMI 31.0-31.9,adult Start:08-Jan-2023 Instruction Type:Provider Instructions for Treatment How to Access Health Informa tion Online using Patient Portal and [employer] Indication:BMI 31.0-31.9,adult Start:08-Jan-2023 Instruction Type:Patient Education Patient Instructions Indication:BMI 31.0-31.9,adult Start:06-Nov-2022 Instruction Type:Provider Instructions for Treatment How to Access Health Informa tion Online using Patient Portal and [employer] Indication:BMI 31.0-31.9,adult Start:06-Nov-2022 Instruction Type:Patient Education Patient Instructions Indication:COVID Start:17-Apr-2022 Instruction Type:Provider Instructions for Treatment Patient Instructions Indication:Non-smoker Start:20-Mar-2022 Instruction Type:Provider Instructions for Treatment How to Access Health Informa tion Online using Patient Portal and [employer] Indication:Non-smoker Start:20-Mar-2022 Instruction Type:Patient Education Patient Instructions Indication:Encounter for annual general medical examination with abnormal findings in adult Start:27-Feb-2022 Instruction Type:Provider Instructions for Treatment How to Access Health Informa tion Online using Patient Portal and [employer] Indication:Encounter for annual general medical examination with abnormal findings in adult Start:27-Feb-2022 Instruction Type:Patient Education Patient Instructions Indication:BMI 30.0-30.9,adult Start:23-Jan-2022 Instruction Type:Provider Instructions for Treatment How to Access Health Informa tion Online using Patient Portal and [employer] Indication:BMI 30.0-30.9,adult Start:23-Jan-2022 Instruction Type:Patient Education Patient Instructions Indication:CTS (carpal tunnel syndrome) Start:01-Dec-2021 Instruction Type:Provider Instructions for Treatment Patient Instructions Indication:Elevated high sensitivity C-reactive protein Start:17-Nov-2021 Instruction Type:Provider Instructions for Treatment How to Access Health Informa tion Online using Patient Portal and [employer] Indication:Elevated high sensitivity C-reactive protein Start:17-Nov-2021 Instruction Type:Patient Education Patient Instructions Indication:Encounter for annual general medical examination with abnormal findings in adult Start:20-Oct-2021 Instruction Type:Provider Instructions for Treatment How to Access Health Informa tion Online using Patient Portal and [employer] Indication:Encounter for annual general medical examination with abnormal findings in adult Start:20-Oct-2021 Instruction Type:Patient Education [facility]; [facility] Work Phone: Instructions* Name Dates Details Patient Instructions Indication:Non-smoker Start:06-Feb-2023 Instruction Type:Provider Instructions for Treatment How to Access Health Informa tion Online using Patient Portal and [employer] Indication:Non-smoker Start:06-Feb-2023 Instruction Type:Patient Education Patient Instructions Indication:BMI 31.0-31.9,adult Start:08-Jan-2023 Instruction Type:Provider Instructions for Treatment How to Access Health Informa tion Online using Patient Portal and [employer] Indication:BMI 31.0-31.9,adult Start:08-Jan-2023 Instruction Type:Patient Education Patient Instructions Indication:BMI 31.0-31.9,adult Start:06-Nov-2022 Instruction Type:Provider Instructions for Treatment How to Access Health Informa tion Online using Patient Portal and [employer] Indication:BMI 31.0-31.9,adult Start:06-Nov-2022 Instruction Type:Patient Education Patient Instructions Indication:COVID Start:17-Apr-2022 Instruction Type:Provider Instructions for Treatment Patient Instructions Indication:Non-smoker Start:20-Mar-2022 Instruction Type:Provider Instructions for Treatment How to Access Health Informa tion Online using Patient Portal and [employer] Indication:Non-smoker Start:20-Mar-2022 Instruction Type:Patient Education Patient Instructions Indication:Encounter for annual general medical examination with abnormal findings in adult Start:27-Feb-2022 Instruction Type:Provider Instructions for Treatment How to Access Health Informa tion Online using Patient Portal and [employer] Apps Indication:Encounter for annual general medical examination with abnormal findings in adult Start:27-Feb-2022 Instruction Type:Patient Education Patient Instructions Indication:BMI 30.0-30.9,adult Start:23-Jan-2022 Instruction Type:Provider Instructions for Treatment How to Access Health Informa tion Online using Patient Portal and [employer] Apps Indication:BMI 30.0-30.9,adult Start:23-Jan-2022 Instruction Type:Patient Education Patient Instructions Indication:CTS (carpal tunnel syndrome) Start:01-Dec-2021 Instruction Type:Provider Instructions for Treatment Patient Instructions Indication:Elevated high sensitivity C-reactive protein Start:17-Nov-2021 Instruction Type:Provider Instructions for Treatment How to Access Health Informa tion Online using Patient Portal and [employer] Apps Indication:Elevated high sensitivity C-reactive protein Start:17-Nov-2021 Instruction Type:Patient Education Patient Instructions Indication:Encounter for annual general medical examination with abnormal findings in adult Start:20-Oct-2021 Instruction Type:Provider Instructions for Treatment How to Access Health Informa tion Online using Patient Portal and [employer] Apps Indication:Encounter for annual general medical examination with abnormal findings in adult Start:20-Oct-2021 Instruction Type:Patient Education [facility]; [facility] Work Phone: Instructions* Name Dates Details Patient Instructions Indication:Non-smoker Start:06-Feb-2023 Instruction Type:Provider Instructions for Treatment How to Access Health Informa tion Online using Patient Portal and [employer] Apps Indication:Non-smoker Start:06-Feb-2023 Instruction Type:Patient Education Patient Instructions Indication:BMI 31.0-31.9,adult Start:08-Jan-2023 Instruction Type:Provider Instructions for Treatment How to Access Health Informa tion Online using Patient Portal and [employer] Apps Indication:BMI 31.0-31.9,adult Start:08-Jan-2023 Instruction Type:Patient Education Patient Instructions Indication:BMI 31.0-31.9,adult Start:06-Nov-2022 Instruction Type:Provider Instructions for Treatment How to Access Health Informa tion Online using Patient Portal and [employer] Apps Indication:BMI 31.0-31.9,adult Start:06-Nov-2022 Instruction Type:Patient Education Patient Instructions Indication:COVID Start:17-Apr-2022 Instruction Type:Provider Instructions for Treatment Patient Instructions Indication:Non-smoker Start:20-Mar-2022 Instruction Type:Provider Instructions for Treatment How to Access Health Informa tion Online using Patient Portal and [employer] Apps Indication:Non-smoker Start:20-Mar-2022 Instruction Type:Patient Education Patient Instructions Indication:Encounter for annual general medical examination with abnormal findings in adult Start:27-Feb-2022 Instruction Type:Provider Instructions for Treatment How to Access Health Informa tion Online using Patient Portal and [email or web address] Apps Indication:Encounter for annual general medical examination with abnormal findings in adult Start:27-Feb-2022 Instruction Type:Patient Education Patient Instructions Indication:BMI 30.0-30.9,adult Start:23-Jan-2022 Instruction Type:Provider Instructions for Treatment How to Access Health Informa tion Online using Patient Portal and [employer] Apps Indication:BMI 30.0-30.9,adult Start:23-Jan-2022 Instruction Type:Patient Education Patient Instructions Indication:CTS (carpal tunnel syndrome) Start:01-Dec-2021 Instruction Type:Provider Instructions for Treatment Patient Instructions Indication:Elevated high sensitivity C-reactive protein Start:17-Nov-2021 Instruction Type:Provider Instructions for Treatment How to Access Health Informa tion Online using Patient Portal and [employer] Apps Indication:Elevated high sensitivity C-reactive protein Start:17-Nov-2021 Instruction Type:Patient Education Patient Instructions Indication:Encounter for annual general medical examination with abnormal findings in adult Start:20-Oct-2021 Instruction Type:Provider Instructions for Treatment How to Access Health Informa tion Online using Patient Portal and [email or web address] Apps Indication:Encounter for annual general medical examination with abnormal findings in adult Start:20-Oct-2021 Instruction Type:Patient Education [facility]; [facility] Work Phone: Instructions* Name Dates Details Patient Instructions Indication:Non-smoker Start:16-Apr-2023 Instruction Type:Provider Instructions for Treatment How to Access Health Informa tion Online using Patient Portal and [employer] Apps Indication:Non-smoker Start:16-Apr-2023 Instruction Type:Patient Education Patient Instructions Indication:Non-smoker Start:06-Feb-2023 Instruction Type:Provider Instructions for Treatment How to Access Health Informa tion Online using Patient Portal and [employer] Apps Indication:Non-smoker Start:06-Feb-2023 Instruction Type:Patient Education Patient Instructions Indication:BMI 31.0-31.9,adult Start:08-Jan-2023 Instruction Type:Provider Instructions for Treatment How to Access Health Informa tion Online using Patient Portal and [employer] Apps Indication:BMI 31.0-31.9,adult Start:08-Jan-2023 Instruction Type:Patient Education Patient Instructions Indication:BMI 31.0-31.9,adult Start:06-Nov-2022 Instruction Type:Provider Instructions for Treatment How to Access Health Informa tion Online using Patient Portal and [employer] Apps Indication:BMI 31.0-31.9,adult Start:06-Nov-2022 Instruction Type:Patient Education Patient Instructions Indication:COVID Start:17-Apr-2022 Instruction Type:Provider Instructions for Treatment Patient Instructions Indication:Non-smoker Start:20-Mar-2022 Instruction Type:Provider Instructions for Treatment How to Access Health Informa tion Online using Patient Portal and [employer] Apps Indication:Non-smoker Start:20-Mar-2022 Instruction Type:Patient Education Patient Instructions Indication:Encounter for annual general medical examination with abnormal findings in adult Start:27-Feb-2022 Instruction Type:Provider Instructions for Treatment How to Access Health Informa tion Online using Patient Portal and [employer] Apps Indication:Encounter for annual general medical examination with abnormal findings in adult Start:27-Feb-2022 Instruction Type:Patient Education Patient Instructions Indication:BMI 30.0-30.9,adult Start:23-Jan-2022 Instruction Type:Provider Instructions for Treatment How to Access Health Informa tion Online using Patient Portal and [employer] Apps Indication:BMI 30.0-30.9,adult Start:23-Jan-2022 Instruction Type:Patient Education Patient Instructions Indication:CTS (carpal tunnel syndrome) Start:01-Dec-2021 Instruction Type:Provider Instructions for Treatment Patient Instructions Indication:Elevated high sensitivity C-reactive protein Start:17-Nov-2021 Instruction Type:Provider Instructions for Treatment How to Access Health Informa tion Online using Patient Portal and [employer] Apps Indication:Elevated high sensitivity C-reactive protein Start:17-Nov-2021 Instruction Type:Patient Education Patient Instructions Indication:Encounter for annual general medical examination with abnormal findings in adult Start:20-Oct-2021 Instruction Type:Provider Instructions for Treatment How to Access Health Informa tion Online using Patient Portal and [employer] Apps Indication:Encounter for annual general medical examination with abnormal findings in adult Start:20-Oct-2021 Instruction Type:Patient Education [facility]; [facility] Work Phone: Instructions* Name Dates Details Patient Instructions Indication:Non-smoker Start:16-Apr-2023 Instruction Type:Provider Instructions for Treatment How to Access Health Informa tion Online using Patient Portal and [employer] Apps Indication:Non-smoker Start:16-Apr-2023 Instruction Type:Patient Education Patient Instructions Indication:Non-smoker Start:06-Feb-2023 Instruction Type:Provider Instructions for Treatment How to Access Health Informa tion Online using Patient Portal and [employer] Apps Indication:Non-smoker Start:06-Feb-2023 Instruction Type:Patient Education Patient Instructions Indication:BMI 31.0-31.9,adult Start:08-Jan-2023 Instruction Type:Provider Instructions for Treatment How to Access Health Informa tion Online using Patient Portal and [employer] Apps Indication:BMI 31.0-31.9,adult Start:08-Jan-2023 Instruction Type:Patient Education Patient Instructions Indication:BMI 31.0-31.9,adult Start:06-Nov-2022 Instruction Type:Provider Instructions for Treatment How to Access Health Informa tion Online using Patient Portal and [employer] Apps Indication:BMI 31.0-31.9,adult Start:06-Nov-2022 Instruction Type:Patient Education Patient Instructions Indication:COVID Start:17-Apr-2022 Instruction Type:Provider Instructions for Treatment Patient Instructions Indication:Non-smoker Start:20-Mar-2022 Instruction Type:Provider Instructions for Treatment How to Access Health Informa tion Online using Patient Portal and [employer] Apps Indication:Non-smoker Start:20-Mar-2022 Instruction Type:Patient Education Patient Instructions Indication:Encounter for annual general medical examination with abnormal findings in adult Start:27-Feb-2022 Instruction Type:Provider Instructions for Treatment How to Access Health Informa tion Online using Patient Portal and [employer] Apps Indication:Encounter for annual general medical examination with abnormal findings in adult Start:27-Feb-2022 Instruction Type:Patient Education Patient Instructions Indication:BMI 30.0-30.9,adult Start:23-Jan-2022 Instruction Type:Provider Instructions for Treatment How to Access Health Informa tion Online using Patient Portal and [employer] Apps Indication:BMI 30.0-30.9,adult Start:23-Jan-2022 Instruction Type:Patient Education Patient Instructions Indication:CTS (carpal tunnel syndrome) Start:01-Dec-2021 Instruction Type:Provider Instructions for Treatment Patient Instructions Indication:Elevated high sensitivity C-reactive protein Start:17-Nov-2021 Instruction Type:Provider Instructions for Treatment How to Access Health Informa tion Online using Patient Portal and [employer] Apps Indication:Elevated high sensitivity C-reactive protein Start:17-Nov-2021 Instruction Type:Patient Education Patient Instructions Indication:Encounter for annual general medical examination with abnormal findings in adult Start:20-Oct-2021 Instruction Type:Provider Instructions for Treatment How to Access Health Informa tion Online using Patient Portal and [employer] Apps Indication:Encounter for annual general medical examination with abnormal findings in adult Start:20-Oct-2021 Instruction Type:Patient Education [facility]; [facility] Work Phone: Instructions* Name Dates Details Patient Instructions Indication:BMI 31.0-31.9,adult Start:15-May-2023 Instruction Type:Provider Instructions for Treatment How to Access Health Informa tion Online using Patient Portal and [employer] Apps Indication:BMI 31.0-31.9,adult Start:15-May-2023 Instruction Type:Patient Education Patient Instructions Indication:Non-smoker Start:16-Apr-2023 Instruction Type:Provider Instructions for Treatment How to Access Health Informa tion Online using Patient Portal and [employer] Apps Indication:Non-smoker Start:16-Apr-2023 Instruction Type:Patient Education Patient Instructions Indication:Non-smoker Start:06-Feb-2023 Instruction Type:Provider Instructions for Treatment How to Access Health Informa tion Online using Patient Portal and [employer] Apps Indication:Non-smoker Start:06-Feb-2023 Instruction Type:Patient Education Patient Instructions Indication:BMI 31.0-31.9,adult Start:08-Jan-2023 Instruction Type:Provider Instructions for Treatment How to Access Health Informa tion Online using Patient Portal and [employer] Apps Indication:BMI 31.0-31.9,adult Start:08-Jan-2023 Instruction Type:Patient Education Patient Instructions Indication:BMI 31.0-31.9,adult Start:06-Nov-2022 Instruction Type:Provider Instructions for Treatment How to Access Health Informa tion Online using Patient Portal and [employer] Apps Indication:BMI 31.0-31.9,adult Start:06-Nov-2022 Instruction Type:Patient Education Patient Instructions Indication:COVID Start:17-Apr-2022 Instruction Type:Provider Instructions for Treatment Patient Instructions Indication:Non-smoker Start:20-Mar-2022 Instruction Type:Provider Instructions for Treatment How to Access Health Informa tion Online using Patient Portal and [employer] Apps Indication:Non-smoker Start:20-Mar-2022 Instruction Type:Patient Education Patient Instructions Indication:Encounter for annual general medical examination with abnormal findings in adult Start:27-Feb-2022 Instruction Type:Provider Instructions for Treatment How to Access Health Informa tion Online using Patient Portal and [employer] Indication:Encounter for annual general medical examination with abnormal findings in adult Start:27-Feb-2022 Instruction Type:Patient Education Patient Instructions Indication:BMI 30.0-30.9,adult Start:23-Jan-2022 Instruction Type:Provider Instructions for Treatment How to Access Health Informa tion Online using Patient Portal and [employer] Indication:BMI 30.0-30.9,adult Start:23-Jan-2022 Instruction Type:Patient Education Patient Instructions Indication:CTS (carpal tunnel syndrome) Start:01-Dec-2021 Instruction Type:Provider Instructions for Treatment Patient Instructions Indication:Elevated high sensitivity C-reactive protein Start:17-Nov-2021 Instruction Type:Provider Instructions for Treatment How to Access Health Informa tion Online using Patient Portal and [employer] Indication:Elevated high sensitivity C-reactive protein Start:17-Nov-2021 Instruction Type:Patient Education Patient Instructions Indication:Encounter for annual general medical examination with abnormal findings in adult Start:20-Oct-2021 Instruction Type:Provider Instructions for Treatment How to Access Health Informa tion Online using Patient Portal and [email or web address] Indication:Encounter for annual general medical examination with abnormal findings in adult Start:20-Oct-2021 Instruction Type:Patient Education [facility]; [facility] Work Phone: Instructions* Name Dates Details Patient Instructions Indication:BMI 31.0-31.9,adult Start:04-Jun-2023 Instruction Type:Provider Instructions for Treatment How to Access Health Informa tion Online using Patient Portal and [employer] Apps Indication:BMI 31.0-31.9,adult Start:04-Jun-2023 Instruction Type:Patient Education Patient Instructions Indication:BMI 31.0-31.9,adult Start:15-May-2023 Instruction Type:Provider Instructions for Treatment How to Access Health Informa tion Online using Patient Portal and [employer] Apps Indication:BMI 31.0-31.9,adult Start:15-May-2023 Instruction Type:Patient Education Patient Instructions Indication:Non-smoker Start:16-Apr-2023 Instruction Type:Provider Instructions for Treatment How to Access Health Informa tion Online using Patient Portal and [employer] Apps Indication:Non-smoker Start:16-Apr-2023 Instruction Type:Patient Education Patient Instructions Indication:Non-smoker Start:06-Feb-2023 Instruction Type:Provider Instructions for Treatment How to Access Health Informa tion Online using Patient Portal and [employer] Apps Indication:Non-smoker Start:06-Feb-2023 Instruction Type:Patient Education Patient Instructions Indication:BMI 31.0-31.9,adult Start:08-Jan-2023 Instruction Type:Provider Instructions for Treatment How to Access Health Informa tion Online using Patient Portal and [employer] Apps Indication:BMI 31.0-31.9,adult Start:08-Jan-2023 Instruction Type:Patient Education Patient Instructions Indication:BMI 31.0-31.9,adult Start:06-Nov-2022 Instruction Type:Provider Instructions for Treatment How to Access Health Informa tion Online using Patient Portal and [employer] Apps Indication:BMI 31.0-31.9,adult Start:06-Nov-2022 Instruction Type:Patient Education Patient Instructions Indication:COVID Start:17-Apr-2022 Instruction Type:Provider Instructions for Treatment Patient Instructions Indication:Non-smoker Start:20-Mar-2022 Instruction Type:Provider Instructions for Treatment How to Access Health Informa tion Online using Patient Portal and [employer] Apps Indication:Non-smoker Start:20-Mar-2022 Instruction Type:Patient Education Patient Instructions Indication:Encounter for annual general medical examination with abnormal findings in adult Start:27-Feb-2022 Instruction Type:Provider Instructions for Treatment How to Access Health Informa tion Online using Patient Portal and [employer] Apps Indication:Encounter for annual general medical examination with abnormal findings in adult Start:27-Feb-2022 Instruction Type:Patient Education Patient Instructions Indication:BMI 30.0-30.9,adult Start:23-Jan-2022 Instruction Type:Provider Instructions for Treatment How to Access Health Informa tion Online using Patient Portal and [employer] Indication:BMI 30.0-30.9,adult Start:23-Jan-2022 Instruction Type:Patient Education Patient Instructions Indication:CTS (carpal tunnel syndrome) Start:01-Dec-2021 Instruction Type:Provider Instructions for Treatment Patient Instructions Indication:Elevated high sensitivity C-reactive protein Start:17-Nov-2021 Instruction Type:Provider Instructions for Treatment How to Access Health Informa tion Online using Patient Portal and [employer] Indication:Elevated high sensitivity C-reactive protein Start:17-Nov-2021 Instruction Type:Patient Education Patient Instructions Indication:Encounter for annual general medical examination with abnormal findings in adult Start:20-Oct-2021 Instruction Type:Provider Instructions for Treatment How to Access Health Informa tion Online using Patient Portal and [email or web address] Indication:Encounter for annual general medical examination with abnormal findings in adult Start:20-Oct-2021 Instruction Type:Patient Education [facility]; [facility] Work Phone: Summary Purpose Family History No Family History Records FoundUnknown Family Member Name Dates Details 2 adopted Bengali daughters Status:Active Father Comments:colon cancer 8 5yo. afib, Status:Active Maternal Grandfather Comments:heart issues in 70' s Status:Active Mother Comments:breast cancer in 70 's CHF, after hip fx 89 yo Status:Active Paternal Grandfather Comments: of heart issue s in 70's Status:Active Son 1 Status:Active Son 2 Status:Active Son 3 Status:Active Unknown Family Member Name Dates Details 2 adopted [place] daughters Status:Active Father Comments:colon cancer 8 5yo. afib, Status:Active Maternal Grandfather Comments:heart issues in 70' s Status:Active Mother Comments:breast cancer in 70 's CHF, after hip fx 89 yo Status:Active Paternal Grandfather Comments: of heart issue s in 70's Status:Active Son 1 Status:Active Son 2 Status:Active Son 3 Status:Active Unknown Family Member Name Dates Details 2 adopted [place] daughters Status:Active Father Comments:colon cancer 8 5yo. afib, Status:Active Maternal Grandfather Comments:heart issues in 70' s Status:Active Mother Comments:breast cancer in 70 's CHF, after hip fx 89 yo Status:Active Paternal Grandfather Comments: of heart issue s in 70's Status:Active Son 1 Status:Active Son 2 Status:Active Son 3 Status:Active Unknown Family Member Name Dates Details 2 adopted [place]ali daughters Status:Active Father Comments:colon cancer 8 5yo. afib, Status:Active Maternal Grandfather Comments:heart issues in 70' s Status:Active Mother Comments:breast cancer in 70 's CHF, after hip fx 89 yo Status:Active Paternal Grandfather Comments: of heart issue s in 70's Status:Active Son 1 Status:Active Son 2 Status:Active Son 3 Status:Active Unknown Family Member Name Dates Details 2 adopted [place] daughters Status:Active Father Comments:colon cancer 8 5yo. afib, Status:Active Maternal Grandfather Comments:heart issues in 70' s Status:Active Mother Comments:breast cancer in 70 's CHF, after hip fx 89 yo Status:Active Paternal Grandfather Comments: of heart issue s in 70's Status:Active Son 1 Status:Active Son 2 Status:Active Son 3 Status:Active Unknown Family Member Name Dates Details 2 adopted [place] daughters Status:Active Father Comments:colon cancer 8 5yo. afib, Status:Active Maternal Grandfather Comments:heart issues in 70' s Status:Active Mother Comments:breast cancer in 70 's CHF, after hip fx 89 yo Status:Active Paternal Grandfather Comments: of heart issue s in 70's Status:Active Son 1 Status:Active Son 2 Status:Active Son 3 Status:Active Unknown Family Member Name Dates Details 2 adopted [place] daughters Status:Active Father Comments:colon cancer 8 5yo. afib, Status:Active Maternal Grandfather Comments:heart issues in 70' s Status:Active Mother Comments:breast cancer in 70 's CHF, after hip fx 89 yo Status:Active Paternal Grandfather Comments: of heart issue s in 70's Status:Active Son 1 Status:Active Son 2 Status:Active Son 3 Status:Active Unknown Family Member Name Dates Details 2 adopted [place] daughters Status:Active Father Comments:colon cancer 8 5yo. afib, Status:Active Maternal Grandfather Comments:heart issues in 70' s Status:Active Mother Comments:breast cancer in 70 's CHF, after hip fx 89 yo Status:Active Paternal Grandfather Comments: of heart issue s in 70's Status:Active Son 1 Status:Active Son 2 Status:Active Son 3 Status:Active Unknown Family Member Name Dates Details 2 adopted [place] daughters Status:Active Father Comments:colon cancer 8 5yo. afib, Status:Active Maternal Grandfather Comments:heart issues in 70' s Status:Active Mother Comments:breast cancer in 70 's CHF, after hip fx 89 yo Status:Active Paternal Grandfather Comments: of heart issue s in 70's Status:Active Son 1 Status:Active Son 2 Status:Active Son 3 Status:Active Unknown Family Member Name Dates Details 2 adopted [place] daughters Status:Active Father Comments:colon cancer 8 5yo. afib, Status:Active Maternal Grandfather Comments:heart issues in 70' s Status:Active Mother Comments:breast cancer in 70 's CHF, after hip fx 89 yo Status:Active Paternal Grandfather Comments: of heart issue s in 70's Status:Active Son 1 Status:Active Son 2 Status:Active Son 3 Status:Active Unknown Family Member Name Dates Details 2 adopted [place] daughters Status:Active Father Comments:colon cancer 8 5yo. afib, Status:Active Maternal Grandfather Comments:heart issues in 70' s Status:Active Mother Comments:breast cancer in 70 's CHF, after hip fx 89 yo Status:Active Paternal Grandfather Comments: of heart issue s in 70's Status:Active Son 1 Status:Active Son 2 Status:Active Son 3 Status:Active Unknown Family Member Name Dates Details 2 adopted [place] daughters Status:Active Father Comments:colon cancer 8 5yo. afib, Status:Active Maternal Grandfather Comments:heart issues in 70' s Status:Active Mother Comments:breast cancer in 70 's CHF, after hip fx 89 yo Status:Active Paternal Grandfather Comments: of heart issue s in 70's Status:Active Son 1 Status:Active Son 2 Status:Active Son 3 Status:Active Unknown Family Member Name Dates Details 2 adopted [place] daughters Status:Active Father Comments:colon cancer 8 5yo. afib, Status:Active Maternal Grandfather Comments:heart issues in 70' s Status:Active Mother Comments:breast cancer in 70 's CHF, after hip fx 89 yo Status:Active Paternal Grandfather Comments: of heart issue s in 70's Status:Active Son 1 Status:Active Son 2 Status:Active Son 3 Status:Active Unknown Family Member Name Dates Details 2 adopted Bengali daughters Status:Active Father Comments:colon cancer 8 5yo. afib, Status:Active Maternal Grandfather Comments:heart issues in 70' s Status:Active Mother Comments:breast cancer in 70 's CHF, after hip fx 89 yo Status:Active Paternal Grandfather Comments: of heart issue s in 70's Status:Active Son 1 Status:Active Son 2 Status:Active Son 3 Status:Active Unknown Family Member Name Dates Details 2 adopted Bengali daughters Status:Active Father Comments:colon cancer 8 5yo. afib, Status:Active Maternal Grandfather Comments:heart issues in 70' s Status:Active Mother Comments:breast cancer in 70 's CHF, after hip fx 89 yo Status:Active Paternal Grandfather Comments: of heart issue s in 70's Status:Active Son 1 Status:Active Son 2 Status:Active Son 3 Status:Active Unknown Family Member Name Dates Details 2 adopted Bengali daughters Status:Active Father Comments:colon cancer 8 5yo. afib, Status:Active Maternal Grandfather Comments:heart issues in 70' s Status:Active Mother Comments:breast cancer in 70 's CHF, after hip fx 89 yo Status:Active Paternal Grandfather Comments: of heart issue s in 70's Status:Active Son 1 Status:Active Son 2 Status:Active Son 3 Status:Active Unknown Family Member Name Dates Details 2 adopted Bengali daughters Status:Active Father Comments:colon cancer 8 5yo. afib, Status:Active Maternal Grandfather Comments:heart issues in 70' s Status:Active Mother Comments:breast cancer in 70 's CHF, after hip fx 89 yo Status:Active Paternal Grandfather Comments: of heart issue s in 70's Status:Active Son 1 Status:Active Son 2 Status:Active Son 3 Status:Active Unknown Family Member Name Dates Details 2 adopted [place] daughters Status:Active Father Comments:colon cancer 8 5yo. afib, Status:Active Maternal Grandfather Comments:heart issues in 70' s Status:Active Mother Comments:breast cancer in 70 's CHF, after hip fx 89 yo Status:Active Paternal Grandfather Comments: of heart issue s in 70's Status:Active Son 1 Status:Active Son 2 Status:Active Son 3 Status:Active Unknown Family Member Name Dates Details 2 adopted Beng[place] daughters Status:Active Father Comments:colon cancer 8 5yo. afib, Status:Active Maternal Grandfather Comments:heart issues in 70' s Status:Active Mother Comments:breast cancer in 70 's CHF, after hip fx 89 yo Status:Active Paternal Grandfather Comments: of heart issue s in 70's Status:Active Son 1 Status:Active Son 2 Status:Active Son 3 Status:Active Unknown Family Member Name Dates Details 2 adopted [place] daughters Status:Active Father Comments:colon cancer 8 5yo. afib, Status:Active Maternal Grandfather Comments:heart issues in 70' s Status:Active Mother Comments:breast cancer in 70 's CHF, after hip fx 89 yo Status:Active Paternal Grandfather Comments: of heart issue s in 70's Status:Active Son 1 Status:Active Son 2 Status:Active Son 3 Status:Active Unknown Family Member Name Dates Details 2 adopted [place] daughters Status:Active Father Comments:colon cancer 8 5yo. afib, Status:Active Maternal Grandfather Comments:heart issues in 70' s Status:Active Mother Comments:breast cancer in 70 's CHF, after hip fx 89 yo Status:Active Paternal Grandfather Comments: of heart issue s in 70's Status:Active Son 1 Status:Active Son 2 Status:Active Son 3 Status:Active Relationship Condition Age at Onset Recorded Date/T luis manuel father Cardiac disease Unknown Malignant neoplasm of colon Unknown mother Malignant neoplasm of breast Unknown grandfather Cardiac disease Unknown Unknown Family Member Name Dates Details 2 adopted Bengali daughters Status:Active Father Comments:colon cancer 8 5yo. afib, Status:Active Maternal Grandfather Comments:heart issues in 70' s Status:Active Mother Comments:breast cancer in 70 's CHF, after hip fx 89 yo Status:Active Paternal Grandfather Comments: of heart issue s in 70's Status:Active Son 1 Status:Active Son 2 Status:Active Son 3 Status:Active Unknown Family Member Name Dates Details 2 adopted [place] daughters Status:Active Father Comments:colon cancer 8 5yo. afib, Status:Active Maternal Grandfather Comments:heart issues in 70' s Status:Active Mother Comments:breast cancer in 70 's CHF, after hip fx 89 yo Status:Active Paternal Grandfather Comments: of heart issue s in 70's Status:Active Son 1 Status:Active Son 2 Status:Active Son 3 Status:Active Unknown Family Member Name Dates Details 2 adopted Beng[place] daughters Status:Active Father Comments:colon cancer 8 5yo. afib, Status:Active Maternal Grandfather Comments:heart issues in 70' s Status:Active Mother Comments:breast cancer in 70 's CHF, after hip fx 89 yo Status:Active Paternal Grandfather Comments: of heart issue s in 70's Status:Active Son 1 Status:Active Son 2 Status:Active Son 3 Status:Active Unknown Family Member Name Dates Details 2 adopted [place] daughters Status:Active Father Comments:colon cancer 8 5yo. afib, Status:Active Maternal Grandfather Comments:heart issues in 70' s Status:Active Mother Comments:breast cancer in 70 's CHF, after hip fx 89 yo Status:Active Paternal Grandfather Comments: of heart issue s in 70's Status:Active Son 1 Status:Active Son 2 Status:Active Son 3 Status:Active Unknown Family Member Name Dates Details 2 adopted [place] daughters Status:Active Father Comments:colon cancer 8 5yo. afib, Status:Active Maternal Grandfather Comments:heart issues in 70' s Status:Active Mother Comments:breast cancer in 70 's CHF, after hip fx 89 yo Status:Active Paternal Grandfather Comments: of heart issue s in 70's Status:Active Son 1 Status:Active Son 2 Status:Active Son 3 Status:Active Unknown Family Member Name Dates Details 2 adopted [place] daughters Status:Active Father Comments:colon cancer 8 5yo. afib, Status:Active Maternal Grandfather Comments:heart issues in 70' s Status:Active Mother Comments:breast cancer in 70 's CHF, after hip fx 89 yo Status:Active Paternal Grandfather Comments: of heart issue s in 70's Status:Active Son 1 Status:Active Son 2 Status:Active Son 3 Status:Active Unknown Family Member Name Dates Details 2 adopted [place] daughters Status:Active Father Comments:colon cancer 8 5yo. afib, Status:Active Maternal Grandfather Comments:heart issues in 70' s Status:Active Mother Comments:breast cancer in 70 's CHF, after hip fx 89 yo Status:Active Paternal Grandfather Comments: of heart issue s in 70's Status:Active Son 1 Status:Active Son 2 Status:Active Son 3 Status:Active Unknown Family Member Name Dates Details 2 adopted [place] daughters Status:Active Father Comments:colon cancer 8 5yo. afib, Status:Active Maternal Grandfather Comments:heart issues in 70' s Status:Active Mother Comments:breast cancer in 70 's CHF, after hip fx 89 yo Status:Active Paternal Grandfather Comments: of heart issue s in 70's Status:Active Son 1 Status:Active Son 2 Status:Active Son 3 Status:Active Unknown Family Member Name Dates Details 2 adopted [place] daughters Status:Active Father Comments:colon cancer 8 5yo. afib, Status:Active Maternal Grandfather Comments:heart issues in 70' s Status:Active Mother Comments:breast cancer in 70 's CHF, after hip fx 89 yo Status:Active Paternal Grandfather Comments: of heart issue s in 70's Status:Active Son 1 Status:Active Son 2 Status:Active Son 3 Status:Active Unknown Family Member Name Dates Details 2 adopted [place] daughters Status:Active Father Comments:colon cancer 8 5yo. afib, Status:Active Maternal Grandfather Comments:heart issues in 70' s Status:Active Mother Comments:breast cancer in 70 's CHF, after hip fx 89 yo Status:Active Paternal Grandfather Comments: of heart issue s in 70's Status:Active Son 1 Status:Active Son 2 Status:Active Son 3 Status:Active Unknown Family Member Name Dates Details 2 adopted [place]ali daughters Status:Active Father Comments:colon cancer 8 5yo. afib, Status:Active Maternal Grandfather Comments:heart issues in 70' s Status:Active Mother Comments:breast cancer in 70 's CHF, after hip fx 89 yo Status:Active Paternal Grandfather Comments: of heart issue s in 70's Status:Active Son 1 Status:Active Son 2 Status:Active Son 3 Status:Active Unknown Family Member Name Dates Details 2 adopted Bengali daughters Status:Active Father Comments:colon cancer 8 5yo. afib, Status:Active Maternal Grandfather Comments:heart issues in 70' s Status:Active Mother Comments:breast cancer in 70 's CHF, after hip fx 89 yo Status:Active Paternal Grandfather Comments: of heart issue s in 70's Status:Active Son 1 Status:Active Son 2 Status:Active Son 3 Status:Active Unknown Family Member Name Dates Details 2 adopted Bengali daughters Status:Active Father Comments:colon cancer 8 5yo. afib, Status:Active Maternal Grandfather Comments:heart issues in 70' s Status:Active Mother Comments:breast cancer in 70 's CHF, after hip fx 89 yo Status:Active Paternal Grandfather Comments: of heart issue s in 70's Status:Active Son 1 Status:Active Son 2 Status:Active Son 3 Status:Active Unknown Family Member Name Dates Details 2 adopted [place] daughters Status:Active Father Comments:colon cancer 8 5yo. afib, Status:Active Maternal Grandfather Comments:heart issues in 70' s Status:Active Mother Comments:breast cancer in 70 's CHF, after hip fx 89 yo Status:Active Paternal Grandfather Comments: of heart issue s in 70's Status:Active Son 1 Status:Active Son 2 Status:Active Son 3 Status:Active Unknown Family Member Name Dates Details 2 adopted [place] daughters Status:Active Father Comments:colon cancer 8 5yo. afib, Status:Active Maternal Grandfather Comments:heart issues in 70' s Status:Active Mother Comments:breast cancer in 70 's CHF, after hip fx 89 yo Status:Active Paternal Grandfather Comments: of heart issue s in 70's Status:Active Son 1 Status:Active Son 2 Status:Active Son 3 Status:Active Unknown Family Member Name Dates Details 2 adopted [place] daughters Status:Active Father Comments:colon cancer 8 5yo. afib, Status:Active Maternal Grandfather Comments:heart issues in 70' s Status:Active Mother Comments:breast cancer in 70 's CHF, after hip fx 89 yo Status:Active Paternal Grandfather Comments: of heart issue s in 70's Status:Active Son 1 Status:Active Son 2 Status:Active Son 3 Status:Active Unknown Family Member Name Dates Details 2 adopted [place] daughters Status:Active Father Comments:colon cancer 8 5yo. afib, Status:Active Maternal Grandfather Comments:heart issues in 70' s Status:Active Mother Comments:breast cancer in 70 's CHF, after hip fx 89 yo Status:Active Paternal Grandfather Comments: of heart issue s in 70's Status:Active Son 1 Status:Active Son 2 Status:Active Son 3 Status:Active Unknown Family Member Name Dates Details 2 adopted [place] daughters Status:Active Father Comments:colon cancer 8 5yo. afib, Status:Active Maternal Grandfather Comments:heart issues in 70' s Status:Active Mother Comments:breast cancer in 70 's CHF, after hip fx 89 yo Status:Active Paternal Grandfather Comments: of heart issue s in 70's Status:Active Son 1 Status:Active Son 2 Status:Active Son 3 Status:Active Unknown Family Member Name Dates Details 2 adopted [place] daughters Status:Active Father Comments:colon cancer 8 5yo. afib, Status:Active Maternal Grandfather Comments:heart issues in 70' s Status:Active Mother Comments:breast cancer in 70 's CHF, after hip fx 89 yo Status:Active Paternal Grandfather Comments: of heart issue s in 70's Status:Active Son 1 Status:Active Son 2 Status:Active Son 3 Status:Active Advance Directives No Advanced Directives Records Found Name Dates Details Immunization Registry [place] - Effective on 07/18/2021. Expiration date unspecified Effective:18-Jul-2021 Name Dates Details Immunization Registry [place] - Effective on 07/18/2021. Expiration date unspecified Effective:18-Jul-2021 Name Dates Details Immunization Registry [place] - Effective on 07/18/2021. Expiration date unspecified Effective:18-Jul-2021 Name Dates Details Immunization Registry [place] - Effective on 07/18/2021. Expiration date unspecified Effective:18-Jul-2021 Name Dates Details Immunization Registry [place] - Effective on 07/18/2021. Expiration date unspecified Effective:18-Jul-2021 Name Dates Details Immunization Registry [place] - Effective on 07/18/2021. Expiration date unspecified Effective:18-Jul-2021 Advance Directive Response Recorded Date/ Time Living Will Yes April 14, 2020 1:37pm Power of Exhibit Electrician Yes April 14 1:37pm Name Dates Details Immunization Registry [place] - Effective on 07/18/2021. Expiration date unspecified Effective:18-Jul-2021 Name Dates Details Immunization Registry [place] - Effective on 07/18/2021. Expiration date unspecified Effective:18-Jul-2021 Name Dates Details Immunization Registry [place] - Effective on 07/18/2021. Expiration date unspecified Effective:18-Jul-2021 Name Dates Details Immunization Registry [place] - Effective on 07/18/2021. Expiration date unspecified Effective:18-Jul-2021 Name Dates Details Immunization Registry [place] - Effective on 07/18/2021. Expiration date unspecified Effective:18-Jul-2021 Name Dates Details Immunization Registry [place] - Effective on 07/18/2021. Expiration date unspecified Effective:18-Jul-2021 Name Dates Details Immunization Registry [place] - Effective on 07/18/2021. Expiration date unspecified Effective:18-Jul-2021 Name Dates Details Immunization Registry [place] - Effective on 07/18/2021. Expiration date unspecified Effective:18-Jul-2021 Name Dates Details Immunization Registry [place] - Effective on 07/18/2021. Expiration date unspecified Effective:18-Jul-2021 Name Dates Details Immunization Registry [place] - Effective on 07/18/2021. Expiration date unspecified Effective:18-Jul-2021 Name Dates Details Immunization Registry [place] - Effective on 07/18/2021. Expiration date unspecified Effective:18-Jul-2021 Name Dates Details Immunization Registry [place] - Effective on 07/18/2021. Expiration date unspecified Effective:18-Jul-2021 Advance Directive Response Recorded Date/ Time Advance Directives on File No Augus 2021 8:07am Advance Directives Yes April 10 022 8:07am Living Will Yes April 10, 2022 8:07am Power of Exhibit Electrician Yes April 10 8:07am Name Dates Details Immunization Registry [place] - Effective on 07/18/2021. Expiration date unspecified Effective:18-Jul-2021 Name Dates Details Immunization Registry [place] - Effective on 07/18/2021. Expiration date unspecified Effective:18-Jul-2021 Name Dates Details Immunization Registry [place] - Effective on 07/18/2021. Expiration date unspecified Effective:18-Jul-2021 Name Dates Details Immunization Registry [place] - Effective on 07/18/2021. Expiration date unspecified Effective:18-Jul-2021 Name Dates Details Immunization Registry [place] - Effective on 07/18/2021. Expiration date unspecified Effective:18-Jul-2021 Name Dates Details Immunization Registry [place] - Effective on 07/18/2021. Expiration date unspecified Effective:18-Jul-2021 Name Dates Details Immunization Registry [place] - Effective on 07/18/2021. Expiration date unspecified Effective:18-Jul-2021 Name Dates Details Immunization Registry [place] - Effective on 07/18/2021. Expiration date unspecified Effective:18-Jul-2021 Name Dates Details Immunization Registry [place] - Effective on 07/18/2021. Expiration date unspecified Effective:18-Jul-2021 Name Dates Details Immunization Registry [place] - Effective on 07/18/2021. Expiration date unspecified Effective:18-Jul-2021 Name Dates Details Immunization Registry [place] - Effective on 07/18/2021. Expiration date unspecified Effective:18-Jul-2021 Name Dates Details Immunization Registry [place] - Effective on 07/18/2021. Expiration date unspecified Effective:18-Jul-2021 Name Dates Details Immunization Registry [place] - Effective on 07/18/2021. Expiration date unspecified Effective:18-Jul-2021 Name Dates Details Immunization Registry [place] - Effective on 07/18/2021. Expiration date unspecified Effective:18-Jul-2021 Name Dates Details Immunization Registry [place] - Effective on 07/18/2021. Expiration date unspecified Effective:18-Jul-2021 Name Dates Details Immunization Registry [place] - Effective on 07/18/2021. Expiration date unspecified Effective:18-Jul-2021 Name Dates Details Immunization Registry [place] - Effective on 07/18/2021. Expiration date unspecified Effective:18-Jul-2021 Advance Directive Response Recorded Date/ Time Advance Directives Yes April 10 7:07am Living Will Yes April 10, 2022 7:07am Power of Exhibit Electrician Yes April 10 7:07am Chief Complaint and Reason for Visit Chief Complaint VIP CIM POSTMENOPAUSAL STATE E78.5 Hyperlipidemia Chief Complaint VIP CIM POSTMENOPAUSAL STATE E78.5 Hyperlipidemia ABDOMINAL MASS E78.5 Hyperlipidemia Chief Complaint VIP CIM POSTMENOPAUSAL STATE E78.5 Hyperlipidemia ABDOMINAL MASS E78.5 Hyperlipidemia CARPAL TUNNEL SYNDROME Chief Complaint E78.5 Hyperlipidemia ABDOMINAL MASS E78.5 Hyperlipidemia CARPAL TUNNEL SYNDROME DUE TO CTA/(BONEZZI) PULIDO, PERIPHERAL EDEMA Reason for Visit MVP (mitral valve pr olapse) Elevated coronary artery calcium score Essential hypertension Chief Complaint E78.5 Hyperlipidemia ABDOMINAL MASS E78.5 Hyperlipidemia CARPAL TUNNEL SYNDROME DUE TO CTA/(BONEZZI) PULIDO, PERIPHERAL EDEMA PANCREATIC CYST CAD Coronary artery disease ABN STRESS Reason for Visit Essential hypertensi on Chief Complaint XRAY SCREENING Additional Source Comments INFORMATION SOURCE (unrecogn ized section and content) DATE CREATED AUTHOR 02/15/2019 [facility] DATE CREATED AUTHOR AUTHOR'S ORGANIZ ATION 10/19/2021 [facility] DATE CREATED AUTHOR AUTHOR'S ORGANIZ ATION 01/08/2023 [facility] DATE CREATED AUTHOR AUTHOR'S ORGANIZ ATION 04/20/2024 [facility] ([place] DATE CREATED AUTHOR AUTHOR'S ORGANIZ ATION 11/11/2024 [facility] Goals (unrecognized section and content) Goals may be documented in a n alternate sectionGoals may be documented in an alternate sectionGoals may be documented in an alternate sectionGoals may be documented in an alternate sectionGoals may be documented in an alternate sectionGoals may be documented in an alternate section Care Teams (unrecognized sec tion and content) Team Status: Active Member Role Status Dates Dr. Eric Bourne MD Family Provider Active Dr. Debbie Chacon MD Primary Care Provider Active Team Status: Inactive Member Role Status Dates Dr. Debbie Chacon MD Primary Care Provider Active Dr. Get Sanchez MD Attending Provider Active Team Status: Inactive Member Role Status Dates Dr. Debbie Chacon MD Primary Care Provi hao, Attending Provider, Referring Provider Active FOR RECORDS PERTAINING TO PATIENTS WHO ARE OR HAVE BEEN ENROLLED IN A CHEMICAL DEPENDENCY/SUBSTANCEABUSE PROGRAM, SOME INFORMATION MAY BE OMITTED. This clinical summary was aggregated from multiple sources. Caution should be exercised in using it in the provision of clinical care. This summary normalizes information from multiple sources, and as a consequence, information in this document may materially change the coding, format and clinical context of patient data. In addition, data may be omitted in some cases. CLINICAL DECISIONS SHOULD BE BASED ON THE PRIMARY CLINICAL RECORDS. [employer]cont [facility]. provides no warranty or guarantee of the accuracy or completeness of information in this document.
[2025-03-01 08:09] LABS: D-Dimer Quantitative (DVT/PE) 1.04 FEU/ug/m (0.27-0.49)
--- NOTE | 2025-03-01 08:12 | CT_ITS ---
PROCEDURE: CTA CHEST W/WO CONTRAST 03/01/2025 REASON FOR EXAM: CHEST PAIN, ELEVATED D-DIMER, R/O PE TECHNIQUE: CTA axial imaging of the chest with intravenous contrast. Coronal and Sagittal reconstruction series were provided. 3D, 3D post processing, 3D reconstructions, Maximum intensity projection (MIPs) Volume rendering and Shaded surface rendering was provided. PATIENT PREPARATION: Per protocol CONTRAST: Isovue 370 VOLUME: 100mL One or more dose reduction techniques were used (e.g., Automated exposure control, adjustment of the mA and/or kV according to patient size, use of iterative reconstruction technique). RADIATION DOSE SUMMARY: DLP: 500 mGycm COMPARISON: CT chest 12/27/2021. FINDINGS: Hardware: None. Lymph nodes: No axillary, mediastinal or hilar lymphadenopathy. Heart: The heart is normal in size without pericardial effusion. The great vessels are normal in caliber. Moderate coronary artery and thoracic aortic calcifications. Pulmonary Vessels: No central filling defect within the segmental or subsegmental pulmonary arteries. Lungs and Airways: The central airways are patent. No suspicious pulmonary lesion. Minimal bibasilar atelectasis. No pleural effusion or pneumothorax. Upper Abdomen: The pancreatic head cyst is not well-visualized on current examination. Left renal cyst. Calcific plaque of the abdominal aorta. Bones: Cervical and thoracic spondylosis. CT/CTA Chest W/WO Contrast IMPRESSION: No acute pulmonary embolism. Reading Location: [id number]
[2025-03-01 08:34] LABS: Anion Gap 13 (5-15); BUN 21 mg/dL (4-19); BUN/Creat Ratio 23.5 RATIO (10-20); Calcium,Total 9.8 mg/dL (7.6-11.0); Carbon Dioxide 25.6 mmol/L (21.0-32.0); Chloride 101 mmol/L (98-108); EST Glomerular Filtration Rate 66 (>60); Glucose 129 mg/dL (70-99); Potassium 3.7 mmol/L (3.3-5.1); Sodium Level 140 mmol/L (133-145); Troponin T High Sensitivity 10 ng/L (<=14)
[2025-03-01 09:40] VITALS: BP 131/71; PULSE 74; RESP 21; O2SAT 99
[2025-03-01 10:02] LABS: Troponin T High Sens 2 HR 10 ng/L (<=14)
[2025-03-01 10:27] VITALS: BP 131/71; PULSE 74; RESP 21; TEMP 36.7; O2SAT 99
== END 2025-03-01 10:28 | disposition home or self-care (01) ==
PROVIDERS: Emergency Provider Emergency Medicine; PCP Internal Medicine; Visit Provider Emergency Medicine
DX: R07.9 Chest pain, unspecified (principal); I25.10 Atherosclerotic heart disease of native coronary artery without angina pectoris; E78.5 Hyperlipidemia, unspecified; Z87.891 Personal history of nicotine dependence; I10 Essential (primary) hypertension; Z79.82 Long term (current) use of aspirin; Z79.899 Other long term (current) drug therapy
CPT/HCPCS: 71045; 71275; 80048; 84484; 85025; 85379; 93005; 99283; Q9967; A4216

== ENCOUNTER → 2025-05-18 | Outpatient (CLI) | payer MEDICARE, BC, SELFPAY ==
--- NOTE | 2025-05-18 15:38 | CT_ITS ---
PROCEDURE: ABDOMEN W/WO IV CONTRAST 05/18/2025 REASON FOR EXAM: PANCREATIC CYST Follow-up examination. TECHNIQUE: Procedure Code: [id number] Modality: CT Procedure: ABDOMEN W/WO IV CONTRAST Multiplanar Sagittal and Coronal images were obtained. One or more dose reduction techniques were used (e.g., Automated exposure control, adjustment of the mA and/or kV according to patient size, use of iterative reconstruction technique. CONTRAST: Isovue-300 VOLUME: 100 mL RADIATION DOSE SUMMARY: CTDlvol: 23 mGy DLP: 1310.4 mGycm COMPARISON: Prior study dated March 27, 2022. FINDINGS: Lung bases: Minimal linear scarring at the left lung base. Liver: Diffuse fatty infiltration. Borderline hepatomegaly. Gallbladder: Unremarkable. Spleen: Normal size. Pancreas: Stable 1.4 cm 1.7 cm cyst in the body of the pancreas adjacent to the uncinate process. Adrenals: Unremarkable Kidneys: Stable 6.5 cm by 5 cm cyst in the posterior inferior aspect of the left kidney. Stable left parapelvic renal cysts. Bowel: Scattered sigmoid diverticula. Lymph nodes: Unremarkable. Vasculature: Scattered calcified plaques. Peritoneum / Retroperitoneum: Unremarkable Bones: Degenerative changes of the spine. CT/Abdomen W/WO IV Contrast IMPRESSION: Stable examination. Reading Location: [id number]
== END | disposition home or self-care (01) ==
LOC: CT 15:36
PROVIDERS: PCP Internal Medicine; Referring Provider Internal Medicine; Visit Provider Internal Medicine
DX: K86.2 Cyst of pancreas (principal)
CPT/HCPCS: 74170; Q9967

== ENCOUNTER → 2025-08-24 | Outpatient (CLI) | payer MEDICARE, BC, SELFPAY ==
[2025-08-24 10:48] LABS: Hematocrit 37.6 % (37-47); Hemoglobin 12.4 g/dL (12.0-15.0); Immature Granulocytes Count 0.010 X10^3/uL (0.0-0.0); Mean Corp Hgb Conc 33.0 g/dL (32-36); Mean Corpuscular Volume 89.5 fL (81-99); Mean Platelet Vol. 10.1 fl (6.2-12.0); NRBC Flagged by Analyzer 0 % (0-5); Platelet Count 231 K/mm3 (150-450); RBC Distribution Width CV 15.3 % (11.6-14.6); RBC Distribution Width SD 50.0 fl (35.1-43.9); Red Blood Count 4.20 M/mm3 (4.2-5.4); White Blood Count 5.4 K/mm3 (4.4-11.0)
[2025-08-24 11:10] LABS: AST(SGOT) 27 U/L (<=31); Alanine Aminotransfer ALT/SGPT 22 U/L (<=34); Albumin, Serum 4.2 g/dL (3.4-4.8); Alkaline Phosphatase 99 U/L (35-104); Anion Gap 13 (5-15); BUN 23 mg/dL (4-19); BUN/Creat Ratio 26.3 RATIO (10-20); Calcium,Total 9.6 mg/dL (7.6-11.0); Carbon Dioxide 26.0 mmol/L (21.0-32.0); Chloride 102 mmol/L (98-108); Globulin 2.9 g/dL (2.2-4.2); Glucose 113 mg/dL (70-99); Potassium 3.9 mmol/L (3.3-5.1)
[2025-08-25 08:08] LABS: CRP, High Sensitivity 12.01 mg/L (0.00-3.00)
== END | disposition home or self-care (01) ==
LOC: CIMLAB 09:05
PROVIDERS: PCP Internal Medicine; Referring Provider Internal Medicine; Visit Provider Internal Medicine
DX: I10 Essential (primary) hypertension (principal); R79.82 Elevated C-reactive protein (CRP)
CPT/HCPCS: 36415; 80053; 83036; 85025; 86141

== ENCOUNTER → 2025-09-01 | Outpatient (CLI) | payer MEDICARE, BC, SELFPAY ==
--- NOTE | 2025-09-01 11:00 | BI_ITS ---
EXAM: SCRN MAMM (CAD)W/SU BILAT DATE: 09/01/2025 CLINICAL HISTORY: F, Age 80 y/o , SCRN MAMM (CAD)W/SU BILAT TECHNIQUE: Procedure Code: [id number] Modality: MG Procedure: SCRN MAMM (CAD)W/SU BILAT COMPARISON: Prior exam(s) were compared FINDINGS: TISSUE DENSITY: There are scattered areas of fibroglandular density. Bilateral Breast Mammographic Findings: No suspicious masses, calcifications or other abnormalities are identified. Bilateral typically benign calcifications. BI/SCRN MAMM (CAD)W/SU BILAT IMPRESSION: No mammographic evidence of malignancy. OVERALL FINAL ASSESSMENT BI-RADS 2: BENIGN RECOMMENDATION: Routine annual follow-up in 1 Year Additional Recommendation none A letter with findings and recommendations will be mailed to the patient. Reading Location: [id number]
== END | disposition home or self-care (01) ==
PROVIDERS: PCP Internal Medicine; Referring Provider Internal Medicine; Visit Provider Internal Medicine
DX: Z12.31 Encounter for screening mammogram for malignant neoplasm of breast (principal)
CPT/HCPCS: 77063; 77067